=== PATIENT | female | born 1955 | race Caucasian/White ===

== ENCOUNTER 2020-11-13 07:32 | Outpatient (REF) | payer MEDICARE, MEDICAID, SELFPAY ==
[2020-11-13 10:50] LABS: MANUAL DIFF FLAG NO
[2020-11-13 10:54] LABS: Eosinophils Absolute Auto 0.2 X10*3/uL (0.0-0.4); Eosinophils Percent Auto 5.8 % (0-4); Hematocrit 40.5 % (37-47); Hemoglobin 13.5 g/dl (12.0-16.0); Lymphocytes Absolute Auto 1.3 X10*3/uL (1.2-4.9); Lymphocytes Percent Auto 42.3 % (20-40); Mean Corpuscular HGB Conc 33.3 g/dl (31.0-35.0); Mean Corpuscular Hemoglobin 34.9 pg (27.0-33.0); Mean Corpuscular Volume 104.7 fL (80-98); Mean Platelet Volume 10.9 fL (9.4-12.3); Monocytes Absolute Auto 0.4 X10*3/uL (0.1-1.2); Monocytes Percent Auto 11.9 % (2-11); Neutrophils Absolute Auto 1.2 X10*3/uL (2.0-8.3); Platelet Count 117 X10*3/uL (160-400); Red Blood Count 3.87 X10*6/uL (4.20-5.50); Red Cell Distribution Width 13.7 % (11.0-16.0); White Blood Count 3.1 X10*3/uL (4.8-10.8)
[2020-11-13 11:28] LABS: Alanine Aminotransferase 22 U/L (0-31); Albumin Level 3.3 g/dL (3.5-5.0); Alkaline Phosphatase 168 U/L (39-117); Anion Gap 12 (12-20); Aspartate Amino Transferase 43 U/L (5-31); Bilirubin Total 1.4 mg/dL (0.0-1.0); Blood Urea Nitrogen 16 mg/dL (9-16); Calcium 8.4 mg/dL (8.4-10.2); Carbon Dioxide 29 mmol/L (22-29); Chloride 103 mmol/L (96-108); Cholesterol 168 mg/dL; Estimated Glomerular Filt Rate > 60; Glucose Fasting 88 mg/dL (60-99); HDL Cholesterol 56 mg/dL; LDL Cholesterol Calculated 96 mg/dl; Potassium 4.7 mmol/L (3.3-5.1); Sodium 139 mmol/L (135-145); Total Protein 6.3 g/dL (6.5-8.0); Triglycerides 83 mg/dL
[2020-11-13 11:46] LABS: Vitamin D 25-OH Total 17.7 ng/mL (>30)
[2020-11-15 18:21] LABS: TS Negative Control Passed; TS Panel A 0; TS Panel B 0; TS Positive Control Passed; TSpotTB Negative (SeeBelow)
== END 2020-11-13 07:33 | disposition home or self-care (01) ==
LOC: HO.LHD 07:32
PROVIDERS: Visit Provider Internal Medicine
DX: I10 Essential (primary) hypertension (principal); E66.01 Morbid (severe) obesity due to excess calories; I48.21 Permanent atrial fibrillation; I50.32 Chronic diastolic (congestive) heart failure; M05.9 Rheumatoid arthritis with rheumatoid factor, unspecified; Z79.01 Long term (current) use of anticoagulants; Z78.0 Asymptomatic menopausal state
CPT/HCPCS: 36415; 80053; 80061; 82306; 85025; 86481

== ENCOUNTER → 2021-02-26 10:28 | Outpatient (REF) | payer MEDICARE, SELFPAY ==
--- NOTE | 2021-02-26 10:33 | CA_ITS ---
Transthoracic Echocardiogram Patient (Last, First, Middle): Zulma Weaver E Gender: Female Date of : 1955 Age: 65 Procedure Date: 02/26/2021 Procedure Type: Transthoracic Echocardiogram Location: OP Height: 193.04 cm Weight: 183.71 kg BSA: 2.99 m2 Heart Rate: bpm BP: 122 / 87 mmHg Animal Groomer: Ramesh MD: Bobby Kim MD Ladle Liner: Fred Villavicencio MD Symptoms: permanent afib Study Quality: Good ECG Rhythm: Atrial Fibrillation Conclusions: - 1. Normal LV systolic function with LVEF of 60 65% 2. Severe biatrial enlargement 3. Mild mitral regurgitation 4. Normal RV systolic pressure 5. No gross pericardial effusion Findings Left Ventricle Normal left ventricular size, thickness, and systolic function. The visually estimated ejection fraction is between 60-65%. Diastolic function is indeterminate on the basis of available data. Right Ventricle Normal right ventricular cavity size and systolic function. Atria Severe biatrial enlargement. Interatrial shunt cannot be excluded. Aortic Valve Normal aortic valve structure and function. There is no aortic valve stenosis. There is no aortic valve regurgitation. Mitral Valve There is mild anterior and moderate posterior mitral leaflet thickening. There is moderate mitral annular calcification. There is mild mitral valve regurgitation. There is no mitral valve stenosis. Tricuspid Valve Normal tricuspid valve structure. There is mild to moderate tricuspid valve regurgitation. Normal right atrial pressure. There is no evidence of pulmonary hypertension. Great Vessels All visible segments of the aorta are normal in size. The pulmonary artery was not well visualized. Venous The inferior vena cava is normal in size and collapses greater than 50% with inspiration. Pericardium/Pleural There is no evidence of pericardial effusion. Prior Study Comparison No significant change compared to prior study dated: 01/14/2020. Measurements 2D Linear Measurements RVIDd: 3.65 RVIDd Index: 0.20 IVSd: 1.05 0.6-0.9/0.6-1.0 cm LVIDd: 5.43 3.9-5.3/4.2-5.9 cm LVIDd Index: 0.30 2.4-3.2/2.2-3.1 cm/m2 LVIDs: 3.42 2.0-3.6 cm LVPWd: 1.18 0.7-1.1 cm Ao Root: 3.10 2.1-3.5 cm LA Diam: 8.50 2.7-3.8/3.0-4.0 cm LAIDs Index: 0.47 1.5-2.3 cm/m2 LV Mass: 300.93 67-162/88-224 g LV Mass Index: 16.61 43-95/49-115 g/m2 LVOT Diam: 2.20 3.0+(-)1.3 cm 2D Systolic Function EF 4C: 39.00 >55% EF 2C: 70.10 >55% Mitral Valve MR Vol - PW Dopp: 41.08 MR VTI: 1.58 MR ERO: 26.00 MR Alias Chava: 0.39 MR RAD: 0.70 Aortic Valve AoV Pk Chava: 1.55 AoV Mn Chava: 1.18 AoV VTI: 0.35 AoV Pk Grad: 10.00 Aov Mn Grad: 6.00 JAYESH Cont.VTI: 2.30 LVOT LVOT Pk Chava: 1.04 LVOT Mn Chava: 0.69 LVOT VTI: 0.21 LVOT Pk Grad: 4.00 LVOT Mn Grad: 2.00 LVOT Diam: 2.20 LVOT Area: 3.80 Tricuspid Valve TR Pk Chava: 2.91 TR Pk Grad: 34.00 RA Press: 3.00 RVSP: 37.00 Great Vessels Aorta Ao Root-2D: 3.10 2.0-3.7 cm Ao Asc: 3.50 2.1-3.4 cm Ao Arch: 3.20 Updated in Other Vendor System with Status of Final Fred Villavicencio MD electronically signed on 02/26/2021 3:31:07 PM with status of Final
--- NOTE | 2021-02-26 10:40 | ECG_ITS ---
Hook-up date: 2021-02-26 11:49:00 Duration: 26:28:00 Test Indications: PERMANENT ATRIAL FIB Medications: 78013 QRS complexes 122 Ventricular ectopics which represent <1 % of total QRS comp. * Supraventricular ectopics which represent % of total QRS comp. * Paced QRS complexs which represent % of total QRS comp. VENTRICULAR ECTOPY 122 Isolated 0 Bigeminal Cycles 0 Couplets 0 Runs 0 Beats in Runs * Beats LONGEST at * BPM at :: -- * Beats FASTEST at * BPM at :: -- SUPRAVENTRICULAR ECTOPY * Isolated * Couplets * Runs * Beats in Runs * Beats LONGEST at * BPM at :: -- * Beats FASTEST at * BPM at :: -- HEART RATES 47 MIN at 14:56:57 2021-02-26 75 AVG 131 MAX at 12:13:34 2021-02-26 LONGEST RR 2.0800 secs at 16:16:45 2021-02-26 S-T LEVELS Channel 1 - 128 mm at 11:49:00 2021-02-26 - 128 mm at 11:49:00 2021-02-26 Channel 2 - 128 mm at 11:49:00 2021-02-26 - 128 mm at 11:49:00 2021-02-26 Channel 3 - 128 mm at 03:10:81 -- - 128 mm at 03:10:81 Basic rhythm Atrial fibrillation No long pause or profound bradycardia Good overall rate control with average HR of 75 bpm Rare Premature ventricular complexes Patient did not report any symptoms in the diary Referred By: Bobby Kim Overread By: ALE ROBERTS MD
== END ==
LOC: HO.CARD 10:28
PROVIDERS: PCP Internal Medicine; Visit Provider Internal Medicine
DX: I48.21 Permanent atrial fibrillation (principal); I50.32 Chronic diastolic (congestive) heart failure
CPT/HCPCS: 93225; 93226; 93306; Q9957

== ENCOUNTER 2021-04-08 13:20 | Outpatient (REF) | payer MEDICARE, SELFPAY ==
--- NOTE | ~2021-04-08 | XR_ITS ---
EXAMINATION: XR SHOULDER, LEFT CLINICAL INFORMATION: Injury COMPARISON: None TECHNIQUE: 3 views of the left shoulder. FINDINGS: Bone alignment is normal. No fracture or dislocation is seen. The glenohumeral joint is normal. 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 There are periarticular soft tissue ossifications. XR/XR shoulder LT min 2V IMPRESSION: No fracture or dislocation. Arthritis at the acromioclavicular joint. Periarticular soft tissue ossifications.
== END 2021-04-08 13:21 | disposition home or self-care (01) ==
LOC: HO.HMGCX 13:20
PROVIDERS: PCP Internal Medicine; Visit Provider Nurse Practitioner Family
DX: Z13.89 Encounter for screening for other disorder (principal)
CPT/HCPCS: 73030

== ENCOUNTER 2021-11-24 12:31 | Outpatient (REF) | payer OTHER, SELFPAY ==
--- NOTE | ~2021-11-24 | MM_ITS ---
EXAMINATION: MM SCREENING DIGITAL BREAST TOMOSYNTHESIS, BILATERAL CLINICAL INFORMATION: Screening. Asymptomatic. The lifetime risk of breast cancer based on the Tyrer-Cuzick Model is 21.3%. Additional annual screening with breast MRI may be of benefit in women with a score of 20% or greater. COMPARISON: Mammography: March 04, 2016 and studies dating back to May 18, 2010 TECHNIQUE: Digital breast tomosynthesis is performed in both the craniocaudal and mediolateral oblique views along with computer-aided detection (CAD). Synthesized 2D images are generated from the tomosynthesis. FINDINGS: The breasts are almost entirely fatty (ACR BI-RADS breast composition Category a). There are no significant masses, abnormal calcifications, or other abnormalities. MM/MM tomosynthesis screening BI IMPRESSION: There are no significant changes from prior study. ASSESSMENT: BI-RADS 1: Negative RECOMMENDATION: Routine annual mammography screening. This patient's information was entered into a reminder system with a target due date for their next mammogram.
== END 2021-11-24 12:32 | disposition home or self-care (01) ==
LOC: HO.MAMMO 12:31
PROVIDERS: PCP Internal Medicine; Visit Provider Internal Medicine
DX: Z12.31 Encounter for screening mammogram for malignant neoplasm of breast (principal)
CPT/HCPCS: 77063; 77067

== ENCOUNTER 2022-05-20 08:25 | Outpatient (REF) | payer OTHER, SELFPAY ==
[2022-05-20 09:47] LABS: Appearance Urine Clear; Color Urine Dark Yellow; Glucose Urine UA Negative (Negative); Leukocyte Esterase Urine Small (1+) (Negative); Nitrite Urine Negative (Negative); Specific Gravity - Urine 1.025 (1.005-1.025); UMIC TRIGGER UACC YES; Urine Blood Negative (Negative); Urine Ketones Negative (Negative); Urine Protein Negative (Neg-Trace)
[2022-05-20 09:52] LABS: Bacteria Urine None Seen (None Seen); Hyaline Casts Urine 0-2 /LPF (0-2); RBC Urine 0-2 /HPF (0-2); Squamous Epithelial Cell Urine 0-2 /HPF (0-2); UACC Culture Trigger YES; WBC Urine 21-50 /HPF (0-5)
[2022-05-20 10:11] LABS: Anion Gap 12 (12-20); Blood Urea Nitrogen 20 mg/dL (9-16); Carbon Dioxide 30 mmol/L (22-29); Chloride 101 mmol/L (96-108); Estimated Glomerular Filt Rate > 60; Glucose Random 93 mg/dL (60-115); Potassium 4.4 mmol/L (3.3-5.1); Sodium 139 mmol/L (135-145)
== END 2022-05-20 08:26 | disposition home or self-care (01) ==
LOC: HO.LAB 08:25
PROVIDERS: PCP Internal Medicine; Referring Provider Internal Medicine; Visit Provider Internal Medicine
DX: I48.21 Permanent atrial fibrillation (principal); I50.32 Chronic diastolic (congestive) heart failure; G47.33 Obstructive sleep apnea (adult) (pediatric); E66.01 Morbid (severe) obesity due to excess calories; E83.119 Hemochromatosis, unspecified; Z79.899 Other long term (current) drug therapy; Z99.89 Dependence on other enabling machines and devices
CPT/HCPCS: 36415; 80048; 81001; 87086; 93005; 99212

== ENCOUNTER → 2022-06-29 13:36 | Outpatient (BNVA) | payer OTHER, SELFPAY | PROVIDERS: PCP Internal Medicine; Visit Provider Internal Medicine Pulmonary Disease | DX: G47.33 Obstructive sleep apnea (adult) (pediatric) (principal); J45.30 Mild persistent asthma, uncomplicated; Z99.89 Dependence on other enabling machines and devices | CPT/HCPCS: 99212 ==

== ENCOUNTER 2022-11-26 12:51 | Outpatient (REF) | payer OTHER, SELFPAY ==
--- NOTE | ~2022-11-26 | MM_ITS ---
EXAMINATION: MM SCREENING DIGITAL BREAST TOMOSYNTHESIS, BILATERAL CLINICAL INFORMATION: Screening. Asymptomatic. The lifetime risk of breast cancer based on the Tyrer-Cuzick Model is 17%. COMPARISON: Mammography: 11/24/2021, 03/04/2016, 11/09/2013 TECHNIQUE: Digital breast tomosynthesis is performed in both the craniocaudal and mediolateral oblique views along with computer-aided detection (CAD). Synthesized 2D images are generated from the tomosynthesis. Additional right cleavage and left CC views are provided. FINDINGS: The breasts are almost entirely fatty (ACR BI-RADS breast composition Category a). Breasts are slightly symmetrically smaller when compared with prior studies consistent with interval weight loss. The axilla and skin contours are unremarkable. No abnormal calcifications. Right breast shows stromal and fibroglandular densities similar to prior exam. There is no developing density or interval architectural abnormality. Left breast has incidental intramammary node mid outer breast similar to prior studies. There is subtle focal asymmetric density central left breast mid depth. Patient will be recalled for additional views. MM/MM tomosynthesis screening BI IMPRESSION: Left: -Subtle focal asymmetric density central breast mid depth. Right: -No mammographic evidence of malignancy. ASSESSMENT: BI-RADS 0: Incomplete - Need Additional Imaging Evaluation RECOMMENDATION: 1. Additional views left breast (spot CC, ML). 2. Targeted ultrasound if warranted after review of the additional views. 3. Radiology department staff will contact the patient for additional imaging. This patient's information was entered into a reminder system with a target due date for their next mammogram.
== END 2022-11-26 12:52 | disposition home or self-care (01) ==
LOC: HO.MAMMO 12:51
PROVIDERS: PCP Internal Medicine; Visit Provider Internal Medicine
DX: Z12.31 Encounter for screening mammogram for malignant neoplasm of breast (principal)
CPT/HCPCS: 77063; 77067

== ENCOUNTER 2022-12-01 09:25 | Outpatient (REF) | payer OTHER, SELFPAY ==
--- NOTE | ~2022-12-01 | MM_ITS ---
EXAMINATION: MM DIAGNOSTIC DIGITAL BREAST TOMOSYNTHESIS, LEFT US TARGETED BREAST, LEFT CLINICAL INFORMATION: Asymmetric parenchyma central left breast. COMPARISON: Mammography: 11/26/2022 and studies dating back to 11/09/2013 TECHNIQUE: Digital breast tomosynthesis is performed. 2D images are generated from the tomosynthesis. The following views are obtained: Spot craniocaudal view, 90 degrees mediolateral view, and rolled craniocaudal views. FINDINGS: The breasts are almost entirely fatty (ACR BI-RADS breast composition Category a). There is some asymmetric tissue present which appears slightly more prominent than on prior study of 11/24/2021 and is difficult to compare to previous non-3-D studies. No definite focal mass is identified. Targeted ultrasound evaluation of the left breast did not demonstrate any abnormal cystic or solid mass. No region of abnormal distal sound shadowing was appreciated. Results are discussed with the patient at time of visit. MM/MM tomosynthesis added views L IMPRESSION: Mildly asymmetric parenchyma central aspect of the left breast for which 6 month follow-up mammography is recommended. ASSESSMENT: BI-RADS 3: Probably Benign RECOMMENDATION: Diagnostic mammography in 6 months. This patient's information was entered into a reminder system with a target due date for their next mammogram.
== END 2022-12-01 09:26 | disposition home or self-care (01) ==
LOC: HO.MAMMO 09:25
PROVIDERS: PCP Internal Medicine; Visit Provider Internal Medicine
DX: R92.2 Inconclusive mammogram (principal)
CPT/HCPCS: 76642; 77061; 77065

== ENCOUNTER 2022-12-29 12:22 | Emergency (ER) | payer OTHER, SELFPAY ==
--- NOTE | ~2022-12-29 | US_ITS ---
EXAMINATION: US VENOUS ULTRASOUND WITH DOPPLER LOWER EXTREMITY, LEFT CLINICAL INFORMATION: Left lower extremity swelling and pain COMPARISON: None available. TECHNIQUE: Ultrasound of the deep veins is performed from the hip to the calf with compression sonography and color and pulse Doppler assessment. Spectral analysis with color-flow imaging is performed. FINDINGS: There is normal venous compression and respiratory variation and augmented flow. The visualized common femoral vein, superficial femoral vein, profunda femoral vein, popliteal vein, and the trifurcation region shows no evidence of deep venous thrombosis. There is no significant popliteal fossa cyst. Superficial varicose veins however are seen in the posterior calf If the patient's symptoms persist, followup ultrasound in 5 days 7 days might be of value to exclude proximal propagation from a non-visualized calf vein. US/US venous duplex LE LT IMPRESSION: No DVT demonstrated in the left lower extremity. Patent superficial varicosities are observed in the calf.
--- NOTE | 2022-12-29 12:33 | ED.GENADULT ---
HPI - General Adult General Chief complaint: Extremity Injury, Lower <VICTOR M Pompa Last Filed: 12/29/22 12:34> Stated complaint: L lower vain issues <VICTOR M Pompa Last Filed: 12/29/22 12:34> Time Seen by Provider: 12/29/22 13:33 <VICTOR M Pompa Last Filed: 12/29/22 12:34> Source: patient <VICTOR M Heaton Last Filed: 12/29/22 17:57> Mode of arrival: ambulatory <VICTOR M Heaton Last Filed: 12/29/22 17:57> Limitations: no limitations <VICTOR M Heaton Last Filed: 12/29/22 17:57> History of Present Illness HPI narrative: Patient is a 67 year old assigned female at with a history of varicose veins, HTN, and phlebitis presenting to the emergency department today with left lower leg swelling. Patient states that she noticed additional swelling of her varicose veins over the last couple days and she is concerned about a blood clot. Patient states that she is on warfarin and gets her INR checked regularly. Patient denies any dizziness, lightheadedness, abdominal pain, nausea, vomiting, fever, chills, blurry vision, double vision, loss of vision, chest pain, difficulty breathing, shortness of breath, back pain, night sweats, pain with urination, increased urinary frequency, increased urinary urgency, blood in her urine or stool, syncope or a near syncopal episode, recent trauma or falls, bowel incontinence, bladder incontinence, bowel retention, bladder retention, or any other complaints at this time. <VICTOR M Heaton Last Filed: 12/29/22 17:57> Onset (ago): day(s) <VICTOR M Heaton Last Filed: 12/29/22 17:57> Location: left and lower extremity <VICTOR M Heaton Last Filed: 12/29/22 17:57> Severity: mild <VICTOR M Heaton Last Filed: 12/29/22 17:57> Relieving factors: none <VICTOR M Heaton Last Filed: 12/29/22 17:57> Exacerbating factors: none <VICTOR M Heaton Last Filed: 12/29/22 17:57> Associated symptoms: denies other symptoms <VICTOR M Heaton Last Filed: 12/29/22 17:57> Treatments prior to arrival: none <VICTOR M Heaton Last Filed: 12/29/22 17:57> Related Data Home medications: Home Medications Medication Instructions Recorded Confirmed tramadol 50 mg tablet 50 mg PO Q6H PRN 06/02/20 05/20/22 etanercept 50 mg/mL (1 mL) 50 mg subcut QWEEK 08/15/20 05/20/22 subcutaneous syringe folic acid 1 mg tablet 1 mg PO DAILY 08/15/20 05/20/22 carboxymethylcellulose sodium 0.5 1 drp ophthalmic (eye) BID 12/28/22 % eye drops (Refresh Tears) Previous Rx's Medication Instructions Recorded metoprolol succinate 50 mg 50 mg PO DAILY #90 tabs 05/20/22 tablet,extended release 24 hr (Toprol XL) furosemide 40 mg tablet 80 mg PO DAILY #180 tabs 07/22/22 warfarin 10 mg tablet 10 mg PO DAILY #90 tabs 07/22/22 <VICTOR M Pompa Last Filed: 12/29/22 12:34> Allergies/adverse reactions: Allergies Allergy/AdvReac Type Severity Reaction Status Date / Time No Known Allergies Allergy Verified 12/29/22 12:37 <VICTOR M Pompa Last Filed: 12/29/22 12:34> Review of Systems Constitutional: Constitutional: Reports no additional constitutional complaints, Denies chills, Denies fever(s) and Denies night sweats <VICTOR M Heaton Last Filed: 12/29/22 17:57> Eyes: Eyes: Reports no additional eye complaints, Denies blurry vision, Denies change in vision, Denies diplopia, Denies eye discharge, Denies loss of vision and Denies eye pain <VICTOR M Heaton Last Filed: 12/29/22 17:57> ENT: Denies dizziness <VICTOR M Heaton Last Filed: 12/29/22 17:57> Cardiovascular: Cardiovascular: Reports no additional cardiovascular complaints, Denies chest pain, Denies lightheadedness, Denies Loss of Consciousness and Denies dyspnea <VICTOR M Heaton Last Filed: 12/29/22 17:57> Respiratory: Respiratory: Reports no additional respiratory complaints and Denies dyspnea <VICTOR M Heaton Last Filed: 12/29/22 17:57> Gastrointestinal: Gastrointestinal: Reports no additional gastrointestinal complaints, Denies abdominal pain, Denies melena, Denies hematochezia, Denies change in bowel habits and Denies change in stool character <VICTOR M Heaton Last Filed: 12/29/22 17:57> Genitourinary: Genitourinary: Denies hematuria, Denies urinary frequency, Denies dysuria, Denies urinary incontinence, Denies urinary hesitancy and Denies urinary urgency <VICTOR M Heaton Last Filed: 12/29/22 17:57> Musculoskeletal: Musculoskeletal: Reports no additional musculoskeletal complaints, Denies numbness and Denies tingling <VICTOR M Haeton Last Filed: 12/29/22 17:57> Comments: left lower leg swelling <VICTOR M Heaton Last Filed: 12/29/22 17:57> Neurologic: Denies dizziness, Denies loss of vision, Denies numbness and Denies tingling <VICTOR M Heaton Last Filed: 12/29/22 17:57> Psychiatric: Psychiatric: Reports no additional psychiatric complaints <VICTOR M Heaton Last Filed: 12/29/22 17:57> Endocrine: Endocrine: Reports no additional endocrine complaints <VICTOR M Heaton Last Filed: 12/29/22 17:57> Hematologic/Lymphatic: Hematologic/Lymphatic: Reports no additional hematologic/lymphatic complaints <VICTOR M Heaton Last Filed: 12/29/22 17:57> Allergic/Immunologic: Allergic/Immunologic: Reports no additional allergic/immunologic complaints <VICTOR M Heaton Last Filed: 12/29/22 17:57> PMFSH Past Medical History Attestation statement: The following information was validated with the patient. <VICTOR M Heaton Last Filed: 12/29/22 17:57> Source: old records reviewed and nursing notes reviewed <VICTOR M Heaton Last Filed: 12/29/22 17:57> Medical History: Medical History Acquired deformity of toenail Anticoagulated on Coumadin Chronic diastolic congestive heart failure Difficulty in walking Gait instability Hemochromatosis Mild persistent asthma Morbid obesity FACUNDO on CPAP Permanent atrial fibrillation Polyarticular osteoarthritis Problem situation relating to social and personal history Seropositive rheumatoid arthritis Tubular adenoma of colon Urinary incontinence <VICTOR M Pompa - Last Filed: 12/29/22 12:34> Surgical History: Surgical History Heel spur History of carpal tunnel surgery History of laparoscopic cholecystectomy History of total abdominal hysterectomy and bilateral salpingo-oophorectomy <VICTOR M Pompa - Last Filed: 12/29/22 12:34> Family History Family History: Family History Mother Pancreatic cancer Father Pancreatic cancer Myocardial infarction Maternal Grandmother Breast cancer Paternal Grandfather Myocardial infarction Paternal Grandmother Myocardial infarction <VICTOR M Pompa - Last Filed: 12/29/22 12:34> Social History Social History: Social History Housing: Apartment Alcohol intake: former Patient Tobacco Use Status: Former Tobacco user e-Cigarette/Vaping Use: Never Used Advance Directives: Yes Advance Directives on File: Yes Advance Directives Date on File: 11/11/22 Current occupational status: disabled Cognitive needs: No Hearing needs: No Vision needs: Yes <VICTOR M Pompa - Last Filed: 12/29/22 12:34> Physical Exam ED Vital Signs: Vital Signs - 24 hr 12/29/22 12:34 Temperature 98.1 F Pulse Rate 80 Respiratory Rate 20 Blood Pressure 152/84 H Pulse Oximetry 94 Oxygen Delivery Method Room Air BMI result Body Mass Index 55.0 <VICTOR M Pompa - Last Filed: 12/29/22 12:34> Vital Signs - 24 hr 12/29/22 12:34 Temperature 98.1 F Pulse Rate 80 Respiratory Rate 20 Blood Pressure 152/84 H Pulse Oximetry 94 Oxygen Delivery Method Room Air BMI result Body Mass Index 55.0 <VICTOR M Heaton - Last Filed: 12/29/22 17:57> Const General: cooperative, no acute distress, alert and awake <Dayna Barahona PA - Last Filed: 12/29/22 17:57> Nutritional Appearance: well nourished <Daynamarcie Bernalwilber NH - Last Filed: 12/29/22 17:57> Orientation/consciousness: patient oriented x3 <Dayna Barahona NH - Last Filed: 12/29/22 17:57> Limitations: no limitations <Dayna Barahona NH - Last Filed: 12/29/22 17:57> HENMT Head: Yes normal to inspection and Yes atraumatic <Dayna Barahona NH - Last Filed: 12/29/22 17:57> Ears: hearing grossly normal bilaterally and external ears normal <Dayna Barahona NH - Last Filed: 12/29/22 17:57> General nose exam: Normal external nose present, no nasal discharge noted and no epistaxis <Dayna Barahona NH - Last Filed: 12/29/22 17:57> Face and sinus: Yes normal facial exam, No abrasion and No laceration <Dayna Barahona NH - Last Filed: 12/29/22 17:57> Mouth: Normal oral and palatal mucosa present, no drooling and no muffled voice <Dayna Barahona NH - Last Filed: 12/29/22 17:57> Eyes General: appearance normal, both eyes and all related structures <Dayna Barahona NH - Last Filed: 12/29/22 17:57> Periorbital: periorbital findings normal <Dayna Barahona PA - Last Filed: 12/29/22 17:57> Eyelids: Yes eyelids normal <Dayna Barahona PA - Last Filed: 12/29/22 17:57> Conjunctivae: conjunctivae normal <Dayna Barahona PA - Last Filed: 12/29/22 17:57> Pupils: Equal, round and reactive pupils present <Dayna Barahona PA - Last Filed: 12/29/22 17:57> EOM: EOMs intact bilaterally <Dayna Barahona PA - Last Filed: 12/29/22 17:57> Neck Neck: Yes normal visual inspection, Yes full ROM and Yes no lymphadenopathy <Dayna Barahona NH - Last Filed: 12/29/22 17:57> Chest Chest palpation & inspection: normal inspection of the chest <Dayna Barahona NH - Last Filed: 12/29/22 17:57> Resp Effort & Inspection: normal respiratory effort and able to speak in complete sentences <Dayna Barahona NH - Last Filed: 12/29/22 17:57> GI Inspection: Yes normal to inspection <Dayna Barahona NH - Last Filed: 12/29/22 17:57> Neuro General: patient oriented x3 and moves all extremities <Dayna Barahona NH - Last Filed: 12/29/22 17:57> Cranial nerves: Yes Equal, round and reactive pupils present <Dayna Barahona NH - Last Filed: 12/29/22 17:57> Cognition (Neuro): normal cognition <Dayna Barahona NH - Last Filed: 12/29/22 17:57> Motor exam (neuro): 5/5 motor strength present throughout <Dayna Barahona NH - Last Filed: 12/29/22 17:57> Sensory Exam: Normal double simultaneous stimulation for sensation <Dayna Barahona NH - Last Filed: 12/29/22 17:57> Coordination: [id number] test normal <Dayna Barahona NH - Last Filed: 12/29/22 17:57> Extrem Other: multiple varicose veins to bilateral lower legs <Dayna Barahona NH - Last Filed: 12/29/22 17:57> General: Yes full ROM and Yes capillary refill normal <Dayna Barahona NH - Last Filed: 12/29/22 17:57> Psych Appearance: grossly normal <Dayna Barahona NH - Last Filed: 12/29/22 17:57> Mental Status: mental status grossly normal <Dayna BarahonaVICTOR M - Last Filed: 12/29/22 17:57> Affect: normal affect <Dayna BarahonaVICTORM - Last Filed: 12/29/22 17:57> Attitude: cooperative <Dayna BarahonaVICTOR M - Last Filed: 12/29/22 17:57> Thought process: Normal thought process present <Dayna BernalVICTOR M merino - Last Filed: 12/29/22 17:57> Thought content: Normal thought content present <VICTOR M Heaton Last Filed: 12/29/22 17:57> Insight: Good insight present (Psych) <VICTOR M Heaton Last Filed: 12/29/22 17:57> Course Course Course Narrative: This is an RME: Additional HPI, ROS, PE not included below will be deferred to primary provider. 67-year-old female presents for evaluation of left lower extremity pain and swelling worsening over the past few days, patient is on were friend. Tells me she has a history of phlebitis. There is 2+ nonpitting edema bilateral lower extremities from the knee down bilaterally Patient anticoagulated I do have low suspicion for clot burden however patient concerned. Will order venous duplex. Basic labs and PT INR. <VICTOR M Pompa Last Filed: 12/29/22 12:34> Medical Decision Making Medical Decision Making [facility] Narrative: Patient is a 67 year old assigned female at with a history of varicose veins presenting to the emergency department today with left lower leg swelling. Patient's physical exam showed bilateral lower leg varicose veins. Patient's blood work was unremarkable. Patient's left lower leg US showed no acute process. I explained my physical exam findings as well as all test results to the patient. I answered all questions asked by the patient. I stressed the importance of the patient taking her medication as prescribed. I stressed the importance of the patient following up with her primary care provider. I stressed the importance of the patient returning to the emergency department immediately if her symptoms were to worsen or if she were to develop any dizziness, shortness of breath, difficulty breathing, chest pain, blurry vision, loss of vision, nausea, vomiting, abdominal pain, fever, chills, back pain, or any other complaints. Patient verbalized agreement and understanding with this treatment plan and discharge. <VICTOR M Heaton Last Filed: 12/29/22 17:57> Differential Diagnosis Differential Diagnoses: The differential diagnosis associated with the presentation includes <VICTOR M Heaton Last Filed: 12/29/22 17:57> varicose veins <VICTOR M Heaton Last Filed: 12/29/22 17:57> Lab Data [facility] Lab Attestation statement: I reviewed the patient's lab results. <VICTOR M Heaton Last Filed: 12/29/22 17:57> Result Diagrams: 12/29/22 14:14 12/29/22 14:14 <VICTOR M Pompa - Last Filed: 12/29/22 12:34> Labs: Lab Results 12/29/22 12/29/22 12/29/22 Range/Units 14:14 14:14 14:14 WBC 3.7 L (4.8-10.8) X10*3/uL RBC 4.06 L (4.20-5.50) X10*6/uL Hgb 14.1 (12.0-16.0) g/dl Hct 42.9 (37.0-47.0) % MCV 105.7 H (80.0-98.0) fL MCH 34.7 H (27.0-33.0) pg MCHC 32.9 (31.0-35.0) g/dl RDW 13.8 (11.0-16.0) % Plt Count 111 L (160-400) X10*3/uL MPV 10.6 (9.4-12.3) fL Immature Gran % (Auto) 0.3 (0.0-0.4) % Neut % (Auto) 42.5 L (45-73) % Lymph % (Auto) 40.3 H (20-40) % [place] % (Auto) 12.0 H (2-11) % Eos % (Auto) 4.1 H (0-4) % Baso % (Auto) 0.8 (0-2) % Lymph # (Auto) 1.5 (1.2-4.9) X10*3/uL [place] # (Auto) 0.4 (0.1-1.2) X10*3/uL Eos # (Auto) 0.2 (0.0-0.4) X10*3/uL Baso # (Auto) 0.0 (0.0-0.2) X10*3/uL Abs Immat Gran (auto) 0.01 (0.00-0.03) X10*3/uL Absolute Neuts (auto) 1.6 L (2.0-8.3) x10*3/uL Absolute Nucleated RBC 0.000 (0.0-0.012) X10*3/uL Nucleated RBC % (auto) 0.0 (0.0-0.2) /100WBC PT 28.2 H (10.0-13.1) SEC INR 2.4 H (0.9-1.1) Sodium 141 (135-145) mmol/L Potassium 4.3 (3.3-5.1) mmol/L Chloride 103 (96-108) mmol/L Carbon Dioxide 32 H (22-29) mmol/L Anion Gap 10 L (12-20) BUN 17 H (9-16) mg/dL Creatinine 0.59 (0.5-1.4) mg/dL Estim Creat Clear Calc 181.7 Estimated GFR > 60 Random Glucose 94 (60-115) mg/dL Calcium 9.1 (8.4-10.2) mg/dL Total Bilirubin 1.5 H (0.0-1.0) mg/dL AST 49 H (5-31) U/L ALT 36 H (0-31) U/L Alkaline Phosphatase 208 H (39-117) U/L Total Protein 6.7 (6.5-8.0) g/dL Albumin 3.5 (3.5-5.0) g/dL <VICTOR M Pompa - Last Filed: 12/29/22 12:34> Lab Results 12/29/22 12/29/22 12/29/22 Range/Units 14:14 14:14 14:14 WBC 3.7 L (4.8-10.8) X10*3/uL RBC 4.06 L (4.20-5.50) X10*6/uL Hgb 14.1 (12.0-16.0) g/dl Hct 42.9 (37.0-47.0) % MCV 105.7 H (80.0-98.0) fL MCH 34.7 H (27.0-33.0) pg MCHC 32.9 (31.0-35.0) g/dl RDW 13.8 (11.0-16.0) % Plt Count 111 L (160-400) X10*3/uL MPV 10.6 (9.4-12.3) fL Immature Gran % (Auto) 0.3 (0.0-0.4) % Neut % (Auto) 42.5 L (45-73) % Lymph % (Auto) 40.3 H (20-40) % [place] % (Auto) 12.0 H (2-11) % Eos % (Auto) 4.1 H (0-4) % Baso % (Auto) 0.8 (0-2) % Lymph # (Auto) 1.5 (1.2-4.9) X10*3/uL [place] # (Auto) 0.4 (0.1-1.2) X10*3/uL Eos # (Auto) 0.2 (0.0-0.4) X10*3/uL Baso # (Auto) 0.0 (0.0-0.2) X10*3/uL Abs Immat Gran (auto) 0.01 (0.00-0.03) X10*3/uL Absolute Neuts (auto) 1.6 L (2.0-8.3) x10*3/uL Absolute Nucleated RBC 0.000 (0.0-0.012) X10*3/uL Nucleated RBC % (auto) 0.0 (0.0-0.2) /100WBC PT 28.2 H (10.0-13.1) SEC INR 2.4 H (0.9-1.1) Sodium 141 (135-145) mmol/L Potassium 4.3 (3.3-5.1) mmol/L Chloride 103 (96-108) mmol/L Carbon Dioxide 32 H (22-29) mmol/L Anion Gap 10 L (12-20) BUN 17 H (9-16) mg/dL Creatinine 0.59 (0.5-1.4) mg/dL Estim Creat Clear Calc 181.7 Estimated GFR > 60 Random Glucose 94 (60-115) mg/dL Calcium 9.1 (8.4-10.2) mg/dL Total Bilirubin 1.5 H (0.0-1.0) mg/dL AST 49 H (5-31) U/L ALT 36 H (0-31) U/L Alkaline Phosphatase 208 H (39-117) U/L Total Protein 6.7 (6.5-8.0) g/dL Albumin 3.5 (3.5-5.0) g/dL <VICTOR M Heaton Last Filed: 12/29/22 17:57> Independent Interpretation I performed an independent interpretation of an: Ultrasound <VICTOR M Heaton Last Filed: 12/29/22 17:57> Interpretation: My interpretation is in agreement with the radiologist's impression of this imaging study. EXAMINATION:? US VENOUS ULTRASOUND WITH DOPPLER LOWER EXTREMITY, LEFT CLINICAL INFORMATION:? Left lower extremity swelling and pain COMPARISON:? None available. TECHNIQUE: Ultrasound of the deep veins is performed from the hip to the calf with compression sonography and color and pulse Doppler assessment. Spectral analysis with color-flow imaging is performed. FINDINGS: There is normal venous compression and respiratory variation and augmented flow. The visualized common femoral vein, superficial femoral vein, profunda femoral vein, popliteal vein, and the trifurcation region shows no evidence of deep venous thrombosis. ? There is no significant popliteal fossa cyst. Superficial varicose veins however are seen in the posterior calf If the patient's symptoms persist, followup ultrasound in 5 days 7 days might be of value to exclude proximal propagation from a non-visualized calf vein. US/US venous duplex LE LT IMPRESSION: No DVT demonstrated in the left lower extremity. Patent superficial varicosities are observed in the calf. Dictated By: Harpal Rasmussen MD Signed By: Electronically signed by Harpal Rasmussen MD 12/29/22 1429 <VICTOR M Heaton Last Filed: 12/29/22 17:57> Discharge Plan Discharge Clinical Impression: Varicose vein of leg <VICTOR M Pompa Last Filed: 12/29/22 12:34> Patient Disposition: Home, Self-Care <VICTOR M Pompa - Last Filed: 12/29/22 12:34> Instructions: Venous Insufficiency (DC) <VICTOR M Pompa - Last Filed: 12/29/22 12:34> Additional Instructions: Follow up with your primary care provider. Return to the emergency department immediately if your symptoms worsen or if you develop any dizziness, shortness of breath, difficulty breathing, chest pain, blurry vision, loss of vision, nausea, vomiting, abdominal pain, fever, chills, back pain, or any other complaints. <VICTOR M Pompa - Last Filed: 12/29/22 12:34> Prescriptions: No Action furosemide 40 mg tablet 80 mg PO DAILY Qty: 180 2RF warfarin 10 mg tablet 10 mg PO DAILY Qty: 90 3RF folic acid 1 mg tablet 1 mg PO DAILY Enbrel 50 mg/mL (1 mL) syringe 50 mg subcut QWEEK carboxymethylcellulose sodium [Refresh Tears] 0.5 % drops 1 drp ophthalmic (eye) BID tramadol 50 mg tablet 50 mg PO Q6H PRN metoprolol succinate [Toprol XL] 50 mg tablet extended release 24 hr 50 mg PO DAILY Qty: 90 3RF <VICTOR M Pompa - Last Filed: 12/29/22 12:34> Referrals: Angelita Alves MD [Primary Care Provider] - <VICTOR M Pompa - Last Filed: 12/29/22 12:34> Interventions: ED Discharge Assessment Last Done: 12/29/22 15:11 <VICTOR M Pompa - Last Filed: 12/29/22 12:34> Discharge Date/Time: 12/29/22 15:12 <VICTOR M Pompa - Last Filed: 12/29/22 12:34> Print Language: Portuguese <VICTOR M Pompa - Last Filed: 12/29/22 12:34>
[2022-12-29 12:34] VITALS: BP 152/84; PULSE 80; RESP 20; TEMP 36.7; O2SAT 94; BMI 55.0
[2022-12-29 14:19] LABS: MANUAL DIFF FLAG NO
[2022-12-29 14:24] LABS: Basophils Percent Auto 0.8 % (0-2); Eosinophils Absolute Auto 0.2 X10*3/uL (0.0-0.4); Eosinophils Percent Auto 4.1 % (0-4); Hematocrit 42.9 % (37.0-47.0); Hemoglobin 14.1 g/dl (12.0-16.0); Imm Gran Abs Auto 0.01 X10*3/uL (0.00-0.03); Imm Gran Pct Auto 0.3 % (0.0-0.4); Lymphocytes Absolute Auto 1.5 X10*3/uL (1.2-4.9); Lymphocytes Percent Auto 40.3 % (20-40); Mean Corpuscular HGB Conc 32.9 g/dl (31.0-35.0); Mean Corpuscular Hemoglobin 34.7 pg (27.0-33.0); Mean Corpuscular Volume 105.7 fL (80.0-98.0); Mean Platelet Volume 10.6 fL (9.4-12.3); Monocytes Absolute Auto 0.4 X10*3/uL (0.1-1.2); Neutrophils Absolute Auto 1.6 x10*3/uL (2.0-8.3); Neutrophils Percent Auto 42.5 % (45-73); Platelet Count 111 X10*3/uL (160-400); Red Blood Count 4.06 X10*6/uL (4.20-5.50); Red Cell Distribution Width 13.8 % (11.0-16.0); White Blood Count 3.7 X10*3/uL (4.8-10.8)
[2022-12-29 14:33] LABS: INTERNATIONAL NORM RATIO 2.4 (0.9-1.1); Prothrombin Time 28.2 SEC (10.0-13.1)
[2022-12-29 14:37] LABS: Alanine Aminotransferase 36 U/L (0-31); Albumin Level 3.5 g/dL (3.5-5.0); Alkaline Phosphatase 208 U/L (39-117); Anion Gap 10 (12-20); Aspartate Amino Transferase 49 U/L (5-31); Bilirubin Total 1.5 mg/dL (0.0-1.0); Blood Urea Nitrogen 17 mg/dL (9-16); Calcium 9.1 mg/dL (8.4-10.2); Carbon Dioxide 32 mmol/L (22-29); Chloride 103 mmol/L (96-108); Creatinine Clr Calc Pharmacy 181.7; Estimated Glomerular Filt Rate > 60; Glucose Random 94 mg/dL (60-115); Potassium 4.3 mmol/L (3.3-5.1); Sodium 141 mmol/L (135-145); Total Protein 6.7 g/dL (6.5-8.0)
== END 2022-12-29 15:12 | disposition home or self-care (01) ==
PROVIDERS: Physician Assistant; Emergency Provider Emergency Medicine; PCP Internal Medicine
DX: I83.12 Varicose veins of left lower extremity with inflammation (principal); R60.0 Localized edema; Z79.899 Other long term (current) drug therapy
CPT/HCPCS: 36415; 80053; 85025; 85610; 93971; 99282; 99284

== ENCOUNTER 2023-01-18 12:06 | Outpatient (REF) | payer OTHER, SELFPAY ==
--- NOTE | 2023-01-18 12:35 | PFT_ITS ---
FLOWS: 1. FEV1 58% of predicted at 1.95 L. 2. FVC 58% of predicted at 2.59 L. 3. FEV1 to FVC ratio of 0.76. 4. No bronchodilator response except in small to medium airways. LUNG VOLUMES: 1. Total lung capacity 71% of predicted at 4.71 L. 2. Residual volume 84% of predicted at 2.23 L. 3. Diffusion capacity is normal. IMPRESSION: Moderate restrictive ventilatory defect with positive bronchodilator response. Doroteo Restrepo MD AP/MODL / [id number]
== END 2023-01-18 12:07 | disposition home or self-care (01) ==
LOC: HO.RESP 12:06
PROVIDERS: PCP Internal Medicine; Visit Provider Internal Medicine Pulmonary Disease
DX: J45.30 Mild persistent asthma, uncomplicated (principal)
CPT/HCPCS: 94010; 94727; 94729

== ENCOUNTER 2023-03-23 10:56 | Outpatient (AMB) | payer OTHER, SELFPAY ==
--- NOTE | 2023-03-23 10:56 | A.OFFVIS_ITS ---
Intake Vital Signs 03/23/23 10:59 Height 6 ft 2 in Weight 418 lb 14.052 oz BMI 53.8 BP 118/78 Blood Pressure Location Rt brachial Position Sitting Pulse 85 Pulse Source Pulse Oximeter Pulse Oximetry (%) 94 Oxygen Delivery Method Nasal Cannula Intake Visit Reasons: COPD Allergies No Known Allergies Allergy (Verified 03/23/23 11:03) HPI COPD HPI Details 67-year-old lady followed for underlying asthma, environmental aller gies, and FACUNDO on CPAP.? Patient also has rheumatoid arthritis, previously on methotrexate, though at least 9 years prior.? Patient states that her asthma has been very well controlled after moving into a new apartment and she rarely requires to use her albuterol MDI or nebulizer. Her sleep apnea also well controlled on current CPAP therapy.? She denies recent exacerbations. She has completed her pulmonary function test. [facility] Medical History Acquired deformity of toenail Anticoagulated on Coumadin Chronic diastolic congestive heart failure Difficulty in walking Gait instability Hemochromatosis Mild persistent asthma Morbid obesity FACUNDO on CPAP Permanent atrial fibrillation Polyarticular osteoarthritis Problem situation relating to social and personal history Seropositive rheumatoid arthritis Tubular adenoma of colon Urinary incontinence Surgical History Heel spur History of carpal tunnel surgery History of laparoscopic cholecystectomy History of total abdominal hysterectomy and bilateral salpingo-oophorectomy Family History Mother Pancreatic cancer Father Pancreatic cancer Myocardial infarction Maternal Grandmother Breast cancer Paternal Grandfather Myocardial infarction Paternal Grandmother Myocardial infarction Social History Housing: Apartment Alcohol intake: former Patient Tobacco Use Status: Former Tobacco user e-Cigarette/Vaping Use: Never Used Advance Directives Date on File: 11/11/22 Current occupational status: disabled Cognitive needs: No Hearing needs: No Vision needs: Yes Review of Systems Const Denies daytime sleepiness, Denies excessive sweating, Denies fatigue, Denies fever(s), Denies lethargy, Denies malaise, Denies night sweats, Denies snoring and Denies weight loss Eyes Denies blurry vision and Denies itchy eyes ENT Denies nasal congestion, Denies post nasal drip, Denies sinus pain, Denies sinus pressure and Denies other ( Thrush) Card Denies chest pain, Denies pedal edema, Denies dyspnea, Denies orthopnea and Denies paroxysmal nocturnal dyspnea Resp Denies cough, Denies hemoptysis, Denies excessive phlegm production, Denies dyspnea, Denies snoring and Denies wheezing GI Denies abdominal pain and Denies heartburn Musc Denies myalgias, Denies arthralgias and Denies joint swelling Skin/Breast Denies rash Neuro Denies memory loss and Denies seizure-like activity Psych Denies abnormal sleep pattern, Denies anxiety and Denies memory loss Endo Denies excessive sweating, Denies fatigue and Denies heat intolerance Jose D/Lymph Denies easy bruising Aller/Immun Denies itchy eyes, Denies seasonal rhinorrhea and Denies wheezing Physical Exam Vital Signs: Last Vital Signs Pulse 85 03/23/23 10:59 BP 118/78 03/23/23 10:59 Pulse Ox 94 03/23/23 10:59 Oxygen Delivery Method Nasal Cannula 03/23/23 10:59 BMI result Body Mass Index 53.8 Const General: no acute distress and alert Nutritional Appearance: obese Orientation/consciousness: Other orientation findings ( oriented) HEENT Head: Yes atraumatic Eyes General: appearance normal, both eyes and all related structures Sclerae: sclerae normal EOM: EOMs intact bilaterally Neck Neck: Yes supple Lymphatic: no lymphadenopathy noted Resp Effort & Inspection: normal respiratory effort and no use of accessory muscles Auscultation: clear to auscultation bilaterally Cardio Rate: regular rate Rhythm: regular rhythm Heart sounds: no gallops, no murmurs and no rubs Skin General skin exam: other ( warm) Extrem General: No clubbing, No cyanosis and No edema Assessment & Plan Assessment & Plan (1) Mild persistent asthma: Code(s): J45.30 - Mild persistent asthma, uncomplicated Plan: Well controlled on as needed albuterol MDI/nebs. Continue current regimen (2) FACUNDO on CPAP: Code(s): G47.33 - Obstructive sleep apnea (adult) (pediatric); Z99.89 - Dependence on other enabling machines and devices Plan: Well controlled on current CPAP therapy. Continue current CPAP therapy. Supplies order placed. Coding Level of Care Code Est Pt Level 4 (71462) Diagnoses Mild persistent asthma J45.30 FACUNDO on CPAP G47.33; Z99.89
[2023-03-23 10:59] VITALS: BP 118/78; PULSE 85; O2SAT 94; BMI 53.8
== END 2023-03-23 11:13 | disposition home or self-care (01) ==
PROVIDERS: PCP Internal Medicine; Visit Provider Internal Medicine Pulmonary Disease
DX: J45.30 Mild persistent asthma, uncomplicated (principal); G47.33 Obstructive sleep apnea (adult) (pediatric); Z99.89 Dependence on other enabling machines and devices
CPT/HCPCS: 99214

== ENCOUNTER → 2023-03-23 10:56 | Outpatient (BNVA) | payer OTHER, SELFPAY | PROVIDERS: PCP Internal Medicine; Visit Provider Internal Medicine Pulmonary Disease | DX: J45.30 Mild persistent asthma, uncomplicated (principal); G47.33 Obstructive sleep apnea (adult) (pediatric); Z99.89 Dependence on other enabling machines and devices | CPT/HCPCS: 99212 ==

== ENCOUNTER 2023-06-09 12:43 | Outpatient (REF) | payer OTHER, SELFPAY | END 2023-06-09 12:44 | disposition home or self-care (01) | LOC: HO.MAMMO 12:43 | PROVIDERS: Visit Provider Internal Medicine | DX: R92.2 Inconclusive mammogram (principal) | CPT/HCPCS: 77061; 77065 ==

== ENCOUNTER → 2023-06-09 13:00 | Outpatient (BNV) | payer OTHER, SELFPAY | PROVIDERS: Visit Provider Radiology Diagnostic Radiology | DX: R92.312 Mammographic fatty tissue density, left breast (principal) | CPT/HCPCS: 77061; 77065 ==

== ENCOUNTER 2023-08-02 12:24 | Outpatient (AMB) | payer OTHER, SELFPAY ==
--- NOTE | 2023-08-02 12:53 | MHC.OFFVIS ---
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 She has had atrial fibrillation for more than a decade. Overall, since last seen she is generally doing well. Denies any complaints like angina or shortness of breath or anything cardiac related. Has had longstanding leg swelling. She also has obstructive sleep apnea on CPAP. Overall, feels just about the same. [facility] Medical History Acquired deformity of toenail Anticoagulated on Coumadin Chronic diastolic congestive heart failure Difficulty in walking Gait instability Hemochromatosis Mild persistent asthma Morbid obesity FACUNDO on CPAP Permanent atrial fibrillation Polyarticular osteoarthritis Problem situation relating to social and personal history Seropositive rheumatoid arthritis Tubular adenoma of colon Urinary incontinence Surgical History Heel spur History of carpal tunnel surgery History of laparoscopic cholecystectomy History of total abdominal hysterectomy and bilateral salpingo-oophorectomy Family History Mother Pancreatic cancer Father Pancreatic cancer Myocardial infarction Maternal Grandmother Breast cancer Paternal Grandfather Myocardial infarction Paternal Grandmother Myocardial infarction Social History Housing: Apartment Alcohol intake: former Patient Tobacco Use Status: Former Tobacco user e-Cigarette/Vaping Use: Never Used Advance Directives Date on File: 11/11/22 Current occupational status: disabled Cognitive needs: No Hearing needs: No Vision needs: Yes Review of Systems Const Denies weakness ENT Denies dizziness Card Denies chest pain, Denies chest pain with activity, Denies syncope, Denies rapid heart rate, Denies pedal edema, Denies edema, Denies leg edema, Denies lightheadedness, Denies palpitations, Denies dyspnea, Denies dyspnea on exertion and Denies orthopnea Resp Denies cough, Denies dyspnea and Denies dyspnea on exertion GI Denies hematochezia and Denies change in stool character Musc Denies abnormal gait, Denies muscle cramps, Denies muscle weakness, Denies numbness, Denies radiating pain into limb and Denies tingling Neuro Denies abnormal gait, Denies dizziness, Denies syncope, Denies numbness, Denies tingling and Denies weakness Endo Denies palpitations Physical Exam Vital Signs: Last Vital Signs Pulse 83 08/02/23 12:55 BP 130/70 08/02/23 12:55 BMI result Body Mass Index 53.2 Const General: comfortable and no acute distress Orientation/consciousness: patient oriented x3 HEENT Other: Unremarkable Head: Yes normal to inspection Neck Neck: Yes normal visual inspection Chest Chest palpation & inspection: normal inspection of the chest Resp Auscultation: clear to auscultation bilaterally Cardio Palpation: normal PMI Heart sounds: S1 normal heart sound present, S2 normal heart sound present, no gallops, no murmurs and no rubs GI Palpation (GI): Soft to palpation Back/Spine/Pelvis Other: unremarkable Skin General skin exam: no rashes or lesions noted Neuro General: patient oriented x3 Extrem Other: No significant swelling. General: Yes normal to inspection Psych Mental Status: mental status grossly normal Office Procedures EKG Details: EKG with atrial fibrillation at a rate of 83/Min; low voltage QRS complexes. [id number], Complete Assessment & Plan Assessment & Plan (1) Permanent atrial fibrillation: Code(s): I48.21 - Permanent atrial fibrillation Plan: Continue beta-blockers for rate control. Continue anticoagulation. Last Holter from 2020 with atrial fibrillation with an average rate of 75/Min. On the echocardiogram, she has severe biatrial enlargement. (2) Chronic diastolic congestive heart failure: Code(s): I50.32 - Chronic diastolic (congestive) heart failure Plan: Continue diuretics. Last echocardiogram 2020 with LVEF of 60-60%. (3) FACUNDO on CPAP: Code(s): G47.33 - Obstructive sleep apnea (adult) (pediatric); Z99.89 - Dependence on other enabling machines and devices Plan: Continue CPAP. (4) Morbid obesity: Code(s): E66.01 - Morbid (severe) obesity due to excess calories Plan: It has been this way for a long time. Unlikely to change. (5) Hemochromatosis: Code(s): E83.119 - Hemochromatosis, unspecified Plan: Advised to return to Dr. Kaufman. In the past, has received therapeutic phlebotomies. Orders: Orders CA echo transthoracic complete 51 Weeks I48.21 - Permanent atrial fibrillation Medications: Changed From cyclobenzaprine 5 mg PO TID PRN 15 tabs 0RF muscle spasm M54.30 - Sciatica, unspecified side To cyclobenzaprine 5 mg PO TID PRN M54.30 - Sciatica, unspecified side Coding Level of Care Code Est Pt Level 4 (51909) Diagnoses Permanent atrial fibrillation I48.21 Chronic diastolic congestive heart failure I50.32 FACUNDO on CPAP G47.33; Z99.89 Morbid obesity E66.01 Hemochromatosis E83.119 CPT Codes EKG - CPT: 31138-[id number], Complete ([id number])
[2023-08-02 12:55] VITALS: BP 130/70; PULSE 83; BMI 53.2
== END 2023-08-02 13:22 | disposition home or self-care (01) ==
PROVIDERS: PCP Internal Medicine; Visit Provider Internal Medicine
DX: I48.21 Permanent atrial fibrillation (principal); I50.32 Chronic diastolic (congestive) heart failure; G47.33 Obstructive sleep apnea (adult) (pediatric); Z99.89 Dependence on other enabling machines and devices; E66.01 Morbid (severe) obesity due to excess calories; E83.119 Hemochromatosis, unspecified
CPT/HCPCS: 93010; 99214

== ENCOUNTER → 2023-08-02 12:24 | Outpatient (BNVA) | payer OTHER, SELFPAY | PROVIDERS: PCP Internal Medicine; Visit Provider Internal Medicine | DX: I48.21 Permanent atrial fibrillation (principal); I50.32 Chronic diastolic (congestive) heart failure; G47.33 Obstructive sleep apnea (adult) (pediatric); E66.01 Morbid (severe) obesity due to excess calories; E83.119 Hemochromatosis, unspecified; Z99.89 Dependence on other enabling machines and devices; Z68.43 Body mass index [BMI] 50.0-59.9, adult | CPT/HCPCS: 93005; 99212 ==

== ENCOUNTER 2023-08-31 10:53 | Outpatient (AMB) | payer OTHER, SELFPAY ==
--- NOTE | 2023-08-31 12:49 | AM.OFFWIN_ITS ---
Intake Vital Signs 08/31/23 13:10 Height 6 ft 2 in Weight 420 lb BMI 53.9 BP 116/68 Blood Pressure Location Lt brachial Position Sitting Pulse 90 Pulse Source Pulse Oximeter Temp 98.0 F Temp Source Temporal Artery Scan Pulse Oximetry (%) 96 Oxygen Delivery Method Room Air Intake Visit Reasons: EST/left leg irritation (lobby masked) Intake Note: Pt is here today for LT leg irritation,started Patient Tobacco Use Status: Former Tobacco user Allergies No Known Allergies Allergy (Verified 08/31/23 13:36) Do you need a note to return to daycare/school/sports/work: No HPI EST/left leg irritation (lobby masked) HPI Details 68 year old female with a PMH of a-fib o n coumadin, diastolic CHF on Lasix, FACUNDO on CPAP, Morbid obesity, [place] the [place] for a small area on the front of her left lower leg that is slightly open and draining clear fluid. She denies any known injury to area. States it has been consistently weeping drops clear fluid and soaking her sock. Denies any fever or chills. Denies any pain. Did not take Furosemide today as she was coming to the [place] and did not want to be needing the bathroom frequently. [facility] Medical History Tubular adenoma of colon Urinary incontinence Hemochromatosis Gait instability Problem situation relating to social and personal history Difficulty in walking Acquired deformity of toenail Polyarticular osteoarthritis Seropositive rheumatoid arthritis Morbid obesity Anticoagulated on Coumadin Permanent atrial fibrillation Chronic diastolic congestive heart failure FACUNDO on CPAP Mild persistent asthma Surgical History History of carpal tunnel surgery Heel spur History of laparoscopic cholecystectomy History of total abdominal hysterectomy and bilateral salpingo-oophorectomy Family History Mother Pancreatic cancer Father Pancreatic cancer Myocardial infarction Maternal Grandmother Breast cancer Paternal Grandfather Myocardial infarction Paternal Grandmother Myocardial infarction Social History Housing: Apartment Alcohol intake: former Patient Tobacco Use Status: Former Tobacco user e-Cigarette/Vaping Use: Never Used Advance Directives Date on File: 11/11/22 Current occupational status: disabled Cognitive needs: No Hearing needs: No Vision needs: Yes Review of Systems Const All systems reviewed & are unremarkable except as noted in HPI and below Physical Exam Vital Signs: Last Vital Signs Temp 98.0 F 08/31/23 13:10 Pulse 90 08/31/23 13:10 BP 116/68 08/31/23 13:10 Pulse Ox 96 08/31/23 13:10 Oxygen Delivery Method Room Air 08/31/23 13:10 BMI result Body Mass Index 53.9 Const General: cooperative and no acute distress Nutritional Appearance: obese morbidly obese Limitations: no limitations Resp Effort & Inspection: normal respiratory effort Auscultation: clear to auscultation bilaterally Cardio Palpation: normal PMI Rate: regular rate Skin Other: approx 3cm flat, linear, erythematous rash left anterior lower leg. This is weeping a small amount of clear drainage. No odor. B/l legs have 2+ pitting edema. Distal PT and DP pulses intact. No surrounding erythema or warmth. Extrem General: Yes capillary refill normal Psych Appearance: grossly normal Mental Status: mental status grossly normal Speech and movement: Normal speech and movement present Assessment & Plan Assessment & Plan (1) Cellulitis of leg, left: Code(s): L03.116 - Cellulitis of left lower limb Plan: This appears to be a minor cellulitis rash, and given the excessive fluid in her LE, there is weeping of fluid coming from the small open area. We have discussed treatment options. She does not like to wear compression hose since it causes discomfort in her feet. I encouraged her to not skip doses of Lasix given her edema. I have applied a dry dressing and wrapped her lower leg. I will start her on Keflex and I would like her to f/u with her PCP. She has made an appt for 09/13. If this does not improve, or worsens in the interim, she should return to the clinic for further evaluation. She verbalizes understanding and agrees to plan. Medications: New cephalexin 250 mg PO QID 7 days 28 caps 0RF L03.116 - Cellulitis of left lower limb Coding Level of Care Code Est Pt Level 3 (49916) Diagnoses Cellulitis of leg, left L03.116
[2023-08-31 13:10] VITALS: BP 116/68; PULSE 90; TEMP 36.7; O2SAT 96; BMI 53.9
== END 2023-08-31 14:26 | disposition home or self-care (01) ==
PROVIDERS: PCP Internal Medicine; Visit Provider Nurse Practitioner Family
DX: L03.116 Cellulitis of left lower limb (principal)
CPT/HCPCS: 99213

== ENCOUNTER 2023-11-22 10:52 | Outpatient (AMB) | payer OTHER, SELFPAY ==
--- NOTE | 2023-11-22 10:57 | A.OFFPC_ITS ---
Vital Signs 11/22/23 11:23 Height 6 ft 2 in Weight 423 lb BMI 54.3 BP 110/70 Blood Pressure Location Rt radial Position Sitting Pulse 94 Pulse Source Pulse Oximeter Pulse Oximetry (%) 94 Oxygen Delivery Method Room Air Intake Visit Reasons: Annual PE Intake Note: Pt is here today for her PE: Last mammogram 06/09/23, bone density scan 10/11/19, colonoscopy 11/27/15 Allergies No Known Allergies Allergy (Verified 11/22/23 11:38) Medication List - Last Reconciled 11/22/23 by Angelita Alves MD ergocalciferol (vitamin D2) 1,250 mcg PO QWEEK etanercept 50 mg subcut QWEEK folic acid 1 mg PO DAILY furosemide 80 mg (2 x 40 mg) PO DAILY metoprolol succinate ER 50 mg PO DAILY tramadol 50 mg PO Q6H PRN warfarin 10 mg PO DAILY Tobacco use date assessed: 11/22/23 Fall risk assessment: 2 + Falls in past year Last assessed Fall Risk: 11/22/23 Dental Screening Dental Screen Date: 11/22/23 Did you have a dental visit in the last 12 months?: No Was dental information given to patient?: Patient has dentist HPI Annual PE HPI Details 68-year-old lady here today for her phys ical exam. She has past medical history of hemochromatosis, hypertension, osteoarthritis, seropositive rheumatoid arthritis, morbid obesity, has permanent atrial fibrillation currently on Coumadin for anticoagulation, has obstructive sleep apnea on CPAP and has mild persistent asthma. She has been feeling well, but has noted red lesion on the roof of her mouth just this morning. Patient not sure whether this is a bruise after she put on her dentures, as she is on Coumadin. Denies any pain or irritation over said area She is up-to-date with screening mammogram, overdue for her repeat colonoscopy. Has history of tubular adenoma on last colonoscopy done by Dr. Wagner in 2016, , but has not been able to see him due to having a difficult time getting in to his clinic at [address] [place] [address] , patient states it has not handicap friendly , and would like a referral to see the GI clinic at [address] [place] [address]. She had a normal bone density scan done in 2019 , overdue for recheck. 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 Camacho last 10/10/2023 which showed normal electrolytes, fasting glucose at 90, elevated alkaline phosphatase at 189 total bilirubin at 1.4, AST 47/ ALT 26, and normal CBC [facility] Medical History (Updated 11/22/23 @ 11:56 by Angelita Alves MD) Elevated alkaline phosphatase level Tubular adenoma of colon Urinary incontinence Hemochromatosis Gait instability Problem situation relating to social and personal history Difficulty in walking Acquired deformity of toenail Polyarticular osteoarthritis Seropositive rheumatoid arthritis Morbid obesity Anticoagulated on Coumadin Permanent atrial fibrillation Chronic diastolic congestive heart failure FACUNDO on CPAP Mild persistent asthma Surgical History History of carpal tunnel surgery [place]el spur History of laparoscopic cholecystectomy History of total abdominal hysterectomy and bilateral salpingo-oophorectomy Family History Mother Pancreatic cancer Father Pancreatic cancer Myocardial infarction Maternal Grandmother Breast cancer Paternal Grandfather Myocardial infarction Paternal Grandmother Myocardial infarction Social History Housing: Apartment Alcohol intake: former Patient Tobacco Use Status: Former Tobacco user e-Cigarette/Vaping Use: Never Used Advance Directives Date on File: 11/11/22 Current occupational status: disabled Cognitive needs: No Hearing needs: No Vision needs: Yes Questionnaire PHQ-9 Over the last 2 weeks, how often have you been bothered by any of the following problems? 1. Little interest or pleasure in doing things: not at all 2. Feeling down, depressed, or hopeless: not at all 3. Trouble falling or staying asleep, or sleeping too much: not at all 4. Feeling tired or having little energy: several days 5. Poor appetite or overeating: several days 6. Feeling bad about yourself - or that you are a failure or have let yourself or your family down: not at all 7. Trouble concentrating on things, such as reading the newspaper or watching television: not at all 8. Moving or speaking so slowly that other people could have noticed. Or the opposite - being so fidgety or restless that you have been moving around a lot more than usual: several days 9. Thoughts that you would be better off or of hurting yourself in some way: not at all Total score: 3 Depression Screening Interpretation: Negative Depression Screening Done: Yes 70902 - PHQ-9 Billing: Yes Source: Developed by Drs. Sy Almanza, Lázaro Mandel and colleagues, with an educational sinan from [employer]. Thrive Questionnaire Date Thrive assessed: 11/22/23 I am a: Patient What is your living situation today?: I have a steady place to live Within the past 12 months, did the food you bought not last and you didn't have the money to get more?: Never true Within the past 12 months, did you worry whether your food would run out before you got money to buy more?: Never true Do you have trouble paying for medicines?: No Do you have trouble getting transportation to medical appointments?: No Do you have trouble paying your heating and electricity bill?: No Do you have trouble taking care of your child, family member or friend?: Yes Do you have trouble with day-to-day activities such as bathing, preparing meals, shopping, managing finances, etc.?: Yes Are you currently unemployed and looking for a job?: No Are you interested in more education?: No THRIVE Score: 0 AUDIT C Alcohol Use Questionnaire (AUDIT-C) 1. How often do you have a drink containing alcohol?: Never Total Score: 0 FRED-7 AMB Questionnaire FRED-7 Date FRED - 7 assessed: 11/22/23 Feeling nervous, anxious, or on edge: 1 = Several days Not being able to stop or control worryin = Not at all Worrying too much about different things: 0 = Not at all Trouble relaxin = Not at all Being so restless that it is hard to sit still: 0 = Not at all Becoming easily annoyed or irritable: 1 = Several days Feeling afraid as if something awful might happen: 0 = Not at all Total FRED-7 score (0-4 normal; 5-9 mild; 10-14 moderate; 15-21 severe): 2 Source: Developed by Drs. Sy Almanza, Cynthia Vargas, Lázaro Clements and colleagues, with an educational sinan from [employer]. FRED-7 Assessment Billing FRED-7 Assessment Tool: FRED-7 Assessment 15759 Review of Systems Const Denies daytime sleepiness, Denies excessive sweating, Denies fever(s), Denies lethargy, Denies malaise, Denies night sweats, Denies snoring and Denies weight loss ENT Denies nasal congestion, Denies post nasal drip, Denies sinus pain and Denies sinus pressure Card Denies chest pain, Denies pedal edema, Denies dyspnea, Denies orthopnea and Denies paroxysmal nocturnal dyspnea Resp Denies cough, Denies hemoptysis, Denies excessive phlegm production, Denies dyspnea, Denies snoring and Denies wheezing GI Denies abdominal pain and Denies heartburn Musc Denies myalgias and Denies joint swelling Skin/Breast Denies rash Neuro Denies memory loss and Denies seizure-like activity Psych Denies abnormal sleep pattern, Denies anxiety and Denies memory loss Endo Denies excessive sweating and Denies heat intolerance Aller/Immun Denies seasonal rhinorrhea and Denies wheezing Physical exam (Primary Care) Vital Signs: Last Vital Signs Pulse 94 11/22/23 11:23 BP 110/70 11/22/23 11:23 Pulse Ox 94 11/22/23 11:23 Oxygen Delivery Method Room Air 11/22/23 11:23 BMI result Body Mass Index 54.3 Tobacco/Smoking Status: Tobacco use Status Tobacco use date assessed 11/22/23 11/22/23 11:29 Patient Tobacco Use Status Former Tobacco user 11/22/23 10:58 e-Cigarette/Vaping Use Never Used 11/22/23 10:58 PHQ-9: PHQ-9 Score PHQ-9: Total score 9 11/22/23 11:39 Depression Screening Interpretation: Negative Thrive Assessment: Date of Thrive Assessment Date Thrive assessed 11/22/23 11/22/23 11:32 Assessment and Plan Assessment & Plan (1) Tubular adenoma of colon: Comment: removed on last colonoscopy in [address] Wagner Code(s): D12.6 - Benign neoplasm of colon, unspecified (2) Palatal lesion: Code(s): K13.79 - Other lesions of oral mucosa (3) Elevated alkaline phosphatase level: Code(s): R74.8 - Abnormal levels of other serum enzymes (4) HTN (hypertension): Code(s): I10 - Essential (primary) hypertension (5) Hemochromatosis: Code(s): E83.119 - Hemochromatosis, unspecified (6) Permanent atrial fibrillation: Code(s): I48.21 - Permanent atrial fibrillation (7) Mild persistent asthma: Code(s): J45.30 - Mild persistent asthma, uncomplicated (8) FACUNDO on CPAP: Code(s): G47.33 - Obstructive sleep apnea (adult) (pediatric); Z99.89 - Dependence on other enabling machines and devices (9) Anticoagulated on Coumadin: Code(s): Z79.01 - senior living (current) use of anticoagulants (10) Morbid obesity: Code(s): E66.01 - Morbid (severe) obesity due to excess calories (11) Seropositive rheumatoid arthritis: Comment: Followed by Dr. Castorena Code(s): M05.9 - Rheumatoid arthritis with rheumatoid factor, unspecified (12) Polyarticular osteoarthritis: Code(s): M15.9 - Polyosteoarthritis, unspecified (13) Gait instability: Code(s): R26.81 - Unsteadiness on feet Orders: Orders Gamma Glutamyl Transpeptidase Today E66.01 - Morbid (severe) obesity due to excess calories, E83.119 - Hemochromatosis, unspecified, G47.33 - Obstructive sleep apnea (adult) (pediatric), I10 - Essential (primary) hypertension, I48.21 - Permanent atrial fibrillation, J45.30 - Mild persistent asthma, uncomplicated, M05.9 - Rheumatoid arthritis with rheumatoid factor, unspecified, M15.9 - Polyosteoarthritis, unspecified, R26.81 - Unsteadiness on feet, R74.8 - Abnormal levels of other serum enzymes, Z79.01 - manager terminal (current) use of anticoagulants, Z99.89 - Dependence on other enabling machines and devices Lipid Panel Today E66.01 - Morbid (severe) obesity due to excess calories, E83.119 - Hemochromatosis, unspecified, G47.33 - Obstructive sleep apnea (adult) (pediatric), I10 - Essential (primary) hypertension, I48.21 - Permanent atrial fibrillation, J45.30 - Mild persistent asthma, uncomplicated, M05.9 - Rheumatoid arthritis with rheumatoid factor, unspecified, M15.9 - Polyosteoarthritis, unspecified, R26.81 - Unsteadiness on feet, R74.8 - Abnormal levels of other serum enzymes, Z79.01 - manager terminal (current) use of anticoagulants, Z99.89 - Dependence on other enabling machines and devices XR DEXA axial skeleton Today Z78.0 - Asymptomatic menopausal state Referrals Gastroenterology Referral D12.6 - Benign neoplasm of colon, unspecified Coding Diagnoses Tubular adenoma of colon D12.6 Palatal lesion K13.79 Elevated alkaline phosphatase level R74.8 HTN (hypertension) I10 Hemochromatosis E83.119 Permanent atrial fibrillation I48.21 Mild persistent asthma J45.30 FACUNDO on CPAP G47.33; Z99.89 Anticoagulated on Coumadin Z79.01 Morbid obesity E66.01 Seropositive rheumatoid arthritis M05.9 Polyarticular osteoarthritis M15.9 Gait instability R26.81 Additional Codes RFED-7 Assessment Billing - FRED-7 Assessment Tool: FRED-7 Assessment [id number] ([id number])
[2023-11-22 11:23] VITALS: BP 110/70; PULSE 94; O2SAT 94; BMI 54.3
== END 2023-11-22 12:13 | disposition home or self-care (01) ==
PROVIDERS: Visit Provider Internal Medicine
DX: Z00.00 Encounter for general adult medical examination without abnormal findings (principal); D12.6 Benign neoplasm of colon, unspecified; M05.9 Rheumatoid arthritis with rheumatoid factor, unspecified; I48.21 Permanent atrial fibrillation; K13.79 Other lesions of oral mucosa; R74.8 Abnormal levels of other serum enzymes; J45.30 Mild persistent asthma, uncomplicated; G47.33 Obstructive sleep apnea (adult) (pediatric); Z99.89 Dependence on other enabling machines and devices; M15.9 Polyosteoarthritis, unspecified
CPT/HCPCS: 99397

== ENCOUNTER → 2023-12-15 13:15 | Outpatient (BNV) | payer OTHER, SELFPAY | PROVIDERS: PCP Internal Medicine; Visit Provider Radiology Diagnostic Radiology | DX: Z12.31 Encounter for screening mammogram for malignant neoplasm of breast (principal) | CPT/HCPCS: 77063; 77067 ==

== ENCOUNTER 2023-12-15 13:17 | Outpatient (REF) | payer OTHER, SELFPAY ==
--- NOTE | ~2023-12-15 | MM_ITS ---
EXAMINATION: MM SCREENING DIGITAL BREAST TOMOSYNTHESIS, BILATERAL CLINICAL INFORMATION: Screening. Asymptomatic. COMPARISON: Mammography: This study is compared with prior exams dating back to 2016. TECHNIQUE: Digital breast tomosynthesis is performed in both the craniocaudal and mediolateral oblique views along with computer-aided detection (CAD). Synthesized 2D images are generated from the tomosynthesis. FINDINGS: The breasts are almost entirely fatty (ACR BI-RADS breast composition Category a). There are no significant masses, abnormal calcifications, or other abnormalities. MM/MM tomosynthesis screening BI IMPRESSION: No mammographic evidence of malignancy. ASSESSMENT: BI-RADS BI-RADS 1 - Negative RECOMMENDATION: Routine annual mammography screening. 1 year F/U This examination should not preclude the clinical evaluation of a suspicious palpable abnormality. This patient's information was entered into a reminder system with a target due date for their next mammogram.
== END 2023-12-15 13:18 | disposition home or self-care (01) ==
LOC: HO.MAMMO 13:17
PROVIDERS: PCP Internal Medicine; Visit Provider Internal Medicine
DX: Z12.31 Encounter for screening mammogram for malignant neoplasm of breast (principal)
CPT/HCPCS: 77063; 77067

== ENCOUNTER 2023-12-26 09:15 | Outpatient (REF) | payer OTHER, SELFPAY ==
[2023-12-26 10:55] LABS: Cholesterol 163 mg/dL (<200); Gamma Glutamyl Transpeptidase 73 U/L (7-33); HDL Cholesterol 61 mg/dL (>40); LDL Cholesterol Calculated 86 mg/dL (<100); Triglycerides 81 mg/dL (<150)
== END 2023-12-26 09:16 | disposition home or self-care (01) ==
LOC: HO.HMGCLDS 09:15
PROVIDERS: PCP Internal Medicine; Visit Provider Internal Medicine
DX: R74.8 Abnormal levels of other serum enzymes (principal); I10 Essential (primary) hypertension; E83.119 Hemochromatosis, unspecified; I48.21 Permanent atrial fibrillation; J45.30 Mild persistent asthma, uncomplicated; G47.33 Obstructive sleep apnea (adult) (pediatric); E66.01 Morbid (severe) obesity due to excess calories; M05.9 Rheumatoid arthritis with rheumatoid factor, unspecified; M15.9 Polyosteoarthritis, unspecified; R26.81 Unsteadiness on feet; Z99.89 Dependence on other enabling machines and devices; Z79.01 Long term (current) use of anticoagulants
CPT/HCPCS: 36415; 80061; 82977

== ENCOUNTER 2024-03-28 09:17 | Outpatient (AMB) | payer OTHER, SELFPAY ==
[2024-03-28 09:55] VITALS: BP 138/86; PULSE 79; TEMP 36.1; O2SAT 94; BMI 54.0
--- NOTE | 2024-03-28 09:55 | MHC.OFFWIV ---
Intake Vital Signs 03/28/24 09:55 Height 6 ft 2 in Weight 420 lb 6 oz BMI 54.0 BP 138/86 Blood Pressure Location Lt brachial Position Sitting Pulse 79 Pulse Source Pulse Oximeter Temp 97.0 F Temp Source Temporal Artery Scan Pulse Oximetry (%) 94 Oxygen Delivery Method Room Air Intake Visit Reasons: EP lft foot big toe black Intake Note: pt is here for left foot big toe, patient states its black/discolored for about a month. Patient Tobacco Use Status: Former Tobacco user Allergies No Known Allergies Allergy (Verified 03/28/24 10:00) Do you need a note to return to daycare/school/sports/work: Yes HPI HPI Comments History of Present Illness Details Patient is a 68-year-old female complaining of 3 weeks of worsening toe blackness, pain and redness. She states she knows she has a toe fungus and she bought the special light that his she has been using on both of her big toenails and the fungus seems to be improved. However she has noticed it is becoming hard and crusted on the skin around her toenail and now is turning black. She does have an appointment with a risk reduction counselor but is not until June 14. She denies any trauma to the area [facility] Medical History (Updated 03/28/24 @ 10:29 by Zulma Mc PA-C) Elevated alkaline phosphatase level Tubular adenoma of colon Urinary incontinence Hemochromatosis Gait instability Problem situation relating to social and personal history Difficulty in walking Acquired deformity of toenail Polyarticular osteoarthritis Seropositive rheumatoid arthritis Morbid obesity Anticoagulated on Coumadin Permanent atrial fibrillation Chronic diastolic congestive heart failure FACUNDO on CPAP Mild persistent asthma Surgical History History of carpal tunnel surgery [place]el spur History of laparoscopic cholecystectomy History of total abdominal hysterectomy and bilateral salpingo-oophorectomy Family History Mother Pancreatic cancer Father Pancreatic cancer Myocardial infarction Maternal Grandmother Breast cancer Paternal Grandfather Myocardial infarction Paternal Grandmother Myocardial infarction Social History Housing: Apartment Alcohol intake: former Patient Tobacco Use Status: Former Tobacco user e-Cigarette/Vaping Use: Never Used Advance Directives Date on File: 11/11/22 Current occupational status: disabled Cognitive needs: No Hearing needs: No Vision needs: Yes Review of Systems Const All systems reviewed & are unremarkable except as noted in HPI and below Physical Exam Vital Signs: Last Vital Signs Temp 97.0 F 03/28/24 09:55 Pulse 79 03/28/24 09:55 BP 138/86 03/28/24 09:55 Pulse Ox 94 03/28/24 09:55 Oxygen Delivery Method Room Air 03/28/24 09:55 BMI result Body Mass Index 54.0 Const General: cooperative, healthy appearing, comfortable, no acute distress and well developed Orientation/consciousness: patient oriented x3 Limitations: no limitations HEENT Head: Yes normal to inspection Eyes General: appearance normal, both eyes and all related structures Neck Neck: Yes normal visual inspection and Yes full ROM Resp Effort & Inspection: normal respiratory effort and able to speak in complete sentences Skin Other: Left great toe, onychomycosis of the great toenail, surrounding the toenail is erythematous, hard/ skin and superficial black streaks. Full ROM, NVI, toe is warm and well perfused Neuro General: patient oriented x3 Extrem General: Yes normal to inspection Assessment & Plan Assessment & Plan (1) Toe infection: Code(s): L08.9 - Local infection of the skin and subcutaneous tissue, unspecified Plan: Recommended taking the antibiotic for 1 week, soaking and leaving open to air as much as possible. Recommended she called the risk reduction counselor and try to be seen sooner as the skin is very callused but also we want to make sure any infection does not travel to the bone. If she feels the infection is worsening, she should go to the emergency department to rule out osteomyelitis. (2) Onychomycosis: Code(s): B35.1 - Tinea unguium Plan: Recommended she stop using the light on this particular toe, unclear if she suffered a burn on the toe from the light. Recommended to follow up with her risk reduction counselor for treatment Plan See above Medications: New doxycycline hyclate 100 mg PO BID 14 tabs 0RF Coding Level of Care Code Est Pt Level 3 (56561) Diagnoses Toe infection L08.9 Onychomycosis B35.1
== END 2024-03-28 10:37 | disposition home or self-care (01) ==
PROVIDERS: PCP Internal Medicine; Visit Provider Physician Assistant
DX: L08.9 Local infection of the skin and subcutaneous tissue, unspecified (principal); B35.1 Tinea unguium
CPT/HCPCS: 99213

== ENCOUNTER 2024-07-12 09:07 | Outpatient (AMB) | payer OTHER, SELFPAY ==
--- NOTE | 2024-07-12 09:18 | AM.OFFWIN_ITS ---
Intake Vital Signs 07/12/24 09:22 Height 6 ft 2 in Weight 432 lb BMI 55.5 BP 132/88 Blood Pressure Location Lt brachial Position Sitting Pulse 94 Pulse Source Pulse Oximeter Pulse Oximetry (%) 98 Oxygen Delivery Method Room Air Intake Visit Reasons: EP psoriasis Intake Note: Patient here for psoriasis that has been present for about a month and now spreading. Patient Tobacco Use Status: Former Tobacco user Allergies No Known Allergies Allergy (Verified 07/12/24 09:22) Do you need a note to return to daycare/school/sports/work: No HPI EP psoriasis HPI Details This note is constructed using voice recognition software. While every effort has been made to ensure accuracy, dosier operator errors may have been included. The patient is a 68 year old female who presents to the clinic today with psoriasis flare. She notes that she has had psoriasis since she was a child but has not had a flare since her teen years. She noted about a month ago to have a plaque behind her right knee, which has since grown several additional plaques. She scheduled an appointment with her primary care provider, who advised her to be seen in the walk-in clinic as to not wait. She denies pain, itch, or any redness or warmth to the area. She reports that when she was young she applied a tar based topical to the area to help the symptoms, but she has not applied anything at this time as the previous applicant no longer exists. PENDING SALE TO [facility] Medical History (Updated 03/28/24 @ 10:29 by Zulma Mc PA-C) Elevated alkaline phosphatase level Tubular adenoma of colon Urinary incontinence Hemochromatosis Gait instability Problem situation relating to social and personal history Difficulty in walking Acquired deformity of toenail Polyarticular osteoarthritis Seropositive rheumatoid arthritis Morbid obesity Anticoagulated on Coumadin Permanent atrial fibrillation Chronic diastolic congestive heart failure FACUNDO on CPAP Mild persistent asthma Surgical History History of carpal tunnel surgery Heel spur History of laparoscopic cholecystectomy History of total abdominal hysterectomy and bilateral salpingo-oophorectomy Family History Mother Pancreatic cancer Father Pancreatic cancer Myocardial infarction Maternal Grandmother Breast cancer Paternal Grandfather Myocardial infarction Paternal Grandmother Myocardial infarction Social History Housing: Apartment Alcohol intake: former Patient Tobacco Use Status: Former Tobacco user e-Cigarette/Vaping Use: Never Used Advance Directives Date on File: 11/11/22 Current occupational status: disabled Cognitive needs: No Hearing needs: No Vision needs: Yes Review of Systems Const All systems reviewed & are unremarkable except as noted in HPI and below Physical Exam Vital Signs: Last Vital Signs Pulse 94 07/12/24 09:22 BP 132/88 07/12/24 09:22 Pulse Ox 98 07/12/24 09:22 Oxygen Delivery Method Room Air 07/12/24 09:22 BMI result Body Mass Index 55.5 Const General: cooperative, healthy appearing, comfortable, no acute distress and well developed Orientation/consciousness: patient oriented x3 Limitations: ambulation with walker Resp Effort & Inspection: normal respiratory effort and able to speak in complete sentences Skin Other: Psoriatic patches to right posterior knee and upper leg spread over an area approximately 10 x 10 cm. No erythema, warmth, discharge, or any signs of secondary bacterial infection. Neuro General: patient oriented x3 Assessment & Plan Assessment & Plan (1) Psoriasis: Code(s): L40.9 - Psoriasis, unspecified Plan: Topical steroid prescribed for symptomatic management. Advised patient to follow up with PCP with worsening or failure to resolve. May benefit from dermatology referral with ongoing symptoms. Plan See above for full details and plan. Medications: New mometasone 0.1% 1 appl topical DAILY PRN 45 grams 0RF skin irritation Coding Level of Care Code Est Pt Level 3 (83606) Diagnoses Psoriasis L40.9
[2024-07-12 09:22] VITALS: BP 132/88; PULSE 94; O2SAT 98; BMI 55.5
== END 2024-07-12 10:16 | disposition home or self-care (01) ==
PROVIDERS: PCP Internal Medicine; Visit Provider Registered Nurse
DX: L40.9 Psoriasis, unspecified (principal)

== ENCOUNTER → 2024-07-12 09:07 | Outpatient (BNVA) | payer OTHER, SELFPAY | PROVIDERS: PCP Internal Medicine; Visit Provider Registered Nurse | DX: L40.9 Psoriasis, unspecified (principal) | CPT/HCPCS: 99212 ==

== ENCOUNTER → 2024-07-16 09:52 | Outpatient (REF) | payer OTHER, SELFPAY ==
--- NOTE | 2024-07-16 10:05 | CA_ITS ---
Transthoracic Echocardiogram Patient (Last, First, Middle): Zulma Weaver E Gender: Female Date of : 1955 Age: 68 Procedure Date: 07/16/2024 Procedure Type: Transthoracic Echocardiogram Location: OP Height: 187.96 cm Weight: 195.96 kg BSA: 3.01 m2 Heart Rate: bpm BP: 130 / 85 mmHg Metal Fitter: SUKUMAR Referring MD: Bobby Kim MD Symptoms: I48.21 - Permanent atrial fibrillation Study Quality: Fair ECG Rhythm: Atrial Fibrillation Conclusions: - The left ventricular systolic function is normal. The visually estimated ejection fraction is between 60-65%. - Severe biatrial enlargement. - There is mild to moderate mitral valve regurgitation. - There is moderate tricuspid valve regurgitation. - Moderate pulmonary hypertension is present. Findings Left Ventricle Normal left ventricular cavity size. There is normal left ventricular wall thickness. The left ventricular systolic function is normal. The visually estimated ejection fraction is between 60-65%. There is no evidence of regional wall motion abnormalities. Diastolic function is indeterminate on the basis of available data. Right Ventricle Mildly increased right ventricular cavity size. There is low normal right ventricular systolic function. Atria Severe biatrial enlargement. Aortic Valve There is a normal trileaflet aortic valve. There is no aortic valve stenosis. There is no aortic valve regurgitation. Mitral Valve The mitral valve appears normal. There is mild to moderate mitral valve regurgitation. There is no mitral valve stenosis. Pulmonic Valve There is trace pulmonic valve regurgitation. Tricuspid Valve There is moderate tricuspid valve regurgitation. Moderate pulmonary hypertension is present. Great Vessels The aortic annulus, sinuses of valsalva, and asc aorta are normal in size. Venous The inferior vena cava is mildly dilated and collapses greater than 50% with inspiration. Pericardium/Pleural Prominent epicardial adipose tissue noted. There is no evidence of pericardial effusion. Prior Study Comparison Changes noted compared to prior study dated: 02/26/2021. Tricuspid regurgitation/pulmonary hypertension noted. Measurements 2D Linear Measurements IVSd: 0.91 0.6-0.9/0.6-1.0 cm LVIDd: 5.59 3.9-5.3/4.2-5.9 cm LVIDd Index: 1.86 2.4-3.2/2.2-3.1 cm/m2 LVIDs: 3.78 2.0-3.6 cm LVPWd: 1.08 0.7-1.1 cm LA Diam: 6.20 2.7-3.8/3.0-4.0 cm LAIDs Index: 2.06 1.5-2.3 cm/m2 LV Mass: 270.56 67-162/88-224 g LV Mass Index: 89.89 43-95/49-115 g/m2 LVOT Diam: 2.20 3.0+(-)1.3 cm 2D Systolic Function EF 4C: 68.60 >55% EF 2C: 65.30 >55% EF BiP: 67.80 >55% Mitral Valve MV Pk E: 1.26 MV Decel Time: 184.00 E'Lateral: 11.40 E'Medial: 11.10 E/E' Med: 11.40 E/E' Lat: 11.10 PHT: 54.00 MVA PHT: 4.07 Decel Miller: 6.96 MR Vol - PW Dopp: 6.68 MR VTI: 1.67 MR ERO: 4.00 MR Alias Chava: 0.40 MR RAD: 0.30 Aortic Valve AoV Pk Chava: 1.50 AoV Mn Chava: 1.02 AoV VTI: 0.34 AoV Pk Grad: 9.00 Aov Mn Grad: 5.00 JAYESH Cont.VTI: 2.64 LVOT LVOT Pk Chava: 1.01 LVOT Mn Chava: 0.72 LVOT VTI: 0.24 LVOT Pk Grad: 4.00 LVOT Mn Grad: 2.00 LVOT Diam: 2.20 LVOT Area: 3.80 Diastolic Function MV Pk E: 1.26 E'Medial: 11.10 E/E' Med: 11.40 E' Laterial: 11.40 E/E' Lat: 11.10 Right Ventricle TAPSE (mm): 20.40 TVS' Chava: 9.76 Tricuspid Valve TR Pk Chava: 3.41 TR Pk Grad: 47.00 RA Press: 8.00 RVSP: 55.00 Great Vessels Aorta Sinus of Valsalva: 3.38 2.0-3.[address] Ridge: 2.58 1.7-3.4 cm Ao Asc: 3.90 2.1-3.4 cm Updated in Other Vendor System with Status of Final Bobby Kim MD electronically signed on 07/17/2024 8:47:13 AM with status of Final
== END ==
LOC: HO.CARD 09:52
PROVIDERS: PCP Internal Medicine; Visit Provider Internal Medicine
DX: I48.21 Permanent atrial fibrillation (principal)
CPT/HCPCS: 93306

== ENCOUNTER → 2024-07-16 10:05 | Outpatient (BNV) | payer OTHER, SELFPAY | PROVIDERS: PCP Internal Medicine; Visit Provider Internal Medicine | DX: I51.7 Cardiomegaly (principal); I34.0 Nonrheumatic mitral (valve) insufficiency; I36.1 Nonrheumatic tricuspid (valve) insufficiency; I42.2 Other hypertrophic cardiomyopathy | CPT/HCPCS: 93306 ==

== ENCOUNTER 2024-09-17 08:28 | Outpatient (AMB) | payer OTHER, SELFPAY ==
--- OUTSIDE RECORDS SUMMARY | 2024-09-17 08:44 | XMS_ITS ---
Author Organization [facility] Address [address] [place] [address] Care Team Providers Care Terrazzo Journeyman Name Role Phone Joselyn SHERMAN, Angelita Garcia Primary Care Provider Un available Bryson Piña Unavailable [phone] Encounters Encounter Location Date Provider Diagnosis [address] [address] 07/13/2024 Bryson Piña Plan Of Treatment Next Appt Details Provider Name:Bryson Piña , 10/09/2024 04:00:00 PM, [address] [place] [address], [address], Progress Notes * Zulma WEAVER EDOB:[birth year] (69 yo F)Acc No.[id number]:07/13/2024 Progress Note Patient:?WEAVERZulma AMOR Provider:?Bryson Piña DPM :1955???Age:68 Y???Sex:Female D ate:07/13/2024 Address:[address] [place] [address] [address] , [facility] [place] Pcp:Jaden Fields Subjective: * Chief Complaints: * ??? * Medical History:? Objective: * Vitals:? Assessment: Plan: * Treatment: * Images: * The named appointment provid er may or may not be the originator of this progress note, and it is not deemed complete until electronically signed by the appointment provider. Sign off status: Pending * Provider:Ronal Piña DPM Date:?2023 Generated for Yocasta napier/Cody/Silva on:?09/17/2024 08:44 AM EST
--- OUTSIDE RECORDS SUMMARY | 2024-09-17 08:44 | XMS_ITS ---
Author Organization [facility] Address [address] [place] [address] Care Team Providers Care Public Health Director Name Role Phone Joselyn SHERMAN, Angelita Primary Care Provider Manjinder Wagner Jr, Noel Chairez REASON FOR VISIT Patient presents today for a colon screening Encounters Encounter Location Date Provider Diagnosis [facility] [address] [place] [address] 01/20/2024 Noel Wagner Jr PLAN OF TREATMENT No Information
--- OUTSIDE RECORDS SUMMARY | 2024-09-17 08:44 | XMS_ITS | Patient Health Record ---
Author Organization [facility] Address [address] [facility] [place] [address] Care Team Providers Care Biology Department Chair Name Role Phone Joselyn SHERMAN, Angelita Garcia Primary Care Provider Un available Bryson Piña Unavailable [phone] Black, Jacquelin Unavailable [phone] Allergies No Known Allergies Reason For Referral No Information Medications Medication SIG (Take, Route, Frequency, Duration) Notes Start Date End Date Status Warfarin Sodium 10 MG 1 tablet Orally Once a day Active Enbrel 50 MG/ML Subcutaneous for 28 Days Active Folic Acid 1 MG 1 tablet Orally Once a day Active Cephalexin 500 MG Oral for 7 Days Active Furosemide 40 MG 1 tablet Orally Once a day Active Metoprolol Succinate ER 50 MG Oral for 90 Days Active Metoprolol Succinate ER 50 MG 1 tablet Orally Once a day A ctive traMADol HCl 50 MG TAKE 1 TABLET BY MELANIE TH AT BEDTIME NEEDED FOR PAIN Oral for 28 Days Active traMADol HCl 50 MG 1 tablet as needed O rally Once a day Active Enbrel 50 MG/ML 1 mL Subcutaneous Active Tylenol Active Warfarin Sodium 10 MG Oral for 83 Days Active Furosemide 40 MG Oral for 90 Days Active Folic Acid 1 MG Oral for 90 Days Active Social History Tobacco Use: Social History [...] Are you an other tobacco user? No Problems Problem Type SNOMED Code ICD Code Onset Dates Problem Status W/U Status Risk Notes Problem Atherosclerosis of nikolski arteries of the extremities (507126363468252) Atherosclerosis of nikolski artery of both lower extremities, with unspecified presence of clinical manifestation (I70.203) Active confirmed Vital Signs Height 6 ft 2 in in 04/20/2024 Weight 397 lbs lbs 04/20/2024 BMI 50.97 kg/m2 04/20/2024 Procedures Procedure Date Ordered Date Performed Result Body Sit e 47801-DGYIPUU NAIL, 1-5 04/20/2024 N/A 18417-XNZN SKIN LESIONS, 2 TO 4 04/20/2024 N/A U9059-FTXDVYOY DYSTROPHIC NAILS ANY # 04/20/2024 N/A Encounters Encounter Location Date Provider Diagnosis [address] [address] 04/20/2024 Bryson Piña Atherosclerosis of nikolski artery of both lower extremities, with unspecified presence of clinical manifestation I70.203 ; Tinea unguium B35.1 ; Pain in right toe(s) M79.674 ; Pain in left toe(s) M79.675 ; Other hammer toe(s) (acquired), right foot M20.41 ; Arthritis of joint of lesser toe, right M19.071 ; Other hammer toe(s) (acquired), left foot M20.42 and Arthritis of joint of lesser toe, left M19.[address] [address] 04/18/2024 [facility] [address] 07/13/2024 Bryson Piña [address] [address] 07/13/2024 Bryson Piña Assessments Encounter Date Diagnosis (ICD Code) Assessment Notes Treatment Notes Treatment Clinical Notes Section Notes 04/20/2024 Tinea unguium (ICD-10 - B35.1) 04/20/2024 Atherosclerosis of nikolski artery of both lower extremities, with unspecified presence of clinical manifestation (ICD-10 - I70.203) 04/20/2024 Pain in right toe(s) (ICD-10 - M79.674) 04/20/2024 Pain in left toe(s) (ICD-10 - M79.675) 04/20/2024 Other hammer toe(s) (acquired), right foot (ICD-10 - M20.41) 04/20/2024 Arthritis of joint of lesser toe, right (ICD-10 - M19.071) 04/20/2024 Other hammer toe(s) (acquired), left foot (ICD-10 - M20.42) 04/20/2024 Arthritis of joint of lesser toe, left (ICD-10 - M19.072) Plan Of Treatment Pending Test Test Name Order Date 82750-ZFVUVCH NAIL, 1-5 04/20/2024 68070-BYCZ SKIN LESIONS, 2 TO 4 04/20/20 24 W5472-WMTSDQQB DYSTROPHIC NAILS ANY # Next Appt Details Provider Name:Bryson Piña , 10/09/2024 04:00:00 PM, [address] [place] [address], [phone], Insurance Providers Payer Name Payer Address Payer Phone Subscriber Number Group Number Insured Name Patient Relationship to Insured Coverage Start Date Coverage End Date [facility] [employer] Claims [address] [place] [phone] [id number] Zulma Patel Self - patient is the insured Medical (General) History Medical History History ICD Code Arthritis Back,Hip,and Knee pain Fibromyalgia High blood pressure Measles Mumps Chicken pox Surgical History Surgery Date(Month/Year) Gall bladder removal 2016 vascular 2017 afeb 2004 carpal tunnel surgery
--- OUTSIDE RECORDS SUMMARY | 2024-09-17 08:44 | XMS_ITS ---
Author Organization [facility] Address [address] [facility] [place] [address] Care Team Providers Care Warning Analyst Name Role Phone Joselyn SHERMAN, Angelita Garcia Primary Care Provider Un available Bryson Piña Unavailable [phone] REASON FOR VISIT NS Encounters Encounter Location Date Provider Diagnosis [address] [address] 07/13/2024 Bryson Piña Plan Of Treatment Next Appt Details Provider Name:Bryson Piña , 10/09/2024 04:00:00 PM, [address] [place], [address], Progress Notes * Zulma WEAVER EDOB:[birth year] (68 yo F)Acc No.[id number]:07/13/2024 Patient:?Zulma Weaver :1955???Age:68 Y???Sex:Female Address:[address] [facility], [facility] [place] [address] * true * Date:? Generated for Printi ng/Fafantasmag/eTransmitting on:?09/17/2024 08:43 AM EST
--- OUTSIDE RECORDS SUMMARY | 2024-09-17 08:44 | XMS_ITS ---
Author Organization [facility] Address [address] [place] [address] Care Team Providers Care Rehabilitation Teacher Name Role Phone Joselyn SHERMAN, Angelita Garcia Primary Care Provider Un available Bryson Piña Unavailable [phone] REASON FOR VISIT No Show Encounters Encounter Location Date Provider Diagnosis [address] [address] 07/13/2024 Bryson Piña Plan Of Treatment Next Appt Details Provider Name:Bryson Piña , 10/09/2024 04:00:00 PM, [address] [place], [address], Progress Notes * Zulma WEAVER EDOB:[birth year] (68 yo F)Acc No.[id number]:07/13/2024 Patient:?Zulma WEAVER :1955???Age:68 Y???Sex:Female Address:[address] [facility] [place] [address] * true * Date:? Generated for Printi ng/Fafantasmag/eTransmitting on:?09/17/2024 08:43 AM EST
--- OUTSIDE RECORDS SUMMARY | 2024-09-17 08:45 | XMS_ITS ---
Author Organization [facility] Address [address] [place] [address] Care Team Providers Care Deputy Commonwealth'S Attorney Name Role Phone Joselyn SHERMAN, Angelita Primary Care Provider Manjinder Wagner Jr, Noel Chairez REASON FOR VISIT Patient presents today for a recall colonoscopy Encounters Encounter Location Date Provider Diagnosis [facility] [address] [place] [address] 10/27/2023 Noel Wagner Jr PLAN OF TREATMENT No Information
--- OUTSIDE RECORDS SUMMARY | 2024-09-17 08:45 | XMS_ITS | Patient Health Record ---
Author Organization [facility] Address [address] [place] [address] Care Team Providers Care Final Cigar And Box Examiner Name Role Phone Joselyn SHERMAN, Angelita Primary Care Provider Noel Huerta Jr REASON FOR REFERRAL No Information MEDICATIONS Medication SIG (Take, Route, Frequency, Duration) Notes Start Date End Date Status Colyte with Flavor Packs 240 GM As directed Orally Over the specified time. for 1 day(s) 02/11/2016 Active Enbrel 50 MG/ML 1 ml Subcutaneous weekly Active oxyCODONE-Acetaminophen 5-325 MG 1 tablet as needed Orally every 6 hrs Active Warfarin Sodium 10 MG 1 tablet Orally Once a day Active Lopressor 100 MG 1 tablet with food O rally once a day Active Premarin 0.625 MG/GM as directed Vaginal prn Active Folic Acid 1 MG 1 tablet Orally Once a day Active IMMUNIZATIONS Vaccine Route Administration Date Status Comme nts Flu vaccine no Preserv 3 and > Unknown 06/16/2015 Admin istered SOCIAL HISTORY Sex Assigned At : Social History Observation Description Sex Assigned At Unknown PROBLEMS Problem Type ICD Code Onset Dates Problem Status W/U Status Risk SNOMED Code Notes Problem Abnormal findings in stool (R19.5) Active confirmed [id number] Encounters Encounter Location Date Provider Diagnosis [facility] [address] [place] [address] 10/27/2023 Noel Wagner Jr [facility] [address] [place] [address] 01/20/2024 Noel Wagner Jr [facility] [address] [place] [address] [place] [address] 01/03/2024 Noel Wagner Jr PLAN OF TREATMENT Future Test Test Name Order Date COLONOSCOPY 02/11/2016 Insurance Providers Payer Name Payer Address Payer Phone Subscriber Number Group Number Insured Name Patient Relationship to Insured Coverage Start Date Coverage End Date [facility] [address] [place] [address] [id number] LALI ADEN Self - patient is the insured MEDICAL (GENERAL) HISTORY Medical History History ICD Code colonoscopy 07-09-2009 atrial fibrillation rheumatoid arthritis Denies AR,DM,CVA,Lung disease,renal dise ase Surgical History Surgery Date(Month/Year) hysterectomy heel spurs carpal tunnel repair cholecystectomy 02/05/2016
--- OUTSIDE RECORDS SUMMARY | 2024-09-17 08:45 | XMS_ITS ---
Author Organization [facility] Address [address] [place] [address] Care Team Providers Care Oriental Medicine Practitioner Name Role Phone Joselyn SHERMAN, Angelita Primary Care Provider Manjinder Wagner Jr, Noel Chairez REASON FOR VISIT cancel appt Encounters Encounter Location Date Provider Diagnosis [facility] [address] [place] [address] 01/03/2024 Noel Wagner Jr PLAN OF TREATMENT No Information
--- NOTE | 2024-09-17 08:56 | AM.OFFWIN_ITS ---
Intake Vital Signs 09/17/24 08:57 Height 6 ft 2 in Weight 430 lb BMI 55.2 BP 110/60 Blood Pressure Location Lt radial Position Sitting Pulse 85 Pulse Source Pulse Oximeter Temp 97.9 F Temp Source Oral Pulse Oximetry (%) 94 Oxygen Delivery Method Room Air Intake Visit Reasons: EP severe pain on RT shoulder & arm Intake Note: Pt is here today c/o Rt shoulder and arm pain: No injury noted Patient Tobacco Use Status: Former Tobacco user Allergies No Known Allergies Allergy (Verified 09/17/24 08:56) HPI HPI Comments History of Present Illness Details History of Present Illness - The patient is a 69-year-old female pr esenting with right sided shoulder pain. Denies trauma to the area. - The shoulder pain initiated around Zack nksgiving after preparing dinner and has been worsening. - There is a prior history of arthritis and carpal tunnel, and the patient is on Coumadin therapy. - Pain is localized in the shoulder, par ticularly around the rotator cuff, and appears radiative to the arm and wrist. - The pain is sharp in nature and moveme nt-related, particularly with arm elevation and internal rotation. - Pain relief is attempted via propping techniques and medications with minimal improvement. - The patient experiences severe disrupt ed sleep, exacerbating the overall disability. Physical Exam General: Cooperative, healthy appearing, comfortable, no acute distress and well developed Orientation: Patient oriented x3 Limitations: using seated walker Head: Normal to inspection Ears: Hearing grossly normal bilaterally Nose: Normal external nose present Face and sinus: Normal facial exam Eyes: Appearance normal, both eyes and all related structures Neck: Normal visual inspection and Yes full ROM Respiratory: Normal respiratory effort and able to speak in complete sentences. Skin: No rashes or lesions noted Neuro: Patient oriented x3 Extremities: as below [facility] Medical History (Updated 09/17/24 @ 09:35 by Zulma Mc PA-C) Elevated alkaline phosphatase level Tubular adenoma of colon Urinary incontinence Hemochromatosis Gait instability Problem situation relating to social and personal history Difficulty in walking Acquired deformity of toenail Polyarticular osteoarthritis Seropositive rheumatoid arthritis Morbid obesity Anticoagulated on Coumadin Permanent atrial fibrillation Chronic diastolic congestive heart failure FACUNDO on CPAP Mild persistent asthma Surgical History History of carpal tunnel surgery Heel spur History of laparoscopic cholecystectomy History of total abdominal hysterectomy and bilateral salpingo-oophorectomy Family History Mother Pancreatic cancer Father Pancreatic cancer Myocardial infarction Maternal Grandmother Breast cancer Paternal Grandfather Myocardial infarction Paternal Grandmother Myocardial infarction Social History Housing: Apartment Alcohol intake: former Patient Tobacco Use Status: Former Tobacco user e-Cigarette/Vaping Use: Never Used Advance Directives Date on File: 11/11/22 Current occupational status: disabled Cognitive needs: No Hearing needs: No Vision needs: Yes Review of Systems Const All systems reviewed & are unremarkable except as noted in HPI and below Physical Exam Vital Signs: Last Vital Signs Temp 97.9 F 09/17/24 08:57 Pulse 85 09/17/24 08:57 BP 110/60 09/17/24 08:57 Pulse Ox 94 09/17/24 08:57 Oxygen Delivery Method Room Air 09/17/24 08:57 BMI result Body Mass Index 55.2 Back/Spine/Pelvis Cervical Spine: cervical ROM normal, No cervical muscular tenderness and No Cervical spine tenderness Extrem Right upper extremity: shoulder/upper arm Details: normal to inspection, tenderness Location: over the biceps tendon (insertion point), axillary nerve sensory function normal and abnormal ROM Details: pain with active ROM Details: in ABduction, in flexion and in internal rotation; no swelling and no deformity Assessment & Plan Assessment & Plan (1) Biceps tendonitis on right: Code(s): M75.21 - Bicipital tendinitis, right shoulder Plan: Plan The patient's presentation is consistent with rotator cuff tendinitis and/or biceps tendinitis warranting immediate care with a sling for shoulder support and appropriate use of topical anti-inflammatory medications like diclofenac. Referral to an peer specialist is pursued to ensure detailed evaluation and management, potentially including imaging for further clarity. Given the patient's anticoagulation therapy, adjustments in typical NSAID use are noted, and further management of the inflammatory process needs caution. Sleep disturbances resulting from the condition and other contributing factors should be addressed with adequate rest positioning and pain management. Emphasis is placed on preventing overuse of the sling to avoid complications such as frozen shoulder. Patient was informed and verbally consented to the use of an ambient scribe for clinic note documentation during this visit. (2) Sprain of shoulder, right: Code(s): S43.401A - Unspecified sprain of right shoulder joint, initial encounter Qualifiers: Encounter type: initial encounter Shoulder sprain type: unspecified sprain Qualified Code(s): S43.401A - Unspecified sprain of right shoulder joint, initial encounter Plan: as above Orders: Referrals Orthopedics Referral M25.511 - Pain in right shoulder Coding Level of Care Code Est Pt Level 4 (28834) Diagnoses Biceps tendonitis on right M75.21 Sprain of right shoulder, unspecified shoulder sprain type, initial encounter S43.401A Encounter type: initial encounter Shoulder sprain type: unspecified sprain
[2024-09-17 08:57] VITALS: BP 110/60; PULSE 85; TEMP 36.6; O2SAT 94; BMI 55.2
== END 2024-09-17 09:46 | disposition home or self-care (01) ==
PROVIDERS: PCP Internal Medicine; Visit Provider Physician Assistant
DX: M75.21 Bicipital tendinitis, right shoulder (principal); S43.401A Unspecified sprain of right shoulder joint, initial encounter

== ENCOUNTER → 2024-09-17 08:28 | Outpatient (BNVA) | payer OTHER, SELFPAY | PROVIDERS: PCP Internal Medicine; Visit Provider Physician Assistant | DX: M75.21 Bicipital tendinitis, right shoulder (principal); S43.401A Unspecified sprain of right shoulder joint, initial encounter | CPT/HCPCS: 99212 ==

== ENCOUNTER 2024-10-10 09:00 | Outpatient (REF) | payer OTHER, SELFPAY ==
--- OUTSIDE RECORDS SUMMARY | 2024-10-12 09:20 | XMS_ITS ---
Author Organization [facility] Address [address] [place] [address] Care Team Providers Care Referral Coordinator Name Role Phone Joselyn SHERMAN, Angelita Garcia Primary Care Provider Un available Bryson Piña Unavailable [phone] REASON FOR VISIT No Show Encounters Encounter Location Date Provider Diagnosis [facility] [address] [place] [address] 10/09/2024 Bryson Piña Plan Of Treatment No Information Progress Notes * Zumla WEAVER EDOB:[birth year] (69 yo F)Acc No.[id number]:10/09/2024 Patient:?Zulma WEAVER :1955???Age:69 Y???Sex:Female Address:[address] [facility] [address] , [place] [address] * true * Date:? Generated for Grahami quyen/Cody/eTransmitting on:?10/12/2024 09:20 AM EST
--- OUTSIDE RECORDS SUMMARY | 2024-10-12 09:20 | XMS_ITS ---
Author Organization [facility] Address [address] [place] [address] Care Team Providers Care Risk Tech Name Role Phone Joselyn SHERMAN, Angelita Garcia Primary Care Provider Un available Bryson Piña [phone] REASON FOR VISIT NS Encounters Encounter Location Date Provider Diagnosis [facility] [address] [place] [address] 07/13/2024 Bryson Piña Plan Of Treatment No Information Progress Notes * Zulma WEAVER EDOB:[birth year] (68 yo F)Acc No.[id number]:07/13/2024 Patient:?Zulma Weaver :1955???Age:68 Y???Sex:Female Address:[address], [place] [address] * true * Date:? Generated for Grahami quyen/Cody/eTransmitting on:?10/12/2024 09:20 AM EST
--- OUTSIDE RECORDS SUMMARY | 2024-10-12 09:21 | XMS_ITS ---
Author Organization [facility] Address [address] [place] [address] Care Team Providers Care Breaker Off Name Role Phone Joselyn SHERMAN, Angelita Primary Care Provider Manjinder Wagner Jr, Noel Chairez [phone] REASON FOR VISIT Patient presents today for a recall colonoscopy Encounters Encounter Location Date Provider Diagnosis [facility] [address] [place] [address] 10/27/2023 Noel Wagner Jr PLAN OF TREATMENT No Information
--- OUTSIDE RECORDS SUMMARY | 2024-10-12 09:21 | XMS_ITS | Patient Health Record ---
Author Organization [facility] Address [address] [place] [address] Care Team Providers Care Tattoo Artist Name Role Phone Joselyn SHERMAN, Angelita Garcia Primary Care Provider Un available WangBryson silveira Unavailable [phone] Black, Jacquelin Unavailable [phone] Allergies No Known Allergies Reason For Referral No Information Medications Medication SIG (Take, Route, Frequency, Duration) Notes Start Date End Date Status Enbrel 50 MG/ML 1 mL Subcutaneous Active Folic Acid 1 MG Oral for 90 Days Active traMADol HCl 50 MG 1 tablet as needed O rally Once a day Active traMADol HCl 50 MG TAKE 1 TABLET BY MELANIE TH AT BEDTIME NEEDED FOR PAIN Oral for 28 Days Active Metoprolol Succinate ER 50 MG 1 tablet Orally Once a day A ctive Furosemide 40 MG 1 tablet Orally Once a day Active Cephalexin 500 MG Oral for 7 Days Active Metoprolol Succinate ER 50 MG Oral for 90 Days Active Warfarin Sodium 10 MG Oral for 83 Days Active Tylenol Active Furosemide 40 MG Oral for 90 Days Active Folic Acid 1 MG 1 tablet Orally Once a day Active Warfarin Sodium 10 MG 1 tablet Orally Once a day Active Enbrel 50 MG/ML Subcutaneous for 28 Days Active Social History Tobacco Use: Social [...] ast year? No Points 0 Interpretation Negative Problems Problem Type SNOMED Code ICD Code Onset Dates Problem Status W/U Status Risk Notes Problem Atherosclerosis of upper mattaponi arteries of the extremities (467845063409357) Atherosclerosis of upper mattaponi artery of both lower extremities, with unspecified presence of clinical manifestation (I70.203) Active confirmed Vital Signs Height 6 ft 2 in in 04/20/2024 Weight 397 lbs lbs 04/20/2024 BMI 50.97 kg/m2 04/20/2024 Procedures Procedure Date Ordered Date Performed Result Body Sit e 84034-JLKUJHS NAIL, 1-5 04/20/2024 N/A 14703-OHFB SKIN LESIONS, 2 TO 4 04/20/2024 N/A Y1792-IOBBISUV DYSTROPHIC NAILS ANY # 04/20/2024 N/A Encounters Encounter Location Date Provider Diagnosis [address] [address] 04/20/2024 Bryson Piña Atherosclerosis of upper mattaponi artery of both lower extremities, with unspecified presence of clinical manifestation I70.203 ; Tinea unguium B35.1 ; Pain in right toe(s) M79.674 ; Pain in left toe(s) M79.675 ; Other hammer toe(s) (acquired), right foot M20.41 ; Arthritis of joint of lesser toe, right M19.071 ; Other hammer toe(s) (acquired), left foot M20.42 and Arthritis of joint of lesser toe, left M19.[address] [address] 04/18/2024 Jacquelin Álvarez [address] [address] 07/13/2024 Bryson Piña [address] [address] 07/13/2024 Bryson Piña [address] [address] 10/09/2024 Bryson Piña Assessments Encounter Date Diagnosis (ICD Code) Assessment Notes Treatment Notes Treatment Clinical Notes Section Notes 04/20/2024 Tinea unguium (ICD-10 - B35.1) 04/20/2024 Atherosclerosis of upper mattaponi artery of both lower extremities, with unspecified [...] Treatment Pending Test Test Name Order Date 99259-OTTBICT NAIL, 1-5 04/20/2024 26894-HHBR SKIN LESIONS, 2 TO 4 04/20/20 24 Q4632-JFYCTUWB DYSTROPHIC NAILS ANY # Insurance Providers Payer Name Payer Address Payer Phone Subscriber Number Group Number Insured Name Patient Relationship to Insured Coverage Start Date Coverage End Date [facility] CCA SCO Claims [address] [place] [id number] Zulma Patel Self - patient is the insured Medical (General) History Medical History History ICD Code Arthritis Back,Hip,and Knee pain Fibromyalgia High blood pressure Measles Mumps Chicken pox Surgical History Surgery Date(Month/Year) Gall bladder removal 2016 vascular 2017 afeb 2004 carpal tunnel surgery
--- OUTSIDE RECORDS SUMMARY | 2024-10-12 09:21 | XMS_ITS ---
Author Organization [facility] Address [address] [place] [address] Care Team Providers Care Fire Equipment Repairer Inspector Name Role Phone Joselyn SHERMAN, Angelita Primary Care Provider Manjinder Wagner Jr, Noel Chairez REASON FOR VISIT Patient presents today for a colon screening Encounters Encounter Location Date Provider Diagnosis [facility] [address] [place] [address] 01/20/2024 Noel Wagner Jr PLAN OF TREATMENT No Information
--- OUTSIDE RECORDS SUMMARY | 2024-10-12 09:21 | XMS_ITS | Patient Health Record ---
Author Organization [facility] Address [address] [place] [address] Care Team Providers Care Janitorial Tech Name Role Phone Joselyn SHERMAN, Angelita Primary [...] Abnormal findings in stool (R19.5) Active confirmed [id number] Encounters Encounter Location Date Provider Diagnosis [facility] [address] [place] [address] 10/27/[address] [facility] [address] [place] [address] 01/20/[address] [facility] [address] [place] [address] [place] [address] 01/03/2024 Noel Wagner Jr PLAN OF TREATMENT Future Test Test Name Order Date COLONOSCOPY 02/11/2016 Insurance Providers Payer Name Payer Address Payer Phone Subscriber Number Group Number Insured Name Patient Relationship to Insured Coverage Start Date Coverage End Date [facility] [address] [place] [address] [id number] LALI ADEN Self - patient is the insured MEDICAL (GENERAL) HISTORY Medical History History ICD Code colonoscopy 07-09-2009 atrial fibrillation rheumatoid arthritis Denies [place],DM,CVA,Lung disease,renal dise ase Surgical History Surgery Date(Month/Year) hysterectomy heel spurs carpal tunnel repair cholecystectomy 02/05/2016
--- OUTSIDE RECORDS SUMMARY | 2024-10-12 09:21 | XMS_ITS ---
Author Organization [facility] Address [address] [place] [address] Care Team Providers Care Tube Machine Operator Helper Name Role Phone Joselyn SHERMAN, Angelita Primary Care Provider Manjinder Wagner Jr, Noel Chairez REASON FOR VISIT cancel appt Encounters Encounter Location Date Provider Diagnosis [facility] [address] [place] [address] 01/03/2024 Noel Wagner Jr PLAN OF TREATMENT No Information
--- OUTSIDE RECORDS SUMMARY | 2024-10-12 09:21 | XMS_ITS ---
Author Organization [facility] Address [address] [facility] [place] [address] Care Team Providers Care Stake Setter Name Role Phone Joselyn SHERMAN, Angelita Garcia Primary Care Provider Un available Bryson Piña Unavailable [phone] Medications Medication SIG (Take, Route, Frequency, Duration) Notes Start Date End Date Status Cephalexin 500 MG Oral for 7 Days Active Metoprolol Succinate ER 50 MG Oral for 90 Days Active Warfarin Sodium 10 MG Oral for 83 Days Active Furosemide 40 MG Oral for 90 Days Active Enbrel 50 MG/ML Subcutaneous for 28 Days Active traMADol HCl 50 [...] FOR PAIN Oral for 28 Days Active Tylenol Active Social History [...] Negative Encounters Encounter Location Date [facility] [address] [facility] [place] [address] 10/09/2024 Bryson Piña Plan Of Treatment No Information Progress Notes * Zulma WEAVER EDOB:[birth year] (69 yo F)Acc No.[id number]:10/09/2024 Progress Note Patient:Zulma BERNARD Provider:?Bryson Piña DPM :1955???Age:69 Y???Sex:Female D ate:10/09/2024 Address:[address] [place] [address], [address], [place] Pcp:Jaden Fields Subjective: * Chief Complaints: * ??? * ROS:?General/Constitutional:?Nausea?denies.?Vomiting?denies.?Hunger Thirst?denies.?Loss appetite?denies.?Chills?denies.?Fatigue?denies.?Fever?denies.?Night Sweats?denies.?Unexplained weight loss?denies.?Unexplained weight gain?denies.?HEENTM:?Dentures?admits ?.?Dizziness?denies.?Glasses/contacts?admits ?.?Retinopathy?denies.?Blurred/double vision?denies.?TMJ?denies.?Discharge/drainage?denies.?Implants?denies.?Sore throat?denies.?Dental implants?denies.?Hard of hearing ?denies.?Difficulty chewing/swallowing/speaking?denies.?Nose bleeds?denies.?Sore mouth?denies.?Respiratory:?On Oxygen?denies.?Pneumonia/pleurisy?denies.?Bronchitis?denies.?Emphysema?denies.?C oughing?denies.?Cough blood?denies.?Shortness of breath?denies.?Wheezing?denies.?Cardiovascular:?Pacemaker?denies.?MVP?denies.?WPW?denies.?CHF?denies.?Heart attack?denies.?Septal defect?denies.?Rapid beat?denies.?Chest pain ?denies.?Atrial Fib.?denies.?Murmur/Palpitations?denies.?Gastrointestinal:?Hemorrhoids?denies.?Stomach/Abdominal pain?denies.?Dark blood stool?denies.?Irritable bowel ?denies.?Constipation?denies.?Diarrhea?denies.?Hematology:?Swelling?denies.?Clots?denies.?Varicose Veins?admits ?.?Bruising?admits ?.?Bleeding problem?denies.?Genitourinary:?Blood urine?denies.?Frequent/Painfu/urination/bladder control?denies.?Kidney stones?denies.?Infection (UTI)?denies.?Nephropathy?denies.?sex trans dis (STD)?denies.?Prostate?denies.?Musculoskeletal:?Hammertoes?admits ?.?Bunions?denies.?Back Pain?admits.?Muscle Cramps/ Resting?admits ?.?Muscle cramps / walking?denies.?Generalized aches and pains?denies.?Weakness?denies.?Integ.:?Solomon?denies.?Scars?admits.?Corns/calluses?denies.?Ingrown nails?denies.?Painful nails?denies.?Open Sores?denies.?Rashes?denies.?Neurologic:?Difficulty sleeping?denies.?Brain disorder?denies.?Numbness?denies.?Balance trouble?denies.?Confusion?denies.?Fainting/blackouts?denies.?Tingling?denies.?Tr emors?denies.? * Medical History:? * Social History:?Tobacco Use:?Tobacco use other than smoking?Are you an other tobacco user??No ?Tobacco Control (Standard)?Tobacco use:?Nonsmoker ?Additional Findings: Tobacco non-user?Current nonsmoker ???Drugs/Alcohol:?Drugs?Have you used drugs other than those for medical reasons in the past 12 months??Yes ???Drug/Alcohol:?AUDIT-C (Standard)?Did you have a drink containing alcohol in the past year??No ?Points?0 ?Interpretation?Negative * Medications:?Taking Tylenol , Taking Enbrel 50 MG/ML Solution [...] BEDTIME NEEDED FOR PAIN Oral Objective: * Vitals:? Assessment: Plan: * Treatment: * Images: * The named appointment provid er may or may not be the originator of this progress note, and it is not deemed complete until electronically signed by the appointment provider. Sign off status: Pending * Provider:?Bryson Piña DPM Date:?2024 Generated for Yocasta napier/Cody/Silva on:?10/12/2024 09:20 AM EST
== END 2024-10-10 09:01 | disposition home or self-care (01) ==
LOC: HO.HOSX 09:00
PROVIDERS: Visit Provider Orthopaedic Surgery
DX: Z13.89 Encounter for screening for other disorder (principal)

== ENCOUNTER 2024-11-14 09:21 | Outpatient (REF) | payer OTHER, SELFPAY ==
--- OUTSIDE RECORDS SUMMARY | 2024-11-15 10:54 | XMS_ITS ---
Author Organization [facility] Address [address] [place] [address] Care Team Providers Care Communication Electronic Technician Name Role Phone Joselyn SHERMAN, Angelita Garcia Primary Care Provider Un available Bryson Piañ [phone] REASON FOR VISIT NS Encounters Encounter Location Date Provider Diagnosis [facility] [address] [place] [address] 07/13/2024 Bryson Piña Plan Of Treatment No Information Progress Notes * Zulma WEAVER EDOB:[birth year] (68 yo F)Acc No.[id number]:07/13/2024 Patient:?Zulma Weaver :1955???Age:68 Y???Sex:Female Address:[address], [facility] [address] * true * Date:? Generated for Printi quyen/Cody/eTransmitting on:?11/15/2024 10:54 AM EDT
--- OUTSIDE RECORDS SUMMARY | 2024-11-15 10:54 | XMS_ITS ---
Author Organization [facility] Address [address] [place] [address] Care Team Providers Care Sales Analyst Name Role Phone Joselyn SHERMAN, Angelita Garcia Primary Care Provider Un available Bryson Piña Unavailable [phone] REASON FOR VISIT No Show Encounters Encounter Location Date Provider Diagnosis [facility] [address] [place] [address] 10/09/2024 Bryson Piña Plan Of Treatment No Information Progress Notes * Zulma WEAVER EDOB:[birth year] (69 yo F)Acc No.[id number]:10/09/2024 Patient:?Zulma WEAVER :1955???Age:69 Y???Sex:Female Address:[address] [place] [address] * true * Date:? Generated for Printi ng/Farene/eTransmitting on:?11/15/2024 10:54 AM EDT
--- OUTSIDE RECORDS SUMMARY | 2024-11-15 10:54 | XMS_ITS | Patient Health Record ---
Author Organization [facility] Address [address] [facility] [place] [address] Care Team Providers Care Protective Clothing Issuer Name Role Phone Joselyn SHERMAN, Angelita Garcia Primary Care Provider Un available WangBryson silveira Unavailable [phone] Black, Jacquelin Unavailable [phone] Allergies No Known Allergies Reason For Referral [...] W/U Status Risk Notes Problem Atherosclerosis of cowl[place] arteries of the extremities (496349042080849) Atherosclerosis of cow[place] artery of both lower extremities, with unspecified presence of clinical manifestation (I70.203) Active confirmed Vital Signs Height 6 ft 2 in in 04/20/2024 Weight 397 lbs lbs 04/20/2024 BMI 50.97 kg/m2 04/20/2024 Procedures Procedure Date Ordered Date Performed Result Body Sit e 47913-NUPUFCA NAIL, 1-5 04/20/2024 N/A 84926-BAMG SKIN LESIONS, 2 TO 4 04/20/2024 N/A G4752-ZRGJRCEI DYSTROPHIC NAILS ANY # 04/20/2024 N/A Encounters Encounter Location Date Provider Diagnosis [address] [address] 04/20/2024 Bryson Piña Atherosclerosis of cowlitz artery of both lower extremities, with unspecified presence of clinical manifestation I70.203 ; Tinea unguium B35.1 ; Pain in right toe(s) M79.674 ; Pain in left toe(s) M79.675 ; Other hammer toe(s) (acquired), right foot M20.41 ; Arthritis of joint of lesser toe, right M19.071 ; Other hammer toe(s) (acquired), left foot M20.42 and Arthritis of joint of lesser toe, left M19.[address] [address] 04/18/2024 [facility] [address] 07/13/2024 Bryson Piña [address] [address] 07/13/2024 Bryson Piña [address] [address] 10/09/2024 Bryson Piña Assessments Encounter Date Diagnosis (ICD Code) Assessment Notes Treatment Notes Treatment Clinical Notes Section Notes 04/20/2024 Tinea unguium (ICD-10 - B35.1) 04/20/2024 Atherosclerosis of cowlitz artery of both lower extremities, with unspecified [...] Treatment Pending Test Test Name Order Date 67767-NYOIBPI NAIL, 1-5 04/20/2024 85719-BOMY SKIN LESIONS, 2 TO 4 04/20/20 24 R0345-ESNZPQCO DYSTROPHIC NAILS ANY # Insurance Providers Payer Name Payer Address Payer Phone Subscriber Number Group Number Insured Name Patient Relationship to Insured Coverage Start Date Coverage End Date [facility] CCA SCO Claims [address] [place] [id number] Zulma Patel Self - patient is the insured Medical (General) History Medical History History ICD Code Arthritis Back,Hip,and Knee pain Fibromyalgia High blood pressure Measles Mumps Chicken pox Surgical History Surgery Date(Month/Year) Gall bladder removal 2016 vascular 2017 afeb 2004 carpal tunnel surgery
--- OUTSIDE RECORDS SUMMARY | 2024-11-15 10:54 | XMS_ITS ---
Author Organization [facility] Address [address] [facility] [place] [address] Care Team Providers Care Cone Picker Name Role Phone Joselyn SHERMAN, Angelita Garcia Primary Care Provider Un available Bryson Piña Unavailable [phone] Medications Medication SIG (Take, Route, Frequency, Duration) [...] Negative Encounters Encounter Location Date [facility] [address] [facility] [place] [address] 10/09/2024 Bryson Piña Plan Of Treatment No Information Progress Notes * Zulma WEAVER EDOB:[birth year] (69 yo F)Acc No.[id number]:10/09/2024 Progress Note Patient:Zulma BERNARD Provider:?Bryson Piña DPM :1955???Age:69 Y???Sex:Female D ate:10/09/2024 Address:[address] [place] [address], [address], [place] Pcp:Jaden Fields Subjective: * Chief Complaints: * [...] Piña DPM Date:?2024 Generated for Yocasta napier/Cody/Silva on:?11/15/2024 10:54 AM EDT
--- OUTSIDE RECORDS SUMMARY | 2024-11-15 10:54 | XMS_ITS | Patient Health Record ---
Author Organization [facility] Address [address] [place] [address] Care Team Providers Care Acura Sales Consultant Name Role Phone Joselyn SHERMAN, Angelita Primary Care Provider Noel Huerta Jr [phone] Reason For Referral No Information Medications Medication [...] 1 tablet Orally Once a day Active Immunizations Vaccine Route Administration Date Status Comme nts Flu vaccine no Preserv 3 and > Unknown 06/16/2015 Admin istered Problems Problem Type SNOMED Code ICD Code Onset Dates Problem Status W/U Status Risk Notes Problem [id number] Abnormal findings in stool (R19.5) Active confirmed Encounters Encounter Location Date Provider Diagnosis [facility] [address] [place] [address] 01/03/2024 Noel Wagner Jr Plan Of Treatment Future Test Test Name Order Date COLONOSCOPY 02/11/2016 Insurance Providers Payer Name Payer Address Payer Phone Subscriber Number Group Number Insured Name Patient Relationship to Insured Coverage Start Date Coverage End Date [facility] [address] [place] [address] [phone] [id number] LALI ADEN Self - patient is the insured Medical (General) History Medical History History ICD Code colonoscopy 07-09-2009 atrial fibrillation rheumatoid arthritis Denies [place],DM,CVA,Lung disease,renal dise ase Surgical History Surgery Date(Month/Year) hysterectomy heel spurs carpal tunnel repair cholecystectomy 02/05/2016
--- OUTSIDE RECORDS SUMMARY | 2024-11-15 10:55 | XMS_ITS ---
Author Organization [facility] Address [address] [place] [address] Care Team Providers Care Plate Roller Name Role Phone Joselyn SHERMAN, Angelita Primary Care Provider Manjinder Wagner Jr, Noel Chairez REASON FOR VISIT Patient presents today for a colon screening Encounters Encounter Location Date Provider Diagnosis [facility] [address] [place] [address] 01/20/2024 Noel Wagner Jr Plan Of Treatment No Information Progress Notes * LALI SÁNCHEZ EDOB:[birth year] (69 yo F)Acc No.[id number]:01/20/2024 Progress Notes Patient:?LALI SÁNCHEZ Provider:?Noel Wagner MD :1955???Age:68 Y???Sex:Female D ate:01/20/2024 Address:[address] [place] [address] Pcp:Angelita Alves MD Subjective: * Chief Complaints: * ???1. Patient presents today for a colon screening. * Medical History:? Objective: * Vitals:? Assessment: Plan: * Treatment: * * The named appointment provid er may or may not be the originator of this progress note, and it is not deemed complete until electronically signed by the appointment provider. Sign off status: Pending * Provider:?Noel Wagner MD Date:?0 01/20/2024 Generated for Printi ng/Cody/Anahyitting on:?11/15/2024 10:54 AM EDT
--- OUTSIDE RECORDS SUMMARY | 2024-11-15 10:55 | XMS_ITS ---
Author Organization [facility] Address [address] [place] [address] Care Team Providers Care Director Of Outside Sales Name Role Phone Joselyn SHERMAN, Angelita Primary Care Provider Manjinder Wagner Jr, Noel Chairez REASON FOR VISIT cancel appt Encounters Encounter Location Date Provider Diagnosis [facility] [address] [place] [address] 01/03/2024 Noel Wagner Jr Plan Of Treatment No Information Progress Notes * LALI SÁNCHEZ EDOB:[birth year] (68 yo F)Acc No.[id number]:01/03/2024 Patient:?LALI SÁNCHEZ :1955???Age:68 Y???Sex:Female Address:[address], [place] [address] * true * Date:? Generated for Printi quyen/Cody/eTransmitting on:?11/15/2024 10:55 AM EDT
--- OUTSIDE RECORDS SUMMARY | 2024-11-15 10:55 | XMS_ITS ---
Author Organization [facility] Address [address] [place] [address] Care Team Providers Care Receptionist Telephone Operator Name Role Phone Joselyn SHERMAN, Angelita Primary Care Provider Manjinder Wagner Jr, Noel Chairez REASON FOR VISIT Patient presents today for a recall colonoscopy Encounters Encounter Location Date Provider Diagnosis [facility] [address] [place] [address] 10/27/2023 Noel Wagner Jr Plan Of Treatment No Information Progress Notes * LALI SÁNCHEZ EDOB:[birth year] (69 yo F)Acc No.[id number]:10/27/2023 Progress Notes Patient:?LALI SÁNCHEZ Provider:?Noel Wagner MD :1955???Age:68 Y???Sex:Female D ate:10/27/2023 Address:[address] [place] [address] Pcp:Angelita Alves MD Subjective: * Chief Complaints: * ???1. Patient presents today for a recall colonoscopy. * Medical History:? Objective: * Vitals:? Assessment: Plan: * Treatment: * * The named appointment provid er may or may not be the originator of this progress note, and it is not deemed complete until electronically signed by the appointment provider. Sign off status: Pending * Provider:?Noel Wagner MD Date:?0 10/27/2023 Generated for Printi ng/Cody/Anahyitting on:?11/15/2024 10:55 AM EDT
== END 2024-11-14 09:22 | disposition home or self-care (01) ==
LOC: HO.HOSX 09:21
PROVIDERS: Visit Provider Orthopaedic Surgery
DX: Z13.89 Encounter for screening for other disorder (principal)

== ENCOUNTER 2024-12-18 07:45 | Outpatient (REF) | payer OTHER, SELFPAY ==
--- OUTSIDE RECORDS SUMMARY | 2024-12-18 07:48 | XMS_ITS ---
Author Organization [facility] Address [address] [place] [address] Care Team Providers Care Custom Harvester Name Role Phone Joselyn SHERMAN, Angelita Garcia Primary Care Provider Un available Bryson Piña [phone] REASON FOR VISIT severe toenail fungus - Bk SD Encounters Encounter Location Date Provider Diagnosis [facility] [address] [place] [address] 11/26/2024 Bryson Piña Plan Of Treatment No Information Progress Notes * Zulma WEAVER EDOB:[birth year] (69 yo F)Acc No.[id number]:11/26/2024 Patient:?Zulma WEAVER :1955???Age:69 Y???Sex:Female Address:[address] [place] [address] [address] , [place] [address] * true * Date:? Generated for Printi ng/Faxing/eTransmitting on:?12/18/2024 07:48 AM EDT
--- OUTSIDE RECORDS SUMMARY | 2024-12-18 07:48 | XMS_ITS ---
Author Organization [facility] Address [address] [facility] [place] [address] Care Team Providers Care Waredresser Name Role Phone Joselyn SHERMAN, Angelita Garcia Primary Care Provider Un available Bryson Piña Unavailable [phone] Medications Medication SIG (Take, Route, Frequency, Duration) [...] Encounters Encounter Location Date [facility] [address] [facility] [place] [address] 10/09/2024 Bryson Piña Plan Of Treatment No Information Progress Notes * Zulma WEAVER EDOB:[birth year] (69 yo F)Acc No.[id number]:10/09/2024 Progress Note Patient:Zulma BERNARD Provider:?Bryson Piña DPM :1955???Age:69 Y???Sex:Female D ate:10/09/2024 Address:[address] [place] [address], [address], [place] Pcp:Jaden Fields Subjective: * Chief Complaints: * [...] Piña DPM Date:?2024 Generated for Yocasta napier/Cody/Silva on:?12/18/2024 07:48 AM EDT
--- OUTSIDE RECORDS SUMMARY | 2024-12-18 07:48 | XMS_ITS ---
Author Organization [facility] Address [address] [place] [address] Care Team Providers Care Scale Expert Name Role Phone Joselyn SHERMAN, Angelita Garcia Primary Care Provider Un available Bryson Piña Unavailable [phone] REASON FOR VISIT No Show Encounters Encounter Location Date Provider Diagnosis [facility] [address] [place] [address] 10/09/2024 Bryson Piña Plan Of Treatment No Information Progress Notes * Zulma WEAVER EDOB:[birth year] (69 yo F)Acc No.[id number]:10/09/2024 Patient:?Zulma WEAVER :1955???Age:69 Y???Sex:Female Address:[address] [facility] [address] , [place] [address] * true * Date:? Generated for Printi ng/Fafantasmag/eTransmitting on:?12/18/2024 07:48 AM EDT
--- OUTSIDE RECORDS SUMMARY | 2024-12-18 07:48 | XMS_ITS | Patient Health Record ---
Author Organization [facility] Address [address] [place] [address] Care Team Providers Care Finishing Range Operator Name Role Phone Joselyn SHERMAN, Angelita Primary Care Provider Noel Huerta Jr Reason For Referral No Information Medications Medication [...] Problem Status W/U Status Risk Notes Problem [id number] Abnormal findings in stool (R19.5) Active confirmed Encounters Encounter Location Date Provider Diagnosis [facility] [address] [place] [address] 01/03/2024 Noel Wagner Jr Plan Of Treatment Future Test Test Name Order Date COLONOSCOPY 02/11/2016 Insurance Providers Payer Name Payer Address Payer Phone Subscriber Number Group Number Insured Name Patient Relationship to Insured Coverage Start Date Coverage End Date [facility] [address] [place] [address] [id number] LALI ADEN Self - patient is the insured Medical (General) History Medical History History ICD Code colonoscopy 07-09-2009 atrial fibrillation rheumatoid arthritis Denies [place],DM,CVA,Lung disease,renal dise ase Surgical History Surgery Date(Month/Year) hysterectomy heel spurs carpal tunnel repair cholecystectomy 02/05/2016
--- OUTSIDE RECORDS SUMMARY | 2024-12-18 07:49 | XMS_ITS ---
Author Organization [facility] Address [address] [place] [address] Care Team Providers Care Puzzle Assembler Name Role Phone Joselyn SHERMAN, Angelita Primary Care Provider Manjinder Wagner Jr, Noel Chairez REASON FOR VISIT Patient presents today for a recall colonoscopy Encounters Encounter Location Date Provider Diagnosis [facility] [address] [place] [address] 10/27/2023 Noel Wagner Jr Plan Of Treatment No Information Progress Notes * LALI SÁNCHEZ EDOB:[birth year] (69 yo F)Acc No.[id number]:10/27/2023 Progress Notes Patient:?LALI SÁNCHEZ Provider:?Noel Wagner MD :1955???Age:68 Y???Sex:Female D ate:10/27/2023 Address:[address] [place] [address] Pcp:Angelita Alves MD Subjective: * Chief Complaints: [...] MD Date:?0 10/27/2023 Generated for Printi ng/Cody/Anahyitting on:?12/18/2024 07:48 AM EDT
--- OUTSIDE RECORDS SUMMARY | 2024-12-18 07:49 | XMS_ITS ---
Author Organization [facility] Address [address] [place] [address] Care Team Providers Care Fleet Maintenance Foreman Name Role Phone Joselyn SHERMAN, Angelita Primary Care Provider Manjinder Wagner Jr, Noel Chairez REASON FOR VISIT Patient presents today for a colon screening Encounters Encounter Location Date Provider Diagnosis [facility] [address] [place] [address] 01/20/2024 Noel Wagner Jr Plan Of Treatment No Information Progress Notes * LALI SÁNCHEZ EDOB:[birth year] (69 yo F)Acc No.[id number]:01/20/2024 Progress Notes Patient:?LALI SÁNCHEZ Provider:?Noel Wagner MD :1955???Age:68 Y???Sex:Female D ate:01/20/2024 Address:[address] [place] [address] Pcp:Angelita Alves MD Subjective: * Chief Complaints: [...] MD Date:?0 01/20/2024 Generated for Printi ng/Cody/Anahyitting on:?12/18/2024 07:48 AM EDT
--- OUTSIDE RECORDS SUMMARY | 2024-12-18 07:49 | XMS_ITS | Patient Health Record ---
Author Organization [facility] Address [address] [facility] [place] [address] Care Team Providers Care Multi Operation Forming Machine Setter Name Role Phone Joselyn SHERMAN, Angelita Garcia Primary Care Provider Un available WangBryson silveira Unavailable [phone] Black, Jacquelin Unavailable [phone] Allergies No Known Allergies Reason For Referral [...] W/U Status Risk Notes Problem Atherosclerosis of saxman arteries of the extremities (655577433328757) Atherosclerosis of saxman artery of both lower extremities, with unspecified presence of clinical manifestation (I70.203) Active confirmed Vital Signs Height 6 ft 2 in in 04/20/2024 Weight 397 lbs lbs 04/20/2024 BMI 50.97 kg/m2 04/20/2024 Procedures Procedure Date Ordered Date Performed Result Body Sit e 98404-WSHLZVS NAIL, 1-5 04/20/2024 N/A 37848-ILIN SKIN LESIONS, 2 TO 4 04/20/2024 N/A S7533-QDEJLEWI DYSTROPHIC NAILS ANY # 04/20/2024 N/A Encounters Encounter Location Date Provider Diagnosis [address] [address] 04/20/2024 Bryson Piña Atherosclerosis of saxman artery of both lower extremities, with unspecified presence of clinical manifestation I70.203 ; Tinea unguium B35.1 ; Pain in right toe(s) M79.674 ; Pain in left toe(s) M79.675 ; Other hammer toe(s) (acquired), right foot M20.41 ; Arthritis of joint of lesser toe, right M19.071 ; Other hammer toe(s) (acquired), left foot M20.42 and Arthritis of joint of lesser toe, left M19.[address] [address] 04/18/2024 [facility] [address] 07/13/2024 Bryson Piña [address] [address] 07/13/2024 [facility] [address] 10/09/2024 Bryson Piña [address] [address] 11/26/2024 Bryson Piña Assessments Encounter Date Diagnosis (ICD Code) Assessment Notes Treatment Notes Treatment Clinical Notes Section Notes 04/20/2024 Tinea unguium (ICD-10 - B35.1) 04/20/2024 Atherosclerosis of saxman artery of both lower extremities, with unspecified [...] Treatment Pending Test Test Name Order Date 32871-NCHCDRL NAIL, 1-5 04/20/2024 75211-GPLS SKIN LESIONS, 2 TO 4 04/20/20 24 I5888-BJAZMGAL DYSTROPHIC NAILS ANY # Insurance Providers Payer Name Payer Address Payer Phone Subscriber Number Group Number Insured Name Patient Relationship to Insured Coverage Start Date Coverage End Date [facility] [employer] Claims [address] [place] [id number] Zulma Patel Self - patient is the insured Medical (General) History Medical History History ICD Code Arthritis Back,Hip,and Knee pain Fibromyalgia High blood pressure Measles Mumps Chicken pox Surgical History Surgery Date(Month/Year) Gall bladder removal 2016 vascular 2017 afeb 2004 carpal tunnel surgery
--- OUTSIDE RECORDS SUMMARY | 2024-12-18 07:49 | XMS_ITS ---
Author Organization [facility] Address [address] [place] [address] Care Team Providers Care Animal Herder Name Role Phone Joselyn SHERMAN, Angelita Primary Care Provider Manjinder Wagner Jr, Noel Chairez REASON FOR VISIT cancel appt Encounters Encounter Location Date Provider Diagnosis [facility] [address] [place] [address] 01/03/2024 Noel Wagner Jr Plan Of Treatment No Information Progress Notes * LALI SÁNCHEZ EDOB:[birth year] (68 yo F)Acc No.[id number]:01/03/2024 Patient:?LALI SÁNCHEZ :1955???Age:68 Y???Sex:Female Address:[address], [place] [address] * true * Date:? Generated for Printi quyen/Cody/eTransmitting on:?12/18/2024 07:48 AM EDT
[2024-12-18 10:09] LABS: Basophils Percent Auto 1.1 % (0-2); Eosinophils Absolute Auto 0.2 X10*3/uL (0.0-0.4); Eosinophils Percent Auto 5.1 % (0-4); Hematocrit 41.4 % (37.0-47.0); Hemoglobin 13.5 g/dl (12.0-16.0); Lymphocytes Absolute Auto 1.5 X10*3/uL (1.2-4.9); Lymphocytes Percent Auto 42.6 % (20-40); Mean Corpuscular HGB Conc 32.6 g/dl (31.0-35.0); Mean Corpuscular Hemoglobin 35.4 pg (27.0-33.0); Mean Corpuscular Volume 108.7 fL (80.0-98.0); Mean Platelet Volume 10.7 fL (9.4-12.3); Monocytes Absolute Auto 0.5 X10*3/uL (0.1-1.2); Monocytes Percent Auto 15.1 % (2-11); Neutrophils Absolute Auto 1.3 x10*3/uL (2.0-8.3); Neutrophils Percent Auto 36.1 % (45-73); Red Blood Count 3.81 X10*6/uL (4.20-5.50); Red Cell Distribution Width 14.4 % (11.0-16.0); White Blood Count 3.5 X10*3/uL (4.8-10.8)
[2024-12-18 10:11] LABS: MANUAL DIFF FLAG SCAN; Platelet Count 98 X10*3/uL (160-400)
[2024-12-18 10:36] LABS: SLIDE REVIEW VERIFIED
[2024-12-18 10:52] LABS: Alanine Aminotransferase 29 U/L (0-31); Anion Gap 9 (12-20); Aspartate Amino Transferase 62 U/L (5-31); Blood Urea Nitrogen 21 mg/dL (9-16); Calcium 9.2 mg/dL (8.4-10.2); Carbon Dioxide 37 mmol/L (22-29); Chloride 97 mmol/L (96-108); Cholesterol 139 mg/dL (<200); Estimated Glomerular Filt Rate > 60; Glucose Fasting 94 mg/dL (60-99); HDL Cholesterol 54 mg/dL (>40); LDL Cholesterol Calculated 71 mg/dL (<100); Potassium 3.5 mmol/L (3.3-5.1); Sodium 139 mmol/L (135-145); Triglycerides 73 mg/dL (<150); Vitamin D 25-OH Total 19.7 ng/mL (>30)
== END 2024-12-18 07:46 | disposition home or self-care (01) ==
LOC: HO.HMGCLDS 07:45
PROVIDERS: PCP Internal Medicine; Visit Provider Internal Medicine
DX: M05.9 Rheumatoid arthritis with rheumatoid factor, unspecified (principal); E66.01 Morbid (severe) obesity due to excess calories; Z79.01 Long term (current) use of anticoagulants; I48.21 Permanent atrial fibrillation; G47.33 Obstructive sleep apnea (adult) (pediatric); Z99.89 Dependence on other enabling machines and devices; J45.30 Mild persistent asthma, uncomplicated
CPT/HCPCS: 36415; 80048; 80061; 82306; 84450; 84460; 85025

== ENCOUNTER 2024-12-20 14:25 | Outpatient (AMB) | payer OTHER, SELFPAY ==
--- NOTE | 2024-12-20 14:38 | A.OFFVIS_ITS ---
Vital Signs 12/20/24 14:39 Height 6 ft 2 in Weight 445 lb 5.34 oz BMI 57.2 BP 112/64 Blood Pressure Location Lt radial Position Sitting Pulse 78 Pulse Source Monitor Intake Visit Reasons: r/s 10-23-24 1 year follow up w/ekg Solid Waste Management Engineer Required: No Accompanied by: Self / Same As Patient Allergies No Known Allergies Allergy (Verified 11/08/24 17:12) Medication List - Last Reconciled 12/20/24 by Bobby Kim MD ergocalciferol (vitamin D2) 1,250 mcg PO QWEEK etanercept 50 mg subcut QWEEK furosemide 80 mg (2 x 40 mg) PO DAILY metoprolol succinate ER 50 mg PO DAILY mometasone 0.1% 1 appl topical DAILY PRN tramadol 50 mg PO Q6H PRN warfarin 10 mg PO DAILY HPI Comments Details: Zulma is here for follow-up regarding atrial fibrillation. She has had atrial fibrillation for several years. Overall, just about the same as before. Recent exacerbation of her fibromyalgia led to a significant reduction in physical mobility and increased sedentary behavior, which was accompanied by shortness of breath. She associates these respiratory difficulties with weight gain and fluid retention. However, the patient reports a recent weight loss of 17 pounds attributable to increased physical activity. Has longstanding leg swelling, multifactorial but mostly related to weight. Also has obstructive sleep apnea on CPAP. [facility] Medical History (Updated 11/08/24 @ 17:36 by Angelita Alves MD) Elevated alkaline phosphatase level Tubular adenoma of colon Urinary incontinence Gait instability Problem situation relating to social and personal history Difficulty in walking Acquired deformity of toenail Polyarticular osteoarthritis Seropositive rheumatoid arthritis Morbid obesity Anticoagulated on Coumadin Permanent atrial fibrillation Chronic diastolic congestive heart failure FACUNDO on CPAP Mild persistent asthma Surgical History History of carpal tunnel surgery Heel spur History of laparoscopic cholecystectomy History of total abdominal hysterectomy and bilateral salpingo-oophorectomy Family History Mother Pancreatic cancer Father Pancreatic cancer Myocardial infarction Maternal Grandmother Breast cancer Paternal Grandfather Myocardial infarction Paternal Grandmother Myocardial infarction Social History Housing: Apartment Alcohol intake: former Patient Tobacco Use Status: Former Tobacco user e-Cigarette/Vaping Use: Never Used Advance Directives Date on File: 11/11/22 Current occupational status: disabled Cognitive needs: No Hearing needs: No Vision needs: Yes Review of Systems Const Denies chills, Denies fatigue, Denies fever(s), Denies frequent falls, Denies weakness, Denies weight gain and Denies weight loss ENT Denies dizziness Card Denies chest pain, Denies leg edema, Denies lightheadedness, Denies palpitations, Reports dyspnea and Reports dyspnea on exertion Resp Denies cough, Reports dyspnea and Reports dyspnea on exertion GI Denies hematochezia Musc Denies abnormal gait, Denies muscle weakness, Denies numbness, Denies radiating pain into limb and Denies tingling Neuro Denies abnormal gait, Denies dizziness, Denies frequent falls, Denies numbness, Denies tingling and Denies weakness Endo Denies fatigue and Denies palpitations Physical Exam Vital Signs: Last Vital Signs Pulse 78 12/20/24 14:39 BP 112/64 12/20/24 14:39 BMI result Body Mass Index 57.2 Const General: comfortable and no acute distress Orientation/consciousness: patient oriented x3 HEENT Other: Unremarkable Head: Yes normal to inspection Neck Neck: Yes normal visual inspection Chest Chest palpation & inspection: normal inspection of the chest Resp Auscultation: clear to auscultation bilaterally Cardio Palpation: normal PMI Heart sounds: S1 normal heart sound present, S2 normal heart sound present, no gallops, no murmurs and no rubs GI Palpation (GI): Soft to palpation Back/Spine/Pelvis Other: unremarkable Skin General skin exam: no rashes or lesions noted Neuro General: patient oriented x3 Extrem General: Yes normal to inspection Psych Mental Status: mental status grossly normal Office Procedures EKG Details: EKG with atrial fibrillation at 78/Min; rightward axis; cannot exclude anteroseptal infarct; low-voltage complexes. 03227-Eqzubajcuhyidwaxj, Complete Assessment & Plan Assessment & Plan (1) Permanent atrial fibrillation: Code(s): I48.21 - Permanent atrial fibrillation Category: Medical Plan: Continue beta-blockers for rate control. Continue anticoagulation. Last Holter from 2020 with atrial fibrillation with an average rate of 75/Min. On the echocardiogram, she has severe biatrial enlargement. (2) Chronic diastolic congestive heart failure: Code(s): I50.32 - Chronic diastolic (congestive) heart failure Category: Medical Plan: Echocardiogram from 2023 with LVEF of 60-65%. Blea-cq-hbmxsppc mitral regurgitation and moderate tricuspid regurgitation with moderate pulmonary hypertension. She is stable on diuretics. (3) FACUNDO on CPAP: Code(s): G47.33 - Obstructive sleep apnea (adult) (pediatric); Z99.89 - Dependence on other enabling machines and devices Category: Medical Plan: Continue CPAP. (4) Morbid obesity: Code(s): E66.01 - Morbid (severe) obesity due to excess calories Category: Medical Plan: She is well aware of the fact that weight is contributing to lot of cardiac as well as noncardiac issues. However, I am not clear how successfully she can lose a significant amount of weight. Plan Discussion Notes We discussed that her fibromyalgia symptoms worsened this winter, affecting her mobility and leading to being more sedentary and weight gain. This exacerbation contributed to shortness of breath, which is being addressed through increased physical activity, resulting in weight loss. Her heart condition remains stable, and while she faces challenges with sleep apnea, her adherence to CPAP therapy is beneficial. The hemochromatosis is being managed through regular blood draws. We talked about the importance of maintaining weight loss momentum and the mobility aids available to her. Given her stable heart condition, no new cardiovascular interventions are immediately necessary, but monitoring will continue. Patient was informed and verbally consented to the use of an ambient scribe for clinic note documentation during this visit. Patient Instructions: - Continue using CPAP machine every night. - Engage in regular physical activity, increasing gradually as tolerated. - Monitor weight regularly and aim for weight loss where possible. - Use rollator and power chair for mobility as needed. - Report any new or worsening symptoms of shortness of breath. - Schedule follow-up for cardiovascular status if any symptoms change. Coding Level of Care Code Est Pt Level 4 (14184) Complex EM visit Add On G2211 Diagnoses Permanent atrial fibrillation I48.21 Chronic diastolic congestive heart failure I50.32 FACUNDO on CPAP G47.33; Z99.89 Morbid obesity E66.01 CPT Codes EKG - CPT: 67457-Dcdgescbzugzsxdtr, Complete ([id number])
[2024-12-20 14:39] VITALS: BP 112/64; PULSE 78; BMI 57.2
--- OUTSIDE RECORDS SUMMARY | 2024-12-20 17:27 | XMS_ITS ---
Author Organization [facility] Address [address] [place] [address] Care Team Providers Care Assistance Specialist Name Role Phone Joselyn SHERMAN, Angelita Garcia Primary Care Provider Un available Bryson Piña [phone] REASON FOR VISIT severe toenail fungus - Bk SD Encounters Encounter Location Date Provider Diagnosis [facility] [address] [place] [address] 11/26/2024 Bryson Piña Plan Of Treatment No Information Progress Notes * Zulma WEAVER EDOB:[birth year] (69 yo F)Acc No.[id number]:11/26/2024 Patient:?Zulma WEAVER :1955???Age:69 Y???Sex:Female Address:[address] [place] [address] [address] , [place] [address] * true * Date:? Generated for Printi ng/Fafantasmag/eTransmitting on:?12/20/2024 05:27 PM EDT
--- OUTSIDE RECORDS SUMMARY | 2024-12-20 17:27 | XMS_ITS | Patient Health Record ---
Author Organization [facility] Address [address] [facility] [place] [address] Care Team Providers Care Gear Tester Name Role Phone Joselyn SHERMAN, Angelita Garcia Primary Care Provider Un available WangBryson silveira Unavailable [phone] Black, Jacquelin Unavailable [phone] Allergies No Known Allergies Reason For Referral [...] W/U Status Risk Notes Problem Atherosclerosis of ag[place] caliente arteries of the extremities (069200060562069) Atherosclerosis of [place] artery of both lower extremities, with unspecified presence of clinical manifestation (I70.203) Active confirmed Vital Signs Height 6 ft 2 in in 04/20/2024 Weight 397 lbs lbs 04/20/2024 BMI 50.97 kg/m2 04/20/2024 Procedures Procedure Date Ordered Date Performed Result Body Sit e 51563-XAVJTYG NAIL, 1-5 04/20/2024 N/A 77489-KDRA SKIN LESIONS, 2 TO 4 04/20/2024 N/A W3601-OROGHLQO DYSTROPHIC NAILS ANY # 04/20/2024 N/A Encounters Encounter Location Date Provider Diagnosis [address] [address] 04/20/2024 Bryson Piña Atherosclerosis of [place] artery of both lower extremities, with unspecified presence of clinical manifestation I70.203 ; Tinea unguium B35.1 ; Pain in right toe(s) M79.674 ; Pain in left toe(s) M79.675 ; Other hammer toe(s) (acquired), right foot M20.41 ; Arthritis of joint of lesser toe, right M19.071 ; Other hammer toe(s) (acquired), left foot M20.42 and Arthritis of joint of lesser toe, left M19.[address] [address] 04/18/2024 [facility] [address] 07/13/2024 Bryson Piña [address] [address] 07/13/2024 [facility] [address] 10/09/2024 Bryson Piña [address] [address] 11/26/2024 Bryson Piña Assessments Encounter Date Diagnosis (ICD Code) Assessment Notes Treatment Notes Treatment Clinical Notes Section Notes 04/20/2024 Tinea unguium (ICD-10 - B35.1) 04/20/2024 Atherosclerosis of [place] artery of both lower extremities, with unspecified [...] Treatment Pending Test Test Name Order Date 91792-CAUGGQO NAIL, 1-5 04/20/2024 96665-NJPT SKIN LESIONS, 2 TO 4 04/20/20 24 J6372-USAUSSTV DYSTROPHIC NAILS ANY # Insurance Providers Payer Name Payer Address Payer Phone Subscriber Number Group Number Insured Name Patient Relationship to Insured Coverage Start Date Coverage End Date [facility] [employer] Claims [address] [place] [id number] Zulma Patel Self - patient is the insured Medical (General) History Medical History History ICD Code Arthritis Back,Hip,and Knee pain Fibromyalgia High blood pressure Measles Mumps Chicken pox Surgical History Surgery Date(Month/Year) Gall bladder removal 2016 vascular 2017 afeb 2004 carpal tunnel surgery
--- OUTSIDE RECORDS SUMMARY | 2024-12-20 17:27 | XMS_ITS | Patient Health Record ---
Author Organization [facility] Address [address] [place] [address] Care Team Providers Care Side Laster Staple Name Role Phone Joselyn SHERMAN, Angelita Primary [...] Problem Status W/U Status Risk Notes Problem [id number] Abnormal findings in stool (R19.5) Active confirmed Encounters Encounter Location Date Provider Diagnosis [facility] [address] [place] [address] 01/03/2024 Noel Wagner Jr Plan Of Treatment Future Test Test Name Order Date COLONOSCOPY 02/11/2016 Insurance Providers Payer Name Payer Address Payer Phone Subscriber Number Group Number Insured Name Patient Relationship to Insured Coverage Start Date Coverage End Date [facility] [address] [place] [address] [id number] LALI ADEN Self - patient is the insured Medical (General) History Medical History History ICD Code colonoscopy 07-09-2009 atrial fibrillation rheumatoid arthritis Denies [place],DM,CVA,Lung disease,renal dise ase Surgical History Surgery Date(Month/Year) hysterectomy heel spurs carpal tunnel repair cholecystectomy 02/05/2016
--- OUTSIDE RECORDS SUMMARY | 2024-12-20 17:28 | XMS_ITS ---
Author Organization [facility] Address [address] [place] [address] Care Team Providers Care Mowing Machine Operator Name Role Phone Joselyn SHERMAN, Angelita Primary Care Provider Manjinder Wagner Jr, Noel Chairez REASON FOR VISIT Patient presents today for a colon screening Encounters Encounter Location Date Provider Diagnosis [facility] [address] [place] [address] 01/20/2024 Noel Wagner Jr Plan Of Treatment No Information Progress Notes * LALI SÁNCHEZ EDOB:[birth year] (69 yo F)Acc No.[id number]:01/20/2024 Progress Notes Patient:?LALI SÁNCHEZ Provider:?Noel Wagner MD :1955???Age:68 Y???Sex:Female D ate:01/20/2024 Address:[address] [place] [address] Pcp:Angelita Alves MD Subjective: * Chief Complaints: [...] MD Date:?0 01/20/2024 Generated for Printi ng/Cody/Anahyitting on:?12/20/2024 05:27 PM EDT
--- OUTSIDE RECORDS SUMMARY | 2024-12-20 17:28 | XMS_ITS ---
Author Organization [facility] Address [address] [facility] [place] [address] Care Team Providers Care Personal Consultant Name Role Phone Joselyn SHERMAN, Angelita Garcia Primary Care Provider Un available Bryson Piña Unavailable [phone] Medications Medication SIG (Take, Route, Frequency, Duration) [...] Encounter Location Date [facility] [address] [facility] [place] [address] 10/09/2024 Bryson Piña Plan Of Treatment No Information Progress Notes * Zulma WEAVER EDOB:[birth year] (69 yo F)Acc No.[id number]:10/09/2024 Progress Note Patient:Zulma BERNARD Provider:?Bryson Piña DPM :1955???Age:69 Y???Sex:Female D ate:10/09/2024 Address:[address] [place] [address], [address], [place] Pcp:Jaden Fields Subjective: * Chief Complaints: * [...] Piña DPM Date:?2024 Generated for Yocasta napier/Cody/Silva on:?12/20/2024 05:28 PM EDT
--- OUTSIDE RECORDS SUMMARY | 2024-12-20 17:28 | XMS_ITS ---
Author Organization [facility] Address [address] [place] [address] Care Team Providers Care Valet Name Role Phone Joselyn SHERMAN, Angelita Garcia Primary Care Provider Un available Bryson Piña Unavailable [phone] REASON FOR VISIT No Show Encounters Encounter Location Date Provider Diagnosis [facility] [address] [place] [address] 10/09/2024 Bryson Piña Plan Of Treatment No Information Progress Notes * Zulma WEAVER EDOB:[birth year] (69 yo F)Acc No.[id number]:10/09/2024 Patient:?Zulma WEAVER :1955???Age:69 Y???Sex:Female Address:[address] [facility] [address] , [place] [address] * true * Date:? Generated for Printi ng/Fafantasmag/eTransmitting on:?12/20/2024 05:28 PM EDT
--- OUTSIDE RECORDS SUMMARY | 2024-12-20 17:28 | XMS_ITS ---
Author Organization [facility] Address [address] [place] [address] Care Team Providers Care Top Screw Name Role Phone Joselyn SHERMAN, Angelita Primary Care Provider Manjinder Wagner Jr, Noel Chairez [phone] REASON FOR VISIT Patient presents today for a recall colonoscopy Encounters Encounter Location Date Provider Diagnosis [facility] [address] [place] [phone] 10/27/2023 Noel Wagner Jr Plan Of Treatment No Information Progress Notes * LALI SÁNCHEZ EDOB:[birth year] (69 yo F)Acc No.[id number]:10/27/2023 Progress Notes Patient:?LALI SÁNCHEZ Provider:?Noel Wagner MD :1955???Age:68 Y???Sex:Female D ate:10/27/2023 Address:[address] [place] [address] Pcp:Angelita Alves MD Subjective: * Chief Complaints: [...] MD Date:?0 10/27/2023 Generated for Printi ng/Cody/Anahyitting on:?12/20/2024 05:28 PM EDT
--- OUTSIDE RECORDS SUMMARY | 2024-12-20 17:29 | XMS_ITS | Encounter Summary ---
Author Organization [facility] Address [address] [place] [address] Care Team Providers Care Boilermaking Supervisor Name Role Phone Angelita Alves Md MD Primary Care Provider Unavailable Encounter Details Date Type Department Care Team Description 12/01/2020 Business Doc Medical Records [address] [place] [address] Abstract, Provider Social History Tobacco Use Types Packs/Day Years Used Date Smoking Tobacco: Former Smokeless Tobacco: Former Alcohol Use Standard Drinks/Week Comments No 0 (1 standard drink = 0.6 oz pur e alcohol) Sex Assigned at Date Recorded Not on file COVID-19 Exposure Response Date Recorded In the last month, have you been in contact with someone who was confirmed or suspected to have Coronavirus / COVID-19? No / Unsure 11/25/2020 10:40 AM EDT documented as of this encounter Plan of Treatment Not on file documented as of this encounter Visit Diagnoses Not on filedocumented in this encounter Care Teams Boilermaking Supervisor Relationship Specialty Start Date End Date Angelita Alves MD, MD PCP - General Internal Medicine 11/25/20 documented as of this encounter
--- OUTSIDE RECORDS SUMMARY | 2024-12-20 17:29 | XMS_ITS | Clinical Summary ---
Author Organization [facility] Address [address] [place] [address] Care Team Providers Care Online Communications Specialist Name Role Phone Angelita Alves Md, MD Primary Care Provider Unavailable Allergies Active Allergy Reactions Severity Noted Date Comments Penicillin V 10/31/2017 Liquid Medications Medication Sig Dispensed Refills Start Date End Date Status leflunomide (ARAVA) 20 MG tablet Take 20 mg by mouth daily. 0 Active folic acid (FOLVITE) 1 MG tablet Take 1 mg by mouth daily. 0 Active furosemide (LASIX) 40 MG tablet Take 40 mg by mouth daily. 0 Active metoprolol (TOPROL-XL) 100 MG 24 hr tablet Take 100 mg by mouth daily. 0 Active estrogens, conjugated, (PREMARIN) 0.625 MG tablet Take 0.625 mg by mouth at bedtime. 0 Active warfarin (COUMADIN) 10 MG tablet Take 10 mg by mouth daily. 15 mg on Tuesday 0 Active Vitamin D, Cholecalciferol, 1000 UNITS Cap Take 15,000 Units by mouth daily. 0 Active Etanercept 50 MG/ML Solution Auto-injector Inject into the skin once a week. 0 Active ciclopirox (PENLAC) 8 % solution Apply topically to nails daily for 6 months clean medication off nail with rubbing alcohol every 3 days 6.6 mL 3 11/25/2020 Active Active Problems Problem Noted Date Asthma 09/11/2019 Varicose veins of lower extremity 2019 Overview: Left Seropositive rheumatoid arthritis 2017 Atrial fibrillation 10/31/2017 Venous insufficiency 10/31/2017 Hypertension 10/31/2017 Carpal tunnel syndrome, bilateral 2017 Chronic anticoagulation 10/31/2017 Tendonitis, Achilles, left 10/31/2017 Morbid obesity with BMI of 40.0-44.9, ad ult 10/31/2017 Family History Relation Name Status Comments Father Mother Social History Tobacco Use Types Packs/Day Years Used Date Smoking Tobacco: Former Smokeless Tobacco: Former Alcohol Use Standard Drinks/Week Comments No 0 (1 standard drink = 0.6 oz pur e alcohol) Sex Assigned at Date Recorded Not on file Last Filed Vital Signs Vital Sign Reading Time Taken Comments Blood Pressure 146/80 11/25/2020 11:04 AM EDT Pulse 88 11/25/2020 11:04 AM EDT Temperature 36.9 ??C (98.5 ??F) 02/24/2018 1:47 PM ED T Respiratory Rate 14 02/24/2018 1:47 PM EDT Oxygen Saturation - - Inhaled Oxygen Concentration - - Weight 190.5 kg (420 lb) 11/25/2020 11:04 AM EDT Height 195.6 cm (6' 5 ) 11/25/2020 11:04 AM EDT Body Mass Index 49.8 11/25/2020 11:04 AM EDT Plan of Treatment Health Maintenance Due Date Last Done Comments Covid-19 Vaccine (#1) 02/24/1956 DEPRESSION SCREEN 1967 HEPATITIS C SCREENING 1973 DTAP/TDAP/TD (1 - Tdap) 1974 CHOLESTEROL SCREENING 1975 MAMMOGRAM 1995 COLON CANCER SCREENING 2005 SHINGLES VACCINE (1 of 2) 2005 BONE DENSITY SCREENING 2020 FALL RISK ASSESSMENT 2020 PNEUMOCOCCAL VACCINE (1 - PCV) 2020 BMI CHECK/ADVISE 09/05/2024 11/25/2020 INFLUENZA (Season Ended) 2025 Care Teams Online Communications Specialist Relationship Specialty Start Date End Date Angelita Alves MD, MD PCP - General Internal Medicine 11/25/20
--- OUTSIDE RECORDS SUMMARY | 2024-12-20 17:29 | XMS_ITS | Encounter Summary ---
Author Organization [facility] Address [address] [place] [address] Care Team Providers Care Saturator Name Role Phone Virginia Santoyo MD Primary Care Provider Lavell Vizcarra Primary Care Provider UnavailAngelita Joseph Md, MD Primary Care Provider Unavailable Encounter Details Date Type Department Care Team Description 09/09/2017 Student Activities Director Report Medical Records [address] [place] [address] Soo Tyson MD Social History Tobacco Use Types Packs/Day Years Used Date Smoking Tobacco: Never Assessed Sex Assigned at Date Recorded Not on file documented as of this encounter Plan of Treatment Not on file documented as of this encounter Visit Diagnoses Not on filedocumented in this encounter Care Teams Saturator Relationship Specialty Start Date End Date Virginia Santoyo MD PCP - General Internal Medicine 09/14/17 11/24/20 Lavell Triana PCP - General 12/24/16 09/13/17 Angelita Alves MD, MD PCP - General Internal Medicine 11/25/20 documented as of this encounter
--- OUTSIDE RECORDS SUMMARY | 2024-12-20 17:29 | XMS_ITS | Encounter Summary ---
Author Organization [facility] Address [address] [place] [address] Care Team Providers Care Groover Operator Name Role Phone Virginia Santoyo MD Primary Care Provider Angelita Mane Md, MD Primary Care Provider Unavailable Encounter Details Date Type Department Care Team Description 11/02/2017 Release of Information Medical Records [address] [place] [address] Abstract, Provider Social History Tobacco Use Types [...] on filedocumented in this encounter Care Teams Groover Operator Relationship Specialty Start Date End Date Virginia Santoyo MD PCP - General Internal Medicine 09/14/17 11/24/20 Angelita Alves MD, MD PCP - General Internal Medicine 11/25/20 documented as of this encounter
--- OUTSIDE RECORDS SUMMARY | 2024-12-20 17:29 | XMS_ITS ---
Author Organization [facility] Address [address] [place] [address] Care Team Providers Care Clinical Research Physician Name Role Phone Joselyn SHERMAN, Angelita Primary Care Provider Manjinder Wagner Jr, Noel Chairez REASON FOR VISIT cancel appt Encounters Encounter Location Date Provider Diagnosis [facility] [address] [place] [address] 01/03/2024 Noel Wagner Jr Plan Of Treatment No Information Progress Notes * LALI SÁNCHEZ EDOB:[birth year] (68 yo F)Acc No.[id number]:01/03/2024 Patient:?LALI SÁNCHEZ :1955???Age:68 Y???Sex:Female Address:[address], [place] [address] * true * Date:? Generated for Printi quyen/Cody/eTransmitting on:?12/20/2024 05:28 PM EDT
== END 2024-12-20 15:28 | disposition home or self-care (01) ==
LOC: HO.HCS 14:25
PROVIDERS: PCP Internal Medicine; Visit Provider Internal Medicine
DX: I48.21 Permanent atrial fibrillation (principal); I50.32 Chronic diastolic (congestive) heart failure; G47.33 Obstructive sleep apnea (adult) (pediatric); Z99.89 Dependence on other enabling machines and devices; E66.01 Morbid (severe) obesity due to excess calories
CPT/HCPCS: 93010; 99214; G2211

== ENCOUNTER → 2024-12-20 14:25 | Outpatient (BNVA) | payer OTHER, SELFPAY | PROVIDERS: PCP Internal Medicine; Visit Provider Internal Medicine | DX: I48.21 Permanent atrial fibrillation (principal); I50.32 Chronic diastolic (congestive) heart failure; G47.33 Obstructive sleep apnea (adult) (pediatric); E66.01 Morbid (severe) obesity due to excess calories; Z99.89 Dependence on other enabling machines and devices; Z68.43 Body mass index [BMI] 50.0-59.9, adult | CPT/HCPCS: 93005; 99212 ==

== ENCOUNTER → 2024-12-24 12:00 | Outpatient (BNVA) | payer OTHER, SELFPAY | PROVIDERS: PCP Internal Medicine; Visit Provider Internal Medicine | DX: Z13.89 Encounter for screening for other disorder (principal) ==

== ENCOUNTER 2025-01-17 13:33 | Outpatient (AMB) | payer OTHER, SELFPAY ==
[2025-01-17 13:39] VITALS: BP 111/62; PULSE 93; O2SAT 91; BMI 58.8
--- NOTE | 2025-01-17 13:39 | A.OFFVIS_ITS ---
Vital Signs 01/17/25 13:39 Height 6 ft 2 in Weight 458 lb BMI 58.8 BP 111/62 Blood Pressure Location Rt radial Position Sitting Pulse 93 Pulse Source Pulse Oximeter Pulse Oximetry (%) 91 L Oxygen Delivery Method Room Air Intake Visit Reasons: COPD Allergies No Known Allergies Allergy (Verified 01/17/25 13:44) HPI HPI COPD: Details: 69-year-old lady followed for underlying asthma, environmental allergies, and FACUNDO on CPAP.? Patient also has rheumatoid arthritis, previously on methotrexate, though at least 10 years prior.? Patient states that her asthma has been very well controlled after moving into a new apartment and she rarely requires to use her albuterol MDI or nebulizer. She denies recent exacerbations. Patient does state that her CPAP is no longer working well and it has been over 5 years since she had a new machine. [facility] Medical History (Updated 11/08/24 @ 17:36 by Angelita Alves MD) Elevated alkaline phosphatase level Tubular adenoma of colon Urinary incontinence Gait instability Problem situation relating to social and personal history Difficulty in walking Acquired deformity of toenail Polyarticular osteoarthritis Seropositive rheumatoid arthritis Morbid obesity Anticoagulated on Coumadin Permanent atrial fibrillation Chronic diastolic congestive heart failure FACUNDO on CPAP Mild persistent asthma Surgical History History of carpal tunnel surgery Heel spur History of laparoscopic cholecystectomy History of total abdominal hysterectomy and bilateral salpingo-oophorectomy Family History Mother Pancreatic cancer Father Pancreatic cancer Myocardial infarction Maternal Grandmother Breast cancer Paternal Grandfather Myocardial infarction Paternal Grandmother Myocardial infarction Social History Housing: Apartment Alcohol intake: former Patient Tobacco Use Status: Former Tobacco user e-Cigarette/Vaping Use: Never Used Advance Directives Date on File: 11/11/22 Current occupational status: disabled Cognitive needs: No Hearing needs: No Vision needs: Yes Review of Systems Const Denies daytime sleepiness, Denies excessive sweating, Denies fatigue, Denies fever(s), Denies lethargy, Denies malaise, Denies night sweats, Denies snoring and Denies weight loss Eyes Denies blurry vision and Denies itchy eyes ENT Denies nasal congestion, Denies post nasal drip, Denies sinus pain, Denies sinus pressure and Denies other ( Thrush) Card Denies chest pain, Denies pedal edema, Denies dyspnea, Denies orthopnea and Denies paroxysmal nocturnal dyspnea Resp Denies cough, Denies hemoptysis, Denies excessive phlegm production, Denies dyspnea, Denies snoring and Denies wheezing GI Denies abdominal pain and Denies heartburn Musc Denies myalgias, Denies arthralgias and Denies joint swelling Skin/Breast Denies rash Neuro Denies memory loss and Denies seizure-like activity Psych Denies abnormal sleep pattern, Denies anxiety and Denies memory loss Endo Denies excessive sweating, Denies fatigue and Denies heat intolerance Jose D/Lymph Denies easy bruising Aller/Immun Denies itchy eyes, Denies seasonal rhinorrhea and Denies wheezing Physical Exam Vital Signs: Last Vital Signs Pulse 93 01/17/25 13:39 BP 111/62 01/17/25 13:39 Pulse Ox 91 L 01/17/25 13:39 Oxygen Delivery Method Room Air 01/17/25 13:39 BMI result Body Mass Index 58.8 Const General: no acute distress and alert Nutritional Appearance: obese Orientation/consciousness: Other orientation findings ( oriented) HEENT Head: Yes atraumatic Eyes General: appearance normal, both eyes and all related structures Sclerae: sclerae normal EOM: EOMs intact bilaterally Neck Neck: Yes supple Lymphatic: no lymphadenopathy noted Resp Effort & Inspection: normal respiratory effort and no use of accessory muscles Auscultation: clear to auscultation bilaterally Cardio Rate: regular rate Rhythm: regular rhythm Heart sounds: no gallops, no murmurs and no rubs Skin General skin exam: other ( warm) Extrem General: No clubbing, No cyanosis and No edema Assessment & Plan Assessment & Plan (1) Mild persistent asthma: Code(s): J45.30 - Mild persistent asthma, uncomplicated Category: Medical Plan: Well controlled on current regimen of albuterol MDI/nebs. Continue current regimen. (2) FACUNDO on CPAP: Code(s): G47.33 - Obstructive sleep apnea (adult) (pediatric); Z99.89 - Dependence on other enabling machines and devices Category: Medical Plan: Her current machine is no longer working. It is over 5 years old. Will obtain new sleep study. Orders: Orders RT home sleep study Today G47.33 - Obstructive sleep apnea (adult) (pediatric), Z99.89 - Dependence on other enabling machines and devices Medications: New albuterol sulfate 2.5 mg (3 mL) inhalation Q4-6H PRN 180 mL 6RF shortness of breath or wheezing albuterol sulfate 90 mcg/actuation 2 puffs inhalation Q4-6H PRN 1 ea 6RF shortness of breath or wheezing Coding Level of Care Code Est Pt Level 4 (05391) Diagnoses Mild persistent asthma J45.30 FACUNDO on CPAP G47.33; Z99.89
--- OUTSIDE RECORDS SUMMARY | 2025-01-17 14:10 | XMS_ITS ---
Author Organization [facility] Address [address] [place] [address] Care Team Providers Care Admissions Director Name Role Phone Joselyn SHERMAN, Angelita Primary Care Provider Manjinder Wagner Jr, Noel Cahirez REASON FOR VISIT Patient presents today for a colon screening Encounters Encounter Location Date Provider Diagnosis [facility] [address] [place] [address] 01/20/2024 Noel Wagner Jr Plan Of Treatment No Information Progress Notes * LALI SÁNCHEZ EDOB:[birth year] (69 yo F)Acc No.[id number]:01/20/2024 Progress Notes Patient:?LALI SÁNCHEZ Provider:?Noel Wagner MD :1955???Age:68 Y???Sex:Female D ate:01/20/2024 Address:[address] [place] [address] Pcp:Angelita Alves MD Subjective: * Chief Complaints: [...] MD Date:?0 01/20/2024 Generated for Printi ng/Cody/Anahyitting on:?01/17/2025 02:10 PM EDT
--- OUTSIDE RECORDS SUMMARY | 2025-01-17 14:10 | XMS_ITS | Patient Health Record ---
Author Organization [facility] Address [address] [facility] [place] [address] Care Team Providers Care Bag Loader Machine Operator Name Role Phone Joselyn SHERMAN, Angelita Garcia Primary Care Provider Un available WangBryson silveira Unavailable [phone] Black, Jacquelin Unavailable [phone] Allergies No Known Allergies Reason For Referral [...] W/U Status Risk Notes Problem Atherosclerosis of [place] arteries of the extremities ([id number]) Atherosclerosis of [place] artery of both lower extremities, with unspecified presence of clinical manifestation (I70.203) Active confirmed Vital Signs Height 6 ft 2 in in 04/20/2024 Weight 397 lbs lbs 04/20/2024 BMI 50.97 kg/m2 04/20/2024 Procedures Procedure Date Ordered Date Performed Result Body Sit e 62554-XJJJVKT NAIL, 1-5 04/20/2024 N/A 47767-LYCE SKIN LESIONS, 2 TO 4 04/20/2024 N/A X0779-WGIEXPPU DYSTROPHIC NAILS ANY # 04/20/2024 N/A Encounters Encounter Location Date Provider Diagnosis [address] [address] 04/20/2024 Bryson Piña Atherosclerosis of [place] artery of both lower extremities, with unspecified presence of clinical manifestation I70.203 ; Tinea unguium B35.1 ; Pain in right toe(s) M79.674 ; Pain in left toe(s) M79.675 ; Other hammer toe(s) (acquired), right foot M20.41 ; Arthritis of joint of lesser toe, right M19.071 ; Other hammer toe(s) (acquired), left foot M20.42 and Arthritis of joint of lesser toe, left M19.[address] [address] 04/18/2024 [facility] [address] 07/13/2024 Bryson Piña [address] [address] 07/13/2024 [facility] [address] [address] 10/09/2024 Bryson Piña [address] [address] 11/26/2024 Bryson Piña Assessments Encounter Date Diagnosis (ICD Code) Assessment Notes Treatment Notes Treatment Clinical Notes Section Notes 04/20/2024 Tinea unguium (ICD-10 - B35.1) 04/20/2024 Atherosclerosis of [place] artery of both lower extremities, with unspecified [...] Treatment Pending Test Test Name Order Date 82971-ZULHSNX NAIL, 1-5 04/20/2024 43673-VSDA SKIN LESIONS, 2 TO 4 04/20/20 24 X0882-CMIXRNIZ DYSTROPHIC NAILS ANY # Next Appt Details Provider Name:Mabel Marsha sam, 02/28/2025 02:45:00 PM, [address] [place] [address], [phone], Insurance Providers Payer Name Payer Address Payer Phone Subscriber Number Group Number Insured Name Patient Relationship to Insured Coverage Start Date Coverage End Date [facility] [employer] Claims Box [facility] [place]CTOR M [place] [id number] Zulma Patel Self - patient is the insured Medical (General) History Medical History History ICD Code Arthritis Back,Hip,and Knee pain Fibromyalgia High blood pressure Measles Mumps Chicken pox Surgical History Surgery Date(Month/Year) Gall bladder removal 2016 vascular 2017 afeb 2004 carpal tunnel surgery
--- OUTSIDE RECORDS SUMMARY | 2025-01-17 14:10 | XMS_ITS | Patient Health Record ---
Author Organization [facility] Address [address] [place] [address] Care Team Providers Care Concession Attendant Name Role Phone Joselyn SHERMAN, Angelita Primary Care Provider Noel Huerta Jr Unavailable [phone] Reason For Referral No Information Medications Medication [...] Problem Status W/U Status Risk Notes Problem [id number] Abnormal findings in stool (R19.5) Active confirmed Plan Of Treatment Future Test Test Name Order Date COLONOSCOPY 02/11/2016 Insurance Providers Payer Name Payer Address Payer Phone Subscriber Number Group Number Insured Name Patient Relationship to Insured Coverage Start Date Coverage End Date [facility] [address] [place] [address] [id number] LALI ADEN Self - patient is the insured Medical (General) History Medical History History ICD Code colonoscopy 07-09-2009 atrial fibrillation rheumatoid arthritis Denies MS,DM,CVA,Lung disease,renal dise ase Surgical History Surgery Date(Month/Year) hysterectomy heel spurs carpal tunnel repair cholecystectomy 02/05/2016
--- OUTSIDE RECORDS SUMMARY | 2025-01-17 14:10 | XMS_ITS ---
Author Organization [facility] Address [address] [place] [address] Care Team Providers Care Boilermaker Assembly And Erection Name Role Phone Joselyn SHERMAN, Angelita Garcia Primary Care Provider Un available Bryson Piña [phone] REASON FOR VISIT severe toenail fungus - Bk SD Encounters Encounter Location Date Provider Diagnosis [address] [address] 11/26/2024 Bryson Piña Plan Of Treatment Next Appt Details Provider Name:Mabel Larson cecy, 02/28/2025 02:45:00 PM, [address] [place] [address], [phone], Progress Notes * Zulma WEAVER EDOB:[birth year] (69 yo F)Acc No.[id number]:11/26/2024 Patient:?Zulma WEAVER :1955???Age:69 Y???Sex:Female Address:[address] [place] [address], [facility] [address], [place] [address] * true * Date:? Generated for Printi ng/Faxing/eTransmitting on:?01/17/2025 02:10 PM EDT
--- OUTSIDE RECORDS SUMMARY | 2025-01-17 14:10 | XMS_ITS ---
Author Organization [facility] Address [address] [facility] [place] [address] Care Team Providers Care Timber Appraiser Name Role Phone Joselyn SHERMAN, Angelita Garcia Primary Care Provider Un available Bryson Piña Unavailable [phone] Medications Medication SIG (Take, Route, Frequency, Duration) [...] Negative Encounters Encounter Location Date Provider [facility] [address] [place] [address] 10/09/2024 Bryson Piña Plan Of Treatment Next Appt Details Provider Name:Mabel sam, 02/28/2025 02:45:00 PM, [address] [facility], [place], [address], Progress Notes * Zulma WEAVER EDOB:[birth year] (69 yo F)Acc No.[id number]:10/09/2024 Progress Note Patient:?Zulma WEAVER Provider:?Bryson Piña DPM :1955???Age:69 Y???Sex:Female D ate:10/09/2024 Address:[address] [place] [address], [facility] [address], [place], [place] Pcp:Jaden Fields Subjective: * Chief Complaints: * [...] off status: Pending * Provider:Ronal Piña DPM Date:?2024 Generated for Yocasta napier/Cody/Silva on:?01/17/2025 02:10 PM EDT
--- OUTSIDE RECORDS SUMMARY | 2025-01-17 14:11 | XMS_ITS ---
Author Organization [facility] Address [address] [place] [address] Care Team Providers Care Jigsaw Operator Name Role Phone Joselyn SHERMAN, Angelita Garcia Primary Care Provider Un available Bryson Piña [phone] REASON FOR VISIT No Show Encounters Encounter Location Date Provider Diagnosis [address] [address] 10/09/2024 Bryson Piña Plan Of Treatment Next Appt Details Provider Name:Mabel Larson cecy, 02/28/2025 02:45:00 PM, [address] [place], [address], Progress Notes * Zulma WEAVER EDOB:[birth year] (69 yo F)Acc No.[id number]:10/09/2024 Patient:?Zulma WEAVER :1955???Age:69 Y???Sex:Female Address:[address] [facility] [address], [facility] [place] [address] * true * Date:? Generated for Printi ng/Faxing/eTransmitting on:?01/17/2025 02:11 PM EDT
--- OUTSIDE RECORDS SUMMARY | 2025-01-17 14:11 | XMS_ITS | Encounter Summary ---
Author Organization [facility] Address [address] [place] [address] Care Team Providers Care Spaghetti Press Helper Name Role Phone Virginia Santoyo MD Primary Care Provider Angelita Mane Md, MD Primary Care Provider Unavailable Reason for Visit * Reason Onset Date Comments Prior Authorization 11/08/2017 Encounter Details Date Type Department Care Team Description 11/08/2017 Telephone Podiatry - [address] [address] Dolly Theodore DPM Prior Authorization Social History Tobacco Use Types Packs/Day Years Used Date Smoking Tobacco: Former Smokeless Tobacco: Former Alcohol Use Standard Drinks/Week Comments No 0 (1 standard drink = 0.6 oz pur e alcohol) Sex Assigned at Date Recorded Not on file documented as of this encounter Miscellaneous Notes * Telephone Encounter - Margie Gale M.A. - 11/14/2017 3:40 PM EDT Medication denied by insurance. Msg given to Dr Theodore * Telephone Encounter - Margie Gale M.A. - 11/09/2017 11:51 AM EST Prior auth submitted, waiting for response * Telephone Encounter - Tristin Browne - 11/08/2017 2:06 PM EST Pre Authorization for Medication-do not complete and send this encounter unless you have the fax from the pharmacy. Is this a Cover My Meds request: [place] of Medication Lidocaine Dose of Medication 2 % Gel How does patient take this med? Apply 2 g topically 2 times daily. Apply to painful area of the foot. What Pharmacy did the fax come from: [facility]/pharmacy #[id number] - [place] - [address] [facility] [address] Pharmacy fax #: [phone] [employer] Information from fax: What Prescription Plan does the patient have? Medicare/ medicaid BIN/PCN if applicable: [id number] Cardholder ID:[id number] / [id number] Person Code: 001 Relationship Code: H Help desk phone: [phone] documented in this encounter Plan of Treatment Not on file documented as of this encounter Visit Diagnoses Not on filedocumented in this encounter Care Teams Spaghetti Press Helper Relationship Specialty Start Date End Date Virginia Santoyo MD PCP - General Internal Medicine 09/14/17 11/24/20 Angelita Alves MD, MD PCP - General Internal Medicine 11/25/20 documented as of this encounter
--- OUTSIDE RECORDS SUMMARY | 2025-01-17 14:11 | XMS_ITS ---
Author Organization [facility] Address [address] [place] [id number] Care Team Providers Care Bill Hiker Name Role Phone Joselyn SHERMAN, Angelita Primary Care Provider Manjinder Wagner Jr, Noel Chairez [phone] REASON FOR VISIT Patient presents today for a recall colonoscopy Encounters Encounter Location Date Provider Diagnosis [facility] [address] [place] [phone] 10/27/2023 Noel Wagner Jr Plan Of Treatment No Information Progress Notes * LALI SÁNCHEZ EDOB:[birth year] (69 yo F)Acc No.[id number]:10/27/2023 Progress Notes Patient:?LALI SÁNCHEZ Provider:?Noel Wagner MD :1955???Age:68 Y???Sex:Female D ate:10/27/2023 Address:[address] [place] [address] Pcp:Angelita Alves MD Subjective: * Chief Complaints: [...] MD Date:?0 10/27/2023 Generated for Printi ng/Cody/Anahyitting on:?01/17/2025 02:10 PM EDT
--- OUTSIDE RECORDS SUMMARY | 2025-01-17 14:11 | XMS_ITS | Clinical Summary ---
Author Organization [facility] Address [address] [place] [address] Care Team Providers Care Jet Pilot Name Role Phone Angelita Alves Md, MD [...] 11/25/2020 INFLUENZA (Season Ended) 2025 Care Teams Jet Pilot Relationship Specialty Start Date End Date Angelita Alves MD, MD PCP - General Internal Medicine 11/25/20
--- OUTSIDE RECORDS SUMMARY | 2025-01-17 14:11 | XMS_ITS ---
Author Organization [facility] Address [address] [place] [phone] Care Team Providers Care Hospice Bereavement Coordinator Name Role Phone Joselyn SHERMAN, Angelita Primary Care Provider Manjinder Wagner Jr, Noel Chairez REASON FOR VISIT cancel appt Encounters Encounter Location Date Provider Diagnosis [facility] [address] [place] [phone] 01/03/2024 Noel Wagner Jr Plan Of Treatment No Information Progress Notes * LALI SÁNCHEZ EDOB:[birth year] (68 yo F)Acc No.[id number]:01/03/2024 Patient:?LALI SÁNCHEZ :1955???Age:68 Y???Sex:Female Address:[address], [place] [address] * true * Date:? Generated for Printi quyen/Cody/eTransmitting on:?01/17/2025 02:11 PM EDT
--- OUTSIDE RECORDS SUMMARY | 2025-01-17 14:11 | XMS_ITS | Encounter Summary ---
Author Organization [facility] Address [address] [place] [address] Care Team Providers Care Housekeeping Staff Name Role Phone Virginia Santoyo MD Primary Care Provider Angelita Mane Md, MD Primary Care Provider Unavailable Encounter Details Date Type Department Care Team Description 11/02/2017 Release of Information Medical Records [address] [place] [id number] Abstract, Provider Social History Tobacco Use Types [...] on filedocumented in this encounter Care Teams Housekeeping Staff Relationship Specialty Start Date End Date Virginia Santoyo MD PCP - General Internal Medicine 09/14/17 11/24/20 Angelita Alves MD, MD PCP - General Internal Medicine 11/25/20 documented as of this encounter
--- OUTSIDE RECORDS SUMMARY | 2025-01-17 14:11 | XMS_ITS | Encounter Summary ---
Author Organization [facility] Address [address] [place] [address] Care Team Providers Care Straight Line Edger Name Role Phone Virginia Santoyo MD Primary Care Provider Lavell Vizcarra Primary Care Provider UnavailAngelita Joseph Md, MD Primary Care Provider Unavailable Encounter Details Date Type Department Care Team Description 09/09/2017 Furniture Painter Report Medical Records [address] [place] [id number] Soo Tyson MD Social History Tobacco Use Types Packs/Day Years Used Date Smoking Tobacco: Never Assessed Sex Assigned at Date Recorded Not on file documented as of this encounter Plan of Treatment Not on file documented as of this encounter Visit Diagnoses Not on filedocumented in this encounter Care Teams Straight Line Edger Relationship Specialty Start Date End Date Virginia Santoyo MD PCP - General Internal Medicine 09/14/17 11/24/20 Lavell Triana PCP - General 12/24/16 09/13/17 Angelita Alves MD, MD PCP - General Internal Medicine 11/25/20 documented as of this encounter
== END 2025-01-17 14:12 | disposition home or self-care (01) ==
LOC: HO.HPS 13:34
PROVIDERS: PCP Internal Medicine; Visit Provider Internal Medicine Pulmonary Disease
DX: J45.30 Mild persistent asthma, uncomplicated (principal); G47.33 Obstructive sleep apnea (adult) (pediatric); Z99.89 Dependence on other enabling machines and devices
CPT/HCPCS: 99214

== ENCOUNTER → 2025-01-17 13:33 | Outpatient (BNVA) | payer OTHER, SELFPAY | PROVIDERS: PCP Internal Medicine; Visit Provider Internal Medicine Pulmonary Disease | DX: J45.30 Mild persistent asthma, uncomplicated (principal); G47.33 Obstructive sleep apnea (adult) (pediatric); Z99.89 Dependence on other enabling machines and devices | CPT/HCPCS: 99212 ==

== ENCOUNTER 2025-02-18 09:36 | Inpatient (IN) | payer OTHER, SELFPAY ==
[2025-02-18] VITALS (9 sets, daily range): BP systolic 100–148; BP diastolic 51–72; PULSE 76–95; RESP 16–24; TEMP 36.2–37; O2SAT 83–96; BMI 58.0; BMI 57.9
--- NOTE | ~2025-02-18 | US_ITS ---
EXAMINATION: US TRIPLEX LOWER EXTREMITY, LEFT CLINICAL INFORMATION: Left leg edema. COMPARISON: None available. TECHNIQUE: Color-flow triplex imaging with spectral analysis and compression Doppler were performed on the left lower extremity. FINDINGS: Respiratory variation, normal compression and augmented flow are noted throughout the left lower extremity. The visualized common femoral vein, superficial femoral vein, profunda femoral vein, popliteal vein show no evidence of deep venous thrombosis. The calf veins could not be well visualized due to edema and patient body habitus. Also, patient has history of vein stripping. There is no Phelps's cyst. There is a 1.0 cm right greater saphenous vein varicosity noted. US/US venous duplex LE LT IMPRESSION: No evidence of deep venous thrombosis involving the left lower extremity. Electronically signed by: Romel Keys MD 02/18/2025 12:23 PM EDT
--- NOTE | ~2025-02-18 | XR_ITS ---
EXAMINATION: XR CHEST CLINICAL INFORMATION: SOB, R/O PNA, CHF COMPARISON: November 01, 2019. TECHNIQUE: Frontal view of the chest was obtained. FINDINGS: Cardiomediastinal silhouette is enlarged. Mild prominence of the interstitial markings. No gross consolidation pleural effusion or pneumothorax. Multilevel thoracic spondylosis. XR/XR chest 1V IMPRESSION: Cardiomegaly versus pericardial effusion and questionable mild interstitial lung edema. Electronically signed by: Leo Wallace MD 02/18/2025 01:32 PM EDT
--- NOTE | ~2025-02-18 | CT_ITS ---
EXAMINATION: CT CHEST WITHOUT CONTRAST CLINICAL INFORMATION: Assessment of pericardial effusion. COMPARISON: Correlated to x-ray dated February 18, 2025. TECHNIQUE: Multidetector volumetric CT imaging of the chest was done. Axial MIP volume rendering provided. Sagittal and coronal reformatted images were obtained. This CT examination was performed using dose optimization techniques as appropriate, variously including the following: *Automated exposure control *Adjustment of mA and/or kV according to patient size (this includes techniques or standardized protocols for targeted exams where dose is matched to indication/reason for exam; i.e. extremities or head) *Use of iterative reconstruction technique DLP: 444 mGy centimeter. FINDINGS: [employer]: Patient's large body habitus. Enlarged cardiomediastinal silhouette. Metallic EKG device overlapping the heart silhouette. Vascular clips right upper quadrant abdomen and likely cholecystectomy. LUNGS: Mild peribronchial septal thickening and linear attenuation abnormalities in the lung bases lingula and right middle lung lobe. No gross consolidation. No bronchiectasis. Honeycombing. MEDIASTINUM: Enlarged heart old 4 chambers mostly the left atrium. Small volume pericardial effusion. No aneurysm, thoracic aorta. Calcified plaque thoracic aorta wall and its main branches. No pneumomediastinum. Mild prominent mediastinal lymph nodes. CORONARY ARTERY CALCIFICATION: Calcified plaques PLEURA: No pleural effusion. No pneumothorax. No calcified pleural plaques. AXILLA: No lymphadenopathy. UPPER ABDOMEN: Nodular surface of the liver. Prominent caudate lobe. Prominent spleen. Status post cholecystectomy. No gross ascites in the included upper abdomen. OSSEOUS STRUCTURES: Multilevel spondylosis. No acute fracture or listhesis. 30% volume loss of the vertebral bodies of the axial skeleton likely old. Sternum is intact. The included clavicles are intact. The scapula are intact. No acute rib fracture. CT/CT chest wo IV con IMPRESSION: Cardiomegaly and small volume pericardial effusion. Coronary artery disease and atherosclerosis disease. Concerning cirrhosis without gross ascites. Fleischner guidelines were followed. Electronically signed by: Leo Wallace MD 02/19/2025 03:18 PM EDT
[2025-02-18 10:48] LABS: MANUAL DIFF FLAG NO
[2025-02-18 10:54] LABS: Basophils Percent Auto 0.7 % (0-2); Eosinophils Absolute Auto 0.1 X10*3/uL (0.0-0.4); Eosinophils Percent Auto 2.5 % (0-4); Hematocrit 36.3 % (37.0-47.0); Lymphocytes Absolute Auto 0.7 X10*3/uL (1.2-4.9); Lymphocytes Percent Auto 24.9 % (20-40); Mean Corpuscular HGB Conc 33.1 g/dl (31.0-35.0); Mean Corpuscular Hemoglobin 35.8 pg (27.0-33.0); Mean Corpuscular Volume 108.4 fL (80.0-98.0); Mean Platelet Volume 10.7 fL (9.4-12.3); Monocytes Absolute Auto 0.4 X10*3/uL (0.1-1.2); Monocytes Percent Auto 15.7 % (2-11); Neutrophils Absolute Auto 1.6 x10*3/uL (2.0-8.3); Neutrophils Percent Auto 56.2 % (45-73); Red Blood Count 3.35 X10*6/uL (4.20-5.50); Red Cell Distribution Width 14.7 % (11.0-16.0); White Blood Count 2.8 X10*3/uL (4.8-10.8)
[2025-02-18 10:55] LABS: Platelet Count 90 X10*3/uL (160-400)
[2025-02-18 11:02] LABS: INTERNATIONAL NORM RATIO 3.4 (0.9-1.1); Prothrombin Time 39.2 SEC (10.9-12.4)
[2025-02-18 11:04] LABS: D Dimer High Sensitivity 356 NG/ML
[2025-02-18 11:06] LABS: Alanine Aminotransferase 24 U/L (0-31); Alkaline Phosphatase 145 U/L (39-117); Anion Gap 8 (12-20); Aspartate Amino Transferase 50 U/L (5-31); Blood Urea Nitrogen 21 mg/dL (9-16); Calcium 8.9 mg/dL (8.4-10.2); Carbon Dioxide 40 mmol/L (22-29); Chloride 96 mmol/L (96-108); Creatinine Clr Calc Pharmacy 185.8; Estimated Glomerular Filt Rate > 60; Glucose Random 103 mg/dL (60-115); Potassium 3.1 mmol/L (3.3-5.1); Sodium 141 mmol/L (135-145); Total Protein 6.1 g/dL (6.5-8.0)
--- NOTE | 2025-02-18 11:11 | ECG_ITS ---
Test Reason : SOB Blood Pressure : */* mmHG Vent. Rate : 77 BPM Atrial Rate : * BPM P-R Int : * ms QRS Dur : 96 ms QT Int : 404 ms P-R-T Axes : * -24 -18 degrees QTcB Int : 457 ms Atrial fibrillation Low voltage QRS Cannot rule out Anterior infarct , age undetermined Abnormal ECG When compared with ECG of 26-Oct-2019 14:25, Minimal criteria for Anterior infarct are now Present Referred By: Generic ED Physician Electronically Signed By: Jeramy Nina
--- NOTE | 2025-02-18 11:41 | ED.GENADULT ---
HPI - General Adult General Chief complaint: General Medical Stated complaint: bruise on l leg quest dvt Time Seen by Provider: 02/18/25 11:40 History of Present Illness ED Provider: Dr. Joe Concepcion HPI narrative: 69-year-old female with a past medical history of HTN, polyarticular osteoarthritis, rheumatoid arthritis on Enbrel, AFib on Coumadin, FACUNDO on CPAP, mild persistent asthma, COPD (no home 02), morbid obesity, hemorrhoids who presents to the ED with lower extremity weakness x1 week, L>R, bilateral edema and feeling like she pulled a muscle in her left upper thigh area. Reported she has been also having a hard time getting in and out of bed. She states that on Tuesday night her left leg was sore but fine without any bruising and woke up on Tuesday morning with extensive bruising to the left upper thigh area without any recent injury, no falls, no known irritations or use of tight clothing or undergarments. Indicates that she checked her scheduled INR on at home and it was 2.7 therapeutic. She also reports shortness of breath however this has been present x 1.5 months. The patient also states that her legs have become very heavy and it is difficult, her legs are swollen more than usual. Patient has been compliant with her diuretic but states she has been drinking a large amount of fluid to prevent dehydration.Denies chest pain. Related Data Home Medications ?Medication ?Instructions ?Recorded ?Confirmed tramadol 50 mg tablet 50 mg PO BEDTIME PRN Pain (Scale 06/02/20 02/18/25 Score 4-6) etanercept 50 mg/mL (1 mL) 50 mg subcut TH@0900 08/15/20 02/18/25 subcutaneous syringe diphenhydramine 25 2 tab PO BEDTIME PRN Sleep 02/18/25 02/18/25 mg-acetaminophen 500 mg tablet (Tylenol PM Extra Strength) ergocalciferol (vitamin D2) 1,250 1,250 mcg PO TH@0900 02/18/25 02/18/25 mcg (50,000 unit) capsule furosemide 40 mg tablet 40 mg PO DAILY PRN swelling 02/18/25 02/18/25 warfarin 10 mg tablet 10 mg PO MOTUWETHFR@1800 02/18/25 02/18/25 warfarin 5 mg tablet 5 mg PO SUSA@1800 02/18/25 02/18/25 Previous Rx's ?Medication ?Instructions ?Recorded furosemide 40 mg tablet 80 mg (2 x 40 mg) PO DAILY #180 03/02/24 tabs metoprolol succinate 50 mg 50 mg PO DAILY #90 tabs 03/21/24 tablet,extended release 24 hr albuterol sulfate 2.5 mg/3 mL 2.5 mg (3 mL) inhalation Q4-6H PRN 01/17/25 (0.083 %) solution for nebulization shortness of breath or wheezing #180 mL albuterol sulfate 90 mcg/actuation 2 puff inhalation Q4-6H PRN 01/17/25 aerosol inhaler shortness of breath or wheezing #1 ea Allergies Allergy/AdvReac Type Severity Reaction Status Date / Time No Known Allergies Allergy Verified 02/18/25 09:58 Review of Systems Review of Systems: Yes all other systems are reviewed and are negative [facility] Past Medical History Medical History Elevated alkaline phosphatase level Tubular adenoma of colon Urinary incontinence Gait instability Problem situation relating to social and personal history Difficulty in walking Acquired deformity of toenail Polyarticular osteoarthritis Seropositive rheumatoid arthritis Morbid obesity Anticoagulated on Coumadin Permanent atrial fibrillation Chronic diastolic congestive heart failure FACUNDO on CPAP Mild persistent asthma Surgical History History of carpal tunnel surgery Heel spur History of laparoscopic cholecystectomy History of total abdominal hysterectomy and bilateral salpingo-oophorectomy Family History Family History Mother Pancreatic cancer Father Pancreatic cancer Myocardial infarction Maternal Grandmother Breast cancer Paternal Grandfather Myocardial infarction Paternal Grandmother Myocardial infarction Social History Social History Household Members: None Housing: Apartment Do you presently have visiting nurse or other home services: Yes Alcohol intake: former Comment: patient refusing alarms Patient Tobacco Use Status: Former Tobacco user e-Cigarette/Vaping Use: Never Used Substance Use Type: Marijuana Advance Directives Date on File: 11/11/22 service: No Current occupational status: disabled Cognitive needs: No Hearing needs: No Vision needs: Yes Physical Exam ED Vital Signs: Vital Signs - 24 hr 02/18/25 09:56 02/18/25 11:34 02/18/25 12:40 Temperature 98.1 F 98.1 F 97.7 F Pulse Rate 88 81 87 Respiratory Rate 24 H 16 22 H Blood Pressure 108/65 100/58 L 106/53 L Pulse Oximetry 89 L 95 93 Oxygen Delivery Method Room Air Nasal Cannula Room Air Oxygen Flow Rate 2 02/18/25 13:12 02/18/25 13:12 02/18/25 13:24 Temperature Pulse Rate Respiratory Rate Blood Pressure 130/72 Pulse Oximetry 83 L 91 L Oxygen Delivery Method Room Air Nasal Cannula Oxygen Flow Rate 2 02/18/25 13:48 Temperature Pulse Rate 90 Respiratory Rate 17 Blood Pressure 148/62 H Pulse Oximetry 93 Oxygen Delivery Method Nasal Cannula Oxygen Flow Rate 2 BMI result Body Mass Index 58.0 vital signs did reveal full O2 saturation on room air and patient was placed on oxygen 2 liters/minute via nasal cannula with improvement of O2 saturations Exam: General: Awake, alert in no distress, weight 204.4 kg, elevated BMI 57.9 kilograms/meter sq Head: Normocephalic, atraumatic EENT: PERRL, Lids normal, sclera normal, conjunctiva normal, nose normal , ears normal, throat without erythema or exudates Neck: Supple, no adenopathy Lung: breath sounds symmetric, no wheezing, rales or rhonchi Chest: symmetric movement, nontender Heart: regular rate and rhythm, normal S1, S2 no murmurs or rubs Abdomen: soft, non-tender, nondistended, normal bowel sounds Back: no vertebral tenderness, no CVAT Extremities: no deformities, moves all extremities symmetrically patient has 3+ pitting edema bilaterally symmetric Skin: Patient has ecchymosis to her left thigh Neuro: Awake, alert, oriented, normal speech, cranial nerves intact, moves all extremities symmetrically Psych: Pleasant, cooperative Medications Administered Generic Name Dose Route Start Last Admin Trade Name Freq PRN Reason Stop Dose Admin Colchicine 0.6 mg 02/20/25 21:00 02/21/25 08:59 Colchicine 0.6 Mg Tablet PO 0.6 mg BID PENELOPE Administration Ergocalciferol 1,250 mcg 02/21/25 09:00 02/21/25 08:59 Ergocalciferol (Vitamin D2) 1,250 Mcg Capsule PO 1,250 mcg TH@0900 PENELOPE Administration Furosemide 80 mg 02/18/25 18:00 02/19/25 09:22 Furosemide 100 Mg/10 Ml Vial IVPUSH 80 mg On Hold: 02/19/25 11:46 BID@0900,1800 [facility] Administration Protocol Metoprolol Succinate 50 mg 02/19/25 09:00 02/19/25 09:22 Metoprolol Succinate Er 50 Mg Tab.Er.24h PO 50 mg On Hold: 02/19/25 12:26 DAILY PENELOPE Administration Protocol Sodium Chloride 3 ml 02/18/25 16:00 02/21/25 08:59 0.9 % Sodium Chloride Flush 3 Ml Syringe IVFLUSH Not Given QSHIFT [facility] Spironolactone 25 mg 02/21/25 09:00 02/21/25 08:58 Spironolactone 25 Mg Tablet PO 25 mg BID@0900,1800 [facility] Administration Protocol Tramadol HCl 50 mg 02/20/25 14:16 02/20/25 23:08 Tramadol Hcl 50 Mg Tablet PO 50 mg Q6H PRN Administration Pain, Moderate(Pain Scale 4-6) Valsartan 40 mg 02/18/25 16:20 02/19/25 09:22 Valsartan 40 Mg Tablet PO 40 mg On Hold: 02/19/25 11:54 DAILY [facility] Administration Protocol Discontinued Medications Generic Name Dose Route Start Last Admin Trade Name Freq PRN Reason Stop Dose Admin Furosemide 80 mg 02/18/25 13:13 02/18/25 13:24 Furosemide 100 Mg/10 Ml Vial IVPUSH 02/18/25 13:14 80 mg ONCE ONE Administration Protocol Sodium Chloride 500 mls @ 500 mls/hr 02/19/25 12:30 02/19/25 13:30 Ns IV 02/19/25 13:29 Infused .Q1H PENELOPE Infusion Potassium Chloride 40 meq 02/20/25 09:00 02/21/25 08:58 Potassium Chloride Packet 20 Meq Packet PO 02/21/25 09:01 40 meq BID PENELOPE Administration Medical Decision Making Medical Decision Making MDM Narrative: 69-year-old female with a past medical history of HTN, polyarticular osteoarthritis, rheumatoid arthritis on Enbrel, AFib on Coumadin, FACUNDO on CPAP, mild persistent asthma, COPD (no home 02), morbid obesity, tubular adenoma of colon, hemorrhoids. Who presents to the ED with lower extremity weakness x1 week, L>R, bilateral edema and feeling like she pulled a muscle in her left upper thigh area. Reported she has been also having a hard time getting in and out of bed. She states that on Tuesday night her left leg was sore but fine without any bruising and woke up on Tuesday morning with extensive bruising to the left upper thigh area without any recent injury, no falls, no known irritations or use of tight clothing or undergarments. Indicates that she checked her scheduled INR on at home and it was 2.7 therapeutic. She also reports shortness of breath however this has been present x 1.5 months. Denies chest pain. Vital signs indicate low BP of 100/58 otherwise normal. Lung sounds are diminished in all weller, small fine crackles noted in the right base. Abdomen is distended nontender. Bilateral lower extremities with 3 to 4+ pitting edema. Left upper inner thigh ecchymosis noted. Differential diagnosis: ?Includes but is not limited to PE, CHF, COPD exacerbation, pneumonia, anemia, electrolyte abnormalities Course: 13:23 My independent interpretation of the labs are as follows: WBC 2.8, microcytic anemia HGB 12 and HCT 36.3, MCV 108.4, MCH 35.8 platelet 90. PT 39.2, INR 3.4. D-dimer 356. Potassium 3.1, CO2 40, BUN 21, total bilirubin for, AST 50, ALP 145, BNP 246, otherwise normal. VBG: PH 7.43, HC03 46, PCO2 69. Duplex ultrasound showed no evidence for DVT. At this time it is likely that this shortness of breath is related to a congestive heart failure not related to a COPD exacerbation. INR has been therapeutic here and at home therefore it is unlikely that she has had a PE despite the elevated D-dimer. Despite taking Lasix the patient reports she has been drinking large volumes of fluids at home, also reports 14 lb weight gain. Nurse noted that the patient's O2 saturation did drop down to 83% at 1 point in the patient was placed on 2 L of oxygen via nasal cannula with improvement of O2 saturation 14:18 Radiology interpreted patient's chest x-ray as cardiomyopathy versus pericardial effusion, therefore transthoracic echocardiogram was ordered. I did discuss the patient's presentation with the covering hospitalist, Dr. Triana and the patient will be admitted for further treatment. Admission/Observation Consideration of admission/observation: Escalation of care including admission/observation considered (Yes) Consult Healthcare Provider Management of the patient was discussed with: Hospitalist Lab Data MDM Lab Attestation statement: I reviewed the patient's lab results. 02/19/25 07:15 02/21/25 06:33 Labs: Lab Results 02/18/25 02/18/25 02/18/25 Range/Units 10:31 11:32 11:35 WBC 2.8 L (4.8-10.8) X10*3/uL RBC 3.35 L (4.20-5.50) X10*6/uL Hgb 12.0 (12.0-16.0) g/dl Hct 36.3 L (37.0-47.0) % MCV 108.4 H (80.0-98.0) fL MCH 35.8 H (27.0-33.0) pg MCHC 33.1 (31.0-35.0) g/dl RDW 14.7 (11.0-16.0) % Plt Count 90 L (160-400) X10*3/uL MPV 10.7 (9.4-12.3) fL Immature Gran % (Auto) 0.0 (0.0-0.4) % Neut % (Auto) 56.2 (45-73) % Lymph % (Auto) 24.9 (20-40) % [place] % (Auto) 15.7 H (2-11) % Eos % (Auto) 2.5 (0-4) % Baso % (Auto) 0.7 (0-2) % Lymph # (Auto) 0.7 L (1.2-4.9) X10*3/uL [place] # (Auto) 0.4 (0.1-1.2) X10*3/uL Eos # (Auto) 0.1 (0.0-0.4) X10*3/uL Baso # (Auto) 0.0 (0.0-0.2) X10*3/uL Abs Immat Gran (auto) 0.00 (0.00-0.03) X10*3/uL Absolute Neuts (auto) 1.6 L (2.0-8.3) x10*3/uL Absolute Nucleated RBC 0.000 (0.0-0.012) X10*3/uL Nucleated RBC % (auto) 0.0 (0.0-0.2) /100WBC PT 39.2 H (10.9-12.4) SEC INR 3.4 H (0.9-1.1) D-Dimer High Sensitivty 356 NG/ML VBG pH 7.43 (7.32-7.43) VBG pCO2 69 mmHg VBG pO2 34 mmHg VBG HCO3 46 H (22-26) mmol/L VBG O2 Saturation 41.0 % VBG Base Excess 18.7 mmol/L Sodium 141 (135-145) mmol/L Potassium 3.1 L (3.3-5.1) mmol/L Chloride 96 (96-108) mmol/L Carbon Dioxide 40 H* (22-29) mmol/L Anion Gap 8 L (12-20) BUN 21 H (9-16) mg/dL Creatinine 0.58 (0.5-1.4) mg/dL Estim Creat Clear Calc 185.8 Estimated GFR > 60 Random Glucose 103 (60-115) mg/dL Calcium 8.9 (8.4-10.2) mg/dL Magnesium 1.7 (1.6-2.6) mg/dL Total Bilirubin 4.0 H (0.0-1.0) mg/dL AST 50 H (5-31) U/L ALT 24 (0-31) U/L Alkaline Phosphatase 145 H (39-117) U/L B-Natriuretic Peptide 246 H (<100) pg/mL Total Protein 6.1 L (6.5-8.0) g/dL Albumin 3.0 L (3.5-5.0) g/dL Independent Interpretation I performed an independent interpretation of an: EKG and Plain X-Ray Interpretation: My independent interpretation of the patient's one-view chest x-ray is as follows: Cardiomegaly, increased interstitial markings, consistent with CHF My independent interpretation of EKG dated 02/18/2025 11:17 hours is as follows: Atrial fibrillation with a ventricular rate of 77, normal intervals, with no noted ST segment elevations or depressi, with diffuse flattened T-waves. When compared to EKG from 01/01/2016 14:11 flattened T-waves are new. Radiology Impression Discussion of test interpretation with radiology: I have reviewed the radiologist's reading. Radiologist Impression: US venous duplex LE LT IMPRESSION: No evidence of deep venous thrombosis involving the left lower extremity. Electronically signed by: Romel Keys MD 02/18/2025 12:23 PM XR CHEST COMPARISON: November 01, 2019. FINDINGS: Cardiomediastinal silhouette is enlarged. Mild prominence of the interstitial markings. No gross consolidation pleural effusion or pneumothorax. Multilevel thoracic spondylosis. IMPRESSION: Cardiomegaly versus pericardial effusion and questionable mild interstitial lung edema. Electronically signed by: Leo Wallace MD 02/18/2025 01:32 PM Critical Care Time Critical Care Time Critical Care Time: Yes Total Critical Care Time: 45 Attestation: Critical Care: The patient was critically ill with a high probability of imminent or life threatening deterioration. I spent greater than 30 minutes of discontinuous time evaluating the patient,delivering critical care at the bedside, discussing and evaluating pertinent data with consultants. Critical care time does not include time spent performing separately billable procedures or teaching. Total time spent performing critical care was 45 minutes. Discharge Plan Discharge Clinical Impression: Hypoxia CHF (congestive heart failure) Qualifiers: Heart failure type: unspecified Heart failure chronicity: acute Qualified Code(s): I50.9 - Heart failure, unspecified Fluid overload Qualifiers: Hypervolemia type: other Qualified Code(s): E87.79 - Other fluid overload Patient Disposition: Admitted As Inpatient Interventions: Admission Worksheet (ED) Last Done: 02/18/25 14:56 Discharge Date/Time: 02/18/25 16:40
[2025-02-18 11:43] LABS: Venous Blood Gas Refer to POC result
[2025-02-18 11:43] LABS: VBG Base Excess 18.7 mmol/L; VBG HCO3 46 mmol/L (22-26); VBG pCO2 69 mmHg; VBG pH 7.43 (7.32-7.43); VBG pO2 34 mmHg
[2025-02-18 11:49] LABS: Magnesium 1.7 mg/dL (1.6-2.6)
[2025-02-18 11:56] LABS: B Type Natriuretic Peptide 246 pg/mL (<100)
--- OUTSIDE RECORDS SUMMARY | 2025-02-18 12:53 | XMS_ITS | Patient Health Record ---
Author Organization [facility] Address [address] [place] [address] Care Team Providers Care Land Development Manager Name Role Phone Joselyn SHERMAN, Angelita Primary Care Provider Noel Huerta Jr Unavailable Reason For Referral No Information Medications Medication [...] Problem Status W/U Status Risk Notes Problem [id number] Abnormal findings in stool (R19.5) Active confirmed Plan Of Treatment Future Test Test Name Order Date COLONOSCOPY 02/11/2016 Insurance Providers Payer Name Payer Address Payer Phone Subscriber Number Group Number Insured Name Patient Relationship to Insured Coverage Start Date Coverage End Date [facility] [address] [place] [address] [id number] LALI ADEN Self - patient is the insured Medical (General) History Medical History History ICD Code colonoscopy 07-09-2009 atrial fibrillation rheumatoid arthritis Denies NH,DM,CVA,Lung disease,renal dise ase Surgical History Surgery Date(Month/Year) hysterectomy heel spurs carpal tunnel repair cholecystectomy 02/05/2016
--- NOTE | 2025-02-18 13:12 | PC.NURSE ---
MD aware of sustained desat, pt placed on 2L, placing new orders
[2025-02-18] MEDS: Furosemide 100 MG/10 ML VIAL 80 MG IVPUSH ×2 (13:24→17:53)
--- NOTE | 2025-02-18 15:10 | PHA.MEDREC ---
Pharmacy Consult ? Medication Reconciliation Pharmacy has completed the medication reconciliation.Med rec complete, spoke to patient and compared with pharmacy claim history. Patient took all her medications this morning including her dose of 10 mg warfarin
--- NOTE | 2025-02-18 15:11 | CA_ITS ---
Transthoracic Echocardiogram Patient (Last, First, Middle): Zulma Weaver E Gender: Female Date of : 1955 Age: 69 Procedure Date: 02/18/2025 Procedure Type: Transthoracic Echocardiogram Location: ER Height: 157.48 cm Weight: 205.03 kg BSA: 2.70 m2 Heart Rate: bpm BP: 148 / 62 mmHg Exceptional Children Teacher: Referring MD: Joe Concepcion MD Symptoms: CHF, fluid overload, cm rule out pericardial effus Study Quality: Adequate ECG Rhythm: Atrial Fibrillation Conclusions: - Normal left ventricular size and systolic function. There is mildly increased left ventricular wall thickness. The visually estimated ejection fraction is between 60-65%. - Mildly increased right ventricular cavity size. There is normal right ventricular systolic function. - The left atrium is severely dilated. The right atrium is severely dilated. - Significantly elevated right atrial pressure. Severe pulmonary hypertension is present. - The inferior vena cava is dilated and does not collapse with inspiration. - There is a moderate to large pericardial effusion, effusion is more prominent posteriorly. Cannot rule out early tamponade physiology. Findings Left Ventricle Normal left ventricular size and systolic function. There is mildly increased left ventricular wall thickness. The visually estimated ejection fraction is between 60-65%. There is no evidence of regional wall motion abnormalities. Diastolic function is indeterminate on the basis of available data. Right Ventricle Mildly increased right ventricular cavity size. There is normal right ventricular systolic function. Atria The left atrium is severely dilated. The right atrium is severely dilated. Aortic Valve Normal aortic valve structure and function. There is no aortic valve stenosis. There is no aortic valve regurgitation. Mitral Valve The mitral valve appears normal. There is no mitral valve regurgitation. There is no mitral valve stenosis. Pulmonic Valve The pulmonic valve is likely normal. Tricuspid Valve Normal tricuspid valve structure. There is moderate tricuspid valve regurgitation. The right ventricular systolic pressure is 60 mmHg. Significantly elevated right atrial pressure. Severe pulmonary hypertension is present. Great Vessels The pulmonary artery was not well visualized. There is mild dilatation of the ascending aorta measuring 4.00 cm. Venous The inferior vena cava is dilated and does not collapse with inspiration. Pericardium/Pleural There is a moderate to large pericardial effusion, effusion is more prominent posteriorly. Cannot rule out early tamponade physiology. Prior Study Comparison Changes noted compared to prior study dated: 07/16/2024. Moderate to large pericardial effusion. Cannot rule out early tamponade physiology. Measurements 2D Linear Measurements IVSd: 0.97 0.6-0.9/0.6-1.0 cm LVIDd: 5.78 3.9-5.3/4.2-5.9 cm LVIDd Index: 2.14 2.4-3.2/2.2-3.1 cm/m2 LVIDs: 3.34 2.0-3.6 cm LVPWd: 1.09 0.7-1.1 cm Ao Root: 3.30 2.1-3.5 cm LA Diam: 9.00 2.7-3.8/3.0-4.0 cm LAIDs Index: 3.33 1.5-2.3 cm/m2 LV Mass: 299.96 67-162/88-224 g LV Mass Index: 111.10 43-95/49-115 g/m2 LVOT Diam: 2.20 3.0+(-)1.3 cm 2D Systolic Function EF 4C: 70.40 >55% EF 2C: 59.20 >55% EF BiP: 65.80 >55% Mitral Valve MV VTI: 0.36 MV Pk Chava: 1.64 MV Mn Chava: 0.76 MV Pk Grad: 11.00 MV Mn Grad: 3.00 MV Pk E: 1.18 MV Decel Time: 230.00 E'Lateral: 11.50 E'Medial: 13.60 E/E' Med: 8.70 E/E' Lat: 10.30 PHT: 67.00 MVA PHT: 3.28 MVA Continuity: 2.21 Decel Phillips: 5.13 Aortic Valve AoV Pk Chava: 1.65 AoV Mn Chava: 1.02 AoV VTI: 0.37 AoV Pk Grad: 11.00 Aov Mn Grad: 5.00 JAYESH Cont.VTI: 2.16 LVOT LVOT Pk Chava: 0.88 LVOT Mn Chava: 0.64 LVOT VTI: 0.21 LVOT Pk Grad: 3.00 LVOT Mn Grad: 2.00 LVOT Diam: 2.20 LVOT Area: 3.80 Diastolic Function MV Pk E: 1.18 E'Medial: 13.60 E/E' Med: 8.70 E' Laterial: 11.50 E/E' Lat: 10.30 Right Ventricle TAPSE (mm): 32.00 TVS' Chava: 14.00 Tricuspid Valve TR Pk Chava: 3.27 TR Pk Grad: 43.00 RA Press: 15.00 RVSP: 60.00 Great Vessels Aorta Ao Root-2D: 3.30 2.0-3.7 cm Ao Asc: 4.00 2.1-3.4 cm Pulmonary Valve PV Pk Chava: 1.56 Peak PV Grad: 10.00 Updated in Other Vendor System with Status of Final Jeramy Nina MD electronically signed on 02/18/2025 7:00:24 PM with status of Final
--- NOTE | 2025-02-18 16:08 | PM.IMHP ---
History of Present Illness Date of Service: 02/18/25 Chief Complaint: Shortness of breath 69-year-old female with a past medical history of HTN, polyarticular osteoarthritis, rheumatoid arthritis on Enbrel, AFib on Coumadin, FACUNOD on CPAP, mild persistent asthma, COPD (no home 02), morbid obesity, hemorrhoids who presents to the ED with lower extremity weakness x1 week, L>R, bilateral edema and feeling like she pulled a muscle in her left upper thigh area. Reported she has been also having a hard time getting in and out of bed. She states that on Tuesday night her left leg was sore but fine without any bruising and woke up on Tuesday morning with extensive bruising to the left upper thigh area without any recent injury, no falls, no known irritations or use of tight clothing or undergarments. Indicates that she checked her scheduled INR on at home and it was 2.7 therapeutic. She also reports shortness of breath however this has been present x 1.5 months and worsening since then. Denies chest pain. In emergency room chest x-ray significant for mild pulmonary edema. BNP mildly elevated Review of Systems Review of Systems: Denies chest pain Admits shortness of breath that has worsened over the last 1-1/2 months Denies nausea vomiting diarrhea Denies fever chills [facility] Medical History Elevated alkaline phosphatase level Tubular adenoma of colon Urinary incontinence Gait instability Problem situation relating to social and personal history Difficulty in walking Acquired deformity of toenail Polyarticular osteoarthritis Seropositive rheumatoid arthritis Morbid obesity Anticoagulated on Coumadin Permanent atrial fibrillation Chronic diastolic congestive heart failure FACUNDO on CPAP Mild persistent asthma Family History Mother Pancreatic cancer Father Pancreatic cancer Myocardial infarction Maternal Grandmother Breast cancer Paternal Grandfather Myocardial infarction Paternal Grandmother Myocardial infarction Surgical History History of carpal tunnel surgery [place] History of laparoscopic cholecystectomy History of total abdominal hysterectomy and bilateral salpingo-oophorectomy Social History Housing: Apartment Alcohol intake: former Patient Tobacco Use Status: Former Tobacco user Smoked in Last 30 Days: No e-Cigarette/Vaping Use: Never Used Use of substances other than those prescribed or required for medical reasons: Yes Substance Use Type: Marijuana Substance Use Frequency: Daily Advance Directives: Yes Advance Directives on File: Yes Advance Directives Date on File: 11/11/22 Current occupational status: disabled Cognitive needs: No Hearing needs: No Vision needs: Yes Meds Allergies Allergy/AdvReac Type Severity Reaction Status Date / Time No Known Allergies Allergy Verified 02/18/25 09:58 Active Medications: Current Medications Acetaminophen (Acetaminophen 325 Mg Tablet) 650 mg PO Q6H PRN PRN Reason: Pain, Mild 1-3,fever,headache Calcium Carbonate (Calcium Carbonate 750 Mg Tab.Chew) 750 mg PO Q4H PRN PRN Reason: Heartburn Ergocalciferol (Ergocalciferol (Vitamin D2) 1,250 Mcg Capsule) 1,250 mcg PO TH@0900 [facility] Furosemide (Furosemide 100 Mg/10 Ml Vial) 80 mg IVPUSH BID@0900,1800 [facility]; Protocol Magnesium Hydroxide (Milk Of Magnesia 30 Ml Oral.Susp) 30 ml PO DAILY PRN PRN Reason: Constipation Melatonin (Melatonin 3 Mg Tablet) 6 mg PO BEDTIME PRN PRN Reason: Insomnia Metoprolol Succinate (Metoprolol Succinate Er 50 Mg Tab.Er.24h) 50 mg PO DAILY [facility]; Protocol Ondansetron HCl (Ondansetron Hcl 4 Mg/2 Ml Vial) 4 mg IVPUSH Q8H PRN PRN Reason: Nausea and Vomiting Sodium Chloride (0.9 % Sodium Chloride Flush 3 Ml Syringe) 3 ml IVFLUSH QSHIFT [facility] Tramadol HCl (Tramadol Hcl 50 Mg Tablet) 50 mg PO BEDTIME PRN PRN Reason: Pain (Scale Score 4-6) Warfarin Sodium (Warfarin Sodium 10 Mg Tablet) 10 mg PO MOTUWETHFR@1800 [facility] Warfarin Sodium (Warfarin Sodium 5 Mg Tablet) 5 mg PO SUSA@1800 [facility] Home Medications ?Medication ?Instructions ?Recorded ?Confirmed ?Last Taken ?Type tramadol 50 mg tablet 50 mg PO BEDTIME PRN Pain (Scale 06/02/20 02/18/25 Unknown History Score 4-6) etanercept 50 mg/mL (1 mL) 50 mg subcut TH@0900 08/15/20 02/18/25 02/14/25 History subcutaneous syringe diphenhydramine 25 2 tab PO BEDTIME PRN Sleep 02/18/25 02/18/25 Unknown History mg-acetaminophen 500 mg tablet (Tylenol PM Extra Strength) ergocalciferol (vitamin D2) 1,250 1,250 mcg PO TH@0900 02/18/25 02/18/25 02/14/25 History mcg (50,000 unit) capsule furosemide 40 mg tablet 40 mg PO DAILY PRN swelling 02/18/25 02/18/25 Unknown History warfarin 10 mg tablet 10 mg PO MOTUWETHFR@1800 02/18/25 02/18/25 02/18/25 History warfarin 5 mg tablet 5 mg PO SUSA@1800 02/18/25 02/18/25 02/17/25 History Physical Exam Vital Signs and Narrative: Vital Signs: Last Vital Signs Temp 97.7 F 02/18/25 12:40 Pulse 90 02/18/25 13:48 Resp 17 02/18/25 13:48 BP 148/62 H 02/18/25 13:48 Pulse Ox 93 02/18/25 13:48 O2 Del Method Nasal Cannula 02/18/25 13:48 O2 Flow Rate 2 02/18/25 13:48 BMI result Body Mass Index 58.0 Const: Other: Awake alert no acute distress Resp: Other: Diminished at bases with scant crackles bilaterally Cardio: Other: Irregularly irregular. No S4; positive S1-S2; no S3 murmurs rubs or gallops GI: Other: Obese soft positive bowel sounds Extrem: Other: Bilateral pitting edema Results Labs 02/18/25 10:31 02/18/25 10:31 Labs: Laboratory Results - last 24 hr 02/18/25 02/18/25 02/18/25 10:31 11:32 11:35 MCV 108.4 H MCH 35.8 H MCHC 33.1 RDW 14.7 Plt Count 90 L MPV 10.7 Immature Gran % (Auto) 0.0 Neut % (Auto) 56.2 Lymph % (Auto) 24.9 [place] % (Auto) 15.7 H Eos % (Auto) 2.5 Baso % (Auto) 0.7 Lymph # (Auto) 0.7 L [place] # (Auto) 0.4 Eos # (Auto) 0.1 Baso # (Auto) 0.0 Abs Immat Gran (auto) 0.00 Absolute Neuts (auto) 1.6 L Absolute Nucleated RBC 0.000 Nucleated RBC % (auto) 0.0 PT 39.2 H INR 3.4 H D-Dimer High Sensitivty 356 VBG pH 7.43 VBG pCO2 69 VBG pO2 34 VBG HCO3 46 H VBG O2 Saturation 41.0 VBG Base Excess 18.7 Anion Gap 8 L Estim Creat Clear Calc 185.8 Estimated GFR > 60 Random Glucose 103 Calcium 8.9 Magnesium 1.7 Total Bilirubin 4.0 H AST 50 H ALT 24 Alkaline Phosphatase 145 H B-Natriuretic Peptide 246 H Total Protein 6.1 L Albumin 3.0 L Imaging Radiologist's Impressions: Impressions Venous Duplex 02/18/25 11:35 IMPRESSION: No evidence of deep venous thrombosis involving the left lower extremity. Electronically signed by: Romel Keys MD 02/18/2025 12:23 PM EDT RP Chest X-Ray 02/18/25 12:22 IMPRESSION: Cardiomegaly versus pericardial effusion and questionable mild interstitial lung edema. Electronically signed by: Leo Wallace MD 02/18/2025 01:32 PM EDT RP Assessment and Plan (1) CHF (congestive heart failure): Qualifiers: Heart failure chronicity: acute Heart failure type: unspecified Qualified Code(s): I50.9 - Heart failure, unspecified Status: Acute (2) HTN (hypertension): Qualifiers: Hypertension type: primary hypertension Qualified Code(s): I10 - Essential (primary) hypertension Status: Acute (3) Permanent atrial fibrillation: Status: Acute Quality Stroke Does the patient have a stroke diagnosis?: No VTE Prior VTE?: No VTE Risk Level:: Medical - moderate - high VTE Device Contraindication: Treatment Not Indicated VTE Drug Contraindication: N/A - Med Ordered
[2025-02-18] MEDS: Valsartan 40 MG TABLET PO (17:52)
[2025-02-18] MEDS: 0.9 % Sodium Chloride Flush 3 ML SYRINGE IVFLUSH ×2 (17:53→21:16)
[2025-02-19] VITALS (7 sets, daily range): BP systolic 78–120; BP diastolic 48–57; PULSE 76–93; RESP 16–18; TEMP 36.4–37.1; O2SAT 92–94
[2025-02-19 07:31] LABS: MANUAL DIFF FLAG NO
[2025-02-19 07:38] LABS: Basophils Percent Auto 1.1 % (0-2); Eosinophils Absolute Auto 0.1 X10*3/uL (0.0-0.4); Eosinophils Percent Auto 3.4 % (0-4); Hematocrit 36.4 % (37.0-47.0); Hemoglobin 12.2 g/dl (12.0-16.0); Imm Gran Abs Auto 0.01 X10*3/uL (0.00-0.03); Imm Gran Pct Auto 0.3 % (0.0-0.4); Lymphocytes Absolute Auto 1.2 X10*3/uL (1.2-4.9); Lymphocytes Percent Auto 33.9 % (20-40); Mean Corpuscular HGB Conc 33.5 g/dl (31.0-35.0); Mean Corpuscular Hemoglobin 36.5 pg (27.0-33.0); Mean Platelet Volume 10.7 fL (9.4-12.3); Monocytes Absolute Auto 0.6 X10*3/uL (0.1-1.2); Monocytes Percent Auto 16.8 % (2-11); Neutrophils Absolute Auto 1.6 x10*3/uL (2.0-8.3); Neutrophils Percent Auto 44.5 % (45-73); Platelet Count 100 X10*3/uL (160-400); Red Blood Count 3.34 X10*6/uL (4.20-5.50); Red Cell Distribution Width 14.8 % (11.0-16.0); White Blood Count 3.5 X10*3/uL (4.8-10.8)
[2025-02-19 07:49] LABS: Alanine Aminotransferase 23 U/L (0-31); Alkaline Phosphatase 131 U/L (39-117); Anion Gap 12 (12-20); Aspartate Amino Transferase 52 U/L (5-31); Bilirubin Total 4.7 mg/dL (0.0-1.0); Blood Urea Nitrogen 22 mg/dL (9-16); Calcium 8.9 mg/dL (8.4-10.2); Carbon Dioxide 39 mmol/L (22-29); Chloride 95 mmol/L (96-108); Creatinine Clr Calc Pharmacy 176.4; Estimated Glomerular Filt Rate > 60; Glucose Fasting 90 mg/dL (60-99); INTERNATIONAL NORM RATIO 2.9 (0.9-1.1); Potassium 3.2 mmol/L (3.3-5.1); Prothrombin Time 32.9 SEC (10.9-12.4); Sodium 143 mmol/L (135-145); Total Protein 6.1 g/dL (6.5-8.0)
[2025-02-19 07:53] LABS: B Type Natriuretic Peptide 154 pg/mL (<100)
[2025-02-19] MEDS: Valsartan 40 MG TABLET PO (09:22)
[2025-02-19] MEDS: 0.9 % Sodium Chloride Flush 3 ML SYRINGE IVFLUSH (09:22)
[2025-02-19] MEDS: Metoprolol Succinate ER 50 MG TAB.ER.24H PO (09:22)
[2025-02-19] MEDS: Furosemide 100 MG/10 ML VIAL 80 MG IVPUSH (09:22)
--- NOTE | 2025-02-19 09:26 | MHC.CM.PN ---
IMM 02/19/25, Pt lives alone, she has [employer] services 7 days a week, 3 hours each morning. PCP confirmed: Dr. Alves, HCP on file and confirmed, naming her brother, Lalo. For DME, pt. has: rollator, scooter, housing is working on putting in a ramp, CPAP machine, nebulizer, BP cuff, O2 monitor, INR testing (she does her own). She can arrange transport home at [place]. DCP: home, self care or with home care services. CM to follow for DC needs.
--- NOTE | 2025-02-19 10:14 | P.CDIM_ITS ---
PROVIDER RESPONSE TEXT: To clarify, the appropriate diagnosis supported by the clinical indicators: Pancytopenia: suspected QUERY TEXT: PHYSICIAN'S DOCUMENTATION REQUEST Date of Query: 02/19/2025 09:24 AM EDT Patient Name: Zulma Weaver Admit Date: 02/18/2025 Dear Lavell Triana DO, A review of the medical record indicates additional documentation may be needed. Please review below and update the documentation accordingly. Clinical Indicators: LABS: WBC 2.8/3.5 RBC 3.35/3.34 PLT 90/100 L ABS NEUTS 1.6 L Extensive bruising without injury, shortness of breath for 1.5 months. Based on the above, is there a diagnosis that correlates with these findings? Pancytopenia suspected, possible, probable, cannot rule out etc. Other etiology of findings (specify type) Other (explain) Clinically unable to determine (explain) Thank you, Yudith Robbins, CCS, CDIS Use of terms such as suspected, likely, concern for, or probable (associated with a specific diagnosi s that is being evaluated, monitored, or treated as if it exists) are acceptable and can be coded in the inpatient se tting, when documented at the time of discharge. Please use your independent medical judgment in providing your response. THIS QUERY IS PART OF THE PERMANENT MEDICAL RECORD
--- NOTE | 2025-02-19 11:47 | PM.PNCARD ---
Subjective Subjective Date of Service: 02/19/25 Interval history: Seen examined at bedside. Clinically volume overloaded and on diuretics. Physical Exam Vital Signs: Last Vital Signs Temp 98.7 F 02/19/25 11:23 Pulse 84 02/19/25 11:23 Resp 18 02/19/25 11:23 BP 78/52 L 02/19/25 11:23 Pulse Ox 94 02/19/25 11:23 O2 Del Method Nasal Cannula 02/19/25 11:23 O2 Flow Rate 1 02/19/25 11:23 BMI result Body Mass Index 57.9 Patient was examined earlier when blood pressures were fairly stable GENERAL APPEARANCE: Morbidly obese. NECK: no carotid bruit, positive jugular venous distention. SKIN: no suspicious lesions, warm and dry. HEART: no murmurs, irregular rate and rhythm. LUNGS: Bilateral expiratory wheezes and crackles at bases. ABDOMEN: soft, nontender. EXTREMITIES: Two to 3+ edema up to thighs. PERIPHERAL PULSES: equal. NEUROLOGIC: No gross deficits, AAO X 3 Objective Labs and Meds 02/19/25 07:15 02/19/25 07:15 Lab results: Laboratory Results - last 24 hr 02/18/25 02/19/25 11:32 07:15 WBC 3.5 L RBC 3.34 L Hgb 12.2 Hct 36.4 L MCV 109.0 H MCH 36.5 H MCHC 33.5 RDW 14.8 Plt Count 100 L MPV 10.7 Immature Gran % (Auto) 0.3 Neut % (Auto) 44.5 L Lymph % (Auto) 33.9 [place] % (Auto) 16.8 H Eos % (Auto) 3.4 Baso % (Auto) 1.1 Lymph # (Auto) 1.2 [place] # (Auto) 0.6 Eos # (Auto) 0.1 Baso # (Auto) 0.0 Abs Immat Gran (auto) 0.01 Absolute Neuts (auto) 1.6 L Absolute Nucleated RBC 0.000 Nucleated RBC % (auto) 0.0 PT 32.9 H INR 2.9 H Sodium 143 Potassium 3.2 L Chloride 95 L Carbon Dioxide 39 H Anion Gap 12 BUN 22 H Creatinine 0.61 Estim Creat Clear Calc 176.4 Estimated GFR > 60 Fasting Glucose 90 Calcium 8.9 Magnesium 1.7 Total Bilirubin 4.7 H AST 52 H ALT 23 Alkaline Phosphatase 131 H B-Natriuretic Peptide 246 H 154 H Total Protein 6.1 L Albumin 3.0 L Imaging Radiologist's impression: Impressions Venous Duplex 02/18/25 11:35 IMPRESSION: No evidence of deep venous thrombosis involving the left lower extremity. Electronically signed by: Romel Keys MD 02/18/2025 12:23 PM EDT RP Chest X-Ray 02/18/25 12:22 IMPRESSION: Cardiomegaly versus pericardial effusion and questionable mild interstitial lung edema. Electronically signed by: Leo Wallace MD 02/18/2025 01:32 PM EDT RP Progress Note: A&P Assessment and plan (1) CHF (congestive heart failure): Status: Acute (2) Pericardial effusion: Status: Acute Plan [age] year female with COPD, rheumatoid arthritis on Enbrel chronically, morbid obesity and diastolic heart failure or sending with peripheral edema and shortness of breath and congestive heart failure. Echocardiography was performed yesterday which showed [id number] size pericardial effusion. She has severe pulmonary hypertension. IVC was plethoric but there was no RV collapse or any obvious signs of tamponade. Also with severe pulmonary hypertension sometimes classic tamponade findings may not be seen. She was acting more like congestive heart failure and has been on diuretics. She is on Coumadin which is on hold at this point and INR is 2.9. The patient was examined earlier when her blood pressures were stable. Reviewing the chart the blood pressures are low currently and would hold further diuretics at this stage. I think she will require pericardiocentesis because signs of effusion also defines the risk for future tamponade. Also with severe pulmonary hypertension I think we may not see classic signs of pericardial tamponade on echocardiography. We will discuss with Interventional Radiology. Thank you for allowing me to participate in the care of your patient. Please feel free to contact me if you have any questions. Time Spent With Patient Time: Total time managing care of this patient today ____ minutes. Progress Note: Quality Stroke Does the patient have a stroke diagnosis?: No Procedures Date of Service Date of Service: 02/19/25
[2025-02-19] MEDS: 0.9 % Sodium Chloride 500 ML IV (12:30)
--- NOTE | 2025-02-19 16:31 | HO.PM.IMPN ---
Subjective Subjective Date of Service: 02/19/25 Interval History: No acute issues overnight. Relative hypotension but patient remains asymptomatic Review of Systems Denies chest pain Admits shortness of breath that has worsened over the last 1-1/2 months Denies nausea vomiting diarrhea Denies fever chills Physical Exam Vital Signs: Vital Signs: Last Vital Signs Temp 98.0 F 02/19/25 15:40 Pulse 78 02/19/25 15:40 Resp 18 02/19/25 15:40 BP 93/51 L 02/19/25 15:40 Pulse Ox 92 02/19/25 15:40 O2 Del Method Nasal Cannula 02/19/25 15:40 O2 Flow Rate 1 02/19/25 15:40 BMI result Body Mass Index 57.9 Const: Other: Awake alert no acute distress Resp: Other: Diminished at bases with scant crackles bilaterally Cardio: Other: Irregularly irregular. No S4; positive S1-S2; no S3 murmurs rubs or gallops GI: Other: Obese soft positive bowel sounds Extrem: Other: Bilateral pitting edema Objective Data Active Medications Acetaminophen (Acetaminophen 325 Mg Tablet) 650 mg PO Q6H PRN PRN Reason: Pain, Mild 1-3,fever,headache Calcium Carbonate (Calcium Carbonate 750 Mg Tab.Chew) 750 mg PO Q4H PRN PRN Reason: Heartburn Ergocalciferol (Ergocalciferol (Vitamin D2) 1,250 Mcg Capsule) 1,250 mcg PO TH@0900 [facility] Furosemide (Furosemide 100 Mg/10 Ml Vial) 80 mg IVPUSH BID@0900,1800 [facility] [place]; Protocol Last Admin: 02/19/25 09:22 Dose: 80 mg Documented By: JOANNE Magnesium Hydroxide (Milk Of Magnesia 30 Ml Oral.Susp) 30 ml PO DAILY PRN PRN Reason: Constipation Melatonin (Melatonin 3 Mg Tablet) 6 mg PO BEDTIME PRN PRN Reason: Insomnia Metoprolol Succinate (Metoprolol Succinate Er 50 Mg Tab.Er.24h) 50 mg PO DAILY [facility] [place]; Protocol Last Admin: 02/19/25 09:22 Dose: 50 mg Documented By: JOANNE Ondansetron HCl (Ondansetron Hcl 4 Mg/2 Ml Vial) 4 mg IVPUSH Q8H PRN PRN Reason: Nausea and Vomiting Sodium Chloride (0.9 % Sodium Chloride Flush 3 Ml Syringe) 3 ml IVFLUSH QSHIFT [facility] Last Admin: 02/19/25 09:22 Dose: 3 ml Documented By: JOANNE Tramadol HCl (Tramadol Hcl 50 Mg Tablet) 50 mg PO BEDTIME PRN PRN Reason: Pain (Scale Score 4-6) Valsartan (Valsartan 40 Mg Tablet) 40 mg PO DAILY [facility] [place]; Protocol Last Admin: 02/19/25 09:22 Dose: 40 mg Documented By: JOANNE Labs 02/19/25 07:15 02/19/25 07:15 Labs: Laboratory Results - last 24 hr 02/19/25 07:15 MCV 109.0 H MCH 36.5 H MCHC 33.5 RDW 14.8 Plt Count 100 L MPV 10.7 Immature Gran % (Auto) 0.3 Neut % (Auto) 44.5 L Lymph % (Auto) 33.9 [place] % (Auto) 16.8 H Eos % (Auto) 3.4 Baso % (Auto) 1.1 Lymph # (Auto) 1.2 [place] # (Auto) 0.6 Eos # (Auto) 0.1 Baso # (Auto) 0.0 Abs Immat Gran (auto) 0.01 Absolute Neuts (auto) 1.6 L Absolute Nucleated RBC 0.000 Nucleated RBC % (auto) 0.0 PT 32.9 H INR 2.9 H Anion Gap 12 Estim Creat Clear Calc 176.4 Estimated GFR > 60 Fasting Glucose 90 Calcium 8.9 Total Bilirubin 4.7 H AST 52 H ALT 23 Alkaline Phosphatase 131 H B-Natriuretic Peptide 154 H Total Protein 6.1 L Albumin 3.0 L Assessment and Plan (1) CHF (congestive heart failure): Status: Acute (2) Pericardial effusion: Status: Acute (3) HTN (hypertension): Status: Acute Plan 69-year-old female with a past medical history of HTN, polyarticular osteoarthritis, rheumatoid arthritis on Enbrel, AFib on Coumadin, FACUNDO on CPAP, mild persistent asthma, COPD (no home 02), morbid obesity, hemorrhoids who presents to the ED with lower extremity weakness x1 week, L>R, bilateral edema and worsening shortness of breath over the last month and a half. Chest x-ray consistent with pulmonary edema BNP elevated 1. CHF -2D echo to assess LVEF.. Large volume pericardial effusion -IV Lasix 80 mg b.i.d.; fair response to diuresis -strict I&O -hold valsartan/metoprololy -cardiology spoke with interventional; chest CTA to review possibility for pericardial drainage 2. Persistent atrial fibrillation -acceptable rate control at present -monitor on telemetry -adjust therapies as indicated 3. FACUNDO on CPAP -continue same Full code Coumadin Requires ongoing hospitalization for IV diuresis and assessment of pericardial effusion including specialized treatment Quality Stroke Does the patient have a stroke diagnosis?: No VTE Prior VTE?: No VTE Risk Level:: Medical - moderate - high VTE Device Contraindication: Treatment Not Indicated VTE Drug Contraindication: N/A - Med Ordered
[2025-02-20] VITALS (7 sets, daily range): BP systolic 91–106; BP diastolic 44–64; PULSE 83–101; RESP 16–20; TEMP 36.3–36.7; O2SAT 91–95
[2025-02-20 07:05] LABS: Alanine Aminotransferase 16 U/L (0-31); Albumin Level 2.8 g/dL (3.5-5.0); Alkaline Phosphatase 113 U/L (39-117); Anion Gap 11 (12-20); Aspartate Amino Transferase 46 U/L (5-31); Bilirubin Total 4.4 mg/dL (0.0-1.0); Blood Urea Nitrogen 26 mg/dL (9-16); Calcium 8.6 mg/dL (8.4-10.2); Carbon Dioxide 38 mmol/L (22-29); Chloride 94 mmol/L (96-108); Creatinine Clr Calc Pharmacy 188.7; Estimated Glomerular Filt Rate > 60; Glucose Fasting 98 mg/dL (60-99); Sodium 140 mmol/L (135-145); Total Protein 5.5 g/dL (6.5-8.0)
[2025-02-20] MEDS: 0.9 % Sodium Chloride Flush 3 ML SYRINGE IVFLUSH ×2 (10:18→15:43)
[2025-02-20] MEDS: Potassium Chloride Packet 20 MEQ PACKET 40 MEQ PO ×2 (10:30→20:31)
--- NOTE | 2025-02-20 13:37 | PM.PNCARD ---
Subjective Subjective Date of Service: 02/21/25 Interval history: Seen examined at bedside. She had CT scan performed which showed small pericardial effusion and IR felt that it is currently not drainable. Physical Exam Vital Signs: Last Vital Signs Temp 97.5 F 02/20/25 11:12 Pulse 101 H 02/20/25 11:12 Resp 18 02/20/25 11:12 BP 99/64 02/20/25 11:12 Pulse Ox 95 02/20/25 11:12 O2 Del Method Nasal Cannula 02/20/25 11:12 O2 Flow Rate 1 02/20/25 11:12 BMI result Body Mass Index 57.9 GENERAL APPEARANCE: Morbidly obese. In no distress. NECK: no carotid bruit, no jugular venous distention. SKIN: no suspicious lesions, warm and dry. HEART: no murmurs, irregular rate and rhythm. LUNGS: Bilateral expiratory wheezes. No crackles at bases. ABDOMEN: soft, nontender. EXTREMITIES: Two to 3+ edema up to thighs. PERIPHERAL PULSES: equal. NEUROLOGIC: No gross deficits, AAO X 3 Objective Labs and Meds 02/19/25 07:15 02/21/25 06:33 Lab results: Laboratory Results - last 24 hr 02/20/25 06:39 Hold Purple Top SEE NOTE Sodium 140 Potassium 3.0 L Chloride 94 L Carbon Dioxide 38 H Anion Gap 11 L BUN 26 H Creatinine 0.57 Estim Creat Clear Calc 188.7 Estimated GFR > 60 Fasting Glucose 98 Calcium 8.6 Total Bilirubin 4.4 H AST 46 H ALT 16 Alkaline Phosphatase 113 Total Protein 5.5 L Albumin 2.8 L Imaging Radiologist's impression: Impressions Chest CT 02/19/25 13:53 IMPRESSION: Cardiomegaly and small volume pericardial effusion. Coronary artery disease and atherosclerosis disease. Concerning cirrhosis without gross ascites. Fleischner guidelines were followed. Electronically signed by: Leo Wallace MD 02/19/2025 03:18 PM EDT Progress Note: A&P Assessment and plan (1) HTN (hypertension): Status: Acute (2) CHF (congestive heart failure): Status: Acute (3) Permanent atrial fibrillation: Status: Acute (4) Pericardial effusion: Status: Acute Plan [age] year female with morbid obesity, diastolic heart failure, pulmonary hypertension and rheumatoid arthritis who presented with congestive heart failure. She was noticed to have [id number] size pericardial effusion. She was started on diuretics with some improvement in dyspnea but had low blood pressures yesterday and there was concern that effusion maybe playing a role in that. She had a CT scan performed which showed small pericardial effusion and overall it was felt by Interventional Radiology that this is not safely tap able. Also, she did not act like pericardial tamponade because generally patients have dyspnea and sympathetic stimulation with that and she was completely asymptomatic with low blood pressures. She also has reasons to become hypotensive and due to pulmonary hypertension she is preload dependent to some extent. Her blood workup also today showed elevated bicarb of 38 and hypokalemia and it is possible that she has been over diuresed. In any case her diuretics have been on hold since yesterday along with her antihypertensive medications. She was given some fluid boluses yesterday and currently we are holding diuretics. I have explained to her that she has significant peripheral edema but we may not be able to completely improve her peripheral edema. She has wheezing due to COPD currently and this should be treated. Pericardial effusion is due to rheumatoid arthritis. She did not have any flare recently and also does not have any symptoms of pericarditis. We can try colchicine to see if that helps with inflammation. Creatinine clearance is good enough to start that. We will do limited echocardiography today. Thank you for allowing me to participate in the care of your patient. Please feel free to contact me if you have any questions. Time Spent With Patient Time: Total time managing care of this patient today ____ minutes. Progress Note: Quality Stroke Does the patient have a stroke diagnosis?: No Procedures Date of Service Date of Service: 02/21/25
--- NOTE | 2025-02-20 14:07 | MHC.CM.PN ---
Per rounds, pt. is not ready to DC, she is requiring IV diuresis, and will be seen by cardiology. CM to follow for DC needs.
--- NOTE | 2025-02-20 15:03 | CA_ITS ---
Transthoracic Echocardiogram Patient (Last, First, Middle): Zulma Weaver E Gender: Female Date of : 1955 Age: 69 Procedure Date: 02/20/2025 Procedure Type: Transthoracic Echocardiogram Location: [facility] [place] Height: 187.96 cm Weight: 204.12 kg BSA: 3.07 m2 Heart Rate: 99 bpm BP: 99 / 64 mmHg Agricultural Education Professor: Referring MD: Lavell Triana DO Symptoms: LIMITED ECHO FOR PERICARDIAL EFFUSION Study Quality: Adequate ECG Rhythm: Atrial Fibrillation Conclusions: - Normal left ventricular size and systolic function. There is mildly increased left ventricular wall thickness. The visually estimated ejection fraction is between 60-65%. - Normal right ventricular cavity size and systolic function. - Severe biatrial enlargement. Findings Left Ventricle Normal left ventricular size and systolic function. There is mildly increased left ventricular wall thickness. The visually estimated ejection fraction is between 60-65%. Diastolic function is indeterminate on the basis of available data. Right Ventricle Normal right ventricular cavity size and systolic function. Atria Severe biatrial enlargement. Tricuspid Valve Normal tricuspid valve structure. There is moderate tricuspid valve regurgitation. Significantly elevated right atrial pressure. Moderate pulmonary hypertension is present. Venous The inferior vena cava is dilated and collapses less than 50% with inspiration. Pericardium/Pleural There is a moderate pericardial effusion. There are no definitive echocardiographic findings of tamponade physiology. Prior Study Comparison Changes noted compared to prior study dated: 02/18/2025. Moderate effusion. No tamponade. Measurements 2D Linear Measurements IVSd: 1.02 0.6-0.9/0.6-1.0 cm LVIDd: 5.64 3.9-5.3/4.2-5.9 cm LVIDd Index: 1.84 2.4-3.2/2.2-3.1 cm/m2 LVIDs: 3.60 2.0-3.6 cm LVPWd: 1.09 0.7-1.1 cm LV Mass: 297.52 67-162/88-224 g LV Mass Index: 96.91 43-95/49-115 g/m2 Right Ventricle TAPSE (mm): 31.70 TVS' Chava: 10.60 Tricuspid Valve TR Pk Chava: 3.12 TR Pk Grad: 39.00 RA Press: 15.00 RVSP: 54.00 Updated in Other Vendor System with Status of Final Jeramy Nina MD electronically signed on 02/20/2025 4:51:54 PM with status of Final
[2025-02-20] MEDS: traMADoL HCL 50 MG TABLET PO ×2 (15:44→23:08)
--- NOTE | 2025-02-20 17:21 | P.PNIM_ITS ---
Subjective Subjective Date of Service: 02/20/25 Interval History: No acute issues overnight. Remains hemodynamically stable Review of Systems Denies chest pain Admits shortness of breath that has worsened over the last 1-1/2 months Denies nausea vomiting diarrhea Denies fever chills Physical Exam 2 Vital Signs: Vital Signs: Last Vital Signs Temp 97.6 F 02/20/25 16:00 Pulse 88 02/20/25 16:00 Resp 20 02/20/25 16:00 BP 102/54 L 02/20/25 16:00 Pulse Ox 94 02/20/25 16:00 O2 Del Method Nasal Cannula 02/20/25 16:00 O2 Flow Rate 1 02/20/25 16:00 BMI result Body Mass Index 57.9 Const: Other: Awake alert no acute distress Resp: Other: Diminished at bases with scant crackles bilaterally Cardio: Other: Irregularly irregular. No S4; positive S1-S2; no S3 murmurs rubs or gallops GI: Other: Obese soft positive bowel sounds Extrem: Other: Bilateral pitting edema Objective Data Active Medications Acetaminophen (Acetaminophen 325 Mg Tablet) 650 mg PO Q6H PRN PRN Reason: Pain, Mild 1-3,fever,headache Calcium Carbonate (Calcium Carbonate 750 Mg Tab.Chew) 750 mg PO Q4H PRN PRN Reason: Heartburn Colchicine (Colchicine 0.6 Mg Tablet) 0.6 mg PO BID [facility] Ergocalciferol (Ergocalciferol (Vitamin D2) 1,250 Mcg Capsule) 1,250 mcg PO TH@0900 [facility] Furosemide (Furosemide 100 Mg/10 Ml Vial) 80 mg IVPUSH BID@0900,1800 [facility]; Protocol On Hold: 02/19/25 11:46 Last Admin: 02/19/25 09:22 Dose: 80 mg Documented By: JOANNE Magnesium Hydroxide (Milk Of Magnesia 30 Ml Oral.Susp) 30 ml PO DAILY PRN PRN Reason: Constipation Melatonin (Melatonin 3 Mg Tablet) 6 mg PO BEDTIME PRN PRN Reason: Insomnia Metoprolol Succinate (Metoprolol Succinate Er 50 Mg Tab.Er.24h) 50 mg PO DAILY [facility]; Protocol On Hold: 02/19/25 12:26 Last Admin: 02/19/25 09:22 Dose: 50 mg Documented By: JOANNE Ondansetron HCl (Ondansetron Hcl 4 Mg/2 Ml Vial) 4 mg IVPUSH Q8H PRN PRN Reason: Nausea and Vomiting Potassium Chloride (Potassium Chloride Packet 20 Meq Packet) 40 meq PO BID [facility] Stop: 02/21/25 09:01 Last Admin: 02/20/25 10:30 Dose: 40 meq Documented By: GERI Sodium Chloride (0.9 % Sodium Chloride Flush 3 Ml Syringe) 3 ml IVFLUSH QSHIFT [facility] Last Admin: 02/20/25 15:43 Dose: 3 ml Documented By: GERI Tramadol HCl (Tramadol Hcl 50 Mg Tablet) 50 mg PO Q6H PRN PRN Reason: Pain, Moderate(Pain Scale 4-6) Last Admin: 02/20/25 15:44 Dose: 50 mg Documented By: GERI Valsartan (Valsartan 40 Mg Tablet) 40 mg PO DAILY [facility]; Protocol On Hold: 02/19/25 11:54 Last Admin: 02/19/25 09:22 Dose: 40 mg Documented By: JOANNE Labs 02/19/25 07:15 02/20/25 06:39 Labs: Laboratory Results - last 24 hr 02/20/25 06:39 Hold Purple Top SEE NOTE Anion Gap 11 L Estim Creat Clear Calc 188.7 Estimated GFR > 60 Fasting Glucose 98 Calcium 8.6 Total Bilirubin 4.4 H AST 46 H ALT 16 Alkaline Phosphatase 113 Total Protein 5.5 L Albumin 2.8 L Assessment and Plan (1) CHF (congestive heart failure): Status: Acute (2) Pericardial effusion: Status: Acute (3) Permanent atrial fibrillation: Status: Acute Plan 69-year-old female with a past medical history of HTN, polyarticular osteoarthritis, rheumatoid arthritis on Enbrel, AFib on Coumadin, FACUNDO on CPAP, mild persistent asthma, COPD (no home 02), morbid obesity, hemorrhoids who presents to the ED with lower extremity weakness x1 week, L>R, bilateral edema and worsening shortness of breath over the last month and a half. Chest x-ray consistent with pulmonary edema BNP elevated 1. CHF -limited 2D echo to assess pericardial effusion... Await Dr. Nina's input -IV Lasix 80 mg b.i.d.; fair response to diuresis.. Switch to p.o. in a.m. -strict I&O -hold valsartan/metoprolol... Add back when clinically appropriate -colchicine started as per Cardiology -inform Cardiology. . . No IV access and patient refusing further attempts. Okay to encourage fluids overnight we will reassess in a.m. 2. Persistent atrial fibrillation -acceptable rate control at present -monitor on telemetry -adjust therapies as indicated 3. FACUNDO on CPAP -continue same Full code Coumadin Requires ongoing hospitalization for IV diuresis and assessment of pericardial effusion including specialized treatment Quality Stroke Does the patient have a stroke diagnosis?: No VTE Prior VTE?: No VTE Risk Level:: Medical - moderate - high VTE Device Contraindication: Treatment Not Indicated VTE Drug Contraindication: N/A - Med Ordered
[2025-02-20] MEDS: Colchicine 0.6 MG TABLET PO (20:31)
[2025-02-21] VITALS (9 sets, daily range): BP systolic 93–112; BP diastolic 48–66; PULSE 86–100; RESP 18–20; TEMP 36.1–36.8; O2SAT 91–94
--- NOTE | 2025-02-21 00:39 | PC.NURSE ---
Patient continues to refuse bed alarm for high fall risk precautions, educated patient on high fall risk precautions. Patient is alert and oriented x4, rings appropriately, encourage patient to ask for assistance.
[2025-02-21 07:57] LABS: Alanine Aminotransferase 17 U/L (0-31); Albumin Level 2.6 g/dL (3.5-5.0); Alkaline Phosphatase 112 U/L (39-117); Anion Gap 11 (12-20); Aspartate Amino Transferase 41 U/L (5-31); Blood Urea Nitrogen 30 mg/dL (9-16); Calcium 8.3 mg/dL (8.4-10.2); Carbon Dioxide 37 mmol/L (22-29); Chloride 94 mmol/L (96-108); Creatinine Clr Calc Pharmacy 173.5; Estimated Glomerular Filt Rate > 60; Glucose Fasting 115 mg/dL (60-99); Potassium 3.2 mmol/L (3.3-5.1); Sodium 139 mmol/L (135-145); Total Protein 5.4 g/dL (6.5-8.0)
[2025-02-21] MEDS: Spironolactone 25 MG TABLET PO ×2 (08:58→18:31)
[2025-02-21] MEDS: Potassium Chloride Packet 20 MEQ PACKET 40 MEQ PO (08:58)
[2025-02-21] MEDS: Colchicine 0.6 MG TABLET PO ×2 (08:59→22:47)
[2025-02-21] MEDS: Ergocalciferol (Vitamin D2) 1,250 MCG CAPSULE 1250 MCG PO (08:59)
--- NOTE | 2025-02-21 18:19 | HO.PM.IMPN ---
Subjective Subjective Date of Service: 02/21/25 Interval History: Reports feeling tired and exhausted Multiple episodes of non-bloody diarrhea since yesterday Reports right hand pain and swelling after using commode multiple times yesterday Chronic SOB and cough at baseline No chest pain/pressure Denies lightheadedness or dizziness Still refuses additional attempts at IV access Review of Systems Negative except for that which is stated in the HPI Physical Exam Vital Signs: Vital Signs: Last Vital Signs Temp 98.3 F 02/21/25 15:17 Pulse 95 02/21/25 15:17 Resp 18 02/21/25 15:17 BP 96/52 L 02/21/25 15:17 Pulse Ox 94 02/21/25 15:17 O2 Del Method Nasal Cannula 02/21/25 15:17 O2 Flow Rate 1 02/21/25 15:17 BMI result Body Mass Index 57.9 General: AOx3, no acute distress Resp: Mild bilateral wheezing in lower lobes CVS: Irregularly irregular rhythm GI: +BS, NT, no distention Skin: Warm, dry Neuro: Cranial nerves II-XII grossly intact bilaterally. Motor grossly intact bilaterally Extremities: 3+ bilateral pitting lower leg edema Psych: Appropriate affect Objective Data Active Medications Acetaminophen (Acetaminophen 325 Mg Tablet) 650 mg PO Q6H PRN PRN Reason: Pain, Mild 1-3,fever,headache Calcium Carbonate (Calcium Carbonate 750 Mg Tab.Chew) 750 mg PO Q4H PRN PRN Reason: Heartburn Colchicine (Colchicine 0.6 Mg Tablet) 0.6 mg PO BID [facility] Last Admin: 02/21/25 08:59 Dose: 0.6 mg Documented By: GERI Ergocalciferol (Ergocalciferol (Vitamin D2) 1,250 Mcg Capsule) 1,250 mcg PO TH@0900 [facility] Last Admin: 02/21/25 08:59 Dose: 1,250 mcg Documented By: GERI Furosemide (Furosemide 100 Mg/10 Ml Vial) 80 mg IVPUSH BID@0900,1800 [facility]; Protocol On Hold: 02/19/25 11:46 Last Admin: 02/19/25 09:22 Dose: 80 mg Documented By: JOANNE Magnesium Hydroxide (Milk Of Magnesia 30 Ml Oral.Susp) 30 ml PO DAILY PRN PRN Reason: Constipation Melatonin (Melatonin 3 Mg Tablet) 6 mg PO BEDTIME PRN PRN Reason: Insomnia Metoprolol Succinate (Metoprolol Succinate Er 50 Mg Tab.Er.24h) 50 mg PO DAILY [facility]; Protocol On Hold: 02/19/25 12:26 Last Admin: 02/19/25 09:22 Dose: 50 mg Documented By: JOANNE Ondansetron HCl (Ondansetron Hcl 4 Mg/2 Ml Vial) 4 mg IVPUSH Q8H PRN PRN Reason: Nausea and Vomiting Sodium Chloride (0.9 % Sodium Chloride Flush 3 Ml Syringe) 3 ml IVFLUSH QSHIFT [facility] Last Admin: 02/21/25 08:59 Dose: Not Given Documented By: GERI Non-Admin Reason: No Access Spironolactone (Spironolactone 25 Mg Tablet) 25 mg PO BID@0900,1800 [facility]; Protocol Last Admin: 02/21/25 08:58 Dose: 25 mg Documented By: GERI Tramadol HCl (Tramadol Hcl 50 Mg Tablet) 50 mg PO Q6H PRN PRN Reason: Pain, Moderate(Pain Scale 4-6) Last Admin: 02/20/25 23:08 Dose: 50 mg Documented By: BRIA Valsartan (Valsartan 40 Mg Tablet) 40 mg PO DAILY [facility]; Protocol On Hold: 02/19/25 11:54 Last Admin: 02/19/25 09:22 Dose: 40 mg Documented By: JOANNE Labs 02/19/25 07:15 02/21/25 06:33 Labs: Laboratory Results - last 24 hr 02/21/25 06:33 Hold Purple Top SEE NOTE Anion Gap 11 L Estim Creat Clear Calc 173.5 Estimated GFR > 60 Fasting Glucose 115 H Calcium 8.3 L Total Bilirubin 4.0 H AST 41 H ALT 17 Alkaline Phosphatase 112 Total Protein 5.4 L Albumin 2.6 L Assessment and Plan (1) CHF (congestive heart failure): Status: Acute Assessment and Plan: 69-year-old female with a past medical history of HTN, polyarticular osteoarthritis, rheumatoid arthritis on Enbrel, AFib on Coumadin, FACUNDO on CPAP, mild persistent asthma, COPD (no home 02), morbid obesity, hemorrhoids who presents to the ED with lower extremity weakness x1 week, L>R, bilateral edema and worsening shortness of breath over the last month and a half. Chest x-ray consistent with pulmonary edema and BNP elevated. Pt admitted to the hospital for treatment of CHF exacerbation. CHF Initial echo found moderate to large pericardial effusion, severe pulmonary hypertension with severely dilated left atrium CT showed small pericardial effusion; IR consulted but found nothing to drain Initially diuresed with Lasix 80 mg IV b.i.d. Pt became hypokalemic and had soft BP; diuretics have been held with the past 2 days Strict I&O Hold valsartan/metoprolol... Add back when clinically appropriate Colchicine started as per Cardiology Pt continues to have no IV access and patient refusing further attempts. Okay to encourage fluids overnight Diarrhea Reports multiple episodes, non-bloody, no abd pain Check GI panel, CDiff Persistent atrial fibrillation Continue warfarin, monitor INR Monitor on telemetry FACUNDO on CPAP CPAP at night Full code Coumadin Requires ongoing hospitalization for monitoring of BP, evaluation of diarrhea, and awaiting resumption of home p.o. meds. Quality Stroke Does the patient have a stroke diagnosis?: No VTE Prior VTE?: No VTE Risk Level:: Medical - moderate - high VTE Device Contraindication: Treatment Not Indicated VTE Drug Contraindication: N/A - Med Ordered
--- NOTE | 2025-02-21 20:13 | PM.PNCARD ---
Subjective Subjective Date of Service: 02/21/25 Interval history: Seen examined at bedside. Denying any significant symptoms currently. Echocardiography from yesterday reviewed which showed moderate pericardial effusion without any obvious signs of tamponade. She does have IVC dilation but also has severe pulmonary hypertension. Physical Exam Vital Signs: Last Vital Signs Temp 97.5 F 02/21/25 19:08 Pulse 88 02/21/25 19:08 Resp 18 02/21/25 19:08 BP 108/56 L 02/21/25 19:08 Pulse Ox 91 L 02/21/25 19:08 O2 Del Method Nasal Cannula 02/21/25 19:08 O2 Flow Rate 1 02/21/25 19:08 BMI result Body Mass Index 57.9 GENERAL APPEARANCE: Morbidly obese. In no distress. NECK: no carotid bruit, no jugular venous distention. SKIN: no suspicious lesions, warm and dry. HEART: no murmurs, irregular rate and rhythm. LUNGS: Lungs clear to auscultation. ABDOMEN: soft, nontender. EXTREMITIES: Two to 3+ edema up to thighs. PERIPHERAL PULSES: equal. NEUROLOGIC: No gross deficits, AAO X 3 Objective Labs and Meds 02/19/25 07:15 02/21/25 06:33 Lab results: Laboratory Results - last 24 hr 02/21/25 06:33 Hold Purple Top SEE NOTE Sodium 139 Potassium 3.2 L Chloride 94 L Carbon Dioxide 37 H Anion Gap 11 L BUN 30 H Creatinine 0.62 Estim Creat Clear Calc 173.5 Estimated GFR > 60 Fasting Glucose 115 H Calcium 8.3 L Total Bilirubin 4.0 H AST 41 H ALT 17 Alkaline Phosphatase 112 Total Protein 5.4 L Albumin 2.6 L Progress Note: A&P Assessment and plan (1) HTN (hypertension): Status: Acute (2) CHF (congestive heart failure): Status: Acute (3) Permanent atrial fibrillation: Status: Acute (4) Pericardial effusion: Status: Acute Plan [age] year female with morbid obesity, rheumatoid arthritis, diastolic heart failure, COPD, sleep apnea, pulmonary hypertension and pericardial effusion. She presented with dyspnea and congestive heart failure. She was diuresed but had low blood pressures. Echo initially showed [id number] side effusion and we are concerned about tamponade but overall clinically she did not act like tamponade. She was given some fluids back and blood pressure improved. Her antihypertensive medications have been held. She has continued rate controlled without any medications. Continue to hold her Toprol and valsartan. She is hypokalemic and I am giving her spironolactone which has some evidence for right heart failure. I think we will resume her Lasix tomorrow. I have explained to her that she has significant edema but diuresing her is a challenge as her blood pressure does not allow that. Resume the coumadin. Thank you for allowing me to participate in the care of your patient. Please feel free to contact me if you have any questions. Time Spent With Patient Time: Total time managing care of this patient today ____ minutes. Progress Note: Quality Stroke Does the patient have a stroke diagnosis?: No Procedures Date of Service Date of Service: 02/21/25
[2025-02-21 21:52] LABS: INTERNATIONAL NORM RATIO 2.1 (0.9-1.1); Prothrombin Time 23.7 SEC (10.9-12.4)
[2025-02-21] MEDS: Warfarin Sodium 10 MG TABLET PO (22:47)
[2025-02-22] VITALS (10 sets, daily range): BP systolic 96–139; BP diastolic 51–107; PULSE 97–120; RESP 16–20; TEMP 36.4–37.1; O2SAT 83–97
[2025-02-22 07:14] LABS: Prothrombin Time 23.1 SEC (10.9-12.4)
[2025-02-22 07:39] LABS: Anion Gap 10 (12-20); Blood Urea Nitrogen 26 mg/dL (9-16); Calcium 8.6 mg/dL (8.4-10.2); Carbon Dioxide 37 mmol/L (22-29); Chloride 93 mmol/L (96-108); Creatinine Clr Calc Pharmacy 195.6; Estimated Glomerular Filt Rate > 60; Glucose Random 101 mg/dL (60-115); Potassium 3.4 mmol/L (3.3-5.1); Sodium 137 mmol/L (135-145)
[2025-02-22] MEDS: Furosemide 40 MG TABLET 80 MG PO (08:05)
[2025-02-22] MEDS: Colchicine 0.6 MG TABLET PO ×2 (08:06→20:10)
[2025-02-22] MEDS: Spironolactone 25 MG TABLET PO ×2 (08:06→17:05)
--- NOTE | 2025-02-22 12:39 | PM.PNCARD ---
Subjective Subjective Date of Service: 02/22/25 Interval history: Seen examined at bedside. She was walking with a walker and saying that she is still short of breath. Physical Exam Vital Signs: Last Vital Signs Temp 98.3 F 02/22/25 11:01 Pulse 119 H 02/22/25 11:01 Resp 17 02/22/25 11:01 BP 139/107 H 02/22/25 11:01 Pulse Ox 91 L 02/22/25 11:01 O2 Del Method Nasal Cannula 02/22/25 11:01 O2 Flow Rate 3 02/22/25 11:01 BMI result Body Mass Index 57.9 GENERAL APPEARANCE: Morbidly obese. In no distress. NECK: no carotid bruit, no jugular venous distention. SKIN: no suspicious lesions, warm and dry. HEART: no murmurs, irregular rate and rhythm. LUNGS: Lungs clear to auscultation. ABDOMEN: soft, nontender. EXTREMITIES: Two to 3+ edema up to thighs. PERIPHERAL PULSES: equal. NEUROLOGIC: No gross deficits, AAO X 3 Objective Labs and Meds 02/19/25 07:15 02/22/25 06:45 Lab results: Laboratory Results - last 24 hr 02/21/25 02/22/25 20:49 06:45 PT 23.7 H D 23.1 H INR 2.1 H 2.0 H Sodium 137 Potassium 3.4 Chloride 93 L Carbon Dioxide 37 H Anion Gap 10 L BUN 26 H Creatinine 0.55 Estim Creat Clear Calc 195.6 Estimated GFR > 60 Random Glucose 101 Calcium 8.6 Progress Note: A&P Assessment and plan (1) HTN (hypertension): Status: Acute (2) CHF (congestive heart failure): Status: Acute (3) Permanent atrial fibrillation: Status: Acute (4) Pericardial effusion: Status: Acute Plan 69-year-old female with morbid obesity, rheumatoid arthritis, diastolic heart failure, COPD, sleep apnea, pulmonary hypertension and pericardial effusion. She presented with dyspnea and congestive heart failure. She was diuresed but had low blood pressures. Echo initially showed [id number] pericardial effusion and we are concerned about tamponade but overall clinically she did not act like tamponade. She was given some fluids back and blood pressure improved. Her antihypertensive medications were held. On Lasix 80 mg p.o. daily at this point. We added spironolactone 25 mg twice a day. Toprol-XL can be resumed at 50 mg daily. Valsartan should be held. Changing from Coumadin to apixaban 5 mg twice a day because the patient wishes not to have frequent monitoring of INR. Overall clinical situation is stable and we should start discharge process. Thank you for allowing me to participate in the care of your patient. Please feel free to contact me if you have any questions. Time Spent With Patient Time: Total time managing care of this patient today ____ minutes. Progress Note: Quality Stroke Does the patient have a stroke diagnosis?: No Procedures Date of Service Date of Service: 02/22/25
[2025-02-22] MEDS: Metoprolol Succinate ER 25 MG TAB.ER.24H PO ×2 (13:43→17:05)
[2025-02-22] MEDS: Apixaban 5 MG TABLET PO ×2 (13:43→20:10)
--- NOTE | 2025-02-22 15:05 | MHC.CM.PN ---
Addendum entered by Mehnaz Crystal RN 02/22/25 15:30: IMM 02/22/25 DELIVERED TO BEDSIDE Original Note: EMR REVIEWED, PER [facility] PLAN FOR PT TO DC FRIDAY 02/23 W/NEW HOME O2, NEW COMFORT PLUS FOR SN/PT AND RESUMP OF CANCER PROGRAM CONSULTANT HRS, CANCER PROGRAM CONSULTANT VS FAMILY FOR TRANSPORT
[2025-02-22] MEDS: traMADoL HCL 50 MG TABLET PO (17:04)
--- NOTE | 2025-02-22 17:41 | HO.PM.IMPN ---
Subjective Subjective Date of Service: 02/22/25 Interval History: Reports breathing much improved No longer experiencing diarrhea, had formed stool earlier this morning Denies chest pain/pressure, palpitations No lightheadedness or dizziness Had home O2 evaluation which recommended 4 L with ambulation and 2 at rest Review of Systems Review of Systems: Yes all other systems are reviewed and are negative Physical Exam Vital Signs: Vital Signs: Last Vital Signs Temp 97.5 F 02/22/25 15:59 Pulse 115 H 02/22/25 17:03 Resp 18 02/22/25 15:59 BP 106/62 02/22/25 17:02 Pulse Ox 94 02/22/25 17:02 O2 Del Method Nasal Cannula 02/22/25 17:02 O2 Flow Rate 3 02/22/25 17:02 BMI result Body Mass Index 57.9 General: AOx3, no acute distress Resp: CTA bilaterally, diminished at bases CVS: S1, S2, regular rate, tachycardic GI: +BS, NT, no distention Skin: Warm, dry Neuro: Cranial nerves II-XII grossly intact bilaterally. Motor grossly intact bilaterally Extremities: 2-3+ bilateral pitting edema Psych: Appropriate affect Objective Data Active Medications Acetaminophen (Acetaminophen 325 Mg Tablet) 650 mg PO Q6H PRN PRN Reason: Pain, Mild 1-3,fever,headache Apixaban (Apixaban 5 Mg Tablet) 5 mg PO BID [facility] Last Admin: 02/22/25 13:43 Dose: 5 mg Documented By: PATRICK Calcium Carbonate (Calcium Carbonate 750 Mg Tab.Chew) 750 mg PO Q4H PRN PRN Reason: Heartburn Colchicine (Colchicine 0.6 Mg Tablet) 0.6 mg PO BID [facility] Last Admin: 02/22/25 08:06 Dose: 0.6 mg Documented By: PATRICK Ergocalciferol (Ergocalciferol (Vitamin D2) 1,250 Mcg Capsule) 1,250 mcg PO TH@0900 [facility] Last Admin: 02/21/25 08:59 Dose: 1,250 mcg Documented By: GERI Furosemide (Furosemide 40 Mg Tablet) 80 mg PO DAILY [facility]; Protocol Last Admin: 02/22/25 08:05 Dose: 80 mg Documented By: PATRICK Magnesium Hydroxide (Milk Of Magnesia 30 Ml Oral.Susp) 30 ml PO DAILY PRN PRN Reason: Constipation Melatonin (Melatonin 3 Mg Tablet) 6 mg PO BEDTIME PRN PRN Reason: Insomnia Metoprolol Succinate (Metoprolol Succinate Er 50 Mg Tab.Er.24h) 50 mg PO DAILY [facility]; Protocol Ondansetron HCl (Ondansetron Hcl 4 Mg/2 Ml Vial) 4 mg IVPUSH Q8H PRN PRN Reason: Nausea and Vomiting Sodium Chloride (0.9 % Sodium Chloride Flush 3 Ml Syringe) 3 ml IVFLUSH QSHIFT [facility] Last Admin: 02/22/25 17:06 Dose: Not Given Documented By: PATRICK Non-Admin Reason: No Access Spironolactone (Spironolactone 25 Mg Tablet) 25 mg PO BID@0900,1800 [facility]; Protocol Last Admin: 02/22/25 17:05 Dose: 25 mg Documented By: PATRICK Tramadol HCl (Tramadol Hcl 50 Mg Tablet) 50 mg PO Q6H PRN PRN Reason: Pain, Moderate(Pain Scale 4-6) Last Admin: 02/22/25 17:04 Dose: 50 mg Documented By: PATRICK Labs 02/19/25 07:15 02/22/25 06:45 Labs: Laboratory Results - last 24 hr 02/21/25 02/22/25 20:49 06:45 PT 23.7 H D 23.1 H INR 2.1 H 2.0 H Anion Gap 10 L Estim Creat Clear Calc 195.6 Estimated GFR > 60 Random Glucose 101 Calcium 8.6 Assessment and Plan (1) CHF exacerbation: Status: Acute Plan 69-year-old female with a past medical history of HTN, polyarticular osteoarthritis, rheumatoid arthritis on Enbrel, AFib on Coumadin, FACUNDO on CPAP, mild persistent asthma, COPD (no home 02), morbid obesity, hemorrhoids who presents to the ED with lower extremity weakness x1 week, L>R, bilateral edema and worsening shortness of breath over the last month and a half. Chest x-ray consistent with pulmonary edema and BNP elevated. Pt admitted to the hospital for treatment of CHF exacerbation. CHF Initial echo found moderate to large pericardial effusion, severe pulmonary hypertension with severely dilated left atrium CT showed small pericardial effusion; IR consulted but found nothing to drain Initially diuresed with Lasix 80 mg IV b.i.d. though stopped after pt became hypokalemic and had soft BP Continue metoprolol succinate 50 mg daily Continue Lasix 80 mg p.o. daily, start spironolactone 25 mg b.i.d. 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 Monitor on telemetry FACUNDO on CPAP CPAP at night Obesity class III BMI 57.9 Encourage weight loss Full code Eliquis Requires ongoing hospitalization for safe disposition home. Quality Stroke Does the patient have a stroke diagnosis?: No VTE Prior VTE?: No VTE Risk Level:: Medical - moderate - high VTE Device Contraindication: Treatment Not Indicated VTE Drug Contraindication: N/A - Med Ordered
[2025-02-23 03:28] VITALS: BP 100/59; PULSE 88; RESP 18; TEMP 36.9; O2SAT 92
[2025-02-23 07:35] LABS: Anion Gap 11 (12-20); Blood Urea Nitrogen 25 mg/dL (9-16); Calcium 8.9 mg/dL (8.4-10.2); Carbon Dioxide 37 mmol/L (22-29); Chloride 93 mmol/L (96-108); Creatinine Clr Calc Pharmacy 173.5; Estimated Glomerular Filt Rate > 60; Glucose Random 99 mg/dL (60-115); Potassium 3.9 mmol/L (3.3-5.1); Sodium 137 mmol/L (135-145)
[2025-02-23 07:57] VITALS: BP 137/71; PULSE 70; RESP 18; TEMP 36.3; O2SAT 95
[2025-02-23 08:12] VITALS: BP 137/71
[2025-02-23] MEDS: Apixaban 5 MG TABLET PO (08:12)
[2025-02-23] MEDS: Colchicine 0.6 MG TABLET PO (08:12)
[2025-02-23] MEDS: Metoprolol Succinate ER 50 MG TAB.ER.24H PO (08:12)
--- NOTE | 2025-02-23 12:21 | PM.PNCARD ---
Subjective Subjective Date of Service: 02/23/25 Interval history: Seen examined at bedside. She is saying that she is doing better. She is on supplemental oxygen at this point if we will be going home with that. Physical Exam Vital Signs: Last Vital Signs Temp 97.4 F 02/23/25 07:57 Pulse 70 02/23/25 07:57 Resp 18 02/23/25 07:57 BP 137/71 02/23/25 08:12 Pulse Ox 95 02/23/25 07:57 O2 Del Method Room Air 02/23/25 07:57 O2 Flow Rate 2 02/23/25 03:28 BMI result Body Mass Index 57.9 GENERAL APPEARANCE: Morbidly obese. In no distress. NECK: no carotid bruit, no jugular venous distention. SKIN: no suspicious lesions, warm and dry. HEART: no murmurs, irregular rate and rhythm. LUNGS: Lungs clear to auscultation. ABDOMEN: soft, nontender. EXTREMITIES: Two to 3+ edema up to thighs. PERIPHERAL PULSES: equal. NEUROLOGIC: No gross deficits, AAO X 3 Objective Labs and Meds 02/19/25 07:15 02/23/25 07:04 Lab results: Laboratory Results - last 24 hr 02/23/25 02/23/25 07:03 07:04 Hold Purple Top SEE NOTE Sodium 137 Potassium 3.9 Chloride 93 L Carbon Dioxide 37 H Anion Gap 11 L BUN 25 H Creatinine 0.62 Estim Creat Clear Calc 173.5 Estimated GFR > 60 Random Glucose 99 Calcium 8.9 Progress Note: A&P Assessment and plan (1) HTN (hypertension): Status: Acute (2) CHF (congestive heart failure): Status: Acute (3) Permanent atrial fibrillation: Status: Acute (4) Pericardial effusion: Status: Acute Plan 69-year-old female with morbid obesity, rheumatoid arthritis, diastolic heart failure, COPD, sleep apnea, pulmonary hypertension and pericardial effusion. She presented with dyspnea and congestive heart failure. She was diuresed but had low blood pressures. Echo initially showed [id number] pericardial effusion and we were concerned about tamponade but overall clinically she did not act like tamponade. She was given some fluids back and blood pressure improved. Her antihypertensive medications were held. On Lasix 80 mg p.o. daily at this point. We added spironolactone 25 mg twice a day. Toprol-XL can be resumed at 50 mg daily. She was on valsartan here but is saying that she does not use that medication at home. It will be discontinued. Changing from Coumadin to apixaban 5 mg twice a day because the patient wishes not to have frequent monitoring of INR. Going home today. We will arrange repeat echocardiography in 3-4 weeks to reassess the pericardial effusion. Thank you for allowing me to participate in the care of your patient. Please feel free to contact me if you have any questions. Time Spent With Patient Time: Total time managing care of this patient today ____ minutes. Progress Note: Quality Stroke Does the patient have a stroke diagnosis?: No Procedures Date of Service Date of Service: 02/23/25
--- NOTE | 2025-02-23 12:31 | PM.DS ---
DS: Providers Provider Date of Service: 02/23/25 Date of admission: 02/18/25 13:52 Date of discharge: 02/23/25 Primary care physician: Angelita Alves MD Consults: 02/18/25 16:07 Consult to Cardiology Routine Consulting Provider: [facility] Reason for consultation: chf DS: Diagnosis Discharge Diagnosis (1) HTN (hypertension): Status: Inactive (2) CHF (congestive heart failure): Status: Inactive (3) Permanent atrial fibrillation: Status: Inactive (4) Pericardial effusion: Status: Inactive DS: Summary Hospital Course Hospital Course: From admitting HPI: 69-year-old female with a past medical history of HTN, polyarticular osteoarthritis, rheumatoid arthritis on Enbrel, AFib on Coumadin, FACUNDO on CPAP, mild persistent asthma, COPD (no home 02), morbid obesity, hemorrhoids who presents to the ED with lower extremity weakness x1 week, L>R, bilateral edema and feeling like she pulled a muscle in her left upper thigh area. Reported she has been also having a hard time getting in and out of bed. She states that on Tuesday night her left leg was sore but fine without any bruising and woke up on Tuesday morning with extensive bruising to the left upper thigh area without any recent injury, no falls, no known irritations or use of tight clothing or undergarments. Indicates that she checked her scheduled INR on at home and it was 2.7 therapeutic. She also reports shortness of breath however this has been present x 1.5 months and worsening since then. Denies chest pain. In emergency room chest x-ray significant for mild pulmonary edema. BNP mildly elevated Hospital course: Pt admitted to the hospital for acute hypoxic respiratory failure in the setting of CHF exacerbation. Initially treated aggressive IV diuresing with Lasix 80 mg IV b.i.d., as well as supplemental oxygen. Workup included echocardiogram that found moderate to large pericardial effusion, severe pulmonary hypertension, and severely dilated left atrium. Re-evaluation of pericardial effusion with CT showed only small pericardial effusion IR consulted for possible pericardiocentesis, though found no drainable fluid collection. Hospital stay complicated by hypokalemia and soft BP. IV diuretics were held as well as home antihypertensives. Pt seen and evaluated by Cardiology who resumed home metoprolol and oral Lasix after BP improved. Was started on colchicine which pt will take for the next 3 months for pericarditis/pericardial effusion. Was also started on spironolactone 25 mg b.i.d. for CHF and peripheral edema. Warfarin was stopped and pt was switched to Eliquis 5 mg p.o. daily for anticoagulation for AFib. Underwent home O2 evaluation and will be discharged home on 4 L with ambulation/exertion and 2 L at rest. Pt also evaluated by PT due to difficulty with mobility, and will be sent home with PT services. Despite not receiving IV diuretics for the past few days, patient's SOB, PICHARDO, and lower leg edema improved. Pt is set to be discharged home with new prescriptions for colchicine, spironolactone, and Eliquis, as well as supplemental oxygen and PT services. Pt should follow up with PCP in 1-2 weeks for routine postop evaluation and in two weeks with cardiology. For COPD, continue home inhalers and new home supplemental oxygen For FACUNDO continue CPAP at night Time Attestation Discharge Coordination Time (in mins): 42 Quality: Safe Use of Opioids Does Pt have an Active Cancer Diagnosis on the Problem List?: No Quality: Stroke Does the patient have a stroke diagnosis?: No Physical Exam Vital Signs: Vital Signs: Last Vital Signs Temp 97.4 F 02/23/25 07:57 Pulse 70 02/23/25 07:57 Resp 18 02/23/25 07:57 BP 137/71 02/23/25 08:12 Pulse Ox 95 02/23/25 07:57 O2 Del Method Room Air 02/23/25 07:57 O2 Flow Rate 2 02/23/25 03:28 BMI result Body Mass Index 57.9 General: AOx3, no acute distress Resp: CTA bilaterally, no wheezing, rales, or rhonchi noted; wearing supplemental O2 CVS: S1, S2, RRR GI: +BS, NT, no distention Skin: Warm, dry Neuro: Cranial nerves II-XII grossly intact bilaterally. Motor grossly intact bilaterally Extremities: 2+ bilateral pitting edema Psych: Appropriate affect DS: Data Data Completed and Pending Labs on day of discharge: Laboratory Results - last 24 hr 02/23/25 02/23/25 07:03 07:04 Hold Purple Top SEE NOTE Sodium 137 Potassium 3.9 Chloride 93 L Carbon Dioxide 37 H Anion Gap 11 L BUN 25 H Creatinine 0.62 Estim Creat Clear Calc 173.5 Estimated GFR > 60 Random Glucose 99 Calcium 8.9 Discharge Plan Discharge Anticipated Discharge Date/Time: 02/23/25 12:02 Patient Disposition: Home Health Service Discharge Diagnosis: CHF exacerbation Referrals: [facility] [Outside] - 1 Day Referral Note: [facility] Angelita Alves MD [Primary Care Provider, Internal Medicine] - 1 Week Discharge Medications: New Eliquis 5 mg tablet 5 mg PO BID Qty: 180 0RF Rx Instructions: Take one tablet twice a day for stroke prevention for AFib spironolactone 25 mg tablet 25 mg PO BID Qty: 180 0RF Rx Instructions: Take one tablet twice a day colchicine 0.6 mg tablet 0.6 mg PO BID Qty: 180 0RF Rx Instructions: Take one tablet twice a day for pericardial effusion Continued furosemide 40 mg tablet 80 mg PO DAILY Qty: 180 1RF ergocalciferol (vitamin D2) 1,250 mcg (50,000 unit) capsule 1,250 mcg PO TH@0900 furosemide 40 mg Tablet 40 mg PO DAILY PRN (Reason: swelling) Rx Instructions: patient can take 1 additional tablet later in the day for increased swelling diphenhydramine-acetaminophen [Tylenol PM Extra Strength] 25-500 mg Tablet 2 tab PO BEDTIME PRN (Reason: Sleep) etanercept 50 mg/mL (1 mL) syringe 50 mg subcut TH@0900 tramadol 50 mg tablet 50 mg PO BEDTIME PRN (Reason: Pain (Scale Score 4-6)) albuterol sulfate 90 mcg/actuation HFA aerosol inhaler 2 puff inhalation Q4-6H PRN (Reason: shortness of breath or wheezing) Qty: 1 6RF albuterol sulfate 2.5 mg /3 mL (0.083 %) solution for nebulization 2.5 mg inhalation Q4-6H PRN (Reason: shortness of breath or wheezing) Qty: 180 6RF Discontinued warfarin 10 mg tablet 10 mg PO MOTUWETHFR@1800 warfarin 5 mg Tablet 5 mg PO SUSA@1800 No Action metoprolol succinate 50 mg tablet extended release 24 hr 50 mg PO DAILY Qty: 90 3RF Discharge Orders: Discharge Order (Routine); Ordered 02/23/25 Ordered By: Siri Parham Activity on Discharge: As tolerated Stand Alone Forms: Patient Portal Discharge page Print Language: Azeri Care Plan Goals: Resolution of SOB Resolution of pericardial effusion Mobility improvement Health Concerns: CHF, SOB, COPD exacerbation Monitor for sudden weight gain, increased lower leg edema Plan of Treatment: Take colchicine 0.6 mg twice a day x3 months for pericardial effusion Start spironolactone 25mg twice a day for CHF and peripheral edema Continue metoprolol and Lasix 80mg daily Stop warfarin; will switch anticoagulation to Eliquis 5mg twice a day No need to for INR checks Will be sent home on home supplemental oxygen: 4L with ambulation/exertion, 2L at rest Home PT services will contact you to arrange for appointments Continue CPAP at night Recommend a low salt calorie diet Follow up with PCP in 1-2 weeks and cardiology in 2 weeks Assessment: See discharge summary Patient Instructions: Spironolactone (By mouth), Apixaban (By mouth) (Eliquis) Discharge Date/Time: 02/23/25 13:20
[2025-02-23] MEDS: Spironolactone 25 MG TABLET PO (12:45)
--- NOTE | 2025-02-23 12:53 | W.MHC.F2F ---
Service Date Service Date: 02/23/25 Encounter Date of encounter: 02/23/25 Reasons for Services Signs and symptoms assessed: Pt with obesity class III, difficulty ambulating, multiple significant comorbidities such as AFib, CHF, and COPD Homebound: Leaving the home is medically contraindicated at this time without the asist of a device and/or another person due th the listed conditions above and below. Reason homebound: unsteady gait / fall risk, shortness of breath with minimal effort and shortness of breath at rest Certification: Based on the above findings, I certify that this patient is confined to the home and needs intermittent intermediate care, physical therapy and/or speech therapy, or continues to need occupational therapy. The patient is under my care, and I have initiated the establishment of the plan of care. The patient will be followed by a physician who will periodically review the plan of care. Time Spent With Patient Time: Total time managing care of this patient today ____ minutes.
--- NOTE | 2025-02-23 13:23 | MHC.CM.PN ---
Pt has been medically cleared to MD, she will go home via family transport and have home care services from [facility].
== END 2025-02-23 13:20 | disposition home health service (06) | DRG 291 ==
LOC: HO.ED 14:29 → HO.EDOVER 14:43 → HO.IMC 14:53
PROVIDERS: Internal Medicine Cardiovascular Disease; Admitting Provider Hospitalist; Emergency Provider Emergency Medicine Emergency Medical Services; PCP Internal Medicine; Visit Provider Student in an Organized Health Care Education/Training Program
DX: I11.0 Hypertensive heart disease with heart failure (principal); I50.33 Acute on chronic diastolic (congestive) heart failure; J96.01 Acute respiratory failure with hypoxia; D61.818 Other pancytopenia; Z68.43 Body mass index [BMI] 50.0-59.9, adult; I48.19 Other persistent atrial fibrillation; M05.9 Rheumatoid arthritis with rheumatoid factor, unspecified; E66.813 Obesity, class 3; Z71.3 Dietary counseling and surveillance; I27.20 Pulmonary hypertension, unspecified; G47.33 Obstructive sleep apnea (adult) (pediatric); J45.30 Mild persistent asthma, uncomplicated; J44.9 Chronic obstructive pulmonary disease, unspecified; Z79.01 Long term (current) use of anticoagulants; Z79.620 Long term (current) use of immunosuppressive biologic; Z79.899 Other long term (current) drug therapy; E87.6 Hypokalemia; I95.9 Hypotension, unspecified
CPT/HCPCS: 36415; 71045; 71250; 80048; 80053; 82803; 83735; 83880; 85025; 85379; 85610; 93005; 93306; 93308; 93971; 97162; 99285; J1938

== ENCOUNTER → 2025-02-18 10:05 | Outpatient (BNV) | payer OTHER, SELFPAY | PROVIDERS: Emergency Provider Emergency Medicine Emergency Medical Services; PCP Internal Medicine; Visit Provider Radiology Diagnostic Radiology | DX: I83.11 Varicose veins of right lower extremity with inflammation (principal); J84.89 Other specified interstitial pulmonary diseases | CPT/HCPCS: 71045; 93971 ==

== ENCOUNTER 2025-02-18 13:52 | Outpatient (BNV) | payer OTHER, SELFPAY | END 2025-02-19 13:53 | PROVIDERS: Admitting Provider Hospitalist; Emergency Provider Emergency Medicine Emergency Medical Services; PCP Internal Medicine; Visit Provider Radiology Diagnostic Radiology | DX: I51.7 Cardiomegaly (principal) | CPT/HCPCS: 71250 ==

== ENCOUNTER 2025-02-18 13:52 | Outpatient (BNV) | payer OTHER, SELFPAY | END 2025-02-20 15:03 | PROVIDERS: Admitting Provider Hospitalist; Emergency Provider Emergency Medicine Emergency Medical Services; PCP Internal Medicine; Visit Provider Internal Medicine Cardiovascular Disease | DX: I31.39 Other pericardial effusion (noninflammatory) (principal); I51.7 Cardiomegaly; I27.20 Pulmonary hypertension, unspecified; I36.1 Nonrheumatic tricuspid (valve) insufficiency | CPT/HCPCS: 93308 ==

== ENCOUNTER 2025-02-18 13:52 | Outpatient (BNV) | payer OTHER, SELFPAY | END 2025-02-18 15:11 | PROVIDERS: Admitting Provider Hospitalist; Emergency Provider Emergency Medicine Emergency Medical Services; PCP Internal Medicine; Visit Provider Internal Medicine Cardiovascular Disease | DX: I27.20 Pulmonary hypertension, unspecified (principal); I31.39 Other pericardial effusion (noninflammatory); I51.7 Cardiomegaly; I36.1 Nonrheumatic tricuspid (valve) insufficiency; I48.91 Unspecified atrial fibrillation | CPT/HCPCS: 93010; 93306 ==

== ENCOUNTER → 2025-02-18 13:52 | Outpatient (BNV) | payer OTHER, SELFPAY | PROVIDERS: Admitting Provider Hospitalist; Emergency Provider Emergency Medicine Emergency Medical Services; PCP Internal Medicine; Visit Provider Hospitalist | DX: E66.813 Obesity, class 3 (principal); R26.2 Difficulty in walking, not elsewhere classified | CPT/HCPCS: 99223; 99232; G0180 ==

== ENCOUNTER → 2025-02-18 13:52 | Outpatient (BNV) | payer OTHER, SELFPAY | PROVIDERS: Admitting Provider Hospitalist; Emergency Provider Emergency Medicine Emergency Medical Services; PCP Internal Medicine; Visit Provider Internal Medicine Cardiovascular Disease | DX: I10 Essential (primary) hypertension (principal); I50.9 Heart failure, unspecified; I48.21 Permanent atrial fibrillation; I31.39 Other pericardial effusion (noninflammatory) | CPT/HCPCS: 99232 ==

== ENCOUNTER 2025-03-12 13:43 | Outpatient (REF) | payer OTHER, SELFPAY ==
[2025-03-12 13:51] LABS: MANUAL DIFF FLAG NO
[2025-03-12 14:07] LABS: Hematocrit 34.8 % (37.0-47.0); Hemoglobin 11.9 g/dl (12.0-16.0); Imm Gran Abs Auto 0.00 X10*3/uL (0.00-0.03); Imm Gran Pct Auto 0.0 % (0.0-0.4); Lymphocytes Absolute Auto 1.1 X10*3/uL (1.2-4.9); Mean Corpuscular HGB Conc 34.2 g/dl (31.0-35.0); Mean Corpuscular Hemoglobin 37.1 pg (27.0-33.0); Mean Corpuscular Volume 108.4 fL (80.0-98.0); NRBC Abs Auto 0.000 X10*3/uL (0.0-0.012); NRBC Pct Auto 0.0 /100WBC (0.0-0.2); Platelet Count 116 X10*3/uL (160-400); Red Blood Count 3.21 X10*6/uL (4.20-5.50); White Blood Count 3.1 X10*3/uL (4.8-10.8)
--- OUTSIDE RECORDS SUMMARY | 2025-03-12 14:39 | XMS_ITS | Encounter Summary ---
Author Organization [facility] Address [address] [place] [address] Care Team Providers Care Enameler Name Role Phone Virginia Santoyo MD Primary Care Provider Angelita Mane Md, MD Primary Care Provider Unavailable Reason for Visit * Reason Onset Date Comments Prior Authorization 11/08/2017 Encounter Details Date Type Department Care Team Description 11/08/2017 Telephone Podiatry - [address] [address] Dolly Theodore DPM Prior Authorization Social History [...] Is this a Cover My Meds request: [place] of Medication Lidocaine Dose of Medication 2 % Gel How does patient take this med? Apply 2 g topically 2 times daily. Apply to painful area of the foot. What Pharmacy did the fax come from: [facility]/pharmacy #[id number] - [place] - [address] Pharmacy fax #: [phone] [employer] Information from fax: What Prescription Plan does the patient have? Medicare/ medicaid BIN/PCN if applicable: [id number] Cardholder ID:[id number] / [id number] Person Code: 001 Relationship Code: H Help desk phone: [phone] documented in this encounter Plan of Treatment Not on file documented as of this encounter Visit Diagnoses Not on filedocumented in this encounter Care Teams Enameler Relationship Specialty Start Date End Date Virginia Santoyo MD PCP - General Internal Medicine 09/14/17 11/24/20 Angelita Alves MD, MD PCP - General Internal Medicine 11/25/20 documented as of this encounter
--- OUTSIDE RECORDS SUMMARY | 2025-03-12 14:39 | XMS_ITS | Patient Health Record ---
Author Organization [facility] Address [address] [place] [address] Care Team Providers Care Cisco Administrator Name Role Phone Joselyn SHERMAN, Angelita Garcia Primary Care Provider Un available Wang, Bryson Unavailable [phone] Black, Jacquelin Unavailable [phone] Mabel Swenson Unavailable [phone] Allergies No Known Allergies Reason For Referral No Information Medications Medication SIG (Take, Route, Frequency, Duration) Notes Start Date End Date Status Enbrel 50 MG/ML Subcutaneous; Durati on: 28 Days Active Cephalexin 500 MG Oral; Duration: 7 Days Active Metoprolol Succinate ER 50 MG Oral; Duration: 90 Days Acti ve Warfarin Sodium 10 MG Oral; Duration: 83 Days Active Tylenol Active Furosemide 40 MG Oral; Duration: 90 Days Active Enbrel 50 MG/ML 1 mL Subcutaneous Active Folic Acid 1 MG Oral; Duration: 90 Days Active traMADol HCl 50 MG 1 tablet as needed O rally Once a day Active traMADol HCl 50 MG TAKE 1 TABLET BY MELANIE TH AT BEDTIME NEEDED FOR PAIN Oral; Duration: 28 Days Active Metoprolol Succinate ER 50 [...] Problem Status W/U Status Risk Notes Problem Bilateral atherosclerosis of arteries of lower limbs (disorder) ([id number] ) Atherosclerosis of [place] artery of both lower extremities, with unspecified presence of clinical manifestation (I70.203) Active confirmed Vital Signs Height 6 ft 2 in in 04/20/2024 Weight 397 lbs lbs 04/20/2024 BMI 50.97 kg/m2 04/20/2024 Procedures Procedure Date Ordered Date Performed Result Body Sit e 31006-FVVKRII NAIL, 1-5 04/20/2024 N/A 48433-JPJZ SKIN LESIONS, 2 TO 4 04/20/2024 N/A S9843-ATLILEXQ DYSTROPHIC NAILS ANY # 04/20/2024 N/A Encounters Encounter Location Date Provider Diagnosis [address] [address] 04/20/2024 Bryson Piña Atherosclerosis of [place] artery of both lower extremities, with unspecified presence of clinical manifestation I70.203 ; Tinea unguium B35.1 ; Pain in right toe(s) M79.674 ; Pain in left toe(s) M79.675 ; Other hammer toe(s) (acquired), right foot M20.41 ; Arthritis of joint of lesser toe, right M19.071 ; Other hammer toe(s) (acquired), left foot M20.42 and Arthritis of joint of lesser toe, left M19.[facility] [address] 04/18/2024 Jacquelin Álvarez [address] [address] 07/13/2024 Bryson Piña [address] [address] 07/13/2024 Bryson Piña [address] [address] 10/09/2024 Bryson Piña [address] [place] [address] 11/26/2024 Bryson Piña [facility] [place] [address] [place] [address] 02/28/2025 Bryson Piña Assessments Encounter Date Diagnosis (ICD Code) Assessment Notes Treatment Notes Treatment Clinical Notes Section Notes 04/20/2024 Tinea unguium (ICD-10 - B35.1) 04/20/2024 Atherosclerosis of [place] artery of both lower extremities, with unspecified [...] Treatment Pending Test Test Name Order Date 17691-TQHJRAP NAIL, 1-5 04/20/2024 15450-AMBU SKIN LESIONS, 2 TO 4 04/20/20 24 U6145-TAHYOEFA DYSTROPHIC NAILS ANY # Insurance Providers Payer Name Payer Address Payer Phone Subscriber Number Group Number Insured Name Patient Relationship to Insured Coverage Start Date Coverage End Date [facility] SCO Claims [address] [place] [id number] Zulma Patel Self - patient is the insured Medical (General) History Medical History History ICD Code Arthritis Back,Hip,and Knee pain Fibromyalgia High blood pressure Measles Mumps Chicken pox Surgical History Surgery Date(Month/Year) Gall bladder removal 2016 vascular 2017 afeb 2004 carpal tunnel surgery
--- OUTSIDE RECORDS SUMMARY | 2025-03-12 14:39 | XMS_ITS | Patient Health Record ---
Author Organization [facility] Address [address] [place] [address] Care Team Providers Care Sample Finisher Name Role Phone Joselyn SHERMAN, Angelita Primary [...] Problem Status W/U Status Risk Notes Problem [id number] Abnormal findings in stool (R19.5) Active confirmed Plan Of Treatment Future Test Test Name Order Date COLONOSCOPY 02/11/2016 Insurance Providers Payer Name Payer Address Payer Phone Subscriber Number Group Number Insured Name Patient Relationship to Insured Coverage Start Date Coverage End Date [facility] [address] [place] [address] [id number] LALI ADEN Self - patient is the insured Medical (General) History Medical History History ICD Code colonoscopy 07-09-2009 atrial fibrillation rheumatoid arthritis Denies AR,DM,CVA,Lung disease,renal dise ase Surgical History Surgery Date(Month/Year) hysterectomy heel spurs carpal tunnel repair cholecystectomy 02/05/2016
[2025-03-12 15:01] LABS: Alanine Aminotransferase 30 U/L (0-31); Albumin Level 3.3 g/dL (3.5-5.0); Alkaline Phosphatase 221 U/L (39-117); Anion Gap 12 (12-20); Aspartate Amino Transferase 63 U/L (5-31); Blood Urea Nitrogen 19 mg/dL (9-16); Calcium 8.6 mg/dL (8.4-10.2); Carbon Dioxide 35 mmol/L (22-29); Chloride 95 mmol/L (96-108); Estimated Glomerular Filt Rate > 60; Potassium 3.4 mmol/L (3.3-5.1); Sodium 139 mmol/L (135-145); Total Protein 6.4 g/dL (6.5-8.0)
== END 2025-03-12 13:44 | disposition home or self-care (01) ==
LOC: HO.LNP 13:43
PROVIDERS: Visit Provider Internal Medicine Rheumatology
DX: Z51.81 Encounter for therapeutic drug level monitoring (principal); M05.79 Rheumatoid arthritis with rheumatoid factor of multiple sites without organ or systems involvement; Z79.620 Long term (current) use of immunosuppressive biologic
CPT/HCPCS: 80053; 85025; 85652; 86140

== ENCOUNTER 2025-03-13 13:52 | Outpatient (AMB) | payer OTHER, SELFPAY ==
--- NOTE | 2025-03-13 14:14 | A.OFFPC_ITS ---
Vital Signs 03/13/25 14:22 Height 6 ft 2 in Weight 422 lb BMI 54.2 BP 106/68 Blood Pressure Location Lt radial Position Sitting Respiration 17 Pulse 97 Pulse Source Pulse Oximeter Temp 98.3 F Temp Source Oral Pulse Oximetry (%) 95 Oxygen Delivery Method Nasal Cannula Intake Visit Reasons: Congestive heart failure Intake Note: Pt is here today for a HDF congestive heart failure Allergies No Known Allergies Allergy (Verified 03/17/25 23:24) Medication List - Last Reconciled 03/13/25 by Angelita Alves MD albuterol sulfate 2.5 mg (3 mL) inhalation Q4-6H PRN albuterol sulfate 90 mcg/actuation 2 puffs inhalation Q4-6H PRN apixaban (Eliquis) 5 mg PO BID colchicine 0.6 mg PO BID ergocalciferol (vitamin D2) 1,250 mcg PO TH@0900 etanercept 50 mg subcut TH@0900 furosemide 40 mg PO DAILY PRN metoprolol succinate ER 50 mg PO DAILY spironolactone 25 mg PO BID tramadol 50 mg PO BEDTIME PRN Tobacco use date assessed: 03/13/25 Fall risk assessment: 2 + Falls in past year Last assessed Fall Risk: 03/13/25 Dental Screening Dental Screen Date: 03/13/25 Did you have a dental visit in the last 12 months?: No Did you have a dental problem in the last 6 months where you did not have access to dental care?: No Was dental information given to patient?: Patient has dentist HPI Congestive heart failure 2 HPI Details 69-year-old lady with history of hyperte nsion, polyarticular osteoarthritis, rheumatoid arthritis on Enbrel, atrial fibrillation on Coumadin, mild persistent asthma, COPD, morbid obesity, hemorrhoids, who presents today for follow-up after recent hospital admission for exacerbation of congestive heart failure with acute hypoxic respiratory failure. She was aggressively diuresed with Lasix and given supplemental oxygen . Echocardiogram done during her stay showed [id number] pericardial effusion and severe pulmonary hypertension. Re-evaluation of pericardial effusion with CT showed only a small pericardial effusion, with no drainable fluid collection. She was continued on her metoprolol and oral Lasix with improvement in blood pressure and symptoms. She was started on colchicine which she is supposed to take for the next 3 months for her pericarditis/ pericardial effusion, and was also started on spironolactone 25 mg 1 tablet twice a day for her Congestive heart failure and peripheral edema. She was then taken off Coumadin and switched to Eliquis 5 mg 1 tablet daily for anticoagulation for her atrial fibrillation. Warm to evaluation showed need for 4 L of oxygen with ambulation/exertion and 2 L at rest. She was also evaluated by Physical therapy and was discharged home with new prescriptions for PT services. At present patient states that she is feeling much better, swelling in her legs as decreased, no longer gets short of breath and has been able to walk around the house now with her walker. Continues to wear her CPAP at night for her obstructive sleep apnea. Denies any chest pain o or worsening shortness breath or no lightheadedness, having more energy but complains of recurrent bleeding hemorrhoids, would like a referral to surgery to have it excised [facility] Medical History (Updated 03/17/25 @ 23:36 by Angelita Alves MD) Pericardial effusion CHF (congestive heart failure) HTN (hypertension) Permanent atrial fibrillation Hemorrhoids with complication Elevated alkaline phosphatase level Tubular adenoma of colon Urinary incontinence Gait instability Problem situation relating to social and personal history Difficulty in walking Acquired deformity of toenail Polyarticular osteoarthritis Seropositive rheumatoid arthritis Morbid obesity Chronic diastolic congestive heart failure FACUNDO on CPAP Mild persistent asthma Surgical History History of carpal tunnel surgery Heel spur History of laparoscopic cholecystectomy History of total abdominal hysterectomy and bilateral salpingo-oophorectomy Family History Mother Pancreatic cancer Father Pancreatic cancer Myocardial infarction Maternal Grandmother Breast cancer Paternal Grandfather Myocardial infarction Paternal Grandmother Myocardial infarction Social History Household Members: None Housing: Apartment Do you presently have visiting nurse or other home services: Yes Alcohol intake: former Comment: patient refusing alarms Patient Tobacco Use Status: Former Tobacco user e-Cigarette/Vaping Use: Never Used Substance Use Type: Marijuana Advance Directives Date on File: 11/11/22 service: No Current occupational status: disabled Cognitive needs: No Hearing needs: No Vision needs: Yes Questionnaire PHQ-9 Over the last 2 weeks, how often have you been bothered by any of the following problems? Depression Screening Interpretation: Negative Depression Screening Done: Yes Source: Developed by Drs. Sy Almanza, Cynthia Vargas, Lázaro Clements and colleagues, with an educational sinan from [employer]. Thrive Questionnaire Date Thrive assessed: 12/22/24 I am a: Patient What is your living situation today?: I have a steady place to live Within the past 12 months, did the food you bought not last and you didn't have the money to get more?: Never true Within the past 12 months, did you worry whether your food would run out before you got money to buy more?: Never true Do you have trouble paying for medicines?: No Do you have trouble getting transportation to medical appointments?: No Do you have trouble paying your heating and electricity bill?: No Do you have trouble taking care of your child, family member or friend?: No Do you have trouble with day-to-day activities such as bathing, preparing meals, shopping, managing finances, etc.?: Yes Are you currently unemployed and looking for a job?: No Are you interested in more education?: No Please select the resources that you would like help with: None Currently or been in a relationship where the following occur: No concerns reported THRIVE Score: 0 FRED-7 AMB Questionnaire FRED-7 Date FRED - 7 assessed: 11/22/23 Source: Developed by Drs. Sy Almanza, Cynthia Vargas, áLzaro Clements and colleagues, with an educational sinan from [employer]. Review of Systems Const Denies daytime sleepiness, Denies excessive sweating, Denies fatigue, Denies fever(s), Denies malaise, Denies night sweats and Denies snoring Eyes Denies change in vision ENT Denies nasal congestion, Denies post nasal drip, Denies sinus pain and Denies sinus pressure Card Denies chest pain, Denies pedal edema, Denies dyspnea, Denies orthopnea and Denies paroxysmal nocturnal dyspnea Resp Denies cough, Denies hemoptysis, Denies excessive phlegm production, Denies dyspnea, Denies snoring and Denies wheezing GI Reports as per HPI, Denies abdominal pain and Denies heartburn Reports no additional complaints Musc Denies myalgias and Denies arthralgias Skin/Breast Denies rash Neuro Denies memory loss and Denies seizure-like activity Psych Denies abnormal sleep pattern, Denies anxiety and Denies memory loss Endo Denies excessive sweating, Denies fatigue and Denies heat intolerance Jose D/Lymph Denies easy bruising Aller/Immun Denies seasonal rhinorrhea and Denies wheezing Physical exam (Primary Care) Vital Signs: Last Vital Signs Temp 98.3 F 03/13/25 14:22 Pulse 97 03/13/25 14:22 Resp 17 03/13/25 14:22 BP 106/68 03/13/25 14:22 Pulse Ox 95 03/13/25 14:22 Oxygen Delivery Method Nasal Cannula 03/13/25 14:22 BMI result Body Mass Index 54.2 Tobacco/Smoking Status: Tobacco use Status Tobacco use date assessed 03/13/25 03/13/25 14:18 Patient Tobacco Use Status Former Tobacco user 03/13/25 14:18 e-Cigarette/Vaping Use Never Used 03/13/25 14:18 Depression Screening Interpretation: Negative Thrive Assessment: Date of Thrive Assessment Date Thrive assessed 12/22/24 03/13/25 14:18 Currently or been in a relationship where the following occur: No concerns reported Const Other: Alert oriented x3, morbidly obese, no acute cardiorespiratory distress noted HENMT Ears: TM's normal bilaterally and EAC's normal General nose exam: Normal external nose present Face and sinus: Yes face symmetric Mouth: Normal oral and palatal mucosa present, oropharynx normal and moist mucous membranes Eyes General: appearance normal, both eyes and all related structures Neck Neck: Yes full ROM, Yes no lymphadenopathy and Yes supple Chest Breast/axilla palpation: normal palpation of the breasts Resp Auscultation: clear to auscultation bilaterally Cardio Other: S1-S2 present regular rate and rhythm GI Other: Obese, soft, with normal bowel sounds, nontender with no mass palpated General: Yes no CVA tenderness Back/Spine/Pelvis Back: no CVA tenderness Skin General skin exam: no rashes or lesions noted Neuro General: tone normal, moves all extremities and no focal motor deficits Extrem General: Yes full ROM, Yes no joint enlargement, Yes no calf tenderness and Yes pedal edema (1 +bilateral, right more than left) Psych Appearance: grossly normal and well kempt Mental Status: mental status grossly normal Speech and movement: Normal speech and movement present Affect: normal affect Coding Level of Care Code Est Pt Level 4 (56514) Diagnoses Hemorrhoids with complication K64.8 Gait instability R26.81 History of congestive heart failure Z86.79 History of pericarditis Z86.79 Permanent atrial fibrillation I48.21 FACUNDO on CPAP G47.33; Z99.89 Assessment & Plan Assessment & Plan (1) Hemorrhoids with complication: Code(s): K64.8 - Other hemorrhoids Category: Medical Plan: General surgery consult ordered (2) Gait instability: Code(s): R26.81 - Unsteadiness on feet Category: Medical Plan: Receiving home physical therapy (3) History of congestive heart failure: Code(s): Z86.79 - Personal history of other diseases of the circulatory system Plan: Currently on spironolactone in addition to metoprolol succinate ER 50 mg daily. Has appointment with cardiology later this month (4) History of pericarditis: Code(s): Z86.79 - Personal history of other diseases of the circulatory system Plan: Continue on colchicine 0.6 mg 1 tablet twice a day to finish 3 month course, has follow-up appointment with Cardiology later this month (5) Permanent atrial fibrillation: Code(s): I48.21 - Permanent atrial fibrillation Category: Medical Plan: Currently on Eliquis 5 mg 1 tablet twice a day with no abnormal bleeding noted (6) FACUNDO on CPAP: Code(s): G47.33 - Obstructive sleep apnea (adult) (pediatric); Z99.89 - Dependence on other enabling machines and devices Category: Medical Plan: Continue with regular use of CPAP, has an appointment for follow-up with Dr. Restrepo later this month Orders: Referrals General Surgery Referral K64.8 - Other hemorrhoids
[2025-03-13 14:22] VITALS: BP 106/68; PULSE 97; RESP 17; TEMP 36.8; O2SAT 95; BMI 54.2
--- OUTSIDE RECORDS SUMMARY | 2025-03-13 14:40 | XMS_ITS | Patient Health Record ---
Author Organization [facility] Address [address] [place] [address] Care Team Providers Care Molder Name Role Phone Joselyn SHERMAN, Angelita Garcia Primary Care Provider Un available Wang, Bryson Unavailable [phone] Black, Jacquelin Unavailable [phone] Mabel Swenson Unavailable [phone] Allergies No Known Allergies Reason For Referral [...] atherosclerosis of arteries of lower limbs (disorder) (87748767438599298 ) Atherosclerosis of [place] artery of both lower extremities, with unspecified presence of clinical manifestation (I70.203) Active confirmed Vital Signs Height 6 ft 2 in in 04/20/2024 Weight 397 lbs lbs 04/20/2024 BMI 50.97 kg/m2 04/20/2024 Procedures Procedure Date Ordered Date Performed Result Body Sit e 68944-LIFNVKQ NAIL, 1-5 04/20/2024 N/A 45386-SJVB SKIN LESIONS, 2 TO 4 04/20/2024 N/A P1450-FWRDDXIE DYSTROPHIC NAILS ANY # 04/20/2024 N/A Encounters Encounter Location Date Provider Diagnosis [address] [address] 04/20/2024 Bryson Piña Atherosclerosis of [place] artery of both lower extremities, with unspecified presence of clinical manifestation I70.203 ; Tinea unguium B35.1 ; Pain in right toe(s) M79.674 ; Pain in left toe(s) M79.675 ; Other hammer toe(s) (acquired), right foot M20.41 ; Arthritis of joint of lesser toe, right M19.071 ; Other hammer toe(s) (acquired), left foot M20.42 and Arthritis of joint of lesser toe, left M19.[address] [facility] [address] 04/18/2024 Jacquelin Álvarez [address] [address] 07/13/2024 Bryson Piña [address] [address] 07/13/2024 Bryson Piña [address] [address] 10/09/2024 Bryson Piña [address] [place] [address] 11/26/2024 Bryson Piña [facility] [place] [address] [place] [address] 02/28/2025 Bryson Piña Assessments Encounter Date Diagnosis (ICD Code) Assessment Notes Treatment Notes Treatment Clinical Notes Section Notes 04/20/2024 Tinea unguium (ICD-10 - B35.1) 04/20/2024 Atherosclerosis of [place] artery of both lower extremities, with unspecified [...] Treatment Pending Test Test Name Order Date 09913-WTYGGDP NAIL, 1-5 04/20/2024 27667-CTVY SKIN LESIONS, 2 TO 4 04/20/20 24 E4567-BFEFHJPF DYSTROPHIC NAILS ANY # Insurance Providers Payer Name Payer Address Payer Phone Subscriber Number Group Number Insured Name Patient Relationship to Insured Coverage Start Date Coverage End Date [facility] SCO Claims [address] [place] [id number] Zulma Patel Self - patient is the insured Medical (General) History Medical History History ICD Code Arthritis Back,Hip,and Knee pain Fibromyalgia High blood pressure Measles Mumps Chicken pox Surgical History Surgery Date(Month/Year) Gall bladder removal 2016 vascular 2017 afeb 2004 carpal tunnel surgery
--- OUTSIDE RECORDS SUMMARY | 2025-03-13 14:40 | XMS_ITS | Patient Health Record ---
Author Organization [facility] [place] Address [address] [place] [address] Care Team Providers Care Senior Environmental Technician Name Role Phone Joselyn SHERMAN, Angelita Primary [...] Problem Status W/U Status Risk Notes Problem [id number] Abnormal findings in stool (R19.5) Active confirmed Plan Of Treatment Future Test Test Name Order Date COLONOSCOPY 02/11/2016 Insurance Providers Payer Name Payer Address Payer Phone Subscriber Number Group Number Insured Name Patient Relationship to Insured Coverage Start Date Coverage End Date [facility] [address] [place] [phone] [id number] LALI ADEN Self - patient is the insured Medical (General) History Medical History History ICD Code colonoscopy 07-09-2009 atrial fibrillation rheumatoid arthritis Denies ID,DM,CVA,Lung disease,renal dise ase Surgical History Surgery Date(Month/Year) hysterectomy heel spurs carpal tunnel repair cholecystectomy 02/05/2016
== END 2025-03-13 15:04 | disposition home or self-care (01) ==
LOC: HO.HMCC 13:53
PROVIDERS: PCP Internal Medicine; Visit Provider Internal Medicine
DX: K64.8 Other hemorrhoids (principal); R26.81 Unsteadiness on feet; Z86.79 Personal history of other diseases of the circulatory system; I48.21 Permanent atrial fibrillation; G47.33 Obstructive sleep apnea (adult) (pediatric); Z99.89 Dependence on other enabling machines and devices

== ENCOUNTER → 2025-03-13 13:52 | Outpatient (BNVA) | payer OTHER, SELFPAY | PROVIDERS: PCP Internal Medicine; Visit Provider Internal Medicine | DX: K64.8 Other hemorrhoids (principal); R26.81 Unsteadiness on feet; I48.21 Permanent atrial fibrillation; G47.33 Obstructive sleep apnea (adult) (pediatric); I31.9 Disease of pericardium, unspecified; Z79.01 Long term (current) use of anticoagulants; Z79.899 Other long term (current) drug therapy; Z99.89 Dependence on other enabling machines and devices | CPT/HCPCS: 99212 ==

== ENCOUNTER → 2025-03-25 15:39 | Outpatient (REF) | payer OTHER, SELFPAY ==
--- OUTSIDE RECORDS SUMMARY | 2025-02-28 10:45 | XMS_ITS ---
Author Organization [facility] Address [address] [place] [address] Care Team Providers Care Insecticide Maker Name Role Phone Joselyn SHERMAN, Angelita Garcia Primary Care Provider Un available Bryson Piña Unavailable [phone] Mabel Swenson Unavailable [phone] Medications Medication SIG (Take, Route, Frequency, Duration) [...] Active Encounters Encounter Location Date Provider Diagnosis [facility] [address] [place] [address] 02/28/2025 Mabel Swenson Plan Of Treatment No Information Progress Notes * Zulma WEAVER EDOB:[birth year] (69 yo F)Acc No.[id number]:02/28/2025 Progress Note Patient: Zulma SUAZO Provider: Iain Swenson DPM :1955 A ge:69 Y S ex:Female Date:02/28/2025 Address:[address] [place] [address], [facility] [address] [facility], [facility] Pcp:Jaden Fields Subjective: * Chief Complaints: * [...] Pending * Provider: Iain Swenson DPM Date: 02/28/2025 Generated for Yocasta napier/Cody/Silva on: 03/25/2025 04:06 PM EDT
--- OUTSIDE RECORDS SUMMARY | 2025-03-25 16:07 | XMS_ITS | Patient Health Record ---
Author Organization [facility] Address [address] [place] [address] Care Team Providers Care Reptile Farmer Name Role Phone Joselyn SHERMAN, Angelita Primary [...] Problem Status W/U Status Risk Notes Problem [id number] Abnormal findings in stool (R19.5) Active confirmed Plan Of Treatment Future Test Test Name Order Date COLONOSCOPY 02/11/2016 Insurance Providers Payer Name Payer Address Payer Phone Subscriber Number Group Number Insured Name Patient Relationship to Insured Coverage Start Date Coverage End Date [facility] [address] [place] [address] [id number] LALI ADEN Self - patient is the insured Medical (General) History Medical History History ICD Code colonoscopy 07-09-2009 atrial fibrillation rheumatoid arthritis Denies AR,DM,CVA,Lung disease,renal dise ase Surgical History Surgery Date(Month/Year) hysterectomy heel spurs carpal tunnel repair cholecystectomy 02/05/2016
--- OUTSIDE RECORDS SUMMARY | 2025-03-25 16:07 | XMS_ITS | Clinical Summary ---
Author Organization [facility] Address [address] [place] [address] Phone Care Team Providers Care Md Senior Research Scientist Name Role Phone Juan Aleman MD Unavailable [phone] Angelita Alves MD Primary Care Provider Allergies No known active allergies Medications furosemide (LASIX) 40 MG tabletIndications:8 0-120 mg a day prn Take by mouth. Indications: 80-120 mg a day prn Active warfarin (COUMADIN) 10 MG tablet Take 10 mg by mouth daily. Active albuterol 90 mcg/actuation inhaler Inhale 2 puffs into the lungs every 6 (six) hours as needed for wheezing. Active diphenhydrAMINE-yordy taminophen (TYLENOL PM) 25-500 mg Tab Take 2 tablets by mouth nightly at bedtime as needed. Active metoprolol succinate (TOPROL-XL) 50 MG 24 hr tablet Take 1 tablet by mouth every morning. 3 Active Medication-Free TextIndications:CPA P Indications: CPAP Active cycloSPORINE (RESTASIS) 0.05 % suspension Place 1 drop into each eye 2 (two) times a day. 4 Active folic acid (FOLVITE) 1 MG tablet TAKE 1 TABLET(1000 MCG) BY MOUTH DAILY 90 tablet 2 4 Active etanercept (ENBREL) 50 mg/mL (1 mL) subcutaneous injection syringeIndications: Seropositive rheumatoid arthritis of multiple sites INJECT 1 SYRINGE UNDER THE SKIN EVERY WEEK 12 mL 3 5 Active ergocalciferol (DRISDOL) 50,000 unit capsuleIndications: Vitamin D deficiency, unspecified TAKE 1 CAPSULE BY MOUTH 1 TIME A WEEK 12 capsule 1 5 Active traMADoL (ULTRAM) 50 mg tabletIndications:S eropositive rheumatoid arthritis of multiple sites,Primary osteoarthritis involving multiple joints,Chronic midline low back pain without sciatica TAKE 1 TABLET BY MOUTH AT BEDTIME NEEDED FOR PAIN 28 tablet 5 Active Active Problems Problem Noted Date Diagnosed Date Bilateral carpal tunnel syndrome 10/25/2024 Assessment & Plan (10/25/2024 11:56 AM EST): Avoid prolonged repetitive use of hands. Wear supportive splints for extended activities. May need to consider local steroid injection if symptoms progress. Vitamin D deficiency, unspecified 01/12/2023 Assessment & Plan (06/21/2024 11:21 AM EDT): Serum level requested to make sure that she does not need additional supplementation to keep it in an optimal range: 40-45 ng/ml. Assessment & Plan (02/23/2024 1:05 PM EDT): Continue weekly vitamin D 50,000 units supplementation to keep it in an optimal range: 40-45 ng/ml. Assessment & Plan (10/14/2023 1:35 PM EST): Continue weekly vitamin D 50,000 units supplementation to keep it in an optimal range: 40-45 ng/ml. Assessment & Plan (05/24/2023 7:05 PM EDT): Serum level requested to assure no need for adjusting the dose of supplementation to keep it in an optimal range: 40-45 ng/ml. Assessment & Plan (01/12/2023 3:05 PM EDT): Get serum vit D to make sure she does not need adjustment in supplementation Class 3 severe obesity due t o excess calories with serious comorbidity and body mass index (BMI) of 50.0 to 59.9 in adult 07/05/2021 Assessment & Plan (10/25/2024 11:55 AM EST): Congratulations on losing 2 pounds from 434 on 06/21/2024 down to 243 today and keep it off. Continue diligent portion control Limit concentrated sugars, saturated fats and calories in the diet. Keep well-hydrated. If unable to achieve expected goal consider formal dietary/nutritional support. Assessment & Plan (06/21/2024 11:22 AM EDT): Continue diligent portion control particularly in view of gaining 12 pounds from 422 on 02/23/2024 up to 434 today. Limit concentrated sugars, saturated fats and calories in the diet. Keep well-hydrated. If unable to achieve expected goal consider formal dietary/nutritional support. Assessment & Plan (02/23/2024 1:06 PM EDT): Continue diligent portion control especially in view of gaining 11 pounds since last visit on 05/19/2023 from 408 lbs up to -417 lbs today. Limit concentrated sugars, saturated fats and calories in the diet. Keep well-hydrated. If unable to achieve expected goal consider formal dietary/nutritional support. Assessment & Plan (10/14/2023 1:35 PM EST): Continue diligent portion control especially in view of gaining 11 pounds since last visit on 05/19/2023 from 408 lbs up to -417 lbs today. Limit concentrated sugars, saturated fats and calories in the diet. Keep well-hydrated. If unable to achieve expected goal consider formal dietary/nutritional support. Assessment & Plan (05/24/2023 7:04 PM EDT): Congrats on 11 lbs weight loss (from 419 lb in early January 2023 down to 408 lbs today) & continue diligent portion control. Limit concentrated sugars, saturated fats and calories in the diet. Keep well-hydrated. If unable to achieve expected goal consider formal dietary/nutritional support. Assessment & Plan (01/12/2023 3:05 PM EDT): Continue diligent portion control. Limit concentrated sugars, saturated fats and calories in the diet. Keep well-hydrated. If unable to achieve expected goal consider formal dietary/nutritional support. Assessment & Plan (05/06/2022 4:09 PM EDT): Continue diligent portion control. Limit concentrated sugars, saturated fats and calories in the diet. Keep well-hydrated. If unable to achieve expected goal consider formal dietary/nutritional support. Assessment & Plan (01/05/2022 10:45 AM EDT): Importance of diligent portion control reviewed and strongly encouraged. Limit concentrated sugars, saturated fats and calories in the diet. Keep well-hydrated. If unable to achieve expected goal consider formal dietary/nutritional support. Assessment & Plan (10/02/2021 2:07 PM EST): Joint protection, energy conservation. Gentle, regular exercise routine. Avoid falls, injuries, overuse. Work on reducing her body weight as close as possible to ideal range for her height. Topical cream such as Aspercreme, Arnica, Biofreeze versus medicated patches such as Salonpas or Icy hot 2-3 times daily and if needed at bedtime x 3 wks. Assessment & Plan (07/05/2021 10:26 PM EDT): Portion control. Limit concentrated sugars, saturated fats and calories in the diet. Keep well-hydrated. If unable to achieve expected goal consider formal dietary/nutritional support. Hypertension 08/22/2019 Assessment & Plan (08/22/2019 2:54 PM EST): Continue carefully Metoprolol as prescribed Status post fall 08/22/2019 Assessment & Plan (09/16/2019 3:21 PM EST): Patient very concerned about increased risk of falling particularly while climbing stairs. Formal PT for gait assessment and appropriate exercise program once weather more cooperative. Patient requests support letter to [employer] in [place], [place] regarding handicapped accessible apartment that she is applying for. Myalgia 08/22/2019 Assessment & Plan (09/16/2019 3:27 PM EST): Gentle massage, warm pack and gentle stretching. Proper hydration. Well-balanced nutritionally diet, rich in electrolytes, vitamins micro-and ultra-elements. Serum CPK requested to make sure there is no additional inflammatory muscle disease. Elevated LFTs 08/18/2018 Assessment & Plan (06/21/2024 10:53 AM EDT): Encouraged to work on decreasing body weight that frequently helps bring it into normal range. Continue close monitoring and consider further work-up if worsening. Assessment & Plan (01/05/2022 10:49 AM EDT): Encouraged to work on decreasing body weight that frequently helps bring it into normal range. Continue close monitoring and consider further work-up if worsening. Assessment & Plan (10/10/2020 2:56 PM EST): Continue close monitoring and if ongoing elevation consider further work-up including abdominal ultrasound etc. Assessment & Plan (09/16/2019 3:18 PM EST): Continue close monitoring and if ongoing elevation consider further work-up including abdominal ultrasound etc. Assessment & Plan (11/23/2018 3:03 PM EDT): Hold Arava. Monitor closely-possible impact from antibiotic therapy for upper respiratory infection in early October 2018. Bilateral chronic knee pain 09/09/2017 Assessment & Plan (01/05/2022 10:47 AM EDT): Use warm packs versus warm shower prior to gentle, regular exercise routine- examples of quadriceps strengthening exercises printed for home use. Work diligently on bringing her body weight as close as possible to ideal range for her height. Regular warm pool therapy as the gentlest way to address pain within her lower back, hips and knees in view of her morbid obesity. Avoid falls, injuries and overuse. Vitamin D insufficiency 09/09/2017 Assessment & Plan (10/25/2024 11:54 AM EST): .Continue proper supplementation as instructed: 50,000 units capsule vitamin D weekly every Assessment & Plan (05/06/2022 4:09 PM EDT): .Continue proper supplementation as instructed Assessment & Plan (12/28/2021 11:27 AM EDT): .Continue proper supplementation as instructed Assessment & Plan (10/02/2021 2:08 PM EST): .Continue proper supplementation as instructed Assessment & Plan (07/02/2021 1:51 PM EDT): Continue proper supplementation as instructed Assessment & Plan (02/27/2021 9:04 AM EDT): Continue proper supplementation as instructed Assessment & Plan (10/10/2020 2:55 PM EST): Continue proper supplementation as instructed Assessment & Plan (06/25/2020 2:31 PM EDT): Continue proper supplementation as instructed Assessment & Plan (08/22/2019 2:54 PM EST): Continue proper supplementation as instructed Assessment & Plan (11/23/2018 2:53 PM EDT): Continue proper supplementation as instructed Chronic midline low back pain without sciatica 0 09/09/2017 Assessment & Plan (10/25/2024 11:26 AM EST): Regular core muscle strengthening. Avoid bending, lifting, sudden turns. Topical cream versus patch as needed. Gentle massage versus chiropractic manipulations. Watchful diet to reduce her body weight closer to ideal range for her height. Assessment & Plan (06/21/2024 10:56 AM EDT): Regular core muscle strengthening. Avoid bending, lifting, sudden turns. Topical cream versus patch as needed. Gentle massage versus chiropractic manipulations. Watchful diet to reduce her body weight closer to ideal range for her height. Assessment & Plan (02/23/2024 1:05 PM EDT): Regular core muscle strengthening. Avoid bending, lifting, sudden turns. Topical cream versus patch as needed. Gentle massage versus chiropractic manipulations. Watchful diet to reduce her body weight closer to ideal range for her height. Assessment & Plan (10/14/2023 1:08 PM EST): Regular core muscle strengthening. Avoid bending, lifting, sudden turns. Topical cream versus patch as needed. Gentle massage versus chiropractic manipulations. Watchful diet to reduce her body weight closer to ideal range for her height. Assessment & Plan (05/19/2023 1:57 PM EDT): Regular core muscle strengthening. Avoid bending, lifting, sudden turns. Topical cream versus patch as needed. Gentle massage versus chiropractic manipulations. Watchful diet to reduce her body weight closer to ideal range for her height. Assessment & Plan (01/12/2023 2:57 PM EDT): Regular core muscle strengthening. Avoid bending, lifting, sudden turns. Topical cream versus patch as needed. Gentle massage versus chiropractic manipulations. Watchful diet to reduce her body weight closer to ideal range for her height. Assessment & Plan (06/03/2022 10:55 PM EDT): Regular core muscle strengthening. Avoid bending, lifting, sudden turns. Topical cream versus patch as needed. Gentle massage versus chiropractic manipulations. Watchful diet to reduce her body weight closer to ideal range for her height. Assessment & Plan (12/28/2021 11:26 AM EDT): Regular core muscle strengthening. Avoid bending, lifting, sudden turns. Topical cream versus patch as needed. Gentle massage versus chiropractic manipulations. Watchful diet to reduce her body weight closer to ideal range for her height. Assessment & Plan (10/02/2021 2:07 PM EST): Regular core muscle strengthening. Avoid bending, lifting, sudden turns. Topical cream versus patch as needed. Gentle massage versus chiropractic manipulations. Watchful diet to reduce her body weight closer to ideal range for her height. Assessment & Plan (07/02/2021 1:51 PM EDT): Regular core muscle strengthening. Avoid bending, lifting, sudden turns. Topical cream versus patch as needed. Gentle massage versus chiropractic manipulations. Watchful diet to reduce her body weight closer to ideal range for her height. Assessment & Plan (03/10/2021 9:59 AM EDT): Regular core muscle strengthening. Avoid bending, lifting, sudden turns. Topical cream versus patch as needed. Gentle massage versus chiropractic manipulations. Watchful diet to reduce her body weight closer to ideal range for her height. Assessment & Plan (10/10/2020 2:57 PM EST): Regular core muscle strengthening. Avoid bending, lifting, sudden turns. Topical cream versus patch as needed. Gentle massage versus chiropractic manipulations. Watchful diet. Assessment & Plan (06/25/2020 2:30 PM EDT): Regular core muscle strengthening. Continue warm pool exercise and swimming as tolerated. Avoid bending, lifting, sudden turns. Topical cream versus patch as needed. Gentle massage versus chiropractic manipulations. Watchful diet. Assessment & Plan (03/10/2020 11:08 AM EDT): Regular core muscle strengthening. Continue warm pool exercise and swimming as tolerated. Avoid bending, lifting, sudden turns. Topical cream versus patch as needed. Gentle massage versus chiropractic manipulations. Watchful diet. Assessment & Plan (11/23/2018 3:04 PM EDT): Regular core muscle strengthening. Continue warm pool exercise and swimming as tolerated. Avoid bending, lifting, sudden turns. Topical cream versus patch as needed. Gentle massage versus chiropractic manipulations. Watchful diet. Pain of left heel 07/20/2017 Chronic anticoagulation 07/20/2017 Assessment & Plan (10/25/2024 11:16 AM EST): Continue Coumadin 10 mg daily and 15 mg every Tuesday as directed by anticoagulations specialist. Avoid falls, injuries and cuts. Monitor for excessive bruising and bleeding Assessment & Plan (06/21/2024 11:22 AM EDT): Continue Coumadin 10 mg daily and 15 mg every Tuesday as directed by anticoagulations specialist. Avoid falls, injuries and cuts. Monitor for excessive bruising and bleeding Assessment & Plan (02/23/2024 1:05 PM EDT): Avoid falls, injuries and cuts. Monitor for excessive bruising and bleeding Assessment & Plan (10/14/2023 1:34 PM EST): Avoid falls, injuries and cuts. Monitor for excessive bruising and bleeding Assessment & Plan (05/24/2023 7:03 PM EDT): Extraocular was entertained to assure complete clot formation after left intra-articular corticosteroid injection today. Avoid falls, injuries and cuts. Monitor for excessive bruising and bleeding Assessment & Plan (01/12/2023 2:57 PM EDT): Avoid falls, injuries and cuts. Monitor for excessive bruising and bleeding Assessment & Plan (06/03/2022 10:54 PM EDT): Avoid falls, injuries and cuts. Monitor for excessive bruising and bleeding Assessment & Plan (12/28/2021 11:26 AM EDT): Avoid falls, injuries and cuts. Monitor for excessive bruising and bleeding Assessment & Plan (10/02/2021 2:06 PM EST): Avoid falls, injuries and cuts. Monitor for excessive bruising and bleeding Assessment & Plan (07/02/2021 1:51 PM EDT): Avoid falls, injuries and cuts. Monitor for excessive bruising and bleeding Assessment & Plan (03/10/2021 9:58 AM EDT): Avoid falls, injuries and cuts. Monitor for excessive bruising and bleeding Assessment & Plan (10/10/2020 2:55 PM EST): Avoid falls, injuries and cuts. Monitor for excessive bruising and bleeding Assessment & Plan (06/25/2020 2:30 PM EDT): Avoid falls, injuries and cuts. Monitor for excessive bruising and bleeding Assessment & Plan (03/10/2020 11:08 AM EDT): Avoid falls, injuries and cuts. Monitor for excessive bruising and bleeding Assessment & Plan (08/22/2019 2:50 PM EST): Avoid falls, injuries and cuts. Monitor for excessive bruising and bleeding Assessment & Plan (11/23/2018 2:52 PM EDT): Avoid falls, injuries and cuts. Monitor for excessive bruising and bleeding Surgical menopause on hormone replacement therap y 07/20/2017 Encounter for monitoring of etanercept therapy 1 09/19/2016 Assessment & Plan (10/25/2024 11:16 AM EST): Hold Enbrel whenever running fever, feeling sick or taking antibiotics. Complete entire course of antibiotic and wait at least 48 hours after the last dose of antibiotic to make sure that symptoms do not return before restarting Enbrel on its usual weekly dosing schedule. Make sure to inform any new medical doctor, TELEVISION JOURNALIST, [place] about chronic immunosuppression particularly in emergency situations. Assessment & Plan (06/21/2024 10:52 AM EDT): Hold Enbrel whenever running fever, feeling sick or taking antibiotics. Complete entire course of antibiotic and wait at least 48 hours after the last dose of antibiotic to make sure that symptoms do not return before restarting Enbrel on its usual weekly dosing schedule. Make sure to inform any new medical doctor, TELEVISION JOURNALIST, PA about chronic immunosuppression particularly in emergency situations. Assessment & Plan (02/23/2024 1:04 PM EDT): Hold Enbrel whenever running fever, feeling sick or taking antibiotics. Complete entire course of antibiotic and wait at least 48 hours after the last dose of antibiotic to make sure that symptoms do not return before restarting Enbrel on its usual weekly dosing schedule. Make sure to inform any new medical doctor, TELEVISION JOURNALIST, PA about chronic immunosuppression particularly in emergency situations. Assessment & Plan (10/14/2023 1:08 PM EST): Hold Enbrel whenever running fever, feeling sick or taking antibiotics. Complete entire course of antibiotic and wait at least 48 hours after the last dose of antibiotic to make sure that symptoms do not return before restarting Enbrel on its usual weekly dosing schedule. Make sure to inform any new medical doctor, TELEVISION JOURNALIST, PA about chronic immunosuppression particularly in emergency situations. Assessment & Plan (05/19/2023 1:58 PM EDT): Hold Enbrel whenever running fever, feeling sick or taking antibiotics. Complete entire course of antibiotic and wait at least 48 hours after the last dose of antibiotic to make sure that symptoms do not return before restarting Enbrel on its usual weekly dosing schedule. Make sure to inform any new medical doctor, TELEVISION JOURNALIST, PA about chronic immunosuppression particularly in emergency situations. Assessment & Plan (01/12/2023 2:58 PM EDT): Hold Enbrel whenever running fever, feeling sick or taking antibiotics. Complete entire course of antibiotic and wait at least 48 hours after the last dose of antibiotic to make sure that symptoms do not return before restarting Enbrel on its usual weekly dosing schedule. Make sure to inform any new medical doctor, TELEVISION JOURNALIST, PA about chronic immunosuppression particularly in emergency situations. Assessment & Plan (05/06/2022 4:00 PM EDT): Hold Enbrel whenever running fever, feeling sick or taking antibiotics. Complete entire course of antibiotic and wait at least 48 hours after the last dose of antibiotic to make sure that symptoms do not return before restarting Enbrel on its usual weekly dosing schedule. Make sure to inform any new medical doctor, TELEVISION JOURNALIST, PA about chronic immunosuppression particularly in emergency situations. Assessment & Plan (12/28/2021 11:27 AM EDT): Hold Enbrel whenever running fever, feeling sick or taking antibiotics. Complete entire course of antibiotic and wait at least 48 hours after the last dose of antibiotic to make sure that symptoms do not return before restarting Enbrel on its usual weekly dosing schedule. Make sure to inform any new medical doctor, TELEVISION JOURNALIST, PA about chronic immunosuppression particularly in emergency situations. Assessment & Plan (10/02/2021 2:07 PM EST): Hold Enbrel whenever running fever, feeling sick or taking antibiotics. Complete entire course of antibiotic and wait at least 48 hours after the last dose of antibiotic to make sure that symptoms do not return before restarting Enbrel on its usual weekly dosing schedule. Make sure to inform any new medical doctor, TELEVISION JOURNALIST, PA about chronic immunosuppression particularly in emergency situations. Assessment & Plan (07/02/2021 1:51 PM EDT): Hold Enbrel whenever running fever, feeling sick or taking antibiotics. Complete entire course of antibiotic and wait at least 48 hours after the last dose of antibiotic to make sure that symptoms do not return before restarting Enbrel on its usual weekly dosing schedule. Make sure to inform any new medical doctor, TELEVISION JOURNALIST, PA about chronic immunosuppression particularly in emergency situations. Assessment & Plan (03/10/2021 10:00 AM EDT): Hold Enbrel whenever running fever, feeling sick or taking antibiotics. Complete entire course of antibiotic and wait at least 48 hours after the last dose of antibiotic to make sure that symptoms do not return before restarting Enbrel on its usual weekly dosing schedule. Make sure to inform any new medical doctor, TELEVISION JOURNALIST, PA about chronic immunosuppression particularly in emergency situations. Assessment & Plan (10/10/2020 2:57 PM EST): Hold Enbrel whenever running fever, feeling sick or taking antibiotics. Make sure to inform any new medical doctor, TELEVISION JOURNALIST, PA about chronic immunosuppression particularly in emergency situations. Assessment & Plan (06/25/2020 2:31 PM EDT): Hold Enbrel whenever running fever, feeling sick or taking antibiotics. Make sure to inform any new medical doctor, TELEVISION JOURNALIST, PA about chronic immunosuppression particularly in emergency situations. Assessment & Plan (03/10/2020 11:09 AM EDT): Hold Enbrel whenever running fever, feeling sick or taking antibiotics. Make sure to inform any new medical doctor, TELEVISION JOURNALIST, PA about chronic immunosuppression particularly in emergency situations. Assessment & Plan (08/22/2019 2:52 PM EST): Hold Enbrel whenever running fever, feeling sick or taking antibiotics. Make sure to inform any new medical doctor, TELEVISION JOURNALIST, PA about chronic immunosuppression particularly in emergency situations. Assessment & Plan (11/23/2018 3:05 PM EDT): Hold Enbrel whenever running fever, feeling sick or taking antibiotics. Make sure to inform any new medical doctor, TELEVISION JOURNALIST, PA about chronic immunosuppression particularly in emergency situations. Seropositive rheumatoid arthritis of multiple si [place] 07/20/2017 Assessment & Plan (10/25/2024 11:53 AM EST): Clinically appears stable today - no active synovitis on exam. Carefully continue weekly subcutaneous Enbrel injections. Avoid sick contacts, overuse, falls and injuries. Gentle, regular exercise routine. Get monitoring labs today and prior to next visit in 4 mths-standing orders in [facility]. I have previously provided her with pamphlets on alternatives to Enbrel that include Actemra, Orencia, Simponi and Humira. She read the pamphlets and decided to remain on current weekly subcutaneous Enbrel for now. Call if questions or problems. Assessment & Plan (06/21/2024 11:20 AM EDT): Currently clinically appears more active due to inability to inject weekly subcutaneous Enbrel for close to 2 months during summer 2023. Carefully continue weekly subcutaneous Enbrel injections. Avoid sick contacts, overuse, falls and injuries. Gentle, regular exercise routine. Get monitoring labs today and prior to next visit in 4 mths-standing orders in [facility]. I have previously provided her with pamphlets on alternatives to Enbrel that include Actemra, Orencia, Simponi and Humira. She read the pamphlets and decided to remain on current weekly subcutaneous Enbrel for now. Call if questions or problems. Assessment & Plan (02/23/2024 1:04 PM EDT): Currently clinically and laboratory perez stable. Carefully continue weekly subcutaneous Enbrel injections. Avoid sick contacts, overuse, falls and injuries. Gentle, regular exercise routine. Get monitoring labs today and prior to next visit in 4 mths-[facility] [facility] I have previously provided her with pamphlets on alternatives to Enbrel that include Actemra, Orencia, Simponi and Humira. She read the pamphlets and decided to remain on current weekly subcutaneous Enbrel for now. Call if questions or problems. Assessment & Plan (10/14/2023 1:33 PM EST): Currently clinically and laboratory perez stable. Carefully continue weekly subcutaneous Enbrel injections. Avoid sick contacts, overuse, falls and injuries. Gentle, regular exercise routine. Get monitoring labs today and prior to next visit in 4 mths-standing orders in [facility]. I have previously provided her with pamphlets on alternatives to Enbrel that include Actemra, Orencia, Simponi and Humira. She read the pamphlets and decided to remain on current weekly subcutaneous Enbrel for now. Call if questions or problems. Assessment & Plan (05/24/2023 7:05 PM EDT): Carefully continue weekly subcutaneous Enbrel injections. Avoid sick contacts, overuse, falls and injuries. Gentle, regular exercise routine. Get monitoring labs today and prior to next visit in 4 mths. I have previously provided her with pamphlets on alternatives to Enbrel that include Actemra, Orencia, Simponi and Humira. She read the pamphlets and decided to remain on current weekly subcutaneous Enbrel for now. Call if questions or problems. Assessment & Plan (01/26/2023 5:43 PM EDT): Carefully continue weekly subcutaneous Enbrel injections. Avoid sick contacts, overuse, falls and injuries. Gentle, regular exercise routine. Get monitoring labs today and prior to next visit in 3 mths. I have previously provided her with pamphlets on alternatives to Enbrel that include Actemra, Orencia, Simponi and Humira. She read the pamphlets and decided to remain on current weekly subcutaneous Enbrel for now. Call if questions or problems. Assessment & Plan (06/03/2022 10:55 PM EDT): Carefully continue weekly subcutaneous Enbrel injections. Avoid sick contacts, overuse, falls and injuries. Gentle, regular exercise routine. Get monitoring labs today and prior to next visit in 3 mths. I have previously provided her with pamphlets on alternatives to Enbrel that include Actemra, Orencia, Simponi and Humira. She read the pamphlets and decided to remain on current weekly subcutaneous Enbrel for now. Call if questions or problems. Assessment & Plan (12/28/2021 11:23 AM EDT): Carefully continue weekly subcutaneous Enbrel injections. Avoid sick contacts, overuse, falls and injuries. Gentle, regular exercise routine. Get monitoring labs today and prior to next visit in 3 mths. I have previously provided her with pamphlets on alternatives to Enbrel that include Actemra, Orencia, Simponi and Humira. She read the pamphlets and decided to remain on current weekly subcutaneous Enbrel for now. Call if questions or problems. Assessment & Plan (10/02/2021 2:06 PM EST): Carefully continue weekly subcutaneous Enbrel injections. Avoid sick contacts, overuse, falls and injuries. Gentle, regular exercise routine. Get monitoring labs today and prior to next visit in 3 mths. I have previously provided her with pamphlets on alternatives to Enbrel that include Actemra, Orencia, Simponi and Humira. She read the pamphlets and decided to remain on current weekly subcutaneous Enbrel for now. Call if questions or problems. Assessment & Plan (07/05/2021 10:27 PM EDT): Carefully continue weekly subcutaneous Enbrel injections. Avoid sick contacts, overuse, falls and injuries. Gentle, regular exercise routine. Get monitoring labs today and prior to next visit in 3 mths. I have previously provided her with pamphlets on alternatives to Enbrel that include Actemra, Orencia, Simponi and Humira. She read the pamphlets and decided to remain on current weekly subcutaneous Enbrel for now. Call if questions or problems. Assessment & Plan (03/10/2021 9:58 AM EDT): Carefully continue weekly subcutaneous Enbrel injections. Avoid sick contacts, overuse, falls and injuries. Gentle, regular exercise routine. Get labs monitoring prior to next visit in 2 mths. I have previously provided her with pamphlets on alternatives to Enbrel that include Actemra, Orencia, Simponi and Humira. She read the pamphlets and decided to remain on current weekly subcutaneous Enbrel for now. Call if questions or problems. Assessment & Plan (10/12/2020 6:06 PM EST): Carefully continue weekly subcutaneous Enbrel injections. Avoid sick contacts, overuse, falls and injuries. Gentle, regular exercise routine. Get labs monitoring next week and return in 3 mths. I have previously provided her with pamphlets on alternatives to Enbrel that include Actemra, Orencia, Simponi and Humira. She read the pamphlets and decided to remain on current weekly subcutaneous Enbrel for now. Call if questions or problems. Assessment & Plan (06/28/2020 7:59 PM EDT): Carefully continue weekly subcutaneous Enbrel injections. Avoid sick contacts, overuse, falls and injuries. Gentle, regular exercise routine. Get labs monitoring and return in 8 weeks. I provided her with pamphlets on alternatives to Enbrel that include Actemra, Orencia, Simponi and Humira. He is asked to read the pamphlets write her questions for me for next appointment and check coverage from her insurance formulary. Call if questions or problems. Assessment & Plan (03/11/2020 3:40 PM EDT): Carefully continue weekly subcutaneous Enbrel injections. Avoid sick contacts, overuse, falls and injuries. Gentle, regular exercise routine. Get labs monitoring and return in 8 weeks. Call if questions or problems. Assessment & Plan (08/22/2019 2:49 PM EST): Carefully continue weekly subcutaneous Enbrel injections. Avoid sick contacts. Gentle, regular exercise routine. Get labs monitoring and return in 8 weeks. Call if questions or problems. Assessment & Plan (11/23/2018 3:00 PM EDT): Hold Arava . Carefully continue weekly subcutaneous Enbrel injections. Make sure to remain alcohol free particularly if taking Arava. Avoid sick contacts. Gentle, regular exercise routine. Get labs monitoring and return in 6 weeks. Call if questions or problems. Primary osteoarthritis involving multiple joints 07/20/2017 Assessment & Plan (10/25/2024 11:54 AM EST): Continue joint protection, energy conservation. Avoid squatting, kneeling and stair climbing. Work on reducing body weight as close as possible to ideal range for her height. Gentle, regular exercise routine. Topical cream versus patch. Assessment & Plan (06/21/2024 10:51 AM EDT): Joint protection, energy conservation. Avoid squatting, kneeling and stair climbing. Work on reducing body weight as close as possible to ideal range for her height. Gentle, regular exercise routine. Topical cream versus patch. Assessment & Plan (02/23/2024 1:04 PM EDT): Joint protection, energy conservation. Avoid squatting, kneeling and stair climbing. Work on reducing body weight as close as possible to ideal range for her height. Gentle, regular exercise routine. Topical cream versus patch. Assessment & Plan (10/14/2023 1:08 PM EST): Joint protection, energy conservation. Avoid squatting, kneeling and stair climbing. Work on reducing body weight as close as possible to ideal range for her height. Gentle, regular exercise routine. Topical cream versus patch. Assessment & Plan (05/19/2023 1:48 PM EDT): Joint protection, energy conservation. Avoid squatting, kneeling and stair climbing. Work on reducing body weight as close as possible to ideal range for her height. Gentle, regular exercise routine. Topical cream versus patch. Procedure: After an informed oral consent, under sterile conditions using Ethyl chloride spray for local anesthesia I have injected 40 mg Kenalog and 2 cc 1% Lidocaine into Left knee from infero-medial approach uneventfully. Details of post-procedure care were explained to the patient in the office and given in writing. Provider: Soo Tyson MD Patient: Zulma Weaver : 1955 Date: 05/19/2023 Assessment & Plan (01/26/2023 5:43 PM EDT): Joint protection, energy conservation. Avoid squatting, kneeling and stair climbing. Work on reducing body weight as close as possible to ideal range for her height. Gentle, regular exercise routine. Topical cream versus patch. Assessment & Plan (06/03/2022 10:55 PM EDT): Joint protection, energy conservation. Avoid squatting, kneeling and stair climbing. Work on reducing body weight as close as possible to ideal range for her height. Gentle, regular exercise routine. Topical cream versus patch. Assessment & Plan (01/05/2022 10:46 AM EDT): Joint protection, energy conservation. Avoid squatting, kneeling and stair climbing. Work on reducing body weight as close as possible to ideal range for her height. Gentle, regular exercise routine. Topical cream versus patch. Assessment & Plan (10/02/2021 2:06 PM EST): Joint protection, energy conservation. Avoid squatting, kneeling and stair climbing. Work on reducing body weight as close as possible to ideal range for her height. Gentle, regular exercise routine. Topical cream versus patch. Assessment & Plan (07/02/2021 2:04 PM EDT): Joint protection, energy conservation. Avoid squatting, kneeling and stair climbing. Work on reducing body weight as close as possible to ideal range for her height. Gentle, regular exercise routine. Topical cream versus patch. Procedure: After an informed oral consent, under sterile conditions using Ethyl chloride spray for local anesthesia I have injected 40 mg DepoMedrol and 2 cc 1% Lidocaine into Right knee from approach uneventfully. Details of post-procedure care were explained to the patient in the office and given in writing. Provider: Soo Tyson MD Patient: Zulma Weaver : 1955 Date: 07/02/2021 Assessment & Plan (02/27/2021 9:04 AM EDT): Joint protection, energy conservation. Avoid squatting, kneeling and stair climbing. Work on reducing body weight as close as possible to ideal range for her height. Gentle, regular exercise routine. Topical cream versus patch. Assessment & Plan (10/10/2020 2:56 PM EST): Joint protection, energy conservation. Avoid squatting, kneeling and stair climbing. Work on reducing body weight as close as possible to ideal range for her height. Gentle, regular exercise routine. Topical cream versus patch. Assessment & Plan (06/25/2020 2:29 PM EDT): Joint protection, energy conservation. Avoid squatting, kneeling and stair climbing. Work on reducing body weight as close as possible to ideal range for her height. Gentle, regular exercise routine. Topical cream versus patch. Assessment & Plan (03/10/2020 11:07 AM EDT): Joint protection, energy conservation. Avoid squatting, kneeling and stair climbing. Work on reducing body weight as close as possible to ideal range for her height. Gentle, regular exercise routine. Topical cream versus patch. Assessment & Plan (08/22/2019 2:48 PM EST): Joint protection, energy conservation. Avoid squatting, kneeling and stair climbing. Work on reducing body weight as close as possible to ideal range for her height. Gentle, regular exercise routine. Topical cream versus patch. Assessment & Plan (11/23/2018 3:01 PM EDT): Joint protection, energy conservation. Avoid squatting, kneeling and stair climbing. Work on reducing body weight as close as possible to ideal range for her height. Gentle, regular exercise routine. Topical cream versus patch. Resolved Problems Problem Noted Date Diagnosed Date Resolved Date Class 3 obesity due to exces s calories with serious comorbidity and body mass index (BMI) of 45.0 to 49.9 in adult 10/26/2017 07/05/2021 Assessment & Plan (07/02/2021 1:51 PM EDT): Portion control. Limit concentrated sugars, saturated fats and calories in the diet. Keep well-hydrated. If unable to achieve expected goal consider formal dietary/nutritional support. Assessment & Plan (02/27/2021 9:05 AM EDT): Portion control. Limit concentrated sugars, saturated fats and calories in the diet. Keep well-hydrated. If unable to achieve expected goal consider formal dietary/nutritional support. Assessment & Plan (10/12/2020 6:05 PM EST): Congratulations on 23 pounds weight loss since June 2020-keep it off. Portion control. Limit concentrated sugars, saturated fats and calories in the diet. Keep well-hydrated. If unable to achieve expected goal consider formal dietary/nutritional support. Assessment & Plan (06/25/2020 2:30 PM EDT): Portion control. Limit concentrated sugars, saturated fats and calories in the diet. Keep well-hydrated. If unable to achieve expected goal consider formal dietary/nutritional support. Assessment & Plan (03/10/2020 11:08 AM EDT): Portion control. Limit concentrated sugars, saturated fats and calories in the diet. Keep well-hydrated. If unable to achieve expected goal consider formal dietary/nutritional support. Assessment & Plan (08/22/2019 2:51 PM EST): Portion control. Limit concentrated sugars, saturated fats and calories in the diet. Keep well-hydrated. If unable to achieve expected goal consider formal dietary/nutritional support. Assessment & Plan (11/23/2018 2:53 PM EDT): Portion control. Limit concentrated sugars, saturated fats and calories in the diet. Keep well-hydrated. If unable to achieve expected goal consider formal dietary/nutritional support. Morbid obesity 07/20/2017 10/26/2017 Encounters Date Type Department Care Team Description 03/13/2025 Orders Only [facility] [address] [place] [address] Michelle Perez MA Seropositive rheumatoid arthritis of multiple sites; Encounter for monitoring of etanercept therapy 03/01/2025 Telephone [facility] [address] [place] [address] Soo Tyson MD Labs Question 02/13/2025 Refill [facility] [address] [place] [address] Kemi Alanis CMA Medication Refill 01/23/[address] [facility] [address] [place] [id number] Padmaja Burger, [facility] 01/03/2025 Refill [facility] [address] [place] [address] Soo Tyson MD Medication Refill 12/26/2024 Refill [facility] [address] [place] [address] Soo Tyson MD Medication Refill from Last 3 Months Immunizations Immunization Administration Dates Next Due COVID-19 (Pre-06/27) Pfizer Vaccine, mRNA, PF ,12/28/2020 Influenza High-Dose Trivalent Preservative Free IM 06/01/2024 Influenza Quadrivalent Adjuvanted Preservative F ree IM 06/17/2021 Influenza Quadrivalent Preservative Free IM 06/06 Pneumococcal conjugate PCV13 06/25/2021 Zoster recombinant 07/21/2021,05/19/2021 Family History Medical History Relation Comments Bone cancer Father Pancreatic cancer Mother Rheumatoid arthritis Mother Relation Status Comments Brother Alive Father Mother Social History Tobacco Use Types Packs/Day Years Used Date Smoking Tobacco: Never Smokeless Tobacco: Never Alcohol Use Standard Drinks/Week Comments No 0 (1 standard drink = 0.6 oz pur e alcohol) Education Answer Date Recorded Are you interested in more education? Not on gio e 12/31/2022 Are you concerned about learning? Not on file 12/31/2022 No 12/31/2022 No 12/31/2022 Digital Access Answer Date Recorded No 01/27/2023 No 01/27/2023 Reliable internet access at home? Not on file 01/27/2023 Device with a working camera? Not on file Comments Unknown Sex and Gender Information Value Date Recorded Sex Assigned at Not on file Legal Sex Female 10:35 PM EDT Gender Identity Not on file Sexual Orientation Not on file Last Filed Vital Signs Vital Sign Reading Time Taken Comments Blood Pressure 130/80 10/25/2024 10:42 AM EST Pulse 84 10/25/2024 10:42 AM EST Temperature - - Respiratory Rate - - Oxygen Saturation 93% 10/25/2024 10:42 AM EST Inhaled Oxygen Concentration - - Weight 196 kg (432 lb) 10/25/2024 10:42 AM EST Height 188 cm (6' 2 ) 10/25/2024 10:42 AM EST Body Mass Index 55.47 10/25/2024 10:42 AM EST Plan of Treatment Upcoming Encounters Date Type Department Care Team (Late st Contact Info) Description 04/26/2025 11:30 AM EDT Office Visit [facility] [address] [place] [address] Soo Tyson MD [address] [place] [address], [address] [place] [address] [email or web address] Health Maintenance Due Date Last Done Comments LIPID PANEL 1955 DEPRESSION SCREENING 1967 HEPATITIS C SCREENING 1973 MAMMOGRAM 1995 COLOGUARD 2000 COLONOSCOPY 2000 COLORECTAL CANCER SCREENING 2000 FIT TEST 2000 FOBT 2000 SIGMOIDOSCOPY 2000 VIRTUAL COLONOSCOPY 2000 RSV VACCINE (1 - Risk 60-74 years 1-dose series) 2015 OSTEOPOROSIS SCREENING INITIAL (ONE-TIME) 2020 COVID-19 VACCINE (7 - Pfizer risk season) 2024 06/01/2024, 06/16/2023, 05/30/2022, Additional history exists BLOOD PRESSURE 04/24/2025 10/25/2024 Adult Td,Tdap Booster 10/12/2026 10/12/2016 SCREENING FOR DIABETES 06/21/2027 06/21/2024 ZOSTER VACCINES Completed 07/21/2021, 05/19/2021 PNEUMOCOCCAL VACCINES (50+ years) Completed 07/14/2022, 06/25/2021, 10/12/2012 SMOKING STATUS SCREENING (Once After 26 Yrs) Completed 10/25/2024 HEPATITIS A VACCINES Aged Out No long er eligible based on patient's age to complete this topic HIB VACCINES Aged Out No longer eligi ble based on patient's age to complete this topic MENINGOCOCCAL VACCINES (ACWY) Aged Out No longer eligible based on patient's age to complete this topic MENINGOCOCCAL VACCINES (B) Aged Out N o longer eligible based on patient's age to complete this topic Medical Devices Not on file Procedures Procedure Name Priority Date/Time Associated Diagnosis Comments CBC AND DIFFERENTIAL Routine 03/12/2025 11:36 AM EDT Seropositive rheumatoid arthritis of multiple sites Encounter for monitoring of etanercept therapy SEDIMENTATION RATE (ESR) Routine 025 11:35 AM EDT Seropositive rheumatoid arthritis of multiple sites Encounter for monitoring of etanercept therapy C-REACTIVE PROTEIN Routine 03/12/2025 11 :35 AM EDT Seropositive rheumatoid arthritis of multiple sites Encounter for monitoring of etanercept therapy COMPREHENSIVE METABOLIC PANEL Routine 03/12/2025 11:35 AM EDT Seropositive rheumatoid arthritis of multiple sites Encounter for monitoring of etanercept therapy from Last 3 Months Results * CBC and differential (03/12/2025 11:36 AM EDT) Blood us Soo Tyson MD LAB BLOOD ORDERABLES Fin al Result Performing Organization Address City/State/[facility] Co de Phone Number EXTERNAL NON-INTERFACED REF LAB * Sedimentation rate (ESR) (03/12/2025 11:35 AM EDT) Blood us Soo Tyson MD LAB BLOOD ORDERABLES Fin al Result Performing Organization Address City/State/[facility] Co de Phone Number EXTERNAL NON-INTERFACED REF LAB * C-Reactive Protein (03/12/2025 11:35 AM EDT) Blood us Soo Tyson MD LAB BLOOD ORDERABLES Fin al Result Performing Organization Address City/[facility] Co de Phone Number EXTERNAL NON-INTERFACED REF LAB * Comprehensive metabolic panel (03/12/2025 11:35 AM EDT) Blood us Soo Tyson MD LAB BLOOD ORDERABLES Fin al Result Performing Organization Address [facility] de Phone Number EXTERNAL NON-INTERFACED REF LAB from Last 3 Months Insurance [facility] MEDICARE REPLACEMENT [facility] MEDICARE REPLACEMENT MEDICARE REPLACEMENT MEDICARE REPLACEMENT MEDICARE REPLACEMENT MEDICARE REPLACEMENT MEDICARE REPLACEMENT [facility] MEDICARE REPLACEMENT Care Teams Md Senior Research Scientist Relationship Specialty Start Date End Date Angelita Alves MD [address] [place] [address], [address] [place] [address] PCP - General Internal Medicine 03/01/25 Juan Aleman MD [address] [place] [address], [address] [place] [address] [email or web address] Family Medicine 09/09/17 Additional Source Comments The information contained in this document represents components of the legal health record. It is not the complete legal health record.[facility]
== END ==
LOC: HO.SL 15:39
PROVIDERS: PCP Internal Medicine; Visit Provider Internal Medicine Pulmonary Disease
DX: G47.33 Obstructive sleep apnea (adult) (pediatric) (principal); Z99.89 Dependence on other enabling machines and devices
CPT/HCPCS: 95806

== ENCOUNTER → 2025-03-25 15:48 | Outpatient (BNV) | payer OTHER, SELFPAY | PROVIDERS: PCP Internal Medicine; Visit Provider Internal Medicine | DX: G47.33 Obstructive sleep apnea (adult) (pediatric) (principal) | CPT/HCPCS: 95806 ==

== ENCOUNTER → 2025-04-02 12:35 | Outpatient (REF) | payer OTHER, SELFPAY ==
--- OUTSIDE RECORDS SUMMARY | 2025-02-28 10:45 | XMS_ITS ---
Author Organization [facility] Address [address] [place] [address] Care Team Providers Care Advanced Seal Delivery System Name Role Phone Joselyn SHERMAN, Angelita Garcia Primary Care Provider Un available Bryson Piña Unavailable [phone] Mabel Swenson Unavailable [phone] Medications Medication SIG (Take, Route, Frequency, Duration) [...] Active Encounters Encounter Location Date Provider Diagnosis [facility] [address] [place] [address] 02/28/2025 Mabel Swenson Plan Of Treatment No Information Progress Notes * Zulma WEAVER EDOB:[birth year] (69 yo F)Acc No.[id number]:02/28/2025 Progress Note Patient: Zulma SUAZO Provider: Iain Swenson DPM :1955 A ge:69 Y S ex:Female Date:02/28/2025 Address:[address] [place] [address], [facility] [address] 1 [facility], [facility] Pcp:Jaden Fields Subjective: * Chief Complaints: * [...] Date: 02/28/2025 Generated for Yocasta napier/Cody/Silva on: 04/02/2025 01:22 PM EDT
--- NOTE | 2025-04-02 12:38 | CA_ITS ---
Transthoracic Echocardiogram Patient (Last, First, Middle): Zulma Weaver E Gender: Female Date of : 1955 Age: 69 Procedure Date: 04/02/2025 Procedure Type: Transthoracic Echocardiogram Location: OP Height: 187.96 cm Weight: 184.62 kg BSA: 2.94 m2 Heart Rate: bpm BP: 111 / 79 mmHg Top Carrier: CP/RC Referring MD: Jeramy Nina MD Senior Media Director: Fred Villavicencio MD Symptoms: I31.39 - Other pericardial effusion (noninflammatory) Study Quality: Fair Conclusions: - [id number] pericardial effusion Findings Pericardium/Pleural There is a circumferential pericardial effusion. There are no definitive echocardiographic findings of tamponade physiology. [id number] pericardial effusion noted Prior Study Comparison No significant change compared to prior study dated: 02/20/2025. Measurements 2D Linear Measurements LVOT Diam: 2.20 3.0+(-)1.3 cm 2D Systolic Function EF 4C: 54.70 >55% EF 2C: 62.50 >55% EF BiP: 60.70 >55% Mitral Valve MV Pk E: 1.34 MV Decel Time: 177.00 E'Lateral: 12.90 E'Medial: 9.36 E/E' Med: 14.30 E/E' Lat: 10.40 PHT: 53.00 MVA PHT: 4.15 Decel Collier: 7.47 LVOT LVOT Pk Chava: 0.74 LVOT Mn Chava: 0.51 LVOT VTI: 0.19 LVOT Pk Grad: 2.00 LVOT Mn Grad: 1.00 LVOT Diam: 2.20 LVOT Area: 3.80 Diastolic Function MV Pk E: 1.34 E'Medial: 9.36 E/E' Med: 14.30 E' Laterial: 12.90 E/E' Lat: 10.40 Right Ventricle TAPSE (mm): 24.40 TVS' Chava: 11.60 Tricuspid Valve TR Pk Chava: 3.30 TR Pk Grad: 44.00 RA Press: 15.00 RVSP: 59.00 Updated in Other Vendor System with Status of Final Fred Villavicencio MD electronically signed on 04/03/2025 3:43:32 PM with status of Final
--- OUTSIDE RECORDS SUMMARY | 2025-04-02 13:22 | XMS_ITS | Patient Health Record ---
Author Organization [facility] Address [address] [place] [address] Care Team Providers Care Sheriff Deputy Name Role Phone Joselyn SHERMAN, Angelita Primary [...] Problem Status W/U Status Risk Notes Problem [id number] Abnormal findings in stool (R19.5) Active confirmed Plan Of Treatment Future Test Test Name Order Date COLONOSCOPY 02/11/2016 Insurance Providers Payer Name Payer Address Payer Phone Subscriber Number Group Number Insured Name Patient Relationship to Insured Coverage Start Date Coverage End Date [facility] [address] [place] [address] [id number] LALI ADEN Self - patient is the insured Medical (General) History Medical History History ICD Code colonoscopy 07-09-2009 atrial fibrillation rheumatoid arthritis Denies SC,DM,CVA,Lung disease,renal dise ase Surgical History Surgery Date(Month/Year) hysterectomy heel spurs carpal tunnel repair cholecystectomy 02/05/2016
--- OUTSIDE RECORDS SUMMARY | 2025-04-02 13:23 | XMS_ITS | Encounter Summary ---
Author Organization [facility] Address [address] [place] [address] Care Team Providers Care Bit Sharpener Operator Name Role Phone Angelita Alves Md MD Primary Care Provider Unavailable Encounter Details Date Type Department Care Team Description 12/01/2020 Business Doc Medical Records [address] [place] [address] Abstract, Provider Social History Tobacco Use Types [...] on filedocumented in this encounter Care Teams Bit Sharpener Operator Relationship Specialty Start Date End Date Angelita Alves MD, MD PCP - General Internal Medicine 11/25/20 documented as of this encounter
--- OUTSIDE RECORDS SUMMARY | 2025-04-02 13:23 | XMS_ITS | Clinical Summary ---
Author Organization [facility] Address [address] [place] [address] Phone Care Team Providers Care Regional Economist Name Role Phone Juan Aleman MD Unavailable [phone] Angelita Alves MD Primary Care Provider Allergies [...] more cooperative. Patient requests support letter to [employer] in [place], [place] regarding handicapped accessible apartment that she [...] sure to inform any new medical doctor, PROJECT COACH, [place] about chronic immunosuppression particularly in emergency [...] sure to inform any new medical doctor, PROJECT COACH, [place] about chronic immunosuppression particularly in emergency [...] sure to inform any new medical doctor, PROJECT COACH, [place] about chronic immunosuppression particularly in emergency [...] sure to inform any new medical doctor, PROJECT COACH, [place] about chronic immunosuppression particularly in emergency [...] sure to inform any new medical doctor, PROJECT COACH, [place] about chronic immunosuppression particularly in emergency [...] sure to inform any new medical doctor, PROJECT COACH, [place] about chronic immunosuppression particularly in emergency [...] sure to inform any new medical doctor, PROJECT COACH, [place] about chronic immunosuppression particularly in emergency [...] sure to inform any new medical doctor, PROJECT COACH, [place] about chronic immunosuppression particularly in emergency [...] sure to inform any new medical doctor, PROJECT COACH, [place] about chronic immunosuppression particularly in emergency [...] sure to inform any new medical doctor, PROJECT COACH, [place] about chronic immunosuppression particularly in emergency [...] sure to inform any new medical doctor, PROJECT COACH, PA about chronic immunosuppression particularly in emergency situations. Assessment & Plan (10/10/2020 2:57 PM EST): Hold Enbrel whenever running fever, feeling sick or taking antibiotics. Make sure to inform any new medical doctor, PROJECT COACH, [place] about chronic immunosuppression particularly in emergency situations. Assessment & Plan (06/25/2020 2:31 PM EDT): Hold Enbrel whenever running fever, feeling sick or taking antibiotics. Make sure to inform any new medical doctor, PROJECT COACH, PA about chronic immunosuppression particularly in emergency situations. Assessment & Plan (03/10/2020 11:09 AM EDT): Hold Enbrel whenever running fever, feeling sick or taking antibiotics. Make sure to inform any new medical doctor, PROJECT COACH, PA about chronic immunosuppression particularly in emergency situations. Assessment & Plan (08/22/2019 2:52 PM EST): Hold Enbrel whenever running fever, feeling sick or taking antibiotics. Make sure to inform any new medical doctor, PROJECT COACH, PA about chronic immunosuppression particularly in emergency situations. Assessment & Plan (11/23/2018 3:05 PM EDT): Hold Enbrel whenever running fever, feeling sick or taking antibiotics. Make sure to inform any new medical doctor, PROJECT COACH, [place] about chronic immunosuppression particularly in emergency [...] next visit in 4 mths-standing orders in psychiatric. I have previously provided her with pamphlets [...] next visit in 4 mths-standing orders in psychiatric. I have previously provided her with pamphlets [...] next visit in 4 mths-standing orders in psychiatric. I have previously provided her with pamphlets [...] next visit in 4 mths-standing orders in psychiatric. I have previously provided her with pamphlets [...] Department Care Team Description 03/13/2025 Orders Only [facility] [address] [place] [address] Michelle Perez MA Seropositive rheumatoid arthritis of multiple sites; Encounter for monitoring of etanercept therapy 03/01/2025 Telephone [facility] [address] [place] [address] Soo Tyson MD Labs Question 02/13/2025 Refill [facility] [address] [place] [address] Kemi Alanis CMA Medication Refill 01/23/2025 Documentation [facility] [address] [place] [id number] Padmaja Burger, [facility] 01/03/2025 Refill [facility] [address] [place] [address] Soo Tyson MD Medication Refill from Last [...] Description 04/26/2025 11:30 AM EDT Office Visit [facility] [address] [place] [address] Soo Tyson MD [address] [facility], [address] [place] [address] Health Maintenance Due Date Last Done Comments [...] and differential (03/12/2025 11:36 AM EDT) Blood Soo Tyson MD LAB BLOOD ORDERABLES Fin al Result Performing Organization Address City/[facility] Co de Phone Number EXTERNAL NON-INTERFACED REF LAB * Sedimentation rate (ESR) (03/12/2025 11:35 AM EDT) Blood us Soo Tyson MD LAB BLOOD ORDERABLES Fin al Result Performing Organization Address City/[facility] Co de Phone Number EXTERNAL NON-INTERFACED REF LAB * C-Reactive Protein (03/12/2025 11:35 AM EDT) Blood Soo Tyson MD LAB BLOOD ORDERABLES Fin al Result EXTERNAL NON-INTERFACED REF LAB * Comprehensive metabolic panel (03/12/2025 11:35 AM EDT) Blood Soo Tyson MD LAB BLOOD ORDERABLES Fin al Result Performing Organization Address [facility] Co de Phone Number EXTERNAL NON-INTERFACED REF LAB from Last [address] [place] [address] [place] [address] MEDICARE REPLACEMENT [facility] MEDICARE [place] [address] [place] [address] [place] [address] [place] [address] MEDICARE REPLACEMENT [facility] MEDICARE REPLACEMENT [facility] MEDICARE REPLACEMENT [place] [id number] Care Teams Regional Economist Relationship Specialty Start Date End Date Angelita Alves MD [address] [place] [address] PCP - General Internal Medicine 03/01/25 Juan Aleman MD [address] [place] [address], [address] [place] [address] [email or web address] Family Medicine 09/09/17 Additional Source Comments The information contained in this document represents components of the legal health record. It is not the complete legal health record.[facility]
== END ==
LOC: HO.CARD 12:35
PROVIDERS: PCP Internal Medicine; Visit Provider Internal Medicine Cardiovascular Disease
DX: I31.39 Other pericardial effusion (noninflammatory) (principal)
CPT/HCPCS: 93308

== ENCOUNTER → 2025-04-02 12:38 | Outpatient (BNV) | payer OTHER, SELFPAY | PROVIDERS: PCP Internal Medicine; Visit Provider Internal Medicine Cardiovascular Disease | DX: I31.39 Other pericardial effusion (noninflammatory) (principal) | CPT/HCPCS: 93308 ==

== ENCOUNTER 2025-05-20 11:12 | Outpatient (REF) | payer OTHER, SELFPAY ==
--- OUTSIDE RECORDS SUMMARY | 2024-01-20 07:00 | XMS_ITS ---
Author Organization [facility] Address [address] [place] [address] Care Team Providers Care Grey Stock Recorder Name Role Phone Joselyn SHERMAN, Angelita Primary Care Provider Manjinder Wagner Jr, Noel Chairez REASON FOR VISIT Patient presents today for a colon screening Encounters Encounter Location Date Provider Diagnosis [facility] [address] [place] [address] 01/20/2024 Noel Wagner Jr Plan Of Treatment No Information Progress Notes * GONZALO LALI EDOB:[birth year] (69 yo F)Acc No.[id number]:01/20/2024 Progress Notes Patient: LALI SUAZO Provider: Odessa Wagner MD :1955 A ge:68 Y S ex:Female Date:01/20/2024 Address:[address] [place] [address] Pcp:Angelita Alves MD Subjective: * Chief Complaints: [...] MD Date: 0 01/20/2024 Generated for Yocasta napier/Cody/eTransmitting on: 0 05/20/2025 03:07 PM EDT
--- OUTSIDE RECORDS SUMMARY | 2024-06-14 05:30 | XMS_ITS ---
Author Organization [facility] Address [address] [place] [address] Care Team Providers Care Electronics Lead Name Role Phone Joselyn SHERMAN, Angelita Garcia Primary Care Provider Un available Bryson Piña Unavailable [phone] Black, Jacquelin Unavailable [phone] REASON FOR VISIT r/s for sooner apt [...] in Encounters Encounter Location Date Provider Diagnosis [facility] [address] [place] [address] 06/14/2024 Jacquelin Álvarez Plan Of Treatment No Information Progress Notes * Zulma WEAVER EDOB:[birth year] (69 yo F)Acc No.[id number]:06/14/2024 Progress Notes Patient: Zulma SUAZO Provider: Johnie Álvarez DPM :1955 A ge:68 Y S ex:Female Date:06/14/2024 Address:[address] [place] [address], [address], [facility] Pcp:Jaden Fields Subjective: * Chief Complaints: * [...] enies. C ardiovascular: Pacemaker d enies. 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 W PW d enies. C [...] Pending * Provider: Johnie Álvarez DPM Date: 1 Generated for Yocasta napier/Cody/Silva on: 0 05/20/2025 03:07 PM EDT
--- OUTSIDE RECORDS SUMMARY | 2024-07-13 09:30 | XMS_ITS ---
Author Organization [facility] Address [address] [place] [address] Care Team Providers Care Communications Professional Name Role Phone Joselyn SHERMAN, Angelita Garcia Primary Care Provider Un available Bryson Piña Unavailable [phone] Encounters Encounter Location Date Provider Diagnosis [facility] [address] [place] [address] 07/13/2024 Bryson Piña Plan Of Treatment No Information Progress Notes * WEAVER Zulma EDOB:[birth year] (69 yo F)Acc No.[id number]:07/13/2024 Progress Note Patient: Zulma SUAZO Provider: Keo Piña DPM :1955 A ge:68 Y S ex:Female Date:07/13/2024 Address:[address] [place] [address] [place] [address] Pcp:Jaden Fields Subjective: * Chief Complaints: * * Medical History: Objective: * Vitals: Assessment: Plan: * Treatment: * Images: * The named appointment provid er may or may not be the originator of this progress note, and it is not deemed complete until electronically signed by the appointment provider. Sign off status: Pending * Provider: Keo Piña DPM Date: 09/12/2023 Generated for Printi ng/Faxing/eTransmitting on: 0 05/20/2025 03:09 PM EDT
--- OUTSIDE RECORDS SUMMARY | 2024-10-09 12:00 | XMS_ITS ---
Author Organization [facility] [place] Address [address] [facility] [place] [address] Care Team Providers Care Conveyor System Operator Name Role Phone Joselyn SHERMAN, Angelita Garcia Primary Care Provider Un available Bryson Piña Unavailable [phone] Medications Medication SIG (Take, Route, Frequency, Duration) [...] Negative Encounters Encounter Location Date Provider Diagnosis [facility] [place] [address] [place] [address] 10/09/2024 Bryson Piña Plan Of Treatment No Information Progress Notes * Zulma WEAVER EDOB:[birth year] (69 yo F)Acc No.[id number]:10/09/2024 Progress Note Patient: Zulma SUAZO Provider: Keo Piña DPM :1955 A ge:69 Y S ex:Female Date:10/09/2024 Address:[address] [place] [address], [facility] [address], [place], [place] Pcp:Jaden Fields Subjective: * Chief Complaints: * [...] enies. C ardiovascular: Pacemaker d enies. M LEAD VULCANIZING OPERATOR d enies. W PW d enies. [...] 0 10/09/2024 Generated for Yocasta Davila/Silva on: 0 05/20/2025 03:09 PM EDT
--- OUTSIDE RECORDS SUMMARY | 2025-02-28 10:45 | XMS_ITS ---
Author Organization [facility] Address [address] [place] [address] Care Team Providers Care Director Of Events Name Role Phone Joselyn SHERMAN, Angelita Garcia Primary Care Provider Un available Bryson Piña Unavailable [phone] Mabel Swenson Unavailable [phone] Medications Medication SIG (Take, Route, Frequency, Duration) [...] Active Encounters Encounter Location Date Provider Diagnosis [facility] [address] [place] [address] 02/28/2025 Mabel Swenson Plan Of Treatment No Information Progress Notes * Zulma WEAVER EDOB:[birth year] (69 yo F)Acc No.[id number]:02/28/2025 Progress Note Patient: Zulma SUAZO Provider: Iain Swenson DPM :1955 A ge:69 Y S ex:Female Date:02/28/2025 Address:[address] [place] [address], [facility] [address] [facility], [facility] Pcp:Jaden Fields Subjective: * Chief Complaints: * [...] 0 02/28/2025 Generated for Yocasta napier/Cody/Silva on: 05/20/2025 03:07 PM EDT
--- OUTSIDE RECORDS SUMMARY | 2025-04-30 11:30 | XMS_ITS ---
Author Organization [facility] Address [address] [place] [address] Care Team Providers Care Highballer Name Role Phone Joselyn SHERMAN, Angelita Garcia Primary Care Provider Un available Bryson Piña Unavailable [phone] Janet Thorpe Unavailable [phone] Medications Medication SIG (Take, Route, Frequency, Duration) [...] Active Encounters Encounter Location Date Provider Diagnosis [facility] [address] [place] [address] 04/30/2025 Janet Thorpe Plan Of Treatment No Information Progress Notes * Zulma EWAVER EDOB:[birth year] (69 yo F)Acc No.[id number]:04/30/2025 Progress Note Patient: Zulma SUAZO Provider: Johan Thorpe DPM :1955 A ge:69 Y S ex:Female Date:04/30/2025 Address:[address] [place] [address], [facility] [address] [facility], [facility] Pcp:Jaden Fields Subjective: * Chief Complaints: * [...] Pending * Provider: Johan Thorpe DPM Date: 04/30/2025 Generated for Yocasta napier/Cody/Anahyitting on: 05/20/2025 03:10 PM EDT
--- NOTE | ~2025-05-20 | MM_ITS ---
EXAMINATION: MM SCREENING DIGITAL BREAST TOMOSYNTHESIS, BILATERAL CLINICAL INFORMATION: Screening. Asymptomatic. COMPARISON: Comparison made to multiple prior, most recent December 15, 2023, and most remote March 04, 2016. TECHNIQUE: Digital breast tomosynthesis is performed in mediolateral oblique and craniocaudal views along with computer-aided detection (CAD). Synthesized 2D images are generated from the tomosynthesis. FINDINGS: BREAST COMPOSITION: There are scattered areas of fibroglandular density (ACR BI-RADS breast composition Category b). BILATERAL BREASTS: No significant masses, suspicious calcifications or other abnormalities are seen in either breast. MM/MM tomosynthesis screening BI IMPRESSION: BILATERAL BREASTS: Negative, no mammographic evidence of malignancy. Normal interval follow-up is recommended in 12 months. ASSESSMENT: BI-RADS 1 - Negative RECOMMENDATION: Routine annual mammography screening. FOLLOW-UP: 1 year F/U This examination should not preclude the clinical evaluation of a suspicious palpable abnormality. This patient's information was entered into a reminder system with a target due date for their next mammogram. Electronically signed by: Nayan Gilmore MD 05/21/2025 05:35 PM EDT
--- OUTSIDE RECORDS SUMMARY | 2025-05-20 15:07 | XMS_ITS | Patient Health Record ---
Author Organization [facility] Address [address] [place] [address] Care Team Providers Care Hose Coupling Joiner Name Role Phone Joselyn SHERMAN, Angelita Primary Care Provider Noel Huerta Jr Unavailable [phone] Reason For Referral No Information Medications Medication [...] Problem Status W/U Status Risk Notes Problem [id number] Abnormal findings in stool (R19.5) Active confirmed Plan Of Treatment Future Test Test Name Order Date COLONOSCOPY 02/11/2016 Insurance Providers Payer Name Payer Address Payer Phone Subscriber Number Group Number Insured Name Patient Relationship to Insured Coverage Start Date Coverage End Date [facility] [address] [place] [address] [id number] LALI ADEN Self - patient is the insured Medical (General) History Medical History History ICD Code colonoscopy 07-09-2009 atrial fibrillation rheumatoid arthritis Denies [place],DM,CVA,Lung disease,renal dise ase Surgical History Surgery Date(Month/Year) hysterectomy heel spurs carpal tunnel repair cholecystectomy 02/05/2016
--- OUTSIDE RECORDS SUMMARY | 2025-05-20 15:08 | XMS_ITS | Patient Health Record ---
Author [facility] Address [address] [facility] [place] [address] Care Team Providers Care Apartment Community Assistant Manager Name Role Phone Joselyn SHERMAN, Angelita Garcia Primary Care Provider Un available Wang Bryson Unavailable [phone] Black, Jacquelin Unavailable [phone] Janet Thorpe Unavailable [phone] Mabel Swenson Unavailable [phone] Allergies No Known Allergies Reason For Referral No Information Medications Medication SIG (Take, Route, Frequency, Duration) Notes Start Date End Date Status Warfarin Sodium 10 MG Oral; Duration: 83 Days Active Cephalexin 500 MG Oral; Duration: 7 Days Active Metoprolol Succinate ER 50 MG Oral; Duration: 90 Days Acti ve Tylenol Active Furosemide 40 MG Oral; Duration: [...] MG/ML Subcutaneous; Durati on: 28 Days Active Social History Tobacco Use: [...] atherosclerosis of arteries of lower limbs (disorder) ([id number] ) Atherosclerosis of belkofski artery of both lower extremities, with unspecified presence of clinical manifestation (I70.203) Active confirmed Encounters Encounter Location Date Provider Diagnosis [address] [address] [facility] [address] 07/13/[address] [address] 07/13/[address] [address] 10/09/2024 Bryson Valentinunier [address] [address] 11/26/[address] [address] 02/28/2025 Bryson Piña Plan Of Treatment Pending Test Test Name Order Date [id number] NAIL, 1-5 04/20/2024 [id number] SKIN LESIONS, 2 TO 4 04/20/20 [id number] DYSTROPHIC NAILS ANY # Insurance Providers Payer Name Payer Address Payer Phone Subscriber Number Group Number Insured Name Patient Relationship to Insured Coverage Start Date Coverage End Date [facility] [employer] Claims [address] [place] [id number] Zulma Patel Self - patient is the insured Medical (General) History Medical History History ICD Code Arthritis Back,Hip,and Knee pain Fibromyalgia High blood pressure Measles Mumps Chicken pox Surgical History Surgery Date(Month/Year) Gall bladder removal 2016 vascular 2017 afeb 2004 carpal tunnel surgery
--- OUTSIDE RECORDS SUMMARY | 2025-05-20 15:10 | XMS_ITS | Clinical Summary ---
Author Organization [facility] Address [address] [place] [address] Phone Care Team Providers Care Junior Mechanical Engineer Name Role Phone Juan Aleman MD Unavailable [phone] Angelita Alves MD Primary Care Provider Allergies No known active allergies Medications furosemide (LASIX) 40 MG tabletIndications: 80-120 mg a day prn Take by mouth. Indications : 80-120 mg a day prn Active albuterol 90 mcg/actuation inhaler Inhale 2 puffs into the lungs every 6 (six) hours as needed for wheezing. Active diphenhydrAMINE-ac etaminophen (TYLENOL PM) 25-500 mg Tab Take 2 tablets by mouth nightly at bedtime as needed. Active metoprolol succinate (TOPROL-XL) 50 MG 24 hr tablet Take 1 tablet by mouth every morning. 3 Active Medication-Free TextIndications:CP AP Indications : CPAP Active cycloSPORINE (RESTASIS) 0.05 % suspension Place 1 drop into each eye 2 (two) times a day. 4 Active etanercept (ENBREL) 50 mg/mL (1 mL) subcutaneous injection syringeIndications :Seropositive rheumatoid arthritis of multiple sites INJECT 1 SYRINGE UNDER THE SKIN EVERY WEEK 12 mL 3 5 Active traMADoL (ULTRAM) 50 mg tabletIndications: Seropositive rheumatoid arthritis of multiple sites,Primary osteoarthritis involving multiple joints,Chronic midline low back pain without sciatica TAKE 1 TABLET BY MOUTH AT BEDTIME NEEDED FOR PAIN 28 tablet 5 Active ergocalciferol (DRISDOL) 50,000 unit capsuleIndications :Vitamin D deficiency, unspecified TAKE 1 CAPSULE BY MOUTH 1 TIME A WEEK 12 capsule 1 5 Active spironolactone (ALDACTONE) 25 MG tablet Take 25 mg by mouth 2 (two) times a day. 5 Active ELIQUIS 5 mg tablet Take 5 mg by mouth 2 (two) times a day. 5 Active colchicine (COLCRYS) 0.6 mg tablet Take 1 tablet by mouth 2 (two) times a day. 5 Active folic acid (FOLVITE) 1 MG tabletIndications: Chronic anemia Take 1 tablet (1 mg total) by mouth daily. 90 tablet 3 5 Active warfarin (COUMADIN) 10 MG tablet Take 10 mg by mouth daily. 04/26/20 25 Discontin ued(No longer taking) folic acid (FOLVITE) 1 MG tablet TAKE 1 TABLET(1000 MCG) BY MOUTH DAILY 90 tablet 2 4 04/26/20 25 Discontin ued(Reord er) Active Problems Problem Noted Date Diagnosed Date Supplemental oxygen dependent 04/26/2025 Assessment & Plan (04/26/2025 12:56 PM EDT): Continue at 2 L/min at rest and okay to increase up to 4 L/min for activity Chronic anemia 04/26/2025 Assessment & Plan (04/26/2025 1:03 PM EDT): Part of chronic lately poorly controlled severe polyarticular seropositive rheumatoid arthritis due to missing biologic DMARD Enbrel for 2 months since February 2025 causing anemia of chronic disease. Continue weekly subcutaneous Enbrel as biologic DMARD therapy that will also help with resolution of anemia. Provide enough of iron, vitamin C, vitamin B12. She is scheduled with surgeon on 05/27/2025 to evaluate best timing for hemorrhoidectomy. Bilateral carpal tunnel syndrome 10/25/2024 Assessment & Plan (04/26/2025 12:15 PM EDT): Avoid prolonged repetitive use of hands. Wear supportive splints for extended activities. May need to consider local steroid injection if symptoms progress. Assessment & Plan (10/25/2024 11:56 AM EST): [...] 59.9 in adult 07/05/2021 Assessment & Plan (04/26/2025 12:55 PM EDT): Congratulations on losing 26 pounds from 432 on 10/25/2024 down to 406 today and keep it off. Continue diligent portion control Limit concentrated sugars, saturated fats and calories in the diet. Keep well-hydrated. If unable to achieve expected goal consider formal dietary/nutritional support. Assessment & Plan (10/25/2024 11:55 AM EST): [...] more cooperative. Patient requests support letter to [employer] [facility] [employer] in [place], [place] regarding handicapped accessible apartment that she [...] Assessment & Plan (11/23/2018 3:03 PM EDT): Paul Lackey. Monitor closely-possible impact from antibiotic therapy for [...] Vitamin D insufficiency 09/09/2017 Assessment & Plan (04/26/2025 12:15 PM EDT): .Continue proper supplementation as instructed: 50,000 units capsule vitamin D weekly every Assessment & Plan (10/25/2024 11:54 AM EST): [...] without sciatica 0 09/09/2017 Assessment & Plan (04/26/2025 12:15 PM EDT): Regular core muscle strengthening. Avoid bending, lifting, sudden turns. Topical cream versus patch as needed. Gentle massage versus chiropractic manipulations. Watchful diet to reduce her body weight closer to ideal range for her height. Assessment & Plan (10/25/2024 11:26 AM EST): [...] 07/20/2017 Chronic anticoagulation 07/20/2017 Assessment & Plan (04/26/2025 12:54 PM EDT): Continue Eliquis 5 mg twice daily. Avoid falls, injuries and cuts. Monitor for excessive bruising and bleeding Assessment & Plan (10/25/2024 11:16 AM EST): [...] etanercept therapy 1 09/19/2016 Assessment & Plan (04/26/2025 12:15 PM EDT): Hold Enbrel whenever running fever, feeling sick or taking antibiotics. Complete entire course of antibiotic and wait at least 48 hours after the last dose of antibiotic to make sure that symptoms do not return before restarting Enbrel on its usual weekly dosing schedule. Make sure to inform any new medical doctor, [employer]ATOR [employer], [place] about chronic immunosuppression particularly in emergency situations. Assessment & Plan (10/25/2024 11:16 AM EST): Hold Enbrel whenever running fever, feeling sick or taking antibiotics. Complete entire course of antibiotic and wait at least 48 hours after the last dose of antibiotic to make sure that symptoms do not return before restarting Enbrel on its usual weekly dosing schedule. Make sure to inform any new medical doctor, HEAD UP OPERATOR HELPER, [place] about chronic immunosuppression particularly in emergency [...] sure to inform any new medical doctor, HEAD UP OPERATOR HELPER, [place] about chronic immunosuppression particularly in emergency [...] sure to inform any new medical doctor, [employer] UP OPERATOR HELPER, [place] about chronic immunosuppression particularly in emergency [...] sure to inform any new medical doctor, HEAD UP OPERATOR HELPER, [place] about chronic immunosuppression particularly in emergency [...] sure to inform any new medical doctor, [employer] UP OPERATOR HELPER, [place] about chronic immunosuppression particularly in emergency [...] sure to inform any new medical doctor, HEAD UP OPERATOR HELPER, [place] about chronic immunosuppression particularly in emergency [...] sure to inform any new medical doctor, HEAD UP OPERATOR HELPER, [place] about chronic immunosuppression particularly in emergency [...] sure to inform any new medical doctor, HEAD UP OPERATOR HELPER, [place] about chronic immunosuppression particularly in emergency [...] sure to inform any new medical doctor, HEAD UP OPERATOR HELPER, [place] about chronic immunosuppression particularly in emergency [...] sure to inform any new medical doctor, [employer] UP OPERATOR HELPER, [place] about chronic immunosuppression particularly in emergency [...] sure to inform any new medical doctor, [employer] UP OPERATOR HELPER, [place] about chronic immunosuppression particularly in emergency situations. Assessment & Plan (10/10/2020 2:57 PM EST): Hold Enbrel whenever running fever, feeling sick or taking antibiotics. Make sure to inform any new medical doctor, HEAD UP OPERATOR HELPER, [place] about chronic immunosuppression particularly in emergency situations. Assessment & Plan (06/25/2020 2:31 PM EDT): Hold Enbrel whenever running fever, feeling sick or taking antibiotics. Make sure to inform any new medical doctor, [employer] UP OPERATOR HELPER, [place] about chronic immunosuppression particularly in emergency situations. Assessment & Plan (03/10/2020 11:09 AM EDT): Hold Enbrel whenever running fever, feeling sick or taking antibiotics. Make sure to inform any new medical doctor, HEAD UP OPERATOR HELPER, [place] about chronic immunosuppression particularly in emergency situations. Assessment & Plan (08/22/2019 2:52 PM EST): Hold Enbrel whenever running fever, feeling sick or taking antibiotics. Make sure to inform any new medical doctor, [employer] UP OPERATOR HELPER, [place] about chronic immunosuppression particularly in emergency situations. Assessment & Plan (11/23/2018 3:05 PM EDT): Hold Enbrel whenever running fever, feeling sick or taking antibiotics. Make sure to inform any new medical doctor, HEAD UP OPERATOR HELPER, [place] about chronic immunosuppression particularly in emergency situations. Seropositive rheumatoid arthritis of multiple si [place] 07/20/2017 Assessment & Plan (04/26/2025 12:53 PM EDT): Clinically appears quite stable today - no active synovitis on exam. Carefully continue weekly subcutaneous Enbrel injections. Avoid sick contacts, overuse, falls and injuries. Gentle, regular exercise routine. Get monitoring labs today and prior to next visit in 3 mths-standing orders in [facility]. I have previously provided her with pamphlets on alternatives to Enbrel that include Actemra, Orencia, Simponi and Humira. She read the pamphlets and decided to remain on current weekly subcutaneous Enbrel for now. Get yearly influenza and newest COVID-19 vaccine booster by mid to end of June 2025. Call if questions or problems. Assessment & Plan (10/25/2024 11:53 AM EST): Clinically appears stable today - no active synovitis on exam. Carefully continue weekly subcutaneous Enbrel injections. Avoid sick contacts, overuse, falls and injuries. Gentle, regular exercise routine. Get monitoring labs today and prior to next visit in 4 mths-standing orders in [facility]. I have previously provided her with [...] next visit in 4 mths-standing orders in [facility]. I have previously provided her with [...] next visit in 4 mths-standing orders in [facility]. I have previously provided her with [...] next visit in 4 mths-standing orders in [facility]. I have previously provided her with [...] involving multiple joints 07/20/2017 Assessment & Plan (04/26/2025 12:15 PM EDT): Continue joint protection, energy conservation. Avoid squatting, kneeling and stair climbing. Work on reducing body weight as close as possible to ideal range for her height. Gentle, regular exercise routine. Topical cream versus patch. Assessment & Plan (10/25/2024 11:54 AM EST): [...] Encounters Date Type Department Care Team Description 05/01/2025 Telephone [facility] [address] [place] [address] [place] [address] Kemi Alanis CMA 04/26/2025 11:30 AM EDT Office Visit [facility] [address] [place] [address] [place] [address] Soo Tyson MD Seropositive rheumatoid arthritis of multiple sites (Primary Dx); Primary osteoarthritis involving multiple joints; Encounter for monitoring of etanercept therapy; Chronic midline low back pain without sciatica; Bilateral carpal tunnel syndrome; Vitamin D insufficiency; Supplemental oxygen dependent; Chronic anticoagulation; Chronic anemia; Class 3 severe obesity due to excess calories with serious comorbidity and body mass index (BMI) of 50.0 to 59.9 in adult 04/22/2025 10:34 AM EDT - 04/22/2025 11:59 PM EDT Hospital Encounter [facility] [address] [place] [address] Soo Tyson MD Discharge Disposition: Home or Self Care 04/11/2025 Refill [facility] [address] [place] [address] [place] [address] Soo Tyson MD Medication Refill 04/04/2025 Refill [facility] [address] [place] [address] [place] [address] Soo Tyson MD Medication Refill 03/13/2025 Orders Only [facility] [address] [place] [address] Michelle Perez MA Seropositive rheumatoid arthritis of multiple sites; Encounter for monitoring of etanercept therapy 03/01/2025 Telephone [facility] [address] [place] [address] [place] [id number] Soo Tyson MD Labs Question from Last 3 Months Immunizations Immunization Administration [...] Sign Reading Time Taken Comments Blood Pressure 118/72 04/26/2025 11:36 AM EDT Pulse 75 04/26/2025 11:36 AM EDT Temperature - - Respiratory Rate - - Oxygen Saturation 96% 04/26/2025 11: 36 AM EDT on O2 2 liters per minure Inhaled Oxygen Concentration - - Weight 184.4 kg (406 lb 9.6 oz) 04/26/2025 11:36 AM EDT Height 188 cm (6' 2 ) 04/26/2025 11:36 AM EDT Body Mass Index 52.2 04/26/2025 11:36 AM EDT Plan of Treatment Upcoming Encounters Date Type Department Care Team (Late st Contact Info) Description 08/08/2025 10:00 AM EST Office Visit [facility] [place] [address] Soo Tyson MD [address] [facility], [address] [place] [address] [email or web address] Maintenance Due Date Last Done Comments LIPID PANEL 1955 DEPRESSION SCREENING 1967 HEPATITIS C SCREENING 1973 MAMMOGRAM 1995 COLOGUARD 2000 COLONOSCOPY 2000 COLORECTAL CANCER SCREENING 2000 FIT TEST 2000 FOBT 2000 SIGMOIDOSCOPY 2000 VIRTUAL COLONOSCOPY 2000 RSV VACCINE (1 - Risk 60-74 years 1-dose series) 2015 OSTEOPOROSIS SCREENING INITIAL (ONE-TIME) 2020 INFLUENZA VACCINE (#1) 2025 , 06/16/2023, 05/30/2022, Additional history exists COVID-19 VACCINE (7 - Pfizer risk season) 2025 06/01/2024, 06/16/2023, 05/30/2022, Additional history exists POTASSIUM LEVEL 06/21/2025 06/21/2024, 02/03, 10/10/2023, Additional history exists BLOOD PRESSURE 10/27/2025 04/26/2025 CREATININE LEVEL 03/12/2026 03/12/2025, , 02/20/2024, Additional history exists Adult Td,Tdap Booster 10/12/2026 10/12/2016 SCREENING FOR DIABETES 06/21/2027 06/21/2024 ZOSTER VACCINES Completed 07/21/2021, 05/19/2021 PNEUMOCOCCAL VACCINES (50+ years) Completed 07/14/2022, 06/25/2021, 10/12/2012 SMOKING STATUS SCREENING (Once After 26 Yrs) Completed 04/26/2025 HEPATITIS A VACCINES Aged Out No long [...] Procedure Name Priority Date/Time Associated Diagnosis Comments URINE DRUG SCREEN Routine 04/26/2025 1:1 8 PM EDT Seropositive rheumatoid arthritis of multiple sites HC TB CELL MEDIATED ANTIGN RESPNSE GAMMA INTERFERON Routine 04/22/2025 10:39 AM EDT Seropositive rheumatoid arthritis of multiple sites Encounter for monitoring of etanercept therapy CBC AND DIFFERENTIAL Routine 03/12/2025 11:36 AM EDT Seropositive rheumatoid arthritis of multiple sites Encounter for monitoring of etanercept therapy SEDIMENTATION RATE (ESR) Routine 03/12/2025 11:35 AM EDT Seropositive rheumatoid arthritis of multiple sites Encounter for monitoring of etanercept therapy C-REACTIVE PROTEIN Routine 03/12/2025 11 :35 AM EDT Seropositive rheumatoid arthritis of multiple sites Encounter for monitoring of etanercept therapy COMPREHENSIVE METABOLIC PANEL Routine 03/12/2025 11:35 AM EDT Seropositive rheumatoid arthritis of multiple sites Encounter for monitoring of etanercept therapy COMPREHENSIVE METABOLIC PANEL Routine 06/21/2024 11:09 AM EDT Seropositive rheumatoid arthritis of multiple sites from Last 3 Months or Most Recently Relevant to Health Maintenance Results * Urine Drug Screen (04/26/2025 1:18 PM EDT) Urine (Urine) us Soo Tyson MD URINE ORDERABLES Final R esult EXTERNAL NON-INTERFACED REF LAB * Quantiferon-TB Gold (04/22/2025 10:39 AM EDT) [facility] QuantiFERON-TB Gold Negative Negative [place] [facility] [address] Comment: (NOTE) No interferon-gamma response to M. tuberculosis antigens was detected. Latent infection with M. tuberculosis is unlikely. A single negative result does not exclude infection with M. tuberculosis. In patients at high risk for M.tuberculosis infection, a second test should be considered in accordance with the 2017 ATS/IDSA/CDC Clinical Practice Guidelines for Diagnosis of Tuberculosis in Adults and Children [Will ALVAREZ et. al. Clin. Infect. Dis. 2017;64(2):111-115]. The reference range for the 'TB1 Ag minus Nil Result' and 'TB2 Ag minus Nil Result' is an Interferon-gamma level <0.35 IU/mL. TB1 Ag minus Nil 0.00 IU/mL [facility] [address] TB2 Ag minus Nil 0.00 IU/mL [facility] [address] Mitogen minus Nil 5.54 IU/mL [facility] [place] Nil Result 0.01 IU/mL [facility] MED[facility] [place] Blood 04/22/2025 10:3 9 AM EDT 04/22/2025 10:45 AM EDT Soo Tyson MD LAB BLOOD ORDERABLES Fin al Result Performing Organization Address [facility] de Phone Number [facility] MED[facility] [place] [address] [place] [address] * CBC and differential (03/12/2025 11:36 AM EDT) Blood Soo Tyson MD LAB BLOOD ORDERABLES Fin al Result Performing Organization Address [facility] de Phone Number EXTERNAL NON-INTERFACED REF LAB * Sedimentation rate (ESR) (03/12/2025 11:35 AM EDT) Blood Soo Tyson MD LAB BLOOD ORDERABLES Fin al Result Performing Organization Address [facility] de Phone Number EXTERNAL NON-INTERFACED REF LAB * C-Reactive Protein (03/12/2025 11:35 AM EDT) Blood Soo Tyson MD LAB BLOOD ORDERABLES Fin al Result Performing Organization Address [facility] de Phone Number EXTERNAL NON-INTERFACED REF LAB * Comprehensive metabolic panel (03/12/2025 11:35 AM EDT) Only the most recent of2 resultswithin the time period is included. Blood us Soo Tyson MD LAB BLOOD ORDERABLES Fin al Result EXTERNAL NON-INTERFACED REF LAB from Last 3 Months or Most Recently Relevant to Health Maintenance Insurance MEDICARE REPLACEMENT MEDICARE REPLACEMENT MEDICARE REPLACEMENT MEDICARE REPLACEMENT MEDICARE REPLACEMENT Care Teams Junior Mechanical Engineer Relationship Specialty Start Date End Date Angelita Alves MD [address] [place] [address] PCP - General Internal Medicine 03/01/25 Juan Aleman MD [address] [place] [address], [address] [place] [address] [email or web address] Family Medicine 09/09/17 Additional Source Comments The information contained in this document represents components of the legal health record. It is not the complete legal health record.[facility]
== END 2025-05-20 11:13 | disposition home or self-care (01) ==
LOC: HO.MAMMO 11:12
PROVIDERS: PCP Internal Medicine; Visit Provider Internal Medicine
DX: Z12.31 Encounter for screening mammogram for malignant neoplasm of breast (principal)
CPT/HCPCS: 77063; 77067

== ENCOUNTER → 2025-05-20 11:30 | Outpatient (BNV) | payer OTHER, SELFPAY | PROVIDERS: PCP Internal Medicine; Visit Provider Radiology Body Imaging | DX: Z12.31 Encounter for screening mammogram for malignant neoplasm of breast (principal) | CPT/HCPCS: 77063; 77067 ==

== ENCOUNTER 2025-05-27 14:02 | Outpatient (AMB) | payer OTHER, SELFPAY ==
--- OUTSIDE RECORDS SUMMARY | 2025-02-28 10:45 | XMS_ITS ---
Progress note - 02/28/2025 Created on: May 27, 2025
--- NOTE | 2025-05-27 14:04 | A.OFFVIS_ITS ---
Vital Signs 05/27/25 14:12 Height 6 ft 2 in Weight 383 lb BMI 49.2 BP 119/62 Blood Pressure Location Lt brachial Position Sitting Pulse 116 H Intake Visit Reasons: hemorrhoids Intake Note: Patient is seen in office for evaluation of hemorrhoids. Pt c/o: got sick in February and trigger her bm, had constant diarrhea, has resolved in the last 2 weeks, had bleeding last week, for the past 2 days has resolved, has swithch the diet, does feel a hemorrhoid when cleaning Management Retail Intern Required: No Sterilization Tech: Sterilization Tech Present Accompanied by: Self / Same As Patient Allergies No Known Allergies Allergy (Verified 05/27/25 14:14) Medication List - Last Reconciled 05/27/25 by Lalo Stevens MD albuterol sulfate 2.5 mg (3 mL) inhalation Q4-6H PRN albuterol sulfate 90 mcg/actuation 2 puffs inhalation Q4-6H PRN apixaban (Eliquis) 5 mg PO BID colchicine 0.6 mg PO BID ergocalciferol (vitamin D2) 1,250 mcg PO TH@0900 etanercept 50 mg subcut TH@0900 furosemide 80 mg (2 x 40 mg) PO DAILY metoprolol succinate ER 50 mg PO DAILY [Rollator walker with seat As directed] spironolactone 25 mg PO BID tramadol 50 mg PO BEDTIME PRN HPI Comments Details: 69-year-old female patient presenting for evaluation of bleeding hemorrhoids. Was recently hospitalized for congestive heart failure and subsequently developed persistent diarrhea. As a result she developed large bleeding hemorrhoids which persisted until her diarrhea stopped. She now reports improvement in her bowels and no longer has bleeding but continues to note the swelling in the external anal canal which she describes as a ?testicle? growing out of her. She previously a was treated for hemorrhoids many years ago with rubber-band ligation but reported severe pain when this was performed. She is currently using [id number] preparation H for the hemorrhoid. [facility] Medical History Pericardial effusion CHF (congestive heart failure) HTN (hypertension) Permanent atrial fibrillation Hemorrhoids with complication Elevated alkaline phosphatase level Tubular adenoma of colon Urinary incontinence Gait instability Problem situation relating to social and personal history Difficulty in walking Acquired deformity of toenail Polyarticular osteoarthritis Seropositive rheumatoid arthritis Morbid obesity Chronic diastolic congestive heart failure FACUNDO on CPAP Mild persistent asthma Surgical History History of carpal tunnel surgery Heel spur History of laparoscopic cholecystectomy History of total abdominal hysterectomy and bilateral salpingo-oophorectomy Family History Mother Pancreatic cancer Father Pancreatic cancer Myocardial infarction Maternal Grandmother Breast cancer Paternal Grandfather Myocardial infarction Paternal Grandmother Myocardial infarction Social History Household Members: None Housing: Apartment Do you presently have visiting nurse or other home services: Yes Alcohol intake: former Comment: patient refusing alarms Patient Tobacco Use Status: Former Tobacco user e-Cigarette/Vaping Use: Never Used Substance Use Type: Marijuana Advance Directives Date on File: 11/11/22 service: No Current occupational status: disabled Cognitive needs: No Hearing needs: No Vision needs: Yes Review of Systems Const All systems reviewed & are unremarkable except as noted in HPI and below Physical Exam Vital Signs: Last Vital Signs Pulse 116 H 05/27/25 14:12 BP 119/62 05/27/25 14:12 BMI result Body Mass Index 49.2 Const Other: Short of breath with nasal O2 at 2 L using walker. Alert and oriented x3 Resp Other: Short of breath with activity. GI Other: Soft and nondistended. Rectal examination: External examination external tag noted in the anterior wall with mild inflammation. Digital examination: No palpable mass, fissure, normal sphincter tone Anoscopic examination: Minimally inflamed internal hemorrhoids noted low in the anal canal. No evidence of prolapsing hemorrhoids. No active bleeding at this time. Extrem Other: No edema Assessment & Plan Assessment & Plan (1) Bleeding hemorrhoids: Code(s): K64.9 - Unspecified hemorrhoids Category: Medical Plan 69-year-old female patient who developed bleeding hemorrhoids after a recent episode of diarrhea. The diarrhea is now resolved and her symptoms are much improved. She continues to feel some swelling in the external anal skin. On examination there is some mild hemorrhoidal swelling located in the anterior wall. No other active disease is identified. I recommended applying a hydrocortisone anal cream twice daily. Should follow up as needed. Medications: New hydrocortisone 2.5% 1 appl NC BID-QID PRN 30 grams 0RF hemorrhoids Coding Level of Care Code New Pt Level 4 (44355) Diagnoses Bleeding hemorrhoids K64.9
[2025-05-27 14:12] VITALS: BP 119/62; PULSE 116; BMI 49.2
== END 2025-05-27 14:28 | disposition home or self-care (01) ==
LOC: HO.HGS 14:03
PROVIDERS: PCP Internal Medicine; Visit Provider Surgery
DX: K64.9 Unspecified hemorrhoids (principal)
CPT/HCPCS: 99204

== ENCOUNTER → 2025-05-27 14:02 | Outpatient (BNVA) | payer OTHER, SELFPAY | PROVIDERS: PCP Internal Medicine; Visit Provider Surgery | DX: K64.4 Residual hemorrhoidal skin tags (principal) | CPT/HCPCS: 99202 ==

== ENCOUNTER 2025-06-20 13:18 | Outpatient (AMB) | payer OTHER, SELFPAY ==
--- OUTSIDE RECORDS SUMMARY | 2024-01-20 07:00 | XMS_ITS ---
Author Organization [facility] Address [address] [place] [address] Care Team Providers Care Tuber Operator Name Role Phone Joselyn SHERMAN, Angelita Primary Care Provider Manjinder Wagner Jr, Noel Chairez REASON FOR VISIT Patient presents today for a colon screening Encounters Encounter Location Date Provider Diagnosis [facility] [address] [place] [phone] 01/20/2024 Noel Wagner Jr Plan Of Treatment No Information Progress Notes * GONZALO LALI EDOB:[birth year] (69 yo F)Acc No.[id number]:01/20/2024 Progress Notes Patient: LALI SUAZO Provider: Odessa Wagner MD :1955 A ge:68 Y S ex:Female Date:01/20/2024 Address:[address] [place] [address] Pcp:Angelita Alves MD Subjective: * Chief Complaints: [...] 0 01/20/2024 Generated for Yocasta napier/Cody/eTransmitting on: 1 04:38 PM EDT
--- OUTSIDE RECORDS SUMMARY | 2024-06-14 05:30 | XMS_ITS ---
Author Organization [facility] Address [address] [place] [address] Care Team Providers Care Legal Research Analyst Name Role Phone Joselyn SHERMAN, Angelita Garcia Primary Care Provider Un available Bryson Piña Unavailable [phone] Black, Jacquelin Unavailable [phone] REASON FOR VISIT r/s for sooner apt Medications Medication SIG (Take, Route, Frequency, Duration) Notes Start Date End Date Status Metoprolol Succinate ER 50 MG 1 tablet Orally Once a day A ctive traMADol HCl 50 MG 1 tablet as needed O rally Once a day Active Enbrel 50 MG/ML 1 mL Subcutaneous Active Tylenol Active Warfarin Sodium 10 MG 1 tablet Orally Once a day Active Folic Acid 1 MG 1 tablet Orally Once a day Active Furosemide 40 MG 1 tablet Orally Once a day Active Social History Tobacco Use: Social History Observation Description Date Details (start date - stop date) Former Smoker NA - NA Tobacco Use/Smoking Question Answer Notes Are you a: former smoker Additional Findings: Tobacco Non-User Cu rrent non-smoker, but past smoking history unknown Alcohol Screen Question Answer Notes Did you have a drink containing alcohol in the p ast year? No Points 0 Interpretation Negative Tobacco use other than smoking: Question Answer Notes Are you an other tobacco user? No Vital Signs Height 6 ft 2 in in 06/14/2024 Weight 397 lbs lbs 06/14/2024 BMI 50.97 kg/m2 06/14/2024 6 ft 2 in Encounters Encounter Location Date Provider Diagnosis [facility] [address] [place] [address] 06/14/2024 Jacquelin Álvarez Plan Of Treatment No Information Progress Notes * Zulma WEAVER EDOB:[birth year] (69 yo F)Acc No.[id number]:06/14/2024 Progress Notes Patient: Zulma SUAZO Provider: Johnie Álvarez DPM :1955 A ge:68 Y S ex:Female Date:06/14/2024 Address:[address] [place] [address], [address], [facility] Pcp:Jaden Fields Subjective: * Chief Complaints: * 1 . R/s for sooner apt. * ROS: G eneral/Constitutional: Nausea d enies. V omiting d enies. H saima Thirst d enies. L oss appetite d enies. C hills d enies. F atigue d enies.?Fever d enies. N ight Sweats d enies. U nexplained weight loss d enies. U nexplained weight gain d enies. H EENTM: Dentures a dmits . D izziness d enies. G lasses/contacts?admits . R etinopathy d enies. B lurred/double vision d enies. T MJ d enies. D ischarge/drainage d enies. I mplants d enies. S ore throat d enies. D ental implants d enies. H abbie of hearing d enies. D ifficulty chewing/swallowing/speaking d enies. N ose bleeds d enies. S ore mouth d enies. R espiratory: On Oxygen d enies. P neumonia/pleurisy d enies.?Bronchitis d enies. E mphysema d enies. C oughing d enies. C ough blood?denies. S hortness of breath d enies. W heezing d enies. C ardiovascular: Pacemaker d enies. M METHODS AND PROCEDURES ANALYST d enies. W PW d enies. C HF d enies. H eart attack d enies. S eptal defect d enies. R apid beat d enies. C hest pain d enies. A trial Fib. d enies. M urmur/Palpitations d enies. G astrointestinal: Hemorrhoids d enies. S tomach/Abdominal pain d enies. D ark blood stool d enies. I rritable bowel d enies. C onstipation d enies. D iarrhea d enies. H ematology: Swelling d enies. C lots d enies. V aricose Veins a dmits . B ruising a dmits . B leeding problem d enies. ? G enitourinary: Blood urine d enies. F requent/Painfu/urination/bladder control d enies. K idney stones d enies. I nfection (UTI) d enies. N ephropathy d enies. s ex trans dis (STD) d enies. P rostate d enies. M usculoskeletal: Hammertoes a dmits . B unions d enies. B ack Pain a dmits. M uscle Cramps/ Resting a dmits . M uscle cramps / walking d enies. G eneralized aches and pains d enies. W eakness d enies. I nteg.: Solomon d enies. S cars a dmits. C orns/calluses?denies. I ngrown nails d enies. P ainful nails d enies. O pen Sores d enies. R ashes d enies. N eurologic: Difficulty sleeping d enies. B rain disorder d enies. N umbness d enies. B alance trouble d enies. C onfusion d enies. F ainting/blackouts d enies. T ingling d enies. T remors d enies. * Medical History: A rthritis, Back,Hip,and Knee pain, Fibromyalgia, High blood pressure, Measles, Mumps, Chicken pox. * Surgical History: G all bladder removal 2015, vascular 2017, afeb 2004, carpal tunnel surgery . * Family History: M other: , foot problemsheart attack, diagnosed with Family history of arthritis, Unspecified essential hypertension, Other malignant neoplasm of unspecified site. F ather: , foot problemsheart attackpoor circulation, diagnosed with Unspecified essential hypertension, Other malignant neoplasm of unspecified site. * Social History: T obacco Use: T obacco Use/Smoking A re you a: f ormer smoker A dditional Findings: Tobacco Non-User C urrent non-smoker, but past smoking history unknown Tobacco use other than smoking A re you an other tobacco user? N o D rugs/Alcohol: D rugs H ave you used drugs other than those for medical reasons in the past 12 months? Y es Alcohol Screen D id you have a drink containing alcohol in the past year? N o P oints 0 I nterpretation N egative M iscellaneous: C affeine: yes, frequency:, 1-2 cups per day. Marital status: single, . * Medications: T aking Tylenol , Taking Enbrel 50 MG/ML Solution Prefilled Syringe 1 mL Subcutaneous , Taking traMADol HCl 50 MG Tablet 1 tablet as needed Orally Once a day , Taking Metoprolol Succinate ER 50 MG Tablet Extended Release 24 Hour 1 tablet Orally Once a day , Taking Furosemide 40 MG Tablet 1 tablet Orally Once a day , Taking Folic Acid 1 MG Tablet 1 tablet Orally Once a day , Taking Warfarin Sodium 10 MG Tablet 1 tablet Orally Once a day Objective: * Vitals: H t: 6 ft 2 in, Wt:397 lbs, BMI:50.97, Shoe size: 12-13, Ht-cm: 187.96 cm, Wt-k.08 kg. 6 ft 2 in. Assessment: Plan: * Treatment: * Images: * The named appointment provid er may or may not be the originator of this progress note, and it is not deemed complete until electronically signed by the appointment provider. Sign off status: Pending * Provider: Johnie Álvarez DPM Date: Generated for Yocasta napier/Cody/Silva on: 04:38 PM EDT
--- OUTSIDE RECORDS SUMMARY | 2024-07-13 09:30 | XMS_ITS ---
Author Organization [facility] Address [address] [place] [address] Care Team Providers Care Blind Hooker Name Role Phone Joselyn SHERMAN, Angelita Garcia Primary Care Provider Un available Bryson Piña Unavailable [phone] Encounters Encounter Location Date Provider Diagnosis [facility] [address] [place] [address] 07/13/2024 Bryson Piña Plan Of Treatment No Information Progress Notes * WEAVER Zulma EDOB:[birth year] (69 yo F)Acc No.[id number]:07/13/2024 Progress Note Patient: Zulma SUAZO Provider: Keo Piña DPM :1955 A ge:68 Y S ex:Female Date:07/13/2024 Address:[address] [place] [address] [address] [place] [address] Pcp:Jaden Fields Subjective: * Chief Complaints: * * Medical History: Objective: * Vitals: Assessment: Plan: * Treatment: * Images: * The named appointment provid er may or may not be the originator of this progress note, and it is not deemed complete until electronically signed by the appointment provider. Sign off status: Pending * Provider: Keo Piña DPM Date: 09/12/2023 Generated for Printi ng/Fafantasmag/eTransmitting on: 1 04:39 PM EDT
--- OUTSIDE RECORDS SUMMARY | 2024-10-09 12:00 | XMS_ITS ---
Author Organization [facility] [place] Address [address] [facility] [place] [address] Care Team Providers Care Showroom Consultant Name Role Phone Joselyn SHERMAN, Angelita Garcia Primary Care Provider Un available Bryson Piña Unavailable [phone] Medications Medication SIG (Take, Route, Frequency, Duration) [...] Negative Encounters Encounter Location Date Provider Diagnosis [facility] [place] [address] [place] [address] 10/09/2024 Bryson Piña Plan Of Treatment No Information Progress Notes * Zulma WEAVER EDOB:[birth year] (69 yo F)Acc No.[id number]:10/09/2024 Progress Note Patient: Zulma SUAZO Provider: Keo Piña DPM :1955 A ge:69 Y S ex:Female Date:10/09/2024 Address:[address] [place] [address], [facility] [address], [place], [place] Pcp:Jaden Fields Subjective: * Chief Complaints: * [...] enies. C ardiovascular: Pacemaker d enies. M AIR DUCT MECHANIC d enies. W PW d enies. C [...] 0 10/09/2024 Generated for Yocasta Davila/Silva on: 04:39 PM EDT
--- OUTSIDE RECORDS SUMMARY | 2025-02-28 10:45 | XMS_ITS ---
Author Organization [facility] Address [address] [place] [address] Care Team Providers Care Vp Packaging Name Role Phone Joselyn SHERMAN, Angelita Garcia Primary Care Provider Un available Bryson Piña Unavailable [phone] Mabel Swenson Unavailable [phone] Medications Medication SIG (Take, Route, Frequency, Duration) [...] Active Encounters Encounter Location Date Provider Diagnosis [facility] [address] [place] [address] 02/28/2025 Mabel Swenson Plan Of Treatment No Information Progress Notes * Zulma WEAVER EDOB:[birth year] (69 yo F)Acc No.[id number]:02/28/2025 Progress Note Patient: Zulma SUAZO Provider: Iain Swenson DPM :1955 A ge:69 Y S ex:Female Date:02/28/2025 Address:[address] [place] [address], [facility] [address] [facility], [facility] Pcp:Jaden Fields Subjective: * Chief Complaints: * [...] 0 02/28/2025 Generated for Yocasta napier/Cody/Silva on: 04:39 PM EDT
--- OUTSIDE RECORDS SUMMARY | 2025-04-30 11:30 | XMS_ITS ---
Author Organization [facility] Address [address] [place] [address] Care Team Providers Care Process Environmental Technician Name Role Phone Joselyn SHERMAN, Angelita Garcia Primary Care Provider Un available Bryson Piña Unavailable [phone] Janet Thorpe Unavailable [phone] Medications Medication SIG (Take, Route, Frequency, Duration) [...] Active Encounters Encounter Location Date Provider Diagnosis [facility] [address] [place] [address] 04/30/2025 Janet Thorpe Plan Of Treatment No Information Progress Notes * Zulma WEAVER EDOB:[birth year] (69 yo F)Acc No.[id number]:04/30/2025 Progress Note Patient: Zulma SUAZO Provider: Johan Thorpe DPM :1955 A ge:69 Y S ex:Female Date:04/30/2025 Address:[address] [place] [address], [facility] [address] [facility], [facility] Pcp:Jaden Fields Subjective: * Chief Complaints: * [...] 0 04/30/2025 Generated for Yocasta napier/Cody/Anahyitting on: 04:39 PM EDT
[2025-06-20 13:29] VITALS: BP 118/74; PULSE 88; TEMP 36.7; O2SAT 98
--- NOTE | 2025-06-20 13:29 | AM.OFFWIN_ITS ---
Intake Vital Signs 06/20/25 13:29 Height 6 ft 2 in BMI Reason not done Patient refused/unable BP 118/74 Blood Pressure Location Lt brachial Position Sitting Pulse 88 Pulse Source Pulse Oximeter Temp 98.1 F Temp Source Oral Pulse Oximetry (%) 98 Oxygen Delivery Method Room Air Intake Visit Reasons: ep diarrhea Intake Note: pt is here for c/o diarrhea, hemorrhoid flare up Patient Tobacco Use Status: Former Tobacco user Allergies No Known Allergies Allergy (Verified 06/20/25 13:30) Do you need a note to return to daycare/school/sports/work: No HPI HPI Comments History of Present Illness Details History of Present Illness - The patient is a 69-year-old female pr esenting with diarrhea. - She states that she started with diarr hea months before her admission in February, while she was in the hospital, and after she left the hospital. - Hospitalized for congestive heart fail ure, she experienced severe diarrhea attributed to blood thinners and adjustment to her medications. - She states that she had hemorrhoids an d was seen by a surgeon. - She was given treatment for the hemorr hoids and her diarrhea had resolved - She states that she had been doing wel l until about 3 days ago when the diarrhea returned. - Adjustments were made to her diet, jamarcus er intake, and medications to manage the diarrhea in the past. - She states that she had wiped yesterda y and she had blood on the paper and on her hand. - She states that the stools are brown, soft, and mush. - She states that she is limited on how much she can drink due to her CHF. - She states that she has no melena or h ematochezia. - She denies fever, chills, abd pain, CP , SOB, travel, new foods, or sick contacts. Physical Exam General: Cooperative, healthy appearing, comfortable, no acute distress and well developed Orientation: Patient oriented x3 Limitations: No limitations Respiratory: Normal respiratory effort and able to speak in complete sentences. Clear to auscultation bilaterally. No w/r/r noted. Cardiovascular: Regular rate and rhythm. Normal S1 and S2. No m/r/g noted. GI: Normal to inspection. Hypoactive BS noted. Soft to palpation and nontender, non-distended. No TTP of the 4 quadrants. No guarding or rebound tenderness noted. Negative CVA tenderness noted. Patient was informed and verbally consented to the use of an ambient scribe for clinic note documentation during this visit. [facility] Medical History Pericardial effusion CHF (congestive heart failure) HTN (hypertension) Permanent atrial fibrillation Hemorrhoids with complication Elevated alkaline phosphatase level Tubular adenoma of colon Urinary incontinence Gait instability Problem situation relating to social and personal history Difficulty in walking Acquired deformity of toenail Polyarticular osteoarthritis Seropositive rheumatoid arthritis Morbid obesity Chronic diastolic congestive heart failure FACUNDO on CPAP Mild persistent asthma Surgical History History of carpal tunnel surgery Heel spur History of laparoscopic cholecystectomy History of total abdominal hysterectomy and bilateral salpingo-oophorectomy Family History Mother Pancreatic cancer Father Pancreatic cancer Myocardial infarction Maternal Grandmother Breast cancer Paternal Grandfather Myocardial infarction Paternal Grandmother Myocardial infarction Social History Household Members: None Housing: Apartment Do you presently have visiting nurse or other home services: Yes Alcohol intake: former Comment: patient refusing alarms Patient Tobacco Use Status: Former Tobacco user e-Cigarette/Vaping Use: Never Used Substance Use Type: Marijuana Advance Directives Date on File: 11/11/22 service: No Current occupational status: disabled Cognitive needs: No Hearing needs: No Vision needs: Yes Review of Systems Const All systems reviewed & are unremarkable except as noted in HPI and below Physical Exam Vital Signs: Last Vital Signs Temp 98.1 F 06/20/25 13:29 Pulse 88 06/20/25 13:29 BP 118/74 06/20/25 13:29 Pulse Ox 98 06/20/25 13:29 Oxygen Delivery Method Room Air 06/20/25 13:29 Assessment & Plan Assessment & Plan (1) Diarrhea: Code(s): R19.7 - Diarrhea, unspecified Qualifiers: Diarrhea type: unspecified type Qualified Code(s): R19.7 - Diarrhea, unspecified Plan Most likely medication reaction complicated by hemorrhoids plan - imodium as needed, recommend not taking daily - continue with medication for hemorrhoids - will need to follow up with GI - needs a colonoscopy - can add GI panel if diarrhea continues - advised the ER if weakness, dizziness, abd pain, blood from rectum, etc - follow up with PCP Medications: New loperamide (Imodium A-D) 2 mg PO DAILY 20 tabs 0RF Coding Level of Care Code Est Pt Level 3 (53632) Diagnoses Diarrhea, unspecified type R19.7 Diarrhea type: unspecified type
--- OUTSIDE RECORDS SUMMARY | 2025-06-20 16:39 | XMS_ITS | Patient Health Record ---
Author Organization [facility] Address [address] [place] [address] Care Team Providers Care Associate Professor Of Automation Name Role Phone Joselyn SHERMAN, Angelita Garcia Primary Care Provider Un available Bryson Piña Unavailable [phone] Janet Thorpe Unavailable [phone] Mabel Swenson Unavailable [phone] Allergies No Known Allergies Reason For Referral [...] atherosclerosis of arteries of lower limbs (disorder) ([id number] ) Atherosclerosis of [place] artery of both lower extremities, with unspecified presence of clinical manifestation (I70.203) Active confirmed Encounters [facility] [address] [facility] [address] [facility] [address] 10/09/[address] [address] 11/26/[address] [facility] [address] 02/28/[address] [address] 04/30/2025 Bryson Piña Plan Of Treatment Pending Test Test Name Order Date [id number] NAIL, 1-5 04/20/2024 [id number] SKIN LESIONS, 2 TO 4 04/20/20 24 [id number] DYSTROPHIC NAILS ANY # Insurance Providers Payer Name Payer Address Payer Phone Subscriber Number Group Number Insured Name Patient Relationship to Insured Coverage Start Date Coverage End Date [facility] [employer] Claims [address] [place] [id number] Zulma Patle Self - patient is the insured Medical (General) History Medical History History ICD Code Arthritis Back,Hip,and Knee pain Fibromyalgia High blood pressure Measles Mumps Chicken pox Surgical History Surgery Date(Month/Year) Gall bladder removal 2016 vascular 2017 afeb 2004 carpal tunnel surgery
--- OUTSIDE RECORDS SUMMARY | 2025-06-20 16:39 | XMS_ITS | Patient Health Record ---
Author Organization [facility] Address [address] [place] [address] Care Team Providers Care Vfx Artist Name Role Phone Joselyn SHERMAN, Angelita Primary Care Provider Noel Huerta Jr Unavailable [phone] Reason For Referral No Information Medications Medication SIG (Take, Route, Frequency, Duration) Notes Start Date End Date Status Colyte with Flavor Packs 240 GM As directed Orally Over the specified time.; Duration: 1 day(s) 02/11/2016 Active Enbrel 50 MG/ML [...] Problem Status W/U Status Risk Notes Problem Abnormal feces (353353786) Abnormal findings in stool (R19.5) Active confirmed Plan Of Treatment Future Test Test Name Order Date COLONOSCOPY 02/11/2016 Insurance Providers Payer Name Payer Address Payer Phone Subscriber Number Group Number Insured Name Patient Relationship to Insured Coverage Start Date Coverage End Date [facility] [address] [place] [address] [id number] LALI ADEN Self - patient is the insured Medical (General) History Medical History History ICD Code colonoscopy 07-09-2009 atrial fibrillation rheumatoid arthritis Denies TN,DM,CVA,Lung disease,renal dise ase Surgical History Surgery Date(Month/Year) hysterectomy heel spurs carpal tunnel repair cholecystectomy 02/05/2016
--- OUTSIDE RECORDS SUMMARY | 2025-06-20 16:39 | XMS_ITS | Clinical Summary ---
Author Organization [facility] Address [email or web address] [place] [address] Phone Care Team Providers Care Devops Developer Name Role Phone Juan Aleman MD Unavailable [phone] Angelita Alves MD Primary Care Provider Allergies No known active allergies Medications furosemide (LASIX) 40 MG tabletIndications:8 0-120 mg a day prn Take by mouth. Indications: 80-120 mg a day prn Active albuterol [...] 3 5 Active traMADoL (ULTRAM) 50 mg tabletIndications:S eropositive rheumatoid arthritis of multiple sites,Primary osteoarthritis involving multiple joints,Chronic midline low back pain without sciatica TAKE 1 TABLET BY MOUTH AT BEDTIME NEEDED FOR PAIN 28 tablet 5 Active ergocalciferol (DRISDOL) 50,000 unit capsuleIndications: [...] 5 Active folic acid (FOLVITE) 1 MG tabletIndications:C hronic anemia Take 1 tablet (1 mg total) by mouth daily. 90 tablet 3 5 Active Active Problems Problem Noted Date [...] more cooperative. Patient requests support letter to [employer] in [place], [place] regarding handicapped accessible apartment that she [...] sure to inform any new medical doctor, PRINCIPAL SECURITY ARCHITECT, [place] about chronic immunosuppression particularly in emergency [...] sure to inform any new medical doctor, PRINCIPAL SECURITY ARCHITECT, PA about chronic immunosuppression particularly in emergency [...] sure to inform any new medical doctor, PRINCIPAL SECURITY ARCHITECT, PA about chronic immunosuppression particularly in emergency [...] sure to inform any new medical doctor, PRINCIPAL SECURITY ARCHITECT, PA about chronic immunosuppression particularly in emergency [...] sure to inform any new medical doctor, PRINCIPAL SECURITY ARCHITECT, PA about chronic immunosuppression particularly in emergency [...] sure to inform any new medical doctor, PRINCIPAL SECURITY ARCHITECT, PA about chronic immunosuppression particularly in emergency [...] sure to inform any new medical doctor, PRINCIPAL SECURITY ARCHITECT, PA about chronic immunosuppression particularly in emergency [...] sure to inform any new medical doctor, PRINCIPAL SECURITY ARCHITECT, PA about chronic immunosuppression particularly in emergency [...] sure to inform any new medical doctor, PRINCIPAL SECURITY ARCHITECT, PA about chronic immunosuppression particularly in emergency [...] sure to inform any new medical doctor, PRINCIPAL SECURITY ARCHITECT, PA about chronic immunosuppression particularly in emergency [...] sure to inform any new medical doctor, PRINCIPAL SECURITY ARCHITECT, PA about chronic immunosuppression particularly in emergency [...] sure to inform any new medical doctor, PRINCIPAL SECURITY ARCHITECT, PA about chronic immunosuppression particularly in emergency situations. Assessment & Plan (10/10/2020 2:57 PM EST): Hold Enbrel whenever running fever, feeling sick or taking antibiotics. Make sure to inform any new medical doctor, PRINCIPAL SECURITY ARCHITECT, PA about chronic immunosuppression particularly in emergency situations. Assessment & Plan (06/25/2020 2:31 PM EDT): Hold Enbrel whenever running fever, feeling sick or taking antibiotics. Make sure to inform any new medical doctor, PRINCIPAL SECURITY ARCHITECT, PA about chronic immunosuppression particularly in emergency situations. Assessment & Plan (03/10/2020 11:09 AM EDT): Hold Enbrel whenever running fever, feeling sick or taking antibiotics. Make sure to inform any new medical doctor, PRINCIPAL SECURITY ARCHITECT, PA about chronic immunosuppression particularly in emergency situations. Assessment & Plan (08/22/2019 2:52 PM EST): Hold Enbrel whenever running fever, feeling sick or taking antibiotics. Make sure to inform any new medical doctor, PRINCIPAL SECURITY ARCHITECT, PA about chronic immunosuppression particularly in emergency situations. Assessment & Plan (11/23/2018 3:05 PM EDT): Hold Enbrel whenever running fever, feeling sick or taking antibiotics. Make sure to inform any new medical doctor, PRINCIPAL SECURITY ARCHITECT, PA about chronic immunosuppression particularly in emergency [...] next visit [facility] 3 mths[facility] I have previously provided her with [...] next visit in 4 mths[facility]. I have previously provided her with [...] next visit in 4 mths[facility]. I have previously provided her with [...] next visit in 4 mths-[facility] I have previously provided her with [...] next visit in 4 mths-[facility]. I have previously provided her with [...] Type Department Care Team Description 05/01/2025 Telephone [facility] [address] [place], [place] [address] Kemi Alanis CMA 04/26/2025 11:30 AM EDT Office Visit [facility] [address] [place] [address] Soo Tyson MD Seropositive rheumatoid arthritis of [...] PM EDT Hospital Encounter [facility] [address] [place] [address] Soo Tyson MD Discharge Disposition: Home or Self Care 04/11/2025 Refill [facility] [address] [place] [address] [place] [address] Soo Tyson MD Medication Refill 04/04/2025 Refill [facility] [address] [place] [address] [place] [address] Soo Tyson MD Medication Refill from Last [...] Description 08/08/2025 10:00 AM EST Office Visit [facility] [address] [place] [address] Soo Tyson MD [address], [address] [place] [address] [email or web address] Health Maintenance Due Date Last Done Comments LIPID PANEL 1955 DEPRESSION SCREENING 1967 HEPATITIS C SCREENING 1973 MAMMOGRAM 1995 COLOGUARD 2000 COLONOSCOPY 2000 COLORECTAL CANCER SCREENING 2000 FIT TEST 2000 FOBT 2000 SIGMOIDOSCOPY 2000 VIRTUAL COLONOSCOPY 2000 RSV VACCINE (1 - Risk 50-74 years 1-dose series) 2005 OSTEOPOROSIS SCREENING INITIAL (ONE-TIME) 2020 INFLUENZA VACCINE (#1) 2025 4, 06/16/2023, 05/30/2022, Additional history exists COVID-19 VACCINE ( season) 2025 06/01/2024, 06/16/2023, 05/30/2022, Additional history [...] Screen (04/26/2025 1:18 PM EDT) Urine (Urine) Soo Tyson MD URINE ORDERABLES Final R esult EXTERNAL NON-INTERFACED REF LAB * Quantiferon-TB Gold (04/22/2025 10:39 AM EDT) QuantiFERON-TB Gold Negative Negative [facility] [place] Comment: (NOTE) No interferon-gamma response to M. [...] Ag minus Nil 0.00 IU/mL [facility] [place] TB2 Ag minus Nil 0.00 IU/mL [facility] [place] Mitogen minus Nil 5.54 IU/mL [facility] MED/PATH [place] Nil Result 0.01 IU/mL [facility]/PATH [place] Blood 04/22/2025 10:3 9 AM EDT 04/22/2025 10:45 AM EDT Soo Tyson MD LAB BLOOD ORDERABLES Fin al Result Performing Organization Address City/[facility]/ZIP Co de Phone Number [facility] MED/PATH [place] [address] [place] [address] * Comprehensive metabolic panel (03/12/2025 11:35 AM EDT) Only the most recent of2 resultswithin the time period is included. Blood us Soo Tyson MD LAB BLOOD ORDERABLES Fin al Result EXTERNAL NON-INTERFACED REF LAB from Last 3 Months or Most Recently Relevant to Health Maintenance [place] [id number] [facility] [place] [id number] [facility] MEDICARE REPLACEMENT MEDICARE [place] [address] [place] [address] MEDICARE REPLACEMENT MEDICARE [place] [address] [place] [address] MEDICARE REPLACEMENT [facility] MEDICARE REPLACEMENT MEDICARE REPLACEMENT [place] [id number] Care Teams Devops Developer Relationship Specialty Start Date End Date Angelita Alves MD [address] [place] [address] PCP - General Internal Medicine 03/01/25 Juan Aleman MD [address] [place] [address], [address] [place] [address] [email or web address] 09/09/17 Additional Source Comments The information contained in this document represents components of the legal health record. It is not the complete legal health record.[facility]
--- OUTSIDE RECORDS SUMMARY | 2025-06-20 16:40 | XMS_ITS | Clinical Summary ---
Author Organization [facility] Address [address] [place] [address] Care Team Providers Care Medical Receptionist Assistant Name Role Phone Angelita Alves Md, MD [...] 88 11/25/2020 11:04 AM EDT Temperature 36.9 C (98.5 F) 02/24/2018 1:47 PM EDT Respiratory Rate 14 02/24/2018 1:47 PM EDT [...] PCV) 2020 BMI CHECK/ADVISE 09/05/2024 11/25/2020 INFLUENZA (#1) 2025 Care Teams Medical Receptionist Assistant Relationship Specialty Start Date End Date Angelita Alves MD, MD PCP - General Internal Medicine 11/25/20
--- OUTSIDE RECORDS SUMMARY | 2025-06-20 16:40 | XMS_ITS | Encounter Summary ---
Author Organization [facility] Address [address] [place] [address] Care Team Providers Care Career Law Clerk Name Role Phone Virginia Santoyo MD Primary Care Provider Lavell Vizcarra Primary Care Provider UnavailAngelita Joseph Md, MD Primary Care Provider Unavailable Encounter Details Date Type Department Care Team Description 09/09/2017 Classics Professor Report Medical Records [address] [place] [address] Soo Tyson MD Social History Tobacco Use Types Packs/Day Years Used Date Smoking Tobacco: Never Assessed Sex Assigned at Date Recorded Not on file documented as of this encounter Plan of Treatment Not on file documented as of this encounter Visit Diagnoses Not on filedocumented in this encounter Care Teams Career Law Clerk Relationship Specialty Start Date End Date Virginia Santoyo MD PCP - General Internal Medicine 09/14/17 11/24/20 Lavell Triana PCP - General 12/24/16 09/13/17 Angelita Alves MD, MD PCP - General Internal Medicine 11/25/20 documented as of this encounter
== END 2025-06-20 15:13 | disposition home or self-care (01) ==
PROVIDERS: PCP Internal Medicine; Visit Provider Physician Assistant Medical
DX: R19.7 Diarrhea, unspecified (principal)

== ENCOUNTER → 2025-06-20 13:18 | Outpatient (BNVA) | payer OTHER, SELFPAY | PROVIDERS: PCP Internal Medicine; Visit Provider Physician Assistant Medical | DX: I10 Essential (primary) hypertension (principal); R19.7 Diarrhea, unspecified | CPT/HCPCS: 99212 ==

== ENCOUNTER 2025-07-01 09:58 | Outpatient (AMB) | payer OTHER, SELFPAY ==
--- OUTSIDE RECORDS SUMMARY | 2024-01-20 07:00 | XMS_ITS ---
Author Organization [facility] Address [address] [place] [address] Care Team Providers Care Director Of Creative Services Name Role Phone Joselyn SHERMAN, Angelita Primary Care Provider Manjinder Wagner Jr, Noel Chairez [phone] REASON FOR VISIT Patient presents today for a colon screening Encounters Encounter Location Date Provider Diagnosis [facility] [address] [place] [address] 01/20/2024 Noel Wganer Jr Plan Of Treatment Next Appt Details Provider Name:Noel clarke Jr, 10/10/2025 02:35:00 PM, [address] [place] [address], [address], [place], [address], Progress Notes * LALI SÁNCHEZ EDOB:[birth year] (69 yo F)Acc No.[id number]:01/20/2024 Progress Notes Patient: Iain LUCIENGRAYSON LALI Crowley Provider: Odessa Wagner MD :1955 A ge:68 Y S ex:Female Date:01/20/2024 Address:[address] , [facility] [place] Pcp:Angelita Alves MD Subjective: * Chief Complaints: [...] 01/20/2024 Generated for Yocasta napier/Cody/Silva on: 1 11:45 AM EDT
--- OUTSIDE RECORDS SUMMARY | 2024-06-14 05:30 | XMS_ITS ---
Author Organization [facility] Address [address] [place] [address] Care Team Providers Care Inspector Grain Mill Products Name Role Phone Joselyn SHERMAN, Angelita Garcia Primary Care Provider Un available Bryson Piña Unavailable [phone] Black, Jacquelin Unavailable [phone] REASON FOR VISIT r/s for sooner apt [...] in Encounters Encounter Location Date Provider Diagnosis [facility] [address] [place] [address] 06/14/2024 Jacquelin Álvaerz Plan Of Treatment No Information Progress Notes * Zulma WEAVER EDOB:[birth year] (69 yo F)Acc No.[id number]:06/14/2024 Progress Notes Patient: Zulma SUAZO Provider: Johnie Álvarez DPM :1955 A ge:68 Y S ex:Female Date:06/14/2024 Address:[address] [place] [address], [address], [facility] Pcp:Jaden Fields Subjective: * Chief Complaints: * [...] enies. C ardiovascular: Pacemaker d enies. M ACID EXTRACTOR d enies. W PW d enies. C [...] DPM Date: Generated for Yocasta napier/Cody/Silva on: 11:45 AM EDT
--- OUTSIDE RECORDS SUMMARY | 2024-07-13 09:30 | XMS_ITS ---
Author Organization [facility] Address [address] [place] [address] Care Team Providers Care Client Manager Name Role Phone Joselyn SHERMAN, Angelita Garcia Primary Care Provider Un available Bryson Piña Unavailable [phone] Encounters Encounter Location Date Provider Diagnosis [facility] [address] [place] [address] 07/13/2024 Bryson Piña Plan Of Treatment No Information Progress Notes * WEAVER Zulma EDOB:[birth year] (69 yo F)Acc No.[id number]:07/13/2024 Progress Note Patient: Zulma SUAZO Provider: Keo Piña DPM :1955 A ge:68 Y S ex:Female Date:07/13/2024 Address:[address] [place] [address] [place] [address] Pcp:Jaden Fields Subjective: * Chief Complaints: * [...] 09/12/2023 Generated for Printi ng/Farene/eTransmitting on: 1 11:46 AM EDT
--- OUTSIDE RECORDS SUMMARY | 2024-10-09 12:00 | XMS_ITS ---
Author Organization [facility] [place] Address [address] [facility] [place] [address] Care Team Providers Care Labor Crew Supervisor Name Role Phone Joselyn SHERMAN, Angelita Garcia Primary Care Provider Un available Bryson Piña Unavailable [phone] Medications Medication SIG (Take, Route, Frequency, Duration) [...] Negative Encounters Encounter Location Date Provider Diagnosis [facility] [place] [address] [place] [address] 10/09/2024 Bryson Piña Plan Of Treatment No Information Progress Notes * Zulma WEAVER EDOB:[birth year] (69 yo F)Acc No.[id number]:10/09/2024 Progress Note Patient: Zulma SUAZO Provider: Keo Piña DPM :1955 A ge:69 Y S ex:Female Date:10/09/2024 Address:[address] [place] [address], [facility] [address], [place], [place] Pcp:Jaden Fields Subjective: * Chief Complaints: * * ROS: G eneral/Constitutional: Nausea d enies. V omiting d enies. H asima Thirst d enies. L oss appetite d [...] enies. C ardiovascular: Pacemaker d enies. M GRAPE GROWER d enies. W PW d enies. C [...] DPM Date: 0 10/09/2024 Generated for Yocasta napier/Cody/Silva on: 1 11:45 AM EDT
--- OUTSIDE RECORDS SUMMARY | 2025-02-28 10:45 | XMS_ITS ---
Author Organization [facility] Address [address] [place] [address] Care Team Providers Care Rotor Winder Name Role Phone Joselyn SHERMAN, Angelita Garcia Primary Care Provider Un available Bryson Piña Unavailable [phone] Mabel Swenson Unavailable [phone] Medications Medication SIG (Take, Route, Frequency, Duration) Notes Start Date End Date Status Tylenol Active Enbrel 50 MG/ML 1 mL Subcutaneous Active Folic Acid 1 MG Oral; Duration: 90 Days Active traMADol HCl 50 MG 1 tablet as needed O rally Once a day Active traMADol HCl 50 MG TAKE 1 TABLET BY MELANIE TH AT BEDTIME NEEDED FOR PAIN Oral; Duration: 28 Days Active Enbrel 50 MG/ML Subcutaneous; Durati on: 28 Days Active Cephalexin 500 MG Oral; Duration: 7 Days Active Metoprolol Succinate ER 50 MG Oral; Duration: 90 Days Acti ve Warfarin Sodium 10 MG Oral; Duration: 83 Days Active Furosemide 40 MG Oral; Duration: 90 Days Active Metoprolol Succinate ER 50 MG 1 tablet Orally Once a day A ctive Furosemide 40 MG 1 tablet Orally Once a day Active Folic Acid 1 MG 1 tablet Orally Once a day Active Warfarin Sodium 10 MG 1 tablet Orally Once a day Active Encounters Encounter Location Date Provider Diagnosis [facility] [address] [place] [address] 02/28/2025 Mabel Swenson Plan Of Treatment No Information Progress Notes * Zulma WEAVER EDOB:[birth year] (69 yo F)Acc No.[id number]:02/28/2025 Progress Note Patient: Zulma SUAZO Provider: Iain Swenson DPM :1955 A ge:69 Y S ex:Female Date:02/28/2025 Address:[address] [place] [address], [address] [facility], [facility] Pcp:Jaden Fields Subjective: * Chief Complaints: * * Medical History: A rthritis, Back,Hip,and Knee pain, Fibromyalgia, High blood pressure, Measles, Mumps, Chicken pox. * Medications: T aking Tylenol , Taking [...] provider. Sign off status: Pending * Provider: Iain Swenson DPM Date: 0 02/28/2025 Generated for Yocasta napier/Cody/Silva on: 11:45 AM EDT
--- OUTSIDE RECORDS SUMMARY | 2025-04-30 11:30 | XMS_ITS ---
Author Organization [facility] Address [address] [place] [address] Care Team Providers Care Tool And Die Machinist Name Role Phone Joselyn SHERMAN, Angelita Garcia Primary Care Provider Un available Bryson Piña Unavailable [phone] Janet Thorpe Unavailable [phone] Medications Medication SIG (Take, Route, Frequency, Duration) Notes Start Date End Date Status Cephalexin 500 MG Oral; Duration: 7 Days Active Metoprolol Succinate ER 50 MG Oral; Duration: 90 Days Acti ve Folic Acid 1 MG 1 tablet Orally Once a day Active Warfarin Sodium 10 MG 1 tablet Orally Once a day Active Enbrel 50 MG/ML Subcutaneous; Durati on: 28 Days Active Tylenol Active Enbrel 50 MG/ML 1 mL Subcutaneous Active traMADol HCl 50 MG 1 tablet as needed O rally Once a day Active Metoprolol Succinate ER 50 MG 1 tablet Orally Once a day A ctive Furosemide 40 MG 1 tablet Orally Once a day Active Warfarin Sodium 10 MG Oral; Duration: 83 Days Active Furosemide 40 MG Oral; Duration: 90 Days Active Folic Acid 1 MG Oral; Duration: 90 Days Active traMADol HCl 50 MG TAKE 1 TABLET BY MELANIE TH AT BEDTIME NEEDED FOR PAIN Oral; Duration: 28 Days Active Encounters Encounter Location Date Provider Diagnosis [facility] [address] [place] [address] 04/30/2025 Janet Thorpe Plan Of Treatment No Information Progress Notes * Zulma WEAVER EDOB:[birth year] (69 yo F)Acc No.[id number]:04/30/2025 Progress Note Patient: Zulma SUAZO Provider: Johan Thorpe DPM :1955 A ge:69 Y S ex:Female Date:04/30/2025 Address:[address] [place] [address], [facility] [address] [facility], [facility] Pcp:Jaden Fields Subjective: * Chief Complaints: * * Medical History: * Medications: T aking Tylenol , Taking [...] provider. Sign off status: Pending * Provider: Johan Thorpe DPM Date: 0 04/30/2025 Generated for Yocasta napier/Cody/Anahyitting on: 11:46 AM EDT
[2025-07-01 10:42] VITALS: BP 116/64; PULSE 87; RESP 17; TEMP 36.4; O2SAT 94; BMI 48.5
--- NOTE | 2025-07-01 10:42 | MHC.PC.OV ---
Vital Signs 07/01/25 10:42 Height 6 ft 2 in Weight 378 lb BMI 48.5 BP 116/64 Blood Pressure Location Lt brachial Position Sitting Respiration 17 Pulse 87 Pulse Source Pulse Oximeter Temp 97.6 F Temp Source Oral Pulse Oximetry (%) 94 Oxygen Delivery Method Room Air Intake Visit Reasons: rollartor walker/needs weight Intake Note: Pt is here today needs a new rx rollator walker Affirmative Action Specialist Required: No Allergies No Known Allergies Allergy (Verified 07/07/25 01:06 EST) Medication List - Last Reconciled 07/01/25 by Angelita Alves MD albuterol sulfate 2.5 mg (3 mL) inhalation Q4-6H PRN albuterol sulfate 90 mcg/actuation 2 puffs inhalation Q4-6H PRN apixaban (Eliquis) 5 mg PO BID colchicine 0.6 mg PO BID ergocalciferol (vitamin D2) 1,250 mcg PO TH@0900 etanercept 50 mg subcut TH@0900 folic acid 1 mg PO DAILY furosemide 80 mg (2 x 40 mg) PO DAILY loperamide (Imodium A-D) 2 mg PO DAILY metoprolol succinate ER 50 mg PO DAILY [Rollator walker with seat As directed] spironolactone 25 mg PO BID tramadol 50 mg PO BEDTIME PRN Tobacco use date assessed: 07/01/25 Fall risk assessment: 2 + Falls in past year Last assessed Fall Risk: 07/01/25 Dental Screening Dental Screen Date: 07/01/25 Did you have a dental visit in the last 12 months?: No Did you have a dental problem in the last 6 months where you did not have access to dental care?: No Was dental information given to patient?: Patient has dentist HPI rollartor walker/needs weight HPI Details 69-year-old lady with history of hypertension, polyarticular osteoarthritis, rheumatoid arthritis on Enbrel, atrial fibrillation on Coumadin, mild persistent asthma, COPD, morbid obesity, hemorrhoids, who presents today requesting for a prescription for a new rollator. Her current rollator, which she has had since 2020, is no longer functional due to worn wheels and brakes. A previous request for a new device was declined by an affiliated company, reportedly because her weight was not documented in her medical record, and they were unaware of her height of 6'2 , which requires a larger model. The patient has been losing weight and her current weight is 378 pounds. She continues to take furosemide 80 mg twice daily and colchicine twice daily. She reports chronic joint pains secondary to arthritis, which she states will never go away. Lab work from March showed slight anemia with a hemoglobin of 11.9, which was attributed to concurrent bleeding at the time. She has a history of fluctuating liver enzymes, specifically the AST, and will follow up with a transportation associate. Her swing type lathe operator, Dr. Mckeon, manages her low vitamin D with a prescription for 50,000 units once weekly. Her last cholesterol check in December was normal. The patient has an upcoming appointment with her swing type lathe operator in August, whoalready ordered comprehensive lab to be done prior to appointment The patient reports being up-to-date on all vaccinations, including RSV, pneumonia, COVID-19, and influenza. She states she received the Prevnar 20 vaccine in 2021. [facility] Medical History Pericardial effusion CHF (congestive heart failure) HTN (hypertension) Permanent atrial fibrillation Hemorrhoids with complication Elevated alkaline phosphatase level Tubular adenoma of colon Urinary incontinence Gait instability Problem situation relating to social and personal history Difficulty in walking Acquired deformity of toenail Polyarticular osteoarthritis Seropositive rheumatoid arthritis Morbid obesity Chronic diastolic congestive heart failure FACUNDO on CPAP Mild persistent asthma Surgical History History of carpal tunnel surgery Heel spur History of laparoscopic cholecystectomy History of total abdominal hysterectomy and bilateral salpingo-oophorectomy Family History Mother Pancreatic cancer Father Pancreatic cancer Myocardial infarction Maternal Grandmother Breast cancer Paternal Grandfather Myocardial infarction Paternal Grandmother Myocardial infarction Social History Household Members: None Housing: Apartment Do you presently have visiting nurse or other home services: Yes Alcohol intake: former Comment: patient refusing alarms Patient Tobacco Use Status: Former Tobacco user e-Cigarette/Vaping Use: Never Used Substance Use Type: Marijuana Advance Directives Date on File: 11/11/22 service: No Current occupational status: disabled Cognitive needs: No Hearing needs: No Vision needs: Yes Questionnaire Thrive Questionnaire Date Thrive assessed: 12/22/24 I am a: Patient What is your living situation today?: I have a steady place to live Within the past 12 months, did the food you bought not last and you didn't have the money to get more?: Never true Within the past 12 months, did you worry whether your food would run out before you got money to buy more?: Never true Do you have trouble paying for medicines?: No Do you have trouble getting transportation to medical appointments?: No Do you have trouble paying your heating and electricity bill?: No Do you have trouble taking care of your child, family member or friend?: No Do you have trouble with day-to-day activities such as bathing, preparing meals, shopping, managing finances, etc.?: Yes Are you currently unemployed and looking for a job?: No Are you interested in more education?: No Please select the resources that you would like help with: None Currently or been in a relationship where the following occur: No concerns reported THRIVE Score: 0 FRED-7 AMB Questionnaire FRED-7 Date FRED - 7 assessed: 11/22/23 Source: Developed by Drs. Sy Almanza, Cynthia Vargas, Lázaro Clements and colleagues, with an educational sinan from [employer]. Review of Systems Const Denies daytime sleepiness, Denies fatigue, Denies fever(s), Denies lethargy, Denies malaise and Denies night sweats Eyes Reports no additional complaints ENT Denies nasal congestion and Denies post nasal drip Card Denies chest pain, Denies pedal edema, Denies dyspnea and Denies orthopnea Resp Denies cough and Denies dyspnea GI Denies abdominal pain and Denies heartburn Reports no additional complaints Musc Reports as per HPI Skin/Breast Denies rash Neuro Reports no additional complaints Psych Reports no additional complaints Endo Denies fatigue and Denies heat intolerance Jose D/Lymph Denies easy bruising Aller/Immun Denies seasonal rhinorrhea Physical exam (Primary Care) Vital Signs: Last Vital Signs Temp 97.6 F 07/01/25 10:42 Pulse 87 07/01/25 10:42 Resp 17 07/01/25 10:42 BP 116/64 07/01/25 10:42 Pulse Ox 94 07/01/25 10:42 Oxygen Delivery Method Room Air 07/01/25 10:42 BMI result Body Mass Index 48.5 Tobacco/Smoking Status: Tobacco use Status Tobacco use date assessed 07/01/25 07/01/25 10:50 Patient Tobacco Use Status Former Tobacco user 07/01/25 10:43 e-Cigarette/Vaping Use Never Used 07/01/25 10:43 Thrive Assessment: Date of Thrive Assessment Date Thrive assessed 12/22/24 07/01/25 10:43 Currently or been in a relationship where the following occur: No concerns reported Const Other: Alert oriented x3, morbidly obese, no acute cardiorespiratory distress noted General: no acute distress and alert Nutritional Appearance: obese morbidly obese Orientation/consciousness: patient oriented x3 Limitations: ambulation with walker HENMT General nose exam: Normal external nose present Face and sinus: Yes face symmetric Mouth: Normal oral and palatal mucosa present and moist mucous membranes Eyes General: appearance normal, both eyes and all related structures Neck Neck: Yes full ROM, Yes no lymphadenopathy and Yes supple Resp Auscultation: clear to auscultation bilaterally Cardio Other: S1-S2 present regular rate and rhythm GI Other: Obese, soft, with normal bowel sounds, nontender with no mass palpated General: Yes no CVA tenderness Back/Spine/Pelvis Back: no CVA tenderness Skin General skin exam: no rashes or lesions noted Neuro General: patient oriented x3, moves all extremities and no focal motor deficits Extrem General: Yes full ROM, Yes no joint enlargement and Yes no calf tenderness Psych Appearance: grossly normal and well kempt Mental Status: mental status grossly normal Speech and movement: Normal speech and movement present Affect: normal affect Coding Level of Care Code Est Pt Level 3 (89625) Diagnoses Seropositive rheumatoid arthritis M05.9 Polyarticular osteoarthritis M15.9 Difficulty in walking R26.2 Gait instability R26.81 Assessment & Plan Assessment & Plan (1) Seropositive rheumatoid arthritis: Comment: Followed by Dr. Castorena Code(s): M05.9 - Rheumatoid arthritis with rheumatoid factor, unspecified Category: Medical Plan: Has difficulty with prolonged ambulation, prescription sent for Rollator with wheels. Currently followed by rheumatology, on Enbrel (2) Polyarticular osteoarthritis: Code(s): M15.9 - Polyosteoarthritis, unspecified Category: Medical Plan: Followed by Rheumatology, currently on and pull and takes tramadol as needed for pain (3) Difficulty in walking: Code(s): R26.2 - Difficulty in walking, not elsewhere classified Category: Medical Plan: Prescription for Rollator road wheels given to patient (4) Gait instability: Code(s): R26.81 - Unsteadiness on feet Category: Medical Plan: Prescription sent for Rollator with wheels Medications: New [Rollator with wheels] Weight is 378 lb Height is 6 ft 2 1 ea 0RF NS M05.9 - Rheumatoid arthritis with rheumatoid factor, unspecified, M15.9 - Polyosteoarthritis, unspecified, R26.2 - Difficulty in walking, not elsewhere classified, R26.81 - Unsteadiness on feet
--- OUTSIDE RECORDS SUMMARY | 2025-07-01 11:45 | XMS_ITS | Patient Health Record ---
Author Organization [facility] Address [address] [place] [address] Care Team Providers Care Biofuels Production Technician Name Role Phone Joselyn SHERMAN, Angelita Primary Care Provider Manjinder Wagner Jr, Noel Chairez Reason For Referral No Information Medications Medication [...] W/U Status Risk Notes Problem Abnormal feces (433230384) Abnormal findings in stool (R19.5) Active confirmed Plan Of Treatment Future Test Test Name Order Date COLONOSCOPY 02/11/2016 Next Appt Details Provider Name:Noel clarke Jr, 10/10/2025 02:35:00 PM, [address], [address], [place], [address], Insurance Providers Payer Name Payer Address Payer Phone Subscriber Number Group Number Insured Name Patient Relationship to Insured Coverage Start Date Coverage End Date [employer] [address] [place] [address] [id number] LALI ADEN Self - patient is the insured Medical (General) History Medical History History ICD Code colonoscopy 07-09-2009 atrial fibrillation rheumatoid arthritis Denies ND,DM,CVA,Lung disease,renal dise ase Surgical History Surgery Date(Month/Year) hysterectomy heel spurs carpal tunnel repair cholecystectomy 02/05/2016
--- OUTSIDE RECORDS SUMMARY | 2025-07-01 11:45 | XMS_ITS | Clinical Summary ---
Author Organization [facility] Address [address] [place] [address] Phone Care Team Providers Care Forepart Reducer Name Role Phone Juan Aleman MD Unavailable [phone] Angelita Alves MD Primary Care Provider Allergies [...] more cooperative. Patient requests support letter to [employer] [facility] [employer] in [place], [place] regarding handicapped accessible apartment that she [...] sure to inform any new medical doctor, LUMITE INJECTOR, [place] about chronic immunosuppression particularly in emergency [...] sure to inform any new medical doctor, LUMITE INJECTOR, PA about chronic immunosuppression particularly in emergency [...] sure to inform any new medical doctor, LUMITE INJECTOR, PA about chronic immunosuppression particularly in emergency [...] sure to inform any new medical doctor, LUMITE INJECTOR, PA about chronic immunosuppression particularly in emergency [...] sure to inform any new medical doctor, LUMITE INJECTOR, PA about chronic immunosuppression particularly in emergency [...] sure to inform any new medical doctor, LUMITE INJECTOR, PA about chronic immunosuppression particularly in emergency [...] sure to inform any new medical doctor, LUMITE INJECTOR, PA about chronic immunosuppression particularly in emergency [...] sure to inform any new medical doctor, LUMITE INJECTOR, PA about chronic immunosuppression particularly in emergency [...] sure to inform any new medical doctor, LUMITE INJECTOR, PA about chronic immunosuppression particularly in emergency [...] sure to inform any new medical doctor, LUMITE INJECTOR, PA about chronic immunosuppression particularly in emergency [...] sure to inform any new medical doctor, LUMITE INJECTOR, PA about chronic immunosuppression particularly in emergency [...] sure to inform any new medical doctor, LUMITE INJECTOR, PA about chronic immunosuppression particularly in emergency situations. Assessment & Plan (10/10/2020 2:57 PM EST): Hold Enbrel whenever running fever, feeling sick or taking antibiotics. Make sure to inform any new medical doctor, LUMITE INJECTOR, PA about chronic immunosuppression particularly in emergency situations. Assessment & Plan (06/25/2020 2:31 PM EDT): Hold Enbrel whenever running fever, feeling sick or taking antibiotics. Make sure to inform any new medical doctor, LUMITE INJECTOR, PA about chronic immunosuppression particularly in emergency situations. Assessment & Plan (03/10/2020 11:09 AM EDT): Hold Enbrel whenever running fever, feeling sick or taking antibiotics. Make sure to inform any new medical doctor, LUMITE INJECTOR, PA about chronic immunosuppression particularly in emergency situations. Assessment & Plan (08/22/2019 2:52 PM EST): Hold Enbrel whenever running fever, feeling sick or taking antibiotics. Make sure to inform any new medical doctor, LUMITE INJECTOR, PA about chronic immunosuppression particularly in emergency situations. Assessment & Plan (11/23/2018 3:05 PM EDT): Hold Enbrel whenever running fever, feeling sick or taking antibiotics. Make sure to inform any new medical doctor, LUMITE INJECTOR, PA about chronic immunosuppression particularly in emergency [...] next visit in 3 mths-standing orders in [facility]. I have previously provided her [...] next visit in 4 mths-standing orders in [facility]. I have previously provided her [...] next visit in 4 mths-standing orders in [facility]. I have previously provided her [...] next visit in 4 mths-standing orders in [facility]. I have previously provided her [...] next visit in 4 mths-standing orders in [facility]. I have previously provided her [...] Type Department Care Team Description 05/01/2025 Telephone [facility] [address] [place], [place] [address] Kemi Alanis CMA 04/26/2025 11:30 AM EDT Office Visit [facility] Rheumatology [address] [place] [address] Soo Tyson MD Seropositive rheumatoid arthritis of [...] PM EDT Hospital Encounter [facility] [address] [place] [address] Soo Tyson MD Discharge Disposition: Home or Self Care 04/11/2025 Refill [facility] Rheumatology [address] [place] [address] [place] [address] Soo Tyson MD Medication Refill 04/04/2025 Refill [facility] Rheumatology [address] [place] [address] [place] [address] Soo Tyson MD Medication Refill from Last [...] Description 08/08/2025 10:00 AM EST Office Visit [facility] Rheumatology [address] [place] [address] Soo Tyson MD [address] [facility], [address] [place] [address] [email or web address] Health Maintenance Due Date Last Done Comments [...] 10:39 AM EDT) QuantiFERON-TB Gold Negative Negative [facility] [place] Comment: (NOTE) No interferon-gamma [...] Ag minus Nil 0.00 IU/mL [facility] [place] TB2 Ag minus Nil 0.00 IU/mL [facility] LAB MED/[facility] [place] Mitogen minus Nil 5.54 IU/mL [facility] MED/PATH [place] Nil Result 0.01 IU/mL [facility]/PATH [place] Blood 04/22/2025 10:3 9 AM EDT 04/22/2025 10:45 AM EDT Soo Tyson MD LAB BLOOD ORDERABLES Fin al Result Performing Organization Address City/[facility]/ZIP Co de Phone Number [facility] MED/PATH [place] [address] [place] [address] * Comprehensive metabolic panel (03/12/2025 11:35 AM EDT) Only the most recent of2 resultswithin the time period is included. Blood us Soo Tyson MD LAB BLOOD ORDERABLES Fin al Result EXTERNAL NON-INTERFACED REF LAB from Last 3 Months or Most Recently Relevant to Health Maintenance [place] [id number] [facility] [place] [id number] [facility] MEDICARE [facility]PLACEMENT MEDICARE REPLAC[place] [address] [address] MEDICARE REPLACEMENT MEDICARE REPLAC[place] [address] MEDICARE REPLACEMENT [facility] MEDICARE REPLACEMENT MEDICARE REPLACEMENT [place] [id number] Care Teams Forepart Reducer Relationship Specialty Start Date End Date Angelita Alves MD [address] [place] [address] PCP - General Internal Medicine 03/01/25 Juan Aleman MD [address] [place] [address], [address] [place] [address] [email or web address] Family Medicine 09/09/17 Additional Source Comments The information contained in this document represents components of the legal health record. It is not the complete legal health record.[facility]
--- OUTSIDE RECORDS SUMMARY | 2025-07-01 11:45 | XMS_ITS | Patient Health Record ---
Author Organization [facility] Address [address] [place] [address] Care Team Providers Care Youth Development Professional Name Role Phone Joselyn SHERMAN, Angelita Garcia Primary Care Provider Un available Bryson Piña Unavailable [phone] Janet Thorpe Unavailable [phone] Mabel Swenson Unavailable [phone] Allergies No Known Allergies Reason For Referral [...] atherosclerosis of arteries of lower limbs (disorder) ([id number] ) Atherosclerosis of [place] artery of both lower extremities, with unspecified presence of clinical manifestation (I70.203) Active confirmed [facility]counters [facility] [address] [facility] [address] 07/13/2024 [facility] [address] 10/09/[address] [address] 11/26/2024 [facility] [address] 02/28/[address] [address] 04/30/2025 Bryson Piña Plan Of Treatment Pending Test Test Name Order Date [id number] NAIL, 1-5 04/20/2024 [id number] SKIN LESIONS, 2 TO 4 04/20/20 24 [id number] DYSTROPHIC NAILS ANY # Insurance Providers Payer Name Payer Address Payer Phone Subscriber Number Group Number Insured Name Patient Relationship to Insured Coverage Start Date Coverage End Date [facility] [employer] Claims [address] [place] [id number] Zulma Patel Self - patient is the insured Medical (General) History Medical History History ICD Code Arthritis Back,Hip,and Knee pain Fibromyalgia High blood pressure Measles Mumps Chicken pox Surgical History Surgery Date(Month/Year) Gall bladder removal 2016 vascular 2017 afeb 2004 carpal tunnel surgery
== END 2025-07-01 11:35 | disposition home or self-care (01) ==
LOC: HO.HMCC 09:59
PROVIDERS: PCP Internal Medicine; Visit Provider Internal Medicine
DX: M05.9 Rheumatoid arthritis with rheumatoid factor, unspecified (principal); M15.9 Polyosteoarthritis, unspecified; R26.81 Unsteadiness on feet

== ENCOUNTER → 2025-07-01 09:58 | Outpatient (BNVA) | payer OTHER, SELFPAY | PROVIDERS: PCP Internal Medicine; Visit Provider Internal Medicine | DX: I10 Essential (primary) hypertension (principal); E55.9 Vitamin D deficiency, unspecified; M05.9 Rheumatoid arthritis with rheumatoid factor, unspecified; M15.9 Polyosteoarthritis, unspecified; R26.81 Unsteadiness on feet | CPT/HCPCS: 99212 ==

== ENCOUNTER 2025-07-05 09:19 | Outpatient (AMB) | payer OTHER, SELFPAY ==
--- OUTSIDE RECORDS SUMMARY | 2024-01-20 07:00 | XMS_ITS ---
Author Organization [facility] Address [address] [place] [address] Care Team Providers Care Campaign Management Senior Manager Name Role Phone Joselyn SHERMAN, Angelita Primary Care Provider Manjinder Wagner Jr, Noel Chairez [phone] REASON FOR VISIT Patient presents today for a colon screening Encounters Encounter Location Date Provider Diagnosis [facility] [address] [place] [address] 01/20/2024 Noel Wagner Jr Plan Of Treatment Next Appt Details Provider Name:Noel clarke Jr, 10/10/2025 02:35:00 PM, [address] [place] [address], [address], [place], [address], Progress Notes * LALI ÁSNCHEZ EDOB:[birth year] (69 yo F)Acc No.[id number]:01/20/2024 Progress Notes Patient: Iain LUCIENGRAYSON LALI Crowley Provider: Odessa Wagner MD :1955 A ge:68 Y S ex:Female Date:01/20/2024 Address:[address] , [facility] [place] Pcp:Angelita Alves MD Subjective: * Chief Complaints: * 1 . Patient presents today for a colon screening. * Medical History: Objective: * Vitals: Assessment: Plan: * Treatment: * * The named appointment provid er may or may not be the originator of this progress note, and it is not deemed complete until electronically signed by the appointment provider. Sign off status: Pending * Provider: Odessa Wagner MD Date: 0 01/20/2024 Generated for Yocasta napier/Cody/Silva on: 1 10:19 AM EDT
--- OUTSIDE RECORDS SUMMARY | 2024-06-14 05:30 | XMS_ITS ---
Author Organization [facility] Address [address] [place] [address] Care Team Providers Care Lobster Man Name Role Phone Joselyn SHERMAN, Angelita Garcia Primary Care Provider Un available Bryson Piña Unavailable [phone] Black, Jacquelin Unavailable [phone] REASON FOR VISIT r/s for sooner apt [...] in Encounters Encounter Location Date Provider Diagnosis [facility] [address] [place] [address] 06/14/2024 Jacquelin Álvarez Plan Of Treatment No Information Progress Notes * Zulma WEAVER EDOB:[birth year] (69 yo F)Acc No.[id number]:06/14/2024 Progress Notes Patient: Zulma SUAZO Provider: Johnie Álvarez DPM :1955 A ge:68 Y S ex:Female Date:06/14/2024 Address:[address] [place] [address], [address], [facility] Pcp:Jaden Fields Subjective: * Chief Complaints: * [...] enies. C ardiovascular: Pacemaker d enies. 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 W PW d enies. C [...] DPM Date: Generated for Yocasta napier/Cody/Silva on: 10:20 AM EDT
--- OUTSIDE RECORDS SUMMARY | 2024-07-13 09:30 | XMS_ITS ---
Author Organization [facility] Address [address] [place] [address] Care Team Providers Care Dance Therapist Name Role Phone Joselyn SHERMAN, Angelita Garcia Primary Care Provider Un available Bryson Piña Unavailable [phone] Encounters Encounter Location Date Provider Diagnosis [facility] [address] [place] [address] 07/13/2024 Bryson Piña Plan Of Treatment No Information Progress Notes * WEAVER, Zulma EDOB:[birth year] (69 yo F)Acc No.[id number]:07/13/2024 Progress Note Patient: Zulma SUAZO Provider: Keo Piña DPM :1955 A ge:68 Y S ex:Female Date:07/13/2024 Address:[address] [place] [address] [place] [address] Pcp:Jaden Fields Subjective: * Chief Complaints: * * Medical History: Objective: * Vitals: Assessment: Plan: * Treatment: * Images: * The named appointment provid er may or may not be the originator of this progress note, and it is not deemed complete until electronically signed by the appointment provider. Sign off status: Pending * Provider: Keo Piña DPM Date: 09/12/2023 Generated for Printi ng/Farene/eTransmitting on: 1 10:21 AM EDT
--- OUTSIDE RECORDS SUMMARY | 2024-10-09 12:00 | XMS_ITS ---
Author Organization [facility] [place] Address [address] [facility] [place] [address] Care Team Providers Care Assistant Statistician Name Role Phone Joselyn SHERMAN, Angelita Garcia Primary Care Provider Un available Bryson Piña Unavailable [phone] Medications Medication SIG (Take, Route, Frequency, Duration) Notes Start Date End Date Status Cephalexin 500 MG Oral; Duration: 7 Days Active Metoprolol Succinate ER 50 MG Oral; Duration: 90 Days Acti ve Warfarin Sodium 10 MG Oral; Duration: 83 Days Active Furosemide 40 MG Oral; Duration: 90 Days Active Enbrel 50 MG/ML Subcutaneous; Durati on: 28 Days Active traMADol HCl 50 MG 1 tablet as needed O rally Once a day Active Metoprolol Succinate ER 50 MG 1 tablet Orally Once a day A ctive Furosemide 40 MG 1 tablet Orally Once a day Active Folic Acid 1 MG 1 tablet Orally Once a day Active Warfarin Sodium 10 MG 1 tablet Orally Once a day Active Enbrel 50 MG/ML 1 mL Subcutaneous Active Folic Acid 1 MG Oral; Duration: 90 Days Active traMADol HCl 50 MG TAKE 1 TABLET BY MELANIE TH AT BEDTIME NEEDED FOR PAIN Oral; Duration: 28 Days Active Tylenol Active Social History Tobacco Use: Social History Observation Description Date Details (start date - stop date) Never Smoker NA - NA Tobacco use other than smoking: Question Answer Notes Are you an other tobacco user? No Tobacco Control (Standard) Question Answer Notes Tobacco use: Nonsmoker Additional Findings: Tobacco non-user Current no nsmoker AUDIT-C (Standard) Question Answer Notes Did you have a drink containing alcohol in the p ast year? No Points 0 Interpretation Negative Encounters Encounter Location Date Provider Diagnosis [facility] [place] [address] [place] [address] 10/09/2024 Bryson Piña Plan Of Treatment No Information Progress Notes * Zulma WEAVER EDOB:[birth year] (69 yo F)Acc No.[id number]:10/09/2024 Progress Note Patient: Zulma SUAZO Provider: Keo Piña DPM :1955 A ge:69 Y S ex:Female Date:10/09/2024 Address:[address] [place] [address], [facility] [address], [place], [place] Pcp:Jaden Fields Subjective: * Chief Complaints: * * ROS: G eneral/Constitutional: Nausea d enies. [...] enies. C ardiovascular: Pacemaker d enies. M SAND CLEANING MACHINE OPERATOR d enies. W PW d enies. C [...] T remors d enies. * Medical History: * Social History: T obacco Use: T obacco use other than smoking A re you an other tobacco user? N o Tobacco Control (Standard) T obacco use: N onsmoker A dditional Findings: Tobacco non-user C urrent nonsmoker D rugs/Alcohol: D rugs H ave you used drugs other than those for medical reasons in the past 12 months? Y es D rug/Alcohol: A SHANNON-C (Standard) D id you have a drink containing alcohol in the past year? N o P oints 0 I nterpretation N egative * Medications: T aking Tylenol , Taking [...] tablet Orally Once a day , Taking Enbrel 50 MG/ML Solution Prefilled Syringe Subcutaneous , Taking Cephalexin 500 MG Capsule Oral , Taking Metoprolol Succinate ER 50 MG Tablet Extended Release 24 Hour Oral , Taking Warfarin Sodium 10 MG Tablet Oral , Taking Furosemide 40 MG Tablet Oral , Taking Folic Acid 1 MG Tablet Oral , Taking traMADol HCl 50 MG Tablet TAKE 1 TABLET BY MOUTH AT BEDTIME NEEDED FOR PAIN Oral Objective: * Vitals: Assessment: Plan: * Treatment: * Images: * The named appointment provid er may or may not be the originator of this progress note, and it is not deemed complete until electronically signed by the appointment provider. Sign off status: Pending * Provider: Keo Piña DPM Date: 0 10/09/2024 Generated for Yocasta Davila/Silva on: 10:20 AM EDT
--- OUTSIDE RECORDS SUMMARY | 2025-02-28 10:45 | XMS_ITS ---
Author Organization [facility] Address [address] [place] [address] Care Team Providers Care Music Teacher Name Role Phone Joselyn SHERMAN, Angelita Garcia Primary Care Provider Un available Bryson Piña Unavailable [phone] Mabel Swenson Unavailable [phone] Medications Medication SIG (Take, Route, Frequency, Duration) [...] Active Encounters Encounter Location Date Provider Diagnosis [facility] [address] [place] [address] 02/28/2025 Mabel Swenson Plan Of Treatment No Information Progress Notes * Zulma WEAVER EDOB:[birth year] (69 yo F)Acc No.[id number]:02/28/2025 Progress Note Patient: Zulma SUAZO Provider: Iain Swenson DPM :1955 A ge:69 Y S ex:Female Date:02/28/2025 Address:[address] [place] [address], [address] [facility], [facility] Pcp:Jaden Fields Subjective: * Chief Complaints: * [...] 0 02/28/2025 Generated for Yocasta napier/Cody/Silva on: 10:20 AM EDT
--- OUTSIDE RECORDS SUMMARY | 2025-04-30 11:30 | XMS_ITS ---
Author Organization [facility] Address [address] [place] [address] Care Team Providers Care Receiver Setter Name Role Phone Joselyn SHERMAN, Angelita Garcia Primary Care Provider Un available Bryson Piña Unavailable [phone] Janet Thorpe Unavailable [phone] Medications Medication SIG (Take, Route, Frequency, Duration) [...] Active Encounters Encounter Location Date Provider Diagnosis [facility] [address] [place] [address] 04/30/2025 Janet Thorpe Plan Of Treatment No Information Progress Notes * Zulma WEAVER EDOB:[birth year] (69 yo F)Acc No.[id number]:04/30/2025 Progress Note Patient: Zulma SUAZO Provider: Johan Thorpe DPM :1955 A ge:69 Y S ex:Female Date:04/30/2025 Address:[address] [place] [address], [facility] [address] [facility], [facility] Pcp:Jaden Fields Subjective: * Chief Complaints: * [...] 0 04/30/2025 Generated for Yocasta napier/Cody/Anahyitting on: 10:21 AM EDT
[2025-07-05 09:26] VITALS: BP 120/64; PULSE 98; O2SAT 93; BMI 48.5
--- NOTE | 2025-07-05 09:26 | MHC.OFFVIS ---
Vital Signs 07/05/25 09:26 Height 6 ft 2 in Weight 378 lb 1.484 oz BMI 48.5 BP 120/64 Blood Pressure Location Lt brachial Position Sitting Pulse 98 Pulse Source Pulse Oximeter Pulse Oximetry (%) 93 Oxygen Delivery Method Room Air Intake Visit Reasons: facundo [employer] Officer Required: No Allergies No Known Allergies Allergy (Verified 07/05/25 09:29) HPI HPI facundo: Details: 69-year-old lady followed for underlying asthma, environmental allergies, and FACUNDO on CPAP.? Patient also has rheumatoid arthritis, previously on methotrexate, though at least 10 years prior.? Patient states that her asthma has been very well controlled after moving into a new apartment and she rarely requires to use her albuterol MDI or nebulizer. She denies recent exacerbations. She received her CPAP machine and her FACUNDO symptoms are well controlled. She continues to intentionally lose weight, now down 80 lb. [facility] Medical History Pericardial effusion CHF (congestive heart failure) HTN (hypertension) Permanent atrial fibrillation Hemorrhoids with complication Elevated alkaline phosphatase level Tubular adenoma of colon Urinary incontinence Gait instability Problem situation relating to social and personal history Difficulty in walking Acquired deformity of toenail Polyarticular osteoarthritis Seropositive rheumatoid arthritis Morbid obesity Chronic diastolic congestive heart failure FACUNDO on CPAP Mild persistent asthma Surgical History History of carpal tunnel surgery Heel spur History of laparoscopic cholecystectomy History of total abdominal hysterectomy and bilateral salpingo-oophorectomy Family History Mother Pancreatic cancer Father Pancreatic cancer Myocardial infarction Maternal Grandmother Breast cancer Paternal Grandfather Myocardial infarction Paternal Grandmother Myocardial infarction Social History Household Members: None Housing: Apartment Do you presently have visiting nurse or other home services: Yes Alcohol intake: former Comment: patient refusing alarms Patient Tobacco Use Status: Former Tobacco user e-Cigarette/Vaping Use: Never Used Substance Use Type: Marijuana Advance Directives Date on File: 11/11/22 service: No Current occupational status: disabled Cognitive needs: No Hearing needs: No Vision needs: Yes Review of Systems Const Denies daytime sleepiness, Denies excessive sweating, Denies fatigue, Denies fever(s), Denies lethargy, Denies malaise, Denies night sweats, Denies snoring and Denies weight loss Eyes Denies blurry vision and Denies itchy eyes ENT Denies nasal congestion, Denies post nasal drip, Denies sinus pain, Denies sinus pressure and Denies other ( Thrush) Card Denies chest pain, Denies pedal edema, Denies dyspnea, Denies orthopnea and Denies paroxysmal nocturnal dyspnea Resp Denies cough, Denies hemoptysis, Denies excessive phlegm production, Denies dyspnea, Denies snoring and Denies wheezing GI Denies abdominal pain and Denies heartburn Musc Denies myalgias, Denies arthralgias and Denies joint swelling Skin/Breast Denies rash Neuro Denies memory loss and Denies seizure-like activity Psych Denies abnormal sleep pattern, Denies anxiety and Denies memory loss Endo Denies excessive sweating, Denies fatigue and Denies heat intolerance Jose D/Lymph Denies easy bruising Aller/Immun Denies itchy eyes, Denies seasonal rhinorrhea and Denies wheezing Physical Exam Vital Signs: Last Vital Signs Pulse 98 07/05/25 09:26 BP 120/64 07/05/25 09:26 Pulse Ox 93 07/05/25 09:26 Oxygen Delivery Method Room Air 07/05/25 09:26 BMI result Body Mass Index 48.5 Const General: no acute distress and alert Nutritional Appearance: obese Orientation/consciousness: Other orientation findings ( oriented) HEENT Head: Yes atraumatic Eyes General: appearance normal, both eyes and all related structures Sclerae: sclerae normal EOM: EOMs intact bilaterally Neck Neck: Yes supple Lymphatic: no lymphadenopathy noted Resp Effort & Inspection: normal respiratory effort and no use of accessory muscles Auscultation: clear to auscultation bilaterally Cardio Rate: regular rate Rhythm: regular rhythm Heart sounds: no gallops, no murmurs and no rubs Skin General skin exam: other ( warm) Extrem General: No clubbing, No cyanosis and No edema Assessment & Plan Assessment & Plan (1) Mild persistent asthma: Code(s): J45.30 - Mild persistent asthma, uncomplicated Category: Medical Plan: Well controlled on current regimen of albuterol MDI/nebs. Continue current regimen. (2) FACUNDO on CPAP: Code(s): G47.33 - Obstructive sleep apnea (adult) (pediatric); Z99.89 - Dependence on other enabling machines and devices Category: Medical Plan: Therapy and compliance report reviewed - patient is benefitting from and is compliant with noninvasive positive pressure ventilation treatment, using it greater than 70% of the time, more than 4 hours per night. Continue current CPAP therapy. Coding Level of Care Code Est Pt Level 4 (14036) Diagnoses Mild persistent asthma J45.30 FACUNDO on CPAP G47.33; Z99.89
--- OUTSIDE RECORDS SUMMARY | 2025-07-05 10:20 | XMS_ITS | Patient Health Record ---
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, with unspecified presence of clinical manifestation (I70.203) Active confirmed Encounters [facility] [address] [address] [facility] [address] [facility] [address] 10/09/[address] [address] [facility] [address] [address] 02/28/[address] [address] 04/30/2025 Bryson Piña Plan Of Treatment Pending Test Test Name Order Date [id number] NAIL, 1-5 04/20/2024 [id number] SKIN LESIONS, 2 TO 4 04/20/20 24 [id number] DYSTROPHIC NAILS ANY # Insurance Providers Payer Name Payer Address Payer Phone Subscriber Number Group Number Insured Name Patient Relationship to Insured Coverage Start Date Coverage End Date [facility] [employer] Claims [address] [place] [id number] Zulma Patel Self - patient is the insured Medical (General) History Medical History History ICD Code Arthritis Back,Hip,and Knee pain Fibromyalgia High blood pressure Measles Mumps Chicken pox Surgical History Surgery Date(Month/Year) Gall bladder removal 2016 vascular 2017 afeb 2004 carpal tunnel surgery
--- OUTSIDE RECORDS SUMMARY | 2025-07-05 10:20 | XMS_ITS | Patient Health Record ---
Author Organization [facility] Address [address] [place] [address] Care Team Providers Care Inspector Balance Truing Name Role Phone Joselyn SHERMAN, Angelita Primary Care Provider Manjinder Wagner Jr, Noel Chairez [phone] Reason For Referral No Information Medications [...] W/U Status Risk Notes Problem Abnormal feces ([id number]) Abnormal findings in stool (R19.5) Active confirmed Plan Of Treatment Future Test Test Name Order Date COLONOSCOPY 02/11/2016 Next Appt Details Provider Name:Noel clarke Jr, 10/10/2025 02:35:00 PM, [address], [address], [place], [address], Insurance Providers Payer Name Payer Address Payer Phone Subscriber Number Group Number Insured Name Patient Relationship to Insured Coverage Start Date Coverage End Date [employer] [address] [place] [address] [id number] LALI ADEN Self - patient is the insured Medical (General) History Medical History History ICD Code colonoscopy 07-09-2009 atrial fibrillation rheumatoid arthritis Denies PA,DM,CVA,Lung disease,renal dise ase Surgical History Surgery Date(Month/Year) hysterectomy heel spurs carpal tunnel repair cholecystectomy 02/05/2016
--- OUTSIDE RECORDS SUMMARY | 2025-07-05 10:21 | XMS_ITS | Encounter Summary ---
Author Organization [facility] Address [address] [place] [address] Phone Care Team Providers Care Isolation Washer Name Role Phone Juan Aleman MD Unavailable [phone] Angelita Alves MD Primary Care Provider Reason for Visit * Reason Onset Date Comments Medication Refill 07/02/2025 Encounter Details Date Type Department Care Team (Late st Contact Info) Description 07/02/2025 Refill [facility] [address] [place] [address] Soo Tyson MD [address] [facility], [address] [place] [address] [email or web address] Medication Refill Social History Tobacco Use Types Packs/Day Years [...] on file Sexual Orientation Not on file documented as of this encounter Progress Notes * Michelle Perez MA - 07/02/2025 4:42 PM EDT Rx Care Gap Status - Instructions for Clinical Staff (prescriber discretion applies): > Mismatch review guide > Check PDMP for all controlled medication requests. Visit Info Last visit: 04/26/2025 Soo Tyson MD - Rheumatology [facility] > Requested f/u: Return in about 3 months (around 07/27/2025), or PLEASE PRINT LABS ORDER. Upcoming visit: 08/08/2025 Soo Tyson MD - Rheumatology [facility] ACTIONS TAKEN BY Michelle Perez MA - Checked PDMP/MassPAT. Opioid Rx Protocol - tramadol HCl Controlled substance renewals are at prescriber discretion. Pain mgmt profile/toxicology (urine/saliva) may be considered annually or more frequently if indicated. In-person visit in past 2 years: Yes (Last in-person visit: 04/26/2025 (oSo Sutherland MD - [facility])) Visit in past 4 months: Yes No benzodiazepine on medication list Opioid agreement on file: Yes Pain management profile/toxicology in past 12 months: No Vitamins, Minerals, Supplements, OTCs Rx Protocol - ergocalciferol (vitamin D2) Criteria met; renew for up to 12 months. Visit in the past 24 months: Yes Lab Results Component Value Date VITDT 23 (L) 06/21/2024 MassPAT is as follows: Picked up: 04/05/2025 Quantity/Supply: -day supply Refill: 0/0 UDS: 04/26/2025 Contract: 04/26/2025 * Michelle Perez MA - 07/02/2025 4:34 PM EDT Patient calls and leaves message on Rx Line requesting refill of Vitamin D2 50,000 Units and Tramadol. Medications pended. documented in this encounter Plan of Treatment Upcoming Encounters Date Type Department Care Team (Late st Contact Info) Description 08/08/2025 10:00 AM EST Office Visit [facility]ology [address] [place] [address] Soo Tyson MD [address] [facility], [address] [place] [address] [email or web address] documented as of this encounter Visit Diagnoses Diagnosis Vitamin D deficiency, unspecified Seropositive rheumatoid arthritis of multiple sites Primary osteoarthritis involving multiple joints Chronic midline low back pain without sciatica documented in this encounter Care Teams Isolation Washer Relationship Specialty Start Date End Date Angelita Alves MD [facility] [place] [address] PCP - General Internal Medicine 03/01/25 Juan Aleman MD [address] [place] [address], [address] [place] [address] [email or web address] Family Medicine 09/09/17 documented as of this encounter Additional Source Comments The information contained in this document represents components of the legal health record. It is not the complete legal health record.[facility]
--- OUTSIDE RECORDS SUMMARY | 2025-07-05 10:21 | XMS_ITS | Clinical Summary ---
Author Organization [facility] Address [address] [place] [address] Phone Care Team Providers Care Plant Assigner Name Role Phone Juan Aleman MD Unavailable [phone] Angelita Alves MD Primary Care Provider Allergies [...] EVERY WEEK 12 mL 3 5 Active spironolactone (ALDACTONE) 25 MG tablet [...] mouth daily. 90 tablet 3 5 Active ergocalciferol (DRISDOL) 50,000 unit capsuleIndications :Vitamin D deficiency, unspecified Take 1 capsule (50,000 Units total) by mouth once a week. 12 capsule 1 5 Active traMADoL (ULTRAM) 50 mg tabletIndications: Seropositive rheumatoid arthritis of multiple sites,Primary osteoarthritis involving multiple joints,Chronic midline low back pain without sciatica TAKE 1 TABLET BY MOUTH AT BEDTIME NEEDED FOR PAIN 28 tablet 5 Active traMADoL (ULTRAM) 50 mg tabletIndications: Seropositive rheumatoid arthritis of multiple sites,Primary osteoarthritis involving multiple joints,Chronic midline low back pain without sciatica TAKE 1 TABLET BY MOUTH AT BEDTIME NEEDED FOR PAIN 28 tablet 5 07/02/20 25 Discontin ued(Reord er) ergocalciferol (DRISDOL) 50,000 unit capsuleIndications :Vitamin D deficiency, unspecified TAKE 1 CAPSULE BY MOUTH 1 TIME A WEEK 12 capsule 1 5 07/02/20 25 Discontin ued(Reord er) Active Problems Problem [...] more cooperative. Patient requests support letter to [place] in [place], [place] regarding handicapped accessible apartment that she [...] & Plan (11/23/2018 3:03 PM EDT): Paul Araberlin. Monitor closely-possible impact from antibiotic therapy for [...] sure to inform any new medical doctor, CHANGE MANAGEMENT FACILITATOR, PA about chronic immunosuppression particularly in emergency [...] sure to inform any new medical doctor, CHANGE MANAGEMENT FACILITATOR, PA about chronic immunosuppression particularly in emergency [...] sure to inform any new medical doctor, CHANGE MANAGEMENT FACILITATOR, PA about chronic immunosuppression particularly in emergency [...] sure to inform any new medical doctor, CHANGE MANAGEMENT FACILITATOR, PA about chronic immunosuppression particularly in emergency [...] sure to inform any new medical doctor, CHANGE MANAGEMENT FACILITATOR, PA about chronic immunosuppression particularly in emergency [...] sure to inform any new medical doctor, CHANGE MANAGEMENT FACILITATOR, PA about chronic immunosuppression particularly in emergency [...] sure to inform any new medical doctor, CHANGE MANAGEMENT FACILITATOR, PA about chronic immunosuppression particularly in emergency [...] sure to inform any new medical doctor, CHANGE MANAGEMENT FACILITATOR, PA about chronic immunosuppression particularly in emergency [...] sure to inform any new medical doctor, CHANGE MANAGEMENT FACILITATOR, PA about chronic immunosuppression particularly in emergency [...] sure to inform any new medical doctor, CHANGE MANAGEMENT FACILITATOR, PA about chronic immunosuppression particularly in emergency [...] sure to inform any new medical doctor, CHANGE MANAGEMENT FACILITATOR, PA about chronic immunosuppression particularly in emergency [...] sure to inform any new medical doctor, CHANGE MANAGEMENT FACILITATOR, PA about chronic immunosuppression particularly in emergency situations. Assessment & Plan (10/10/2020 2:57 PM EST): Hold Enbrel whenever running fever, feeling sick or taking antibiotics. Make sure to inform any new medical doctor, CHANGE MANAGEMENT FACILITATOR, PA about chronic immunosuppression particularly in emergency situations. Assessment & Plan (06/25/2020 2:31 PM EDT): Hold Enbrel whenever running fever, feeling sick or taking antibiotics. Make sure to inform any new medical doctor, CHANGE MANAGEMENT FACILITATOR, PA about chronic immunosuppression particularly in emergency situations. Assessment & Plan (03/10/2020 11:09 AM EDT): Hold Enbrel whenever running fever, feeling sick or taking antibiotics. Make sure to inform any new medical doctor, CHANGE MANAGEMENT FACILITATOR, PA about chronic immunosuppression particularly in emergency situations. Assessment & Plan (08/22/2019 2:52 PM EST): Hold Enbrel whenever running fever, feeling sick or taking antibiotics. Make sure to inform any new medical doctor, CHANGE MANAGEMENT FACILITATOR, PA about chronic immunosuppression particularly in emergency situations. Assessment & Plan (11/23/2018 3:05 PM EDT): Hold Enbrel whenever running fever, feeling sick or taking antibiotics. Make sure to inform any new medical doctor, CHANGE MANAGEMENT FACILITATOR, PA about chronic immunosuppression particularly in emergency [...] next visit in 3 mths-standing orders in [facility]. I have previously provided her with pamphlets [...] next visit in 4 mths-standing orders in [facility]. I have previously provided her with pamphlets [...] next visit in 4 mths-standing orders in [facility]. I have previously provided her with pamphlets [...] next visit in 4 mths-standing orders in [facility]. I have previously provided her with pamphlets [...] next visit in 4 mths-standing orders in [facility]. I have previously provided her with pamphlets [...] Encounters Date Type Department Care Team Description 07/02/2025 Refill [facility] [address] [place] [address] [place] [address] Soo Tyson MD Medication Refill 05/01/2025 Telephone [facility] [address] [place] [address] [place] [address] Kemi Alanis CMA 04/26/2025 11:30 AM EDT Office Visit [facility] [address] [place] [address] [place] [address] Soo Tyson MD Seropositive rheumatoid arthritis of [...] 11:59 PM EDT Hospital Encounter [facility] [address] [place] [address] [place] [address] Soo Tyson MD Discharge Disposition: Home or Self Care 04/11/2025 Refill [facility] [address] [place] [address] [place] [address] Soo Tyson MD Medication Refill 04/04/2025 Refill [facility] [address] [place] [address] [place] [address] Soo Tyson MD Medication Refill from Last [...] Description 08/08/2025 10:00 AM EST Office Visit [facility] [address] [place] [address] Soo Tyson MD [address] [place] [address], [address] [place] [address] Health Maintenance Due Date Last Done Comments [...] 10:39 AM EDT) QuantiFERON-TB Gold Negative Negative [facility] [place] Comment: (NOTE) No interferon-gamma response to M. tuberculosis antigens was detected. Latent infection with M. tuberculosis is unlikely. A single negative result does not exclude infection with M. tuberculosis. In patients at high risk for M.tuberculosis infection, a second test should be considered in accordance with the 2017 ATS/IDSA/CDC Clinical Practice Guidelines for Diagnosis of Tuberculosis in Adults and Children [Michaelinsohn KIM et. al. Clin. Infect. Dis. 2017;64(2):111-115]. The reference range for the 'TB1 Ag minus Nil Result' and 'TB2 Ag minus Nil Result' is an Interferon-gamma level <0.35 IU/mL. TB1 Ag minus Nil 0.00 IU/mL [facility] [place] TB2 Ag minus Nil 0.00 IU/mL [facility] [place] Mitogen minus Nil 5.54 IU/mL [facility] [place] Nil Result 0.01 IU/mL [facility] [place] Blood 04/22/2025 10:3 9 AM EDT 04/22/2025 10:45 AM EDT us Soo Tyson MD LAB BLOOD ORDERABLES Fin al Result Performing Organization Address City/[facility] de Phone Number [facility] [address] [address] [place] [address] * Comprehensive metabolic panel (03/12/2025 11:35 AM EDT) Only the most recent of2 resultswithin the time period is included. Blood us Soo Tyson MD LAB BLOOD ORDERABLES Fin al Result Performing Organization Address [facility] de Phone Number EXTERNAL NON-INTERFACED REF LAB from Last 3 Months or Most Recently Relevant to Health Maintenance Insurance [facility] MEDICARE REPLACEMENT [place] [id number] [facility] MEDICARE [place] [address] [place] [address] [address] [place] [address] MEDICARE REPLACEMENT MEDICARE REPLACEMENT [facility] MEDICARE REPLACEMENT Care Teams Plant Assigner Relationship Specialty Start Date End Date Angelita Alves MD [address] [facility] [place] [address] PCP - General Internal Medicine 03/01/25 Juan Aleman MD [address] [place] [address], [address] [place] [address] [email or web address] Family Medicine 09/09/17 Additional Source Comments The information contained in this document represents components of the legal health record. It is not the complete legal health record.[facility]
== END 2025-07-05 09:41 | disposition home or self-care (01) ==
LOC: HO.HPS 09:20
PROVIDERS: PCP Internal Medicine; Visit Provider Internal Medicine Pulmonary Disease
DX: J45.30 Mild persistent asthma, uncomplicated (principal); G47.33 Obstructive sleep apnea (adult) (pediatric); Z99.89 Dependence on other enabling machines and devices
CPT/HCPCS: 99214

== ENCOUNTER → 2025-07-05 09:19 | Outpatient (BNVA) | payer OTHER, SELFPAY | PROVIDERS: PCP Internal Medicine; Visit Provider Internal Medicine Pulmonary Disease | DX: J45.30 Mild persistent asthma, uncomplicated (principal); G47.33 Obstructive sleep apnea (adult) (pediatric); Z99.89 Dependence on other enabling machines and devices | CPT/HCPCS: 99212 ==